=== PATIENT | male | born 1955 | race Caucasian/White ===

== ENCOUNTER → 2017-04-24 | Outpatient (CLI) | payer OTHER ==
[2017-04-24 15:28] LABS: ALT/SGPT 31 U/L (12-78); AST/SGOT 18 U/L (15-37); BLOOD UREA NITROGEN 22 mg/dl (7-18); CALCIUM 8.8 mg/dl (8.5-10.1); CARBON DIOXIDE 31 mmol/L (21-32); CHLORIDE 100 mmol/L (98-107); CREATININE 0.75 mg/dl (0.60-1.40); GLUCOSE 105 mg/dl (70-99); POTASSIUM 4.3 mmol/L (3.5-5.1); SODIUM 138 mmol/L (136-145); TRIGLYCERIDES 183 mg/dl (0-150); VERY LOW DENSITY LIPOPROT CALC 37 mg/dl
[2017-04-24 15:44] LABS: ALB/GLOB RATIO 0.9 (0.9-2); ALKALINE PHOSPHATASE 85 U/L (45-117); CHOLESTEROL 148 mg/dl (0-200); CHOLESTEROL/HDL RATIO 3.4; HDL CHOLESTEROL 44 mg/dl; LDL CHOLESTEROL CALCULATED 67 mg/dl
[2017-04-24 15:51] LABS: ESTIMATED AVERAGE GLUCOSE 154 mg/dl; HA1C FLAG Normal (Normal)
[2017-04-24 16:59] LABS: RATIO 28.5 mcg/mg (0-30.0)
== END | disposition home or self-care (01) ==
LOC: C.LAB1850 14:15
PROVIDERS: ATTEND Physician Assistant
DX: E11.9 Type 2 diabetes mellitus without complications (principal)

== ENCOUNTER → 2017-05-19 | Outpatient (CLI) | payer OTHER | END | disposition home or self-care (01) | LOC: C.LAB1850 16:15 | PROVIDERS: ATTEND Nurse Practitioner Adult Health | DX: Z12.5 Encounter for screening for malignant neoplasm of prostate (principal) ==

== ENCOUNTER → 2018-01-04 | Outpatient (CLI) | payer OTHER ==
[2018-01-04 16:39] LABS: BLOOD UREA NITROGEN 16 mg/dl (7-18); CALCIUM 9.1 mg/dl (8.5-10.1); CARBON DIOXIDE 30 mmol/L (21-32); CREATININE 0.78 mg/dl (0.60-1.40); GLUCOSE 128 mg/dl (70-99); POTASSIUM 4.2 mmol/L (3.5-5.1); SODIUM 139 mmol/L (136-145)
== END | disposition home or self-care (01) ==
LOC: C.LAB1850 14:33
PROVIDERS: ATTEND Nurse Practitioner Adult Health
DX: I10 Essential (primary) hypertension (principal); E66.01 Morbid (severe) obesity due to excess calories

== ENCOUNTER 2020-01-01 22:47 | Inpatient (IN) ==
[2020-01-01] MEDS ORDERED: ACETAMINOPHEN 1,000 MG/100 ML VIAL IV STA (23:23)
--- NOTE | 2020-01-01 23:36 | Emergency Department Note ---
History of Present Illness General Chief complaint: Penile Discharge Stated complaint: BIOPSY TODAY AND IS NOW BLEEDING FROM PENIS Time Seen by Provider: 01/01/20 23:04 Source: patient Mode of arrival: ambulatory Limitations: no limitations History of Present Illness Provider complaint: Blood in urine, fever Onset (ago): hour(s) Location: genitals Radiation: non-radiation Maximum Pain Intensity: 5 Current Pain Intensity: 5 Quality: + constant Relieved By: + none Exacerbated By: + other (urination) Associated symptoms: + fever/chills Treatments prior to arrival: none This is a 64 yo male who present to the ER complaining of blood with urination that began this evening following a prostate biopsy earlier today. Patient had a prostate biopsy performed earlier today by Dr. Huber. Patient states he had started taking Bactrim yesterday in preparation for the procedure as instructed. Patient is due for another dose at 1 AM. He had had a total of 3 doses prior to the procedure. Patient states he was told to expect some blood with urination following the procedure. Patient did have some initially after he voided in the office after the procedure. Patient states after going home he continued to have more and more blood in his urine, and passed a clot the size of a quarter. Patient has had moderate pain at the rectum since the procedure. Patient has not taken any additional pain medications. Patient denies any bleeding from the rectum. Patient is a diabetic. He has had this procedure done previously, and states he has never seen this much blood. Patient does not take any blood thinners per his report. Patient denies any Co. abdominal pain, chest pain, dizziness or headache. Patient denies shortness of breath, however his states that he appeared short of breath to her when they were at home. She states after noticing all the bleeding which had soaked through his pants she was helping to get him cleaned up and realized he felt warm. Patient did have a fever on arrival here. No other treatment prior to arrival. No known coronavirus exposure. Pt seen during a time of high acuity and national emergency pandemic while wearing PPE. Home Medications Home Medications Medication Instructions Recorded Confirmed Type finasteride 5 mg tablet 5 mg PO DAILY #90 tab 05/29/19 01/02/20 Rx insulin human U-100 NPH-regulr 40 units SQ BID #8 vial 05/29/19 01/02/20 Rx 70-30 mix 100 unit/mL subcutaneous susp simvastatin 20 mg tablet 20 mg PO DAILY #90 tab 05/29/19 01/02/20 Rx lancets 33 gauge #200 ea 09/05/19 01/01/20 Rx blood sugar diagnostic #200 ea 10/14/19 01/01/20 Rx pen needle, diabetic 32 gauge x #200 ea 10/14/19 01/01/20 Rx 5/32" insulin syringe-needle U-100 0.3 #100 ea 10/25/19 01/01/20 Rx mL 31 gauge x 5/16" losartan 25 mg tablet 25 mg PO DAILY #90 tab 11/12/19 01/02/20 Rx sulfamethoxazole 800 1 tab PO Q12H #6 tab 12/11/19 01/02/20 Rx mg-trimethoprim 160 mg tablet metformin 500 mg tablet 1,000 mg PO BID #360 tab 12/23/19 01/02/20 Rx Allergies Allergy/AdvReac Type Severity Reaction Status Date / Time Penicillins Allergy Unknown unknown Verified 01/02/20 00:30 allergy as a child Past Med/Surg History Medical History Diabetes mellitus type 2 in obese (Chronic) Dyslipidemia (Chronic) Hypertension (Chronic) Loss of sensation (Inactive) Morbid obesity (Chronic) Toenail fungus (Inactive) Surgical History H/O knee surgery H/O toe surgery Hx of tonsillectomy Family History Mother Cancer passed from myeloma and breast cancer at 88 yrs. 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 and A total of 10 systems reviewed and were otherwise negative Physical Exam Vital Signs Vital Signs - 24 hr 01/02/20 00:40 01/02/20 01:32 01/02/20 02:10 Temperature 37.7 C H 37.1 C Temperature Source Oral Oral Pulse Rate [Right Finger] 79 75 Pulse Rhythm [Right Finger] Regular Regular Pulse Strength [Right Finger] Normal Respiratory Rate 18 18 Respiratory Effort / Characteristics Non-Labored Non-Labored Spontaneous Respiratory Depth Normal Normal Respiratory Pattern Regular Regular Blood Pressure [Right Arm] 154/68 H 154/68 H Blood Pressure Mean [Right Arm] 96 96 Blood Pressure Position [Right Arm] Lying Pulse Oximetry 94 93 Oxygen Delivery Method Room Air Room Air 01/02/20 03:41 01/02/20 04:00 01/02/20 06:10 Temperature 37 C Temperature Source Oral Pulse Rate [Right Finger] 72 92 H Pulse Rhythm [Right Finger] Pulse Strength [Right Finger] Respiratory Rate 18 18 Respiratory Effort / Characteristics Non-Labored Respiratory Depth Normal Respiratory Pattern Blood Pressure [Right Arm] 179/70 H 162/78 H Blood Pressure Mean [Right Arm] 106 106 Blood Pressure Position [Right Arm] Pulse Oximetry 95 97 Oxygen Delivery Method Room Air 01/02/20 06:22 Temperature 38 C H Temperature Source Oral Pulse Rate [Right Finger] Pulse Rhythm [Right Finger] Pulse Strength [Right Finger] Respiratory Rate Respiratory Effort / Characteristics Respiratory Depth Respiratory Pattern Blood Pressure [Right Arm] Blood Pressure Mean [Right Arm] Blood Pressure Position [Right Arm] Pulse Oximetry Oxygen Delivery Method GENERAL: alert, well appearing, well nourished, no distress, non-toxic, obese EYE EXAM: normal conjunctiva, PERRL and EOM's grossly intact OROPHARYNX: no exudate, no erythema, lips, buccal mucosa, and tongue normal and mucous membranes are moist NECK: supple, no nuchal rigidity, no adenopathy, non-tender LUNGS: Clear to auscultation. Normal chest wall mechanics, no w/r/r HEART: no murmurs, S1 normal and S2 normal ABDOMEN: abdomen soft, non-tender, normo-active bowel sounds, no masses, no rebound or guarding. : Bilaterally descended testicles, no scrotal edema, penis retracted into the superior aspect of the scrotum, dried blood noted anteriorly, no significant active bleed BACK: Back is symmetrical on inspection and there is no deformity, no midline tenderness, no CVA tenderness. SKIN: no rashes and no bruising UPPER EXTREMITIES: upper extremities are grossly normal. FROM, nml pulses b/l. LOWER EXTREMITIES: No pitting edema. FROM, nml pulses b/l. Chronic appearing skin changes to bilateral pretibial regions likely due to diabetes. NEURO EXAM: Normal sensorium, cranial nerves II-XII grossly intact, normal speech, no gross weakness of arms, no gross weakness of legs. Gross sensation intact. Course Course 0211: Patient updated on results. Nursing placed Lopez catheter and the patient to be able to irrigate. A clot was initially found. Since then patient's urine has been clear draining into the catheter bag. Patient has no other symptoms at this time. 0330: Patient continues to have clear yellow urine in the Lopez catheter tubing. Patient has no new or evolving symptoms. No abdominal pain or pressure. 0550: Catheter was removed and patient was able to void twice with no sense of incomplete emptying. Patient states with the first urination after the catheter removed there was bright red blood again, however this then began to clear to a pink color. Patient concerned now because he is developing chills. I rechecked the patient's temperature bedside and it was 100.3. 0722: Discussed with Dr. Benjamin. Administered Medications Acetaminophen (Tylenol) 650 mg PO Q4H PRN PRN Reason: Pain or Fever Stop: 02/01/20 08:43 Last Admin: 01/02/20 14:08 Dose: 650 mg Documented by: [id number] Finasteride (Proscar) 5 mg PO DAILY [facility] Stop: 02/01/20 08:59 Last Admin: 01/02/20 09:49 Dose: 5 mg Documented by: [id number] Insulin Aspart (Novolog Flexpen) 0 units SC ACHS [facility] Stop: 02/01/20 11:29 Last Admin: 01/02/20 20:27 Dose: Not Given Documented by: [id number] Admin: 01/02/20 17:33 Dose: 5 units Documented by: [id number] Cosigned by: [id number] Admin: 01/02/20 12:19 Dose: 7 units Documented by: [id number] Cosigned by: [id number] Insulin Human Isoph/Insulin Regular (Humulin 70-30) 40 units SC BIDM [facility] Stop: 02/01/20 08:59 Last Admin: 01/02/20 17:33 Dose: 40 units Documented by: [id number] Cosigned by: [id number] Admin: 01/02/20 12:17 Dose: 40 units Documented by: [id number] Cosigned by: [id number] Ioversol (Optiray 320 125ml) 125 ml IV ONCE PRN PRN Reason: Interaction Checking Stop: 01/06/20 01:03 Last Admin: 01/02/20 01:04 Dose: 117 ml Documented by: [id number] Losartan Potassium (Cozaar) 25 mg PO DAILY [facility] Stop: 02/01/20 08:59 Last Admin: 01/02/20 09:48 Dose: 25 mg Documented by: [id number] Simvastatin (Zocor) 20 mg PO DAILY [facility] Stop: 02/01/20 08:59 Last Admin: 01/02/20 09:49 Dose: 20 mg Documented by: [id number] Discontinued Medications Sodium Chloride (Nss 1000ml) 1,000 mls @ 125 mls/hr IV .Q8H [facility] Stop: 01/31/20 23:29 Last Admin: 01/02/20 09:57 Dose: Not Given Documented by: [id number] Infusion: 01/02/20 09:57 Dose: 0 mls/hr Documented by: [id number] Admin: 01/02/20 00:30 Dose: 125 mls/hr Documented by: [id number] Acetaminophen (Ofirmev) 1,000 mg in 100 mls @ 400 mls/hr IV NOW STA Stop: 01/01/20 23:37 Last Infusion: 01/02/20 00:00 Dose: 0 mls/hr Documented by: [id number] Admin: 01/01/20 23:41 Dose: 400 mls/hr Documented by: [id number] Ceftriaxone Sodium (Rocephin) 2,000 mg in 70 mls @ 140 mls/hr IV NOW STA Stop: 01/02/20 00:45 Last Infusion: 01/02/20 02:37 Dose: 0 mls/hr Documented by: [id number] Admin: 01/02/20 02:07 Dose: 140 mls/hr Documented by: [id number] Magnesium Sulfate/Dextrose (Magnesium Sulfate / D5w) 1 gm in 100 mls @ 100 mls/hr IV NOW STA Stop: 01/02/20 01:31 Last Infusion: 01/02/20 03:40 Dose: 0 mls/hr Documented by: [id number] Admin: 01/02/20 02:07 Dose: 100 mls/hr Documented by: [id number] Acetaminophen (Ofirmev) 1,000 mg in 100 mls @ 400 mls/hr IV NOW STA Stop: 01/02/20 06:36 Last Infusion: 01/02/20 06:51 Dose: 0 mls/hr Documented by: [id number] Admin: 01/02/20 06:35 Dose: 400 mls/hr Documented by: [id number] Sodium Chloride (Nss 1000ml) 1,000 mls @ 100 mls/hr IV .Q10H [facility] Stop: 01/02/20 18:43 Last Infusion: 01/02/20 19:50 Dose: 0 mls/hr Documented by: [id number] Admin: 01/02/20 09:50 Dose: 100 mls/hr Documented by: [id number] Trimethoprim/Sulfamethoxazole (Septra Ds 800/160mg Tab) 1 tab PO NOW ONE Stop: 01/02/20 02:44 Last Admin: 01/02/20 03:58 Dose: 1 tab Documented by: [id number] Medical Decision Making Differential Diagnosis Viral syndrome, otitis, pharyngitis, pneumonia, influenza, meningitis, urinary tract infection, sepsis, bacteremia, postop complication, abscess, prostatitis, as well as other pathologies. Medical Records Attestation: I reviewed the patient's medical records. Home Medications Current Medication List: was personally reviewed by me Laboratory Data Attestation: I reviewed the patient's lab results. Result diagrams: 01/01/20 23:42 01/01/20 23:42 Lab Results 01/01/20 01/01/20 01/01/20 Range/Units 23:42 23:42 23:42 WBC 8.16 (4.8-10.8) K/uL RBC 4.86 (4.7-6.1) M/uL Hgb 14.0 (14.0-18.0) g/dL Hct 41.9 L (42-52) % MCV 86.2 (80-100) fL MCH 28.8 (25-34) pg MCHC 33.4 (32-36) g/dL RDW Std Deviation 43.4 (36.4-46.3) fL RDW Coeff of Daniel 13.8 (11.5-14.5) % Plt Count 214 (130-400) K/uL MPV 9.4 (7.4-10.4) fL Immature Gran % (Auto) 0.4 % Neut % (Auto) 82.6 % Lymph % (Auto) 6.4 % [place] % (Auto) 10.4 % Eos % (Auto) 0.0 % Baso % (Auto) 0.2 % Neut # (Auto) 6.74 H (1.4-6.5) K/uL Lymph # (Auto) 0.52 L (1.2-3.4) K/uL [place] # (Auto) 0.85 H (0.11-0.59) K/uL Eos # (Auto) 0.00 (0-0.5) K/uL Baso # (Auto) 0.02 (0-0.2) K/uL Immature Gran # (Auto) 0.03 H (0.00-0.02) K/uL PT 11.4 (9.0-12.0) Seconds INR 1.1 (0.9-1.1) APTT 28.3 (21.0-31.0) Seconds PTT Ratio 1.0 Sodium 136 (136-145) mmol/L Potassium 4.2 (3.5-5.1) mmol/L Chloride 102 (98-107) mmol/L Carbon Dioxide 27 (21-32) mmol/L Anion Gap 7.0 (3-11) BUN 18 (7-18) mg/dl Creatinine 1.05 (0.6-1.4) mg/dl Est Cr Clr Drug Dosing 107.6 ml/min Est GFR ( Amer) 87.1 Est GFR (Non-Af Amer) 75.2 BUN/Creatinine Ratio 17.0 (10-20) Glucose 142 H (70-99) mg/dl Lactate (0.4-2.0) mmol/L Calcium 8.4 L (8.5-10.1) mg/dl Magnesium 1.7 L (1.8-2.4) mg/dl Total Bilirubin 0.5 (0.2-1) mg/dl AST 20 (15-37) U/L ALT 34 (12-78) U/L Alkaline Phosphatase 94 (45-117) U/L Total Protein 7.6 (6.4-8.2) gm/dl Albumin 3.5 (3.4-5.0) gm/dl Globulin 4.1 H (2.5-4.0) gm/dl Albumin/Globulin Ratio 0.9 (0.9-2) Procalcitonin (0-0.5) ng/ml Urine Color Urine Appearance (Clear) Urine pH (4.5-7.5) Ur Specific Melissa (1.000-1.030) Urine Protein (Negative) Urine Glucose (UA) (Negative) Urine Ketones (Negative) Urine Blood (Negative) Urine Nitrite (Negative) Urine Bilirubin (Negative) Urine Urobilinogen (Negative) Ur Leukocyte Esterase (Negative) Urine RBC (0-4) /hpf Urine WBC (0-5) /hpf Ur Epithelial Cells (0-5) /lpf Urine Bacteria (Negative) 01/01/20 01/01/20 01/02/20 Range/Units 23:42 23:42 02:00 WBC (4.8-10.8) K/uL RBC (4.7-6.1) M/uL Hgb (14.0-18.0) g/dL Hct (42-52) % MCV (80-100) fL MCH (25-34) pg MCHC (32-36) g/dL RDW Std Deviation (36.4-46.3) fL RDW Coeff of Daniel (11.5-14.5) % Plt Count (130-400) K/uL MPV (7.4-10.4) fL Immature Gran % (Auto) % Neut % (Auto) % Lymph % (Auto) % [place] % (Auto) % Eos % (Auto) % Baso % (Auto) % Neut # (Auto) (1.4-6.5) K/uL Lymph # (Auto) (1.2-3.4) K/uL [place] # (Auto) (0.11-0.59) K/uL Eos # (Auto) (0-0.5) K/uL Baso # (Auto) (0-0.2) K/uL Immature Gran # (Auto) (0.00-0.02) K/uL PT (9.0-12.0) Seconds INR (0.9-1.1) APTT (21.0-31.0) Seconds PTT Ratio Sodium (136-145) mmol/L Potassium (3.5-5.1) mmol/L Chloride (98-107) mmol/L Carbon Dioxide (21-32) mmol/L Anion Gap (3-11) BUN (7-18) mg/dl Creatinine (0.6-1.4) mg/dl Est Cr Clr Drug Dosing ml/min Est GFR ( Amer) Est GFR (Non-Af Amer) BUN/Creatinine Ratio (10-20) Glucose (70-99) mg/dl Lactate 1.1 (0.4-2.0) mmol/L Calcium (8.5-10.1) mg/dl Magnesium (1.8-2.4) mg/dl Total Bilirubin (0.2-1) mg/dl AST (15-37) U/L ALT (12-78) U/L Alkaline Phosphatase (45-117) U/L Total Protein (6.4-8.2) gm/dl Albumin (3.4-5.0) gm/dl Globulin (2.5-4.0) gm/dl Albumin/Globulin Ratio (0.9-2) Procalcitonin < 0.05 (0-0.5) ng/ml Urine Color Red Urine Appearance Cloudy A (Clear) Urine pH 7.5 (4.5-7.5) Ur Specific Melissa 1.010 (1.000-1.030) Urine Protein 1+ H (Negative) Urine Glucose (UA) Negative (Negative) Urine Ketones Negative (Negative) Urine Blood 3+ H (Negative) Urine Nitrite Negative (Negative) Urine Bilirubin Negative (Negative) Urine Urobilinogen Negative (Negative) Ur Leukocyte Esterase Trace H (Negative) Urine RBC >30 H (0-4) /hpf Urine WBC 10-30 H (0-5) /hpf Ur Epithelial Cells 20-30 H (0-5) /lpf Urine Bacteria Negative (Negative) Imaging Data My Impression: X-ray: I interpreted the following studies. Chest: A single view study of the chest was reviewed and was negative for cardiomegaly, focal infiltrate, effusion, pulmonary edema, or wide mediastinum. Radiologist's Impression: CT abdomen and pelvis with contrast: Debris, hemorrhage or lesion at the bladder base, measuring approximately 2 x 1 cm. Mild fatty liver. No radiodense gallstones or pancreatitis. Right adrenal myelo lipoma. Right nephrolithiasis. Renal cysts and other low-attenuation foci. No evidence of colitis. Unremarkable appendix. Nonobstructive bowel gas pattern. Mild haziness and small nodes in the mesentery, could be from mesenteric panniculitis. There is a broader differential. Radiologist: Jose Zeng MD Blood Pressure Blood Pressure Findings: Elevated blood pressure Blood Pressure Disposition: further management by hospitalist MDM Narrative This is a 64-year-old male who presents the emergency department with concern for fevers and hematuria. Patient had a prostate biopsy earlier today. Patient states he has had these previously, and the blood he noted along with clots tonight is much more than he is ever had before. Patient felt well prior to the procedure. Labs drawn and sent here given concern for elevated temperature and these were reassuring. Blood culture sent as a precaution. Patient began to feel a sense of urgency, and bladder scan did show some amount of urine in the bladder, so a catheter was placed to help with irrigation given the CT suggested likely blood clot. A blood clot was flushed out, catheter left and to monitor draining. The urine following the initial blood continued to clear. Patient had no recurrent abdominal or pelvic pain. No GI bleeding. Patient was well- appearing here throughout was given an extra dose of IV antibiotics in addition to his usual Bactrim. Catheter was then removed and patient was able to void on his own, although he did still have some hematuria. Patient then developed Reiger's and again spiked a fever here. Case discussed with hospitalist for additional monitoring. While I suspect likely transient bacteremia given his procedure, patient at high risk due to age and comorbidities. No other evidence of acute urologic complication on CT imaging. An order was placed for continuous cardiac monitoring. The monitor shows a rate of 80 with normal sinus rhythm. Impression & Plan Fever, Hematuria, History of prostate biopsy Discharge Plan Visit Data *Final* Discharge Date/Time: 01/02/20 08:20 Chief Complaint: Penile Discharge Stated Complaint: BIOPSY TODAY AND IS NOW BLEEDING FROM [facility] ED Provider: Tere Grajeda Discharge Problem: Fever, Hematuria, History of prostate biopsy Patient Disposition: Admitted As Inpatient Discharge Instructions Interventions: ED Discharge Assessment Last Done: 01/02/20 08:20 Discharge Problem: Fever Qualifiers: Fever type: unspecified Qualified Code(s): R50.9 - Fever, unspecified Hematuria Qualifiers: Hematuria type: gross Qualified Code(s): R31.0 - Gross hematuria
[2020-01-01 23:55] LABS: Basophils # (auto) 0.02 K/uL (0-0.2); Basophils % (auto) 0.2 %; Hematocrit (blood only) 41.9 % (42-52); Immature Granulocytes # (auto) 0.03 K/uL (0.00-0.02); Immature Granulocytes % (auto) 0.4 %; Lymphocytes # (auto) 0.52 K/uL (1.2-3.4); Lymphocytes % (auto) 6.4 %; Mean Corpuscular Hemoglobin 28.8 pg (25-34); Mean Corpuscular Hgb Conc 33.4 g/dL (32-36); Mean Corpuscular Volume 86.2 fL (80-100); Mean Platelet Volume 9.4 fL (7.4-10.4); Monocytes # (auto) 0.85 K/uL (0.11-0.59); Monocytes % (auto) 10.4 %; Neutrophils # (auto) 6.74 K/uL (1.4-6.5); Neutrophils % (auto) 82.6 %; Platelet Count 214 K/uL (130-400); RDW Coefficient of Variation 13.8 % (11.5-14.5); RDW Standard Deviation 43.4 fL (36.4-46.3); Red Blood Count 4.86 M/uL (4.7-6.1); White Blood Count 8.16 K/uL (4.8-10.8)
[2020-01-02 00:06] LABS: INR 1.1 (0.9-1.1); Partial Thromboplastin Time 28.3 Seconds (21.0-31.0); Prothrombin Time 11.4 Seconds (9.0-12.0)
[2020-01-02 00:14] LABS: Albumin Level 3.5 gm/dl (3.4-5.0); Calcium 8.4 mg/dl (8.5-10.1); Creatinine Clr Calc Pharmacy 107.6 ml/min; Est GFR (African American) 87.1; Est GFR (Non-African American) 75.2; Magnesium 1.7 mg/dl (1.8-2.4); Potassium 4.2 mmol/L (3.5-5.1)
[2020-01-02 00:16] LABS: Albumin Globulin Ratio 0.9 (0.9-2); Bilirubin,Total 0.5 mg/dl (0.2-1); Globulin 4.1 gm/dl (2.5-4.0); Total Protein 7.6 gm/dl (6.4-8.2)
[2020-01-02] MEDS ORDERED: cefTRIAXone SODIUM 2,000 MG/70 ML BAG IV STA (00:16)
[2020-01-02] MEDS: SODIUM CHLORIDE 0.9% 1000ML 1,000 ML IV SCH ×2 (00:30→09:57)
[2020-01-02] MEDS ORDERED: MAGNESIUM SULFATE / D5W 1 GM/100 ML BAG IV STA (00:32)
[2020-01-02] MEDS ORDERED: OPTIRAY 320 125ml IV PRN (01:04)
[2020-01-02 02:32] LABS: Appearance Urine Cloudy (Clear); Bilirubin Urine Negative (Negative); Blood Urine 3+ (Negative); Color Urine Red; Glucose Urine UA Negative (Negative); Ketones Urine Negative (Negative); Leukocyte Esterase Urine Trace (Negative); Nitrite Urine Negative (Negative); Urobilinogen Urine Negative (Negative); pH Urine 7.5 (4.5-7.5)
[2020-01-02 02:35] LABS: Protein Urine 1+ (Negative)
[2020-01-02 02:36] LABS: Sulfosalicylic Acid Urine Positive (Negative)
[2020-01-02 02:39] LABS: Bacteria Urine Negative (Negative); RBC Urine >30 /hpf (0-4)
[2020-01-02 02:41] LABS: Epithelial Cell Urine 20-30 /lpf (0-5)
[2020-01-02] MEDS ORDERED: SULFAMETHOXAZOLE/TRIMETHOPRIM DS 800/160MG TAB PO ONE (02:43)
[2020-01-02] MEDS ORDERED: ACETAMINOPHEN 1,000 MG/100 ML VIAL IV STA (06:22)
--- NOTE | 2020-01-02 07:39 | History & Physical Report ---
Date of Service January 02, 2020 Assessment & Plan (1) Fever: most likely etiology is from prostate biopsy, possible bacterial translocation, bacteremia? will cover with Rocephin 2gm IV daily follow up urine and blood culture results WBC normal 8k repeat labs in the AM taper antibiotics once culture is back (2) Hematuria: expected after biopsy consult urology for recommendations hold on chemical DVT prophylaxis (3) History of prostate biopsy: occurred on 12/31 will follow up with Dr. Reyes for results (4) Hypertension: BP is stable continue home regimen (5) Diabetes mellitus type 2 in obese: continue 70/30 BID Novolog SS added monitor for hypoglycemia diabetic diet (6) Dyslipidemia: (7) BPH (benign prostatic hyperplasia): (8) Diabetic peripheral neuropathy: History of Present Illness Chief Complaint: I was urinating blood Primary Care Provider: ARLINE Mays 64 yo male with DM type II, insulin dependent, obesity who presented early this morning to the ED after having gross hematuria. He had a prostate biopsy with Dr. Reyes yesterday, 11 biopsies taken. He was on prophylactic antibiotics. He noted some hematuria last night which he was told could happen. But then he had gross hematuria and clots and difficulty urinating so he came to the ED. After he was in the ED he developed fever with severe rigors and chills. He did not have any chest pain or shortness of breath. No abdominal pain or nausea. He had a chu placed that initially helped clear up his urine but then he passed clots after it was removed. CT abdomen/pelvis showed large 2.3cm blood clot in the bladder. Also showed stranding in the prostate consistent with recent biopsy. WBC normal at 8k and Cr and electrolytes stable. He was given IV fluid bolus and a dose of Rocephin. It was recommended that he be admitted for fever, rigors after the prostate biopsy, possible bacteremia after biopsy. Allergies Allergy/AdvReac Type Severity Reaction Status Date / Time Penicillins Allergy Unknown unknown Verified 01/02/20 00:30 allergy as a child Home Medications Home Medications Medication Instructions Recorded Confirmed Type finasteride 5 mg tablet 5 mg PO DAILY #90 tab 05/29/19 01/02/20 Rx insulin human U-100 NPH-regulr 40 units SQ BID #8 vial 05/29/19 01/02/20 Rx 70-30 mix 100 unit/mL subcutaneous susp simvastatin 20 mg tablet 20 mg PO DAILY #90 tab 05/29/19 01/02/20 Rx lancets 33 gauge #200 ea 09/05/19 01/01/20 Rx blood sugar diagnostic #200 ea 10/14/19 01/01/20 Rx pen needle, diabetic 32 gauge x #200 ea 10/14/19 01/01/20 Rx 5/32" insulin syringe-needle U-100 0.3 #100 ea 10/25/19 01/01/20 Rx mL 31 gauge x 5/16" losartan 25 mg tablet 25 mg PO DAILY #90 tab 11/12/19 01/02/20 Rx sulfamethoxazole 800 1 tab PO Q12H #6 tab 12/11/19 01/02/20 Rx mg-trimethoprim 160 mg tablet metformin 500 mg tablet 1,000 mg PO BID #360 tab 12/23/19 01/02/20 Rx Past Med/Surg History Medical History Diabetes mellitus type 2 in obese (Chronic) Dyslipidemia (Chronic) Hypertension (Chronic) Loss of sensation (Inactive) Morbid obesity (Chronic) Toenail fungus (Inactive) Surgical History H/O knee surgery H/O toe surgery Hx of tonsillectomy Family History Mother Cancer passed from myeloma and breast cancer at 88 yrs. 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: No Beliefs That Will Affect Care: None marital status: Current Living Situation: Spouse Other Information That Helps Us Care for You: No Feels Safe at Home: Yes Safety Concerns: Feels Safe At This Time Dental Care, Regularly: Yes Physical Activity Frequency: Does not Exercise Seatbelt Use: always Review of Systems Review of Systems: All systems reviewed & are unremarkable except as noted in HPI & below Physical Exam Constitutional: WD/WN, vitals as above + obese; no acute distress Eyes: PERRL, conjunctivae normal, anicteric sclerae ENMT: external ear and nose normal, oropharynx normal Neck: trachea midline, no thyromegaly Respiratory: normal respiratory effort, lungs clear to auscultation Cardiovascular: RRR, no murmur, no edema Gastrointestinal (Abdomen): normal bowel sounds, soft, nontender, no hepatosplenomegaly Musculoskeletal: no cyanosis or clubbing, extremities motor strength 5/5 Skin: no rashes, warm and dry Neurologic: patellar DTR's 2+ bilat, sensation intact and PERRL, EOMI, accommodation nl, no face palsy, no dysarthria Psychiatric: A+Ox3, euthymic affect Lymphatic: no cervical or axillary lymphadenopathy Results & Data Results & Data ([facility]) Vital Signs (Past 12 Hours) Vital Signs Temp Pulse Pulse Resp BP BP Pulse Ox 01/02/20 06:22 38 C H 01/02/20 06:10 92 H 18 162/78 H 97 01/02/20 04:00 37 C 01/02/20 03:41 72 18 179/70 H 95 01/02/20 02:10 37.1 C 75 18 154/68 H 93 01/02/20 01:32 79 18 154/68 H 94 01/02/20 00:40 37.7 C H 01/01/20 23:49 99 01/01/20 23:17 39.2 C H 01/01/20 23:00 16 01/01/20 22:51 38.1 C H 97 H 20 158/70 H 93 Laboratory Results Laboratory Results - last 24 hr 01/01/20 01/01/20 01/01/20 23:42 23:42 23:42 WBC 8.16 RBC 4.86 Hgb 14.0 Hct 41.9 L MCV 86.2 MCH 28.8 MCHC 33.4 RDW Std Deviation 43.4 RDW Coeff of Daniel 13.8 Plt Count 214 MPV 9.4 Immature Gran % (Auto) 0.4 Neut % (Auto) 82.6 Lymph % (Auto) 6.4 [place] % (Auto) 10.4 Eos % (Auto) 0.0 Baso % (Auto) 0.2 Neut # (Auto) 6.74 H Lymph # (Auto) 0.52 L [place] # (Auto) 0.85 H Eos # (Auto) 0.00 Baso # (Auto) 0.02 Immature Gran # (Auto) 0.03 H PT 11.4 INR 1.1 APTT 28.3 PTT Ratio 1.0 Sodium 136 Potassium 4.2 Chloride 102 Carbon Dioxide 27 Anion Gap 7.0 BUN 18 Creatinine 1.05 Est Cr Clr Drug Dosing 107.6 Est GFR ( Amer) 87.1 Est GFR (Non-Af Amer) 75.2 BUN/Creatinine Ratio 17.0 Glucose 142 H Lactate Calcium 8.4 L Magnesium 1.7 L Total Bilirubin 0.5 AST 20 ALT 34 Alkaline Phosphatase 94 Total Protein 7.6 Albumin 3.5 Globulin 4.1 H Albumin/Globulin Ratio 0.9 Procalcitonin Urine Color Urine Appearance Urine pH Ur Specific [place] Urine Protein Urine Glucose (UA) Urine Ketones Urine Blood Urine Nitrite Urine Bilirubin Urine Urobilinogen Ur Leukocyte Esterase Urine RBC Urine WBC Ur Epithelial Cells Urine Bacteria 01/01/20 01/01/20 01/02/20 23:42 23:42 02:00 WBC RBC Hgb Hct MCV MCH MCHC RDW Std Deviation RDW Coeff of Daniel Plt Count MPV Immature Gran % (Auto) Neut % (Auto) Lymph % (Auto) [place] % (Auto) Eos % (Auto) Baso % (Auto) Neut # (Auto) Lymph # (Auto) [place] # (Auto) Eos # (Auto) Baso # (Auto) Immature Gran # (Auto) PT INR APTT PTT Ratio Sodium Potassium Chloride Carbon Dioxide Anion Gap BUN Creatinine Est Cr Clr Drug Dosing Est GFR ( Amer) Est GFR (Non-Af Amer) BUN/Creatinine Ratio Glucose Lactate 1.1 Calcium Magnesium Total Bilirubin AST ALT Alkaline Phosphatase Total Protein Albumin Globulin Albumin/Globulin Ratio Procalcitonin < 0.05 Urine Color Red Urine Appearance Cloudy A Urine pH 7.5 Ur Specific [place] 1.010 Urine Protein 1+ H Urine Glucose (UA) Negative Urine Ketones Negative Urine Blood 3+ H Urine Nitrite Negative Urine Bilirubin Negative Urine Urobilinogen Negative Ur Leukocyte Esterase Trace H Urine RBC >30 H Urine WBC 10-30 H Ur Epithelial Cells 20-30 H Urine Bacteria Negative Diagnostic Findings CT abdomen/pelvis IMPRESSION: 1. The prostate gland is heterogeneous and there is faint periprostatic stranding. This is likely related to recent biopsy. Correlate clinically and with urinalysis for evidence of a mild prostatitis. 2. There is a 2.3 cm round hyperdense structure seen along the posterior wall of the bladder. This is new from the 12/06/2019 MRI and likely represents blood clots. Ultrasound of the bladder in several weeks' time is recommended to document resolution. 3. Right-sided nephrolithiasis. 4. Additional findings as above. PG Care Time/CCT Total # of Minutes Spent Total Time Spent with Patient: Total time spent is greater than 50% in coordination of care (as documented) at patient's floor/unit and/or counseling patient: Coding Level of Care Code 59049 Initial Inpt Care Lvl 3 Diagnoses Fever R50.9 Fever type: unspecified Hematuria R31.0 Hematuria type: gross History of prostate biopsy Z98.890 Hypertension I10 Diabetes mellitus type 2 in obese E11.69; E66.9 Dyslipidemia E78.5 BPH (benign prostatic hyperplasia) N40.0 Diabetic peripheral neuropathy E11.42 (1) Fever Fever type: unspecified Qualified Code(s): R50.9 - Fever, unspecified (2) Hematuria Hematuria type: gross Qualified Code(s): R31.0 - Gross hematuria
--- NOTE | 2020-01-02 08:10 | XRay Report ---
XR chest 1V portable CLINICAL HISTORY: Sepsis. COMPARISON STUDY: No previous studies for comparison. FINDINGS: Lung volumes are normal. Lungs are clear. There is no pneumothorax or pleural effusion. Mil d enlargement of the cardiac silhouette is noted. Mediastinal contours are normal. There is no eviden ce for pulmonary edema. IMPRESSION: No acute cardiopulmonary findings. ACT 112: Negative or not required by law. Electronically signed by: Mitch Betancourt M.D. 01/02/2020 8:09 AM
[2020-01-02] MEDS ORDERED: ONDANSETRON INJ 2 MG/ML 2 ML VIAL IV PRN (08:44)
[2020-01-02] MEDS ORDERED: SODIUM CHLORIDE 0.9% 1000ML 1,000 ML IV SCH (08:44)
--- NOTE | 2020-01-02 08:59 | CT Scan Report ---
CT SCAN OF THE ABDOMEN AND PELVIS WITH IV CONTRAST CLINICAL HISTORY: Fever and hematuria status post prostate biopsy. COMPARISON STUDY: Prostate MRI dated 12/06/2019. TECHNIQUE: Following the IV administration of 117 cc of Optiray 320, CT scan of the abdomen and pelv is is performed from the lung bases to the proximal femora. Images are reviewed in the axial, sagitta l, and coronal planes. IV contrast was administered without complication. A dose lowering technique w as utilized adhering to the principles of ALARA. CT DOSE: 3011.55 mGy.cm FINDINGS: Lung bases: The heart is normal in size and without pericardial effusion. There are scattered coronar y artery calcifications. The lung bases are clear noting bibasilar scarring/atelectasis. Liver: The contrast-enhanced liver is normal in size, contour, and attenuation. There is no intrahepa tic biliary ductal dilatation. The hepatic veins and portal veins are patent. Gallbladder: Unremarkable. Spleen: Normal in size and attenuation. Pancreas: Unremarkable. Adrenal glands: There is a 2.1 cm myelolipoma of the right adrenal gland. The left adrenal gland is n ormal in appearance. Kidneys: The contrast enhanced kidneys are normal in size and without hydronephrosis. The kidneys enh ance symmetrically. There is a 7 mm nonobstructing calculus in the lower pole the right kidney. No le ft renal calculi are clearly identified on this contrast-enhanced examination. Bilateral renal cysts measure up to 2.5 cm. Additional subcentimeter cortical hypodensities also likely represent cysts but are too small for definitive characterization. Abdominal vasculature: The abdominal aorta is normal in course and caliber noting mild atheroscleroti c calcification. Bowel: There is no bowel obstruction. Mild/moderate fecal retention is noted in the colon. The append ix is well-visualized and normal. Peritoneum: There is no intraperitoneal free air or abdominal ascites. Lymphadenopathy: There are subcentimeter retroperitoneal and iliac chain lymph nodes. These are not p athologically enlarged by size criteria. Pelvic viscera: The bladder is distended. A 2.3 cm rounded hyperdense lesion is seen along the bundle clerk ior wall of the bladder image #431. This is new from the 12/06/2019 MRI and likely resent blood clots. The prostate gland is heterogeneous. Question faint periprostatic stranding. Skeletal structures: There is moderate lumbosacral spondylosis. Degenerative change is also seen in t he sacroiliac joints. No lytic or blastic lesions are seen. IMPRESSION: 1. The prostate gland is heterogeneous and there is faint periprostatic stranding. This is likely rel ated to recent biopsy. Correlate clinically and with urinalysis for evidence of a mild prostatitis. 2. There is a 2.3 cm round hyperdense structure seen along the posterior wall of the bladder. This is new from the 12/06/2019 MRI and likely represents blood clots. Ultrasound of the bladder in several w eeks' time is recommended to document resolution. 3. Right-sided nephrolithiasis. 4. Additional findings as above. ACT 112: Negative or not required by law. Electronically signed by: Evan Garcia M.D. 01/02/2020 8:58 AM
[2020-01-02] MEDS ORDERED: GLUCAGON FOR INJ 1 MG VIAL IM PRN (09:00)
[2020-01-02] MEDS ORDERED: DEXTROSE 50% 50 ML SYRINGE IV PRN (09:00)
[2020-01-02] MEDS ORDERED: GLUCOSE 40% GEL 15 GM TUBE PO PRN (09:00)
[2020-01-02] MEDS ORDERED: CARBOHYDRATES FOR HYPOGLYCEMIA PO PRN (09:00)
[2020-01-02] MEDS ORDERED: GLUCOSE 10 TABS/TUBE PO PRN (09:00)
[2020-01-02] MEDS: LOSARTAN POTASSIUM 25 MG TAB PO SCH (09:48)
[2020-01-02] MEDS: SIMVASTATIN 20 MG TAB PO SCH (09:49)
[2020-01-02] MEDS: FINASTERIDE 5 MG TAB PO SCH (09:49)
--- NOTE | 2020-01-02 10:09 | Urology Consultation ---
Date of Consultation January 02, 2020 Assessment & Plan (1) Hematuria: Assessment Hematuria post prostate biopsy with fever Currently patient is afebrile Reviewed his CT scan he has right renal calculi some renal cysts and some perinephric stranding around the prostate probably secondary to the biopsy he may have had a small clot in the bladder as well I discussed with patient that bleeding in the urine or stool was common after prostate biopsy and can last several months I would continue him on antibiotics and extend the treatment for couple weeks Follow-up phone visit is scheduled for next week History of Present Illness Attending Physician: Rosales Benjamin, History of Present Illness 64-year-old white male who was admitted to the hospital with bleeding from the penis after a prostate biopsy done yesterday. He tells me that after the biopsy he developed some blood from the penis and blood when he urinated. He tells me later that evening he developed a fever but no chills He came to the emergency room it appears he had a Lopez placed the urine itself was clear after irrigating out small clot. But because of the fever he was admitted for possible prostatitis Allergies Allergy/AdvReac Type Severity Reaction Status Date / Time Penicillins Allergy Unknown unknown Verified 01/02/20 00:30 allergy as a child Home Medications Home Medications Medication Instructions Recorded Confirmed Type finasteride 5 mg tablet 5 mg PO DAILY #90 tab 05/29/19 01/02/20 Rx insulin human U-100 NPH-regulr 40 units SQ BID #8 vial 05/29/19 01/02/20 Rx 70-30 mix 100 unit/mL subcutaneous susp simvastatin 20 mg tablet 20 mg PO DAILY #90 tab 05/29/19 01/02/20 Rx lancets 33 gauge #200 ea 09/05/19 01/01/20 Rx blood sugar diagnostic #200 ea 10/14/19 01/01/20 Rx pen needle, diabetic 32 gauge x #200 ea 10/14/19 01/01/20 Rx 5/32" insulin syringe-needle U-100 0.3 #100 ea 10/25/19 01/01/20 Rx mL 31 gauge x 5/16" losartan 25 mg tablet 25 mg PO DAILY #90 tab 11/12/19 01/02/20 Rx sulfamethoxazole 800 1 tab PO Q12H #6 tab 12/11/19 01/02/20 Rx mg-trimethoprim 160 mg tablet metformin 500 mg tablet 1,000 mg PO BID #360 tab 12/23/19 01/02/20 Rx Patient History Medical History Diabetes mellitus type 2 in obese (Chronic) Dyslipidemia (Chronic) Hypertension (Chronic) Loss of sensation (Inactive) Morbid obesity (Chronic) Toenail fungus (Inactive) Surgical History H/O knee surgery H/O toe surgery Hx of tonsillectomy Family History Mother Cancer passed from myeloma and breast cancer at 88 yrs. Breast cancer Father Myocardial infarction at 72 years Other Diabetes Social History Smoking Status: Never smoker Hx Alcohol Use: No Hx Substance Use: No Preferred Language: Occitan Communication Ability: Effective marital status: Feels Safe at Home: Yes Dental Care, Regularly: Yes Physical Activity Frequency: Does not Exercise Seatbelt Use: always Physical Exam Physical Exam: Constitutional Well-developed well-nourished In no acute distress, Healthy appearing Neuro/psych Alert and oriented x3 Normal mood Normal affect Normal coordination Skin Normal color Normal turgor Coloration lower extremities Warm and Dry Neck Normal visual inspection Pulmonary Normal rhythm and effort No respiratory distress No audible wheezes Able to speak in complete sentences Cardiac Lower extremity peripheral edema Results & Data Vital Signs (Past 12 Hours) Vital Signs Temp Pulse Pulse Resp BP BP Pulse Ox 01/02/20 08:44 36.8 C 85 18 148/78 H 94 01/02/20 08:00 37.6 C H 84 20 144/59 H 94 01/02/20 06:22 38 C H 01/02/20 06:10 92 H 18 162/78 H 97 01/02/20 04:00 37 C 01/02/20 03:41 72 18 179/70 H 95 01/02/20 02:10 37.1 C 75 18 154/68 H 93 01/02/20 01:32 79 18 154/68 H 94 01/02/20 00:40 37.7 C H 01/01/20 23:49 99 01/01/20 23:17 39.2 C H 01/01/20 23:00 16 01/01/20 22:51 38.1 C H 97 H 20 158/70 H 93 Laboratory Results Laboratory Results - last 24 hr 01/01/20 01/01/20 01/01/20 23:42 23:42 23:42 WBC 8.16 RBC 4.86 Hgb 14.0 Hct 41.9 L MCV 86.2 MCH 28.8 MCHC 33.4 RDW Std Deviation 43.4 RDW Coeff of Daniel 13.8 Plt Count 214 MPV 9.4 Immature Gran % (Auto) 0.4 Neut % (Auto) 82.6 Lymph % (Auto) 6.4 [place] % (Auto) 10.4 Eos % (Auto) 0.0 Baso % (Auto) 0.2 Neut # (Auto) 6.74 H Lymph # (Auto) 0.52 L [place] # (Auto) 0.85 H Eos # (Auto) 0.00 Baso # (Auto) 0.02 Immature Gran # (Auto) 0.03 H PT 11.4 INR 1.1 APTT 28.3 PTT Ratio 1.0 Sodium 136 Potassium 4.2 Chloride 102 Carbon Dioxide 27 Anion Gap 7.0 BUN 18 Creatinine 1.05 Est Cr Clr Drug Dosing 107.6 Est GFR ( Amer) 87.1 Est GFR (Non-Af Amer) 75.2 BUN/Creatinine Ratio 17.0 Glucose 142 H Lactate Calcium 8.4 L Magnesium 1.7 L Total Bilirubin 0.5 AST 20 ALT 34 Alkaline Phosphatase 94 Total Protein 7.6 Albumin 3.5 Globulin 4.1 H Albumin/Globulin Ratio 0.9 Procalcitonin Urine Color Urine Appearance Urine pH Ur Specific [place] Urine Protein Urine Glucose (UA) Urine Ketones Urine Blood Urine Nitrite Urine Bilirubin Urine Urobilinogen Ur Leukocyte Esterase Urine RBC Urine WBC Ur Epithelial Cells Urine Bacteria 01/01/20 01/01/20 01/02/20 23:42 23:42 02:00 WBC RBC Hgb Hct MCV MCH MCHC RDW Std Deviation RDW Coeff of Daniel Plt Count MPV Immature Gran % (Auto) Neut % (Auto) Lymph % (Auto) [place] % (Auto) Eos % (Auto) Baso % (Auto) Neut # (Auto) Lymph # (Auto) [place] # (Auto) Eos # (Auto) Baso # (Auto) Immature Gran # (Auto) PT INR APTT PTT Ratio Sodium Potassium Chloride Carbon Dioxide Anion Gap BUN Creatinine Est Cr Clr Drug Dosing Est GFR ( Amer) Est GFR (Non-Af Amer) BUN/Creatinine Ratio Glucose Lactate 1.1 Calcium Magnesium Total Bilirubin AST ALT Alkaline Phosphatase Total Protein Albumin Globulin Albumin/Globulin Ratio Procalcitonin < 0.05 Urine Color Red Urine Appearance Cloudy A Urine pH 7.5 Ur Specific [place] 1.010 Urine Protein 1+ H Urine Glucose (UA) Negative Urine Ketones Negative Urine Blood 3+ H Urine Nitrite Negative Urine Bilirubin Negative Urine Urobilinogen Negative Ur Leukocyte Esterase Trace H Urine RBC >30 H Urine WBC 10-30 H Ur Epithelial Cells 20-30 H Urine Bacteria Negative PG Care Time/CCT Total # of Minutes Spent Total Time Spent with Patient: Total time spent is greater than 50% in coordination of care (as documented) at patient's floor/unit and/or counseling patient: Coding Level of Care Code 94013 Inpt Consult Level 3 Diagnoses Hematuria R31.0 Hematuria type: gross (1) Hematuria Hematuria type: gross Qualified Code(s): R31.0 - Gross hematuria
[2020-01-02] MEDS: INS HUMAN ISOPH SC SCH ×2 (12:17→17:33)
[2020-01-02] MEDS: INS REG SC SCH ×2 (12:17→17:33)
[2020-01-02] MEDS: INSULIN ASPART 100 UNITS/ML 3 ML PEN SC SCH ×3 (12:19→20:27)
[2020-01-02] MEDS: ACETAMINOPHEN 325 MG TAB PO PRN (14:08)
--- NOTE | 2020-01-02 22:37 | Electrocardiogram Report ---
Test Reason : Blood Pressure : / mmHG Vent. Rate : 090 BPM Atrial Rate : 090 BPM P-R Int : 246 ms QRS Dur : 114 ms QT Int : 346 ms P-R-T Axes : -07 -60 059 degrees QTc Int : 423 ms Sinus rhythm with 1st degree A-V block Left anterior fascicular block Cannot rule out Anterior infarct , age undetermined Abnormal ECG No previous ECGs available Confirmed by Serafin Byrd ([id number]) on 01/02/2020 10:37:32 PM Referred By: REFERRED SELF Confirmed By:Serafin Byrd
[2020-01-03] MEDS: ACETAMINOPHEN 325 MG TAB PO PRN (00:42)
[2020-01-03] MEDS ORDERED: cefTRIAXone SODIUM 2,000 MG in DEXTROSE 5% 50 ML IV SCH (02:00)
[2020-01-03] MEDS: FINASTERIDE 5 MG TAB PO SCH (08:11)
[2020-01-03] MEDS: LOSARTAN POTASSIUM 25 MG TAB PO SCH (08:11)
[2020-01-03] MEDS: SIMVASTATIN 20 MG TAB PO SCH (08:11)
[2020-01-03] MEDS: INS REG SC SCH (08:14)
[2020-01-03] MEDS: INS HUMAN ISOPH SC SCH (08:14)
[2020-01-03] MEDS: INSULIN ASPART 100 UNITS/ML 3 ML PEN SC SCH ×2 (08:15→12:41)
[2020-01-03 08:55] LABS: Basophils # (auto) 0.01 K/uL (0-0.2); Basophils % (auto) 0.2 %; Eosinophils # (auto) 0.04 K/uL (0-0.5); Eosinophils % (auto) 0.6 %; Hemoglobin 14.9 g/dL (14.0-18.0); Immature Granulocytes # (auto) 0.02 K/uL (0.00-0.02); Immature Granulocytes % (auto) 0.3 %; Lymphocytes # (auto) 0.71 K/uL (1.2-3.4); Lymphocytes % (auto) 10.9 %; Mean Corpuscular Hemoglobin 28.7 pg (25-34); Mean Corpuscular Hgb Conc 33.1 g/dL (32-36); Mean Corpuscular Volume 86.7 fL (80-100); Mean Platelet Volume 9.6 fL (7.4-10.4); Monocytes # (auto) 0.66 K/uL (0.11-0.59); Monocytes % (auto) 10.1 %; Neutrophils # (auto) 5.09 K/uL (1.4-6.5); Neutrophils % (auto) 77.9 %; Platelet Count 196 K/uL (130-400); RDW Coefficient of Variation 14.1 % (11.5-14.5); RDW Standard Deviation 44.3 fL (36.4-46.3); Red Blood Count 5.19 M/uL (4.7-6.1); White Blood Count 6.53 K/uL (4.8-10.8)
[2020-01-03 09:30] LABS: Calcium 8.8 mg/dl (8.5-10.1); Creatinine Clr Calc Pharmacy 113.1 ml/min; Est GFR (African American) 85.2; Est GFR (Non-African American) 73.5
--- NOTE | 2020-01-03 13:57 | Discharge Summary ---
Date of Service January 03, 2020 Admission HPI Per Admitting Provider 64 yo male with DM type II, insulin dependent, obesity who presented early this morning to the ED after having gross hematuria. He had a prostate biopsy with Dr. Reyes yesterday, 11 biopsies taken. He was on prophylactic antibiotics. He noted some hematuria last night which he was told could happen. But then he had gross hematuria and clots and difficulty urinating so he came to the ED. After he was in the ED he developed fever with severe rigors and chills. He did not have any chest pain or shortness of breath. No abdominal pain or nausea. He had a chu placed that initially helped clear up his urine but then he passed clots after it was removed. CT abdomen/pelvis showed large 2.3cm blood clot in the bladder. Also showed stranding in the prostate consistent with recent biopsy. WBC normal at 8k and Cr and electrolytes stable. He was given IV fluid bolus and a dose of Rocephin. It was recommended that he be admitted for fever, rigors after the prostate biopsy, possible bacteremia after biopsy. Principal Diagnosis Fever after prostate biopsy Discharge Exam Constitutional WD/WN, vitals as above + obese; no acute distress Eyes PERRL, conjunctivae normal, anicteric sclerae ENMT external ear and nose normal, oropharynx normal Neck trachea midline, no thyromegaly Respiratory normal respiratory effort, lungs clear to auscultation Cardiovascular RRR, no murmur, no edema Gastrointestinal (Abdomen) normal bowel sounds, soft, nontender, no hepatosplenomegaly Musculoskeletal no cyanosis or clubbing, extremities motor strength 5/5 Skin no rashes, warm and dry Neurologic patellar DTR's 2+ bilat, sensation intact and PERRL, EOMI, accommodation nl, no face palsy, no dysarthria Psychiatric A+Ox3, euthymic affect Lymphatic no cervical or axillary lymphadenopathy Discharge Data Allergies Allergy/AdvReac Type Severity Reaction Status Date / Time Penicillins Allergy Unknown unknown Verified 01/02/20 00:30 allergy as a child Consultations 01/02/20 07:42 ED Decision to Admit Stat 01/02/20 08:44 Consult Urology Routine Ordered Studies 01/01/20 23:38 CT abd pelvis IV con only Urgent Hospital Course (1) Fever: most likely etiology is from prostate biopsy, possible bacterial translocation, bacteremia? prostatitis? will cover with Rocephin 2gm IV daily still with fever last night but not as high as when in the ED follow up urine and blood culture results - no growth at this time WBC normal two days in a row appreciate consult from Dr. Reyes, he recommends prolonged course of a ntibiotics will follow up with patient next week on phone call follow up other than the fever, patient feeling well he admits to an intermittent dry cough, lungs clear and CXR normal on admission will discharge home on Ciprofloxacin 500mg BID for 2 weeks spoke with patient's , she questioned COVID since he has the fevers and now a cough, no dyspnea at all ordered nasal swab for COVID prior to discharge instructed patient to remain isolated at home until he gets the results (2) Hematuria: expected after biopsy urine is clear today per urology, could see some hematuria for several weeks (3) History of prostate biopsy: occurred on 12/31 will follow up with Dr. Reyes for results, phone call follow up next week (4) Hypertension: BP is stable continue home regimen (5) Diabetes mellitus type 2 in obese: continue 70/30 BID Novolog SS added monitor for hypoglycemia, no episodes diabetic diet (6) Dyslipidemia: (7) BPH (benign prostatic hyperplasia): (8) Diabetic peripheral neuropathy: Total Time Total Time Spent Total Time Spent (In Minutes): 35 minutes Total Time Includes: Examination of the Patient, Discharge Planning, Medication Reconciliation and Communication With Other Providers (Dr. Reyes) Discharge Plan Discharge Items Patient Disposition: Home - Self-Care Reason For Visit: FEVER,STATUS POST PROSTATE BIOPSY Discharge Diagnosis: Fever after prostate biopsy Condition on Discharge: Good Goals: complete a course of Ciprofloxacin Activity: Resume your previous activity Non-emergency contact: Primary Care Provider and Urologist Call non-emergency contact if: you have any medication questions and you have a fever Follow-up/Referrals: Chasity Antunez CRNP [Primary Care Provider] - 01/09/20 11:30 am (If you need to change this appointment, please call [phone].) Diet: Carb Consistent or DM2 and Heart Healthy Addtl Attending Provider Instructions: Medications: - CIPROFLOXACIN: 500mg twice a day for two weeks to cover prostatitis, possible blood translocation from biopsy Fever after prostate biopsy no growth on blood cultures, no growth on urine culture WBC normal two days in a row, normal chest x-ray urology recommends staying on antibiotics for a few weeks, you have a phone call follow up next week Hematuria: improving per Dr. Reyes, this can be normal for a few weeks, could see intermittent hematuria, clots Fever and cough chest x-ray is normal, no hypoxia, no known contacts for COVID 19 will check a nasal swab prior to discharge please stay isolated at home, do not leave your home until you get results should take 48-72 hours, may take a little longer with the weekend Pending Studies at Discharge: Yes Studies:: blood cultures COVID test Stand-Alone Forms: My [facility] valuklik, Smoking Cessation Medications and DC Order Prescriptions: New ciprofloxacin HCl 500 mg tablet 500 mg PO BID Qty: 28 RF: 0 Continued (DME) lancets [OneTouch Delica Lancets] 33 gauge misc See Dose Instructions .ROUTE .MEDSUPPLY Qty: 200 RF: 3 (DME) pen needle, diabetic [BD Ultra-Fine Soledad Pen Needle] 32 gauge x 5/32" n eedle See Dose Instructions .ROUTE .MEDSUPPLY Qty: 200 RF: 3 (DME) OneTouch Verio test strips Strip See Dose Instructions .ROUTE .MEDSUPPLY Qty: 200 RF: 3 (DME) insulin syringe-needle U-100 [BD Insulin Syringe Ultra-Fine] 0.3 mL 31 gauge x 5/16" syringe See Dose Instructions .ROUTE .MEDSUPPLY Qty: 100 RF: 5 metformin 500 mg tablet 1,000 mg PO BID Qty: 360 RF: 3 Humulin 70/30 U-100 Insulin 100 unit/mL (70-30) suspension 40 units SQ BID Qty: 8 RF: 3 finasteride 5 mg tablet 5 mg PO DAILY Qty: 90 RF: 3 simvastatin 20 mg tablet 20 mg PO DAILY Qty: 90 RF: 3 losartan 25 mg tablet 25 mg PO DAILY Qty: 90 RF: 3 Discontinued sulfamethoxazole-trimethoprim [Bactrim DS] 800-160 mg tablet 1 tab PO Q12H Qty: 6 RF: 0 Discharge Orders: Discharge Order (Routine); Ordered 01/03/20 Ordered By: Rosales Benjamin Admission Data Admit Date/Time: 01/02/20 07:44 Attending Provider: Rosales Benjamin Admit Provider: Rosales Benjamin Primary Care Provider: Chasity Antunez Other Providers: Rosales Benjamin ; Ottoniel Reyes Other Interventions: Discharge Summary Assessment (RN) Last Done: 01/03/20 13:53 DC Date/Time DO NOT enter until pt leaves facility: 01/03/20 17:00 Coding Level of Care Code D/C Day Management >30 mins Diagnoses Fever R50.9 Fever type: unspecified Hematuria R31.0 Hematuria type: gross History of prostate biopsy Z98.890 Hypertension I10 Diabetes mellitus type 2 in obese E11.69; E66.9 Dyslipidemia E78.5 BPH (benign prostatic hyperplasia) N40.0 Diabetic peripheral neuropathy E11.42
[2020-01-04] MEDS ORDERED: SIMVASTATIN 40 MG TAB PO SCH (09:00)
== END 2020-01-03 17:00 | disposition home or self-care (01) | DRG 864 ==
LOC: ED 22:47 → 2W 01-02 07:44

== ENCOUNTER 2021-06-04 19:03 | Inpatient (IN) ==
[2021-06-04 20:21] LABS: Basophils # (auto) 0.01 K/uL (0-0.2); Basophils % (auto) 0.1 %; Eosinophils # (auto) 0.13 K/uL (0-0.5); Eosinophils % (auto) 1.4 %; Hematocrit (blood only) 42.8 % (42-52); Hemoglobin 13.7 g/dL (14.0-18.0); Immature Granulocytes # (auto) 0.02 K/uL (0.00-0.02); Immature Granulocytes % (auto) 0.2 %; Lymphocytes # (auto) 2.16 K/uL (1.2-3.4); Lymphocytes % (auto) 23.5 %; Mean Corpuscular Hemoglobin 29.1 pg (25-34); Mean Corpuscular Volume 90.9 fL (80-100); Mean Platelet Volume 9.3 fL (7.4-10.4); Monocytes # (auto) 0.86 K/uL (0.11-0.59); Monocytes % (auto) 9.3 %; Neutrophils # (auto) 6.02 K/uL (1.4-6.5); Neutrophils % (auto) 65.5 %; Platelet Count 308 K/uL (130-400); RDW Standard Deviation 46.4 fL (36.4-46.3); Red Blood Count 4.71 M/uL (4.7-6.1)
[2021-06-04 20:44] LABS: Albumin Globulin Ratio 0.8 (0.9-2); Albumin Level 3.3 gm/dl (3.4-5.0); BUN Creatinine Ratio 26.1 (10-20); Bilirubin,Total 0.3 mg/dl (0.2-1); C Reactive Protein 0.72 mg/dl (0-0.29); Calcium 8.8 mg/dl (8.5-10.1); Creatinine Clr Calc Pharmacy 132.4 ml/min; Est GFR (Non-African American) 90.6 ml/min; Globulin 4.2 gm/dl (2.5-4.0); Potassium 4.3 mmol/L (3.5-5.1); Total Protein 7.5 gm/dl (6.4-8.2)
--- NOTE | 2021-06-04 20:52 | XRay Report ---
XR tibia fibula RT 2V CLINICAL HISTORY: Leg wound. Evaluate for cellulitis versus osteomyelitis. COMPARISON STUDY: No previous studies for comparison. TECHNIQUE: AP and lateral right lower leg views FINDINGS: Bones: There is evidence for old posttraumatic change involving the proximal third of the tibial shaf t. Old, healed fractures also seen involving the proximal third of the fibular shaft. There is no karel dence for an acute fracture or dislocation. There is no evidence for cortical destruction or osteomye litis. There is no lytic or blastic lesion. Joints: There is moderate to marked narrowing of the medial and lateral joint compartments at the kne e. The ankle joint is maintained. The bones are in anatomic alignment. Soft tissues: There is evidence for a leg wound involving the proximal calf, posteromedially. Soft ti ssue swelling and evidence for cellulitis is also seen. There is no radiopaque foreign body. IMPRESSION: No acute osseous pathology. Old, healed fractures of the proximal tibia and fibula. Leg w ound and evidence for cellulitis. ACT 112: Negative or not required by law. Electronically signed by: Chi Quintero M.D. 06/04/2021 8:50 PM
[2021-06-04] MEDS ORDERED: PIPERACILL/TAZOBAC CONSULT ACTIVE PRN (21:05)
[2021-06-04] MEDS ORDERED: PIPERACILLIN/TAZOBACTAM 4.5 GM/120 ML BAG IV ONE (21:05)
[2021-06-04] MEDS ORDERED: CEFEPIME 2,000 MG/20 ML VIAL IV STA (21:32)
--- NOTE | 2021-06-04 21:32 | Ultrasound Report ---
US venous doppler LE RT CLINICAL HISTORY: Right calf pain and swelling COMPARISON: None available at the time of this dictation. TECHNIQUE: Right lower extremity real-time compression venous ultrasound with Color Doppler imaging. Utilizing real-time ultrasonic imaging multiple real time high-resolution ultrasonic images with comp ression and noncompression maneuvers of the deep venous system in addition to color doppler imaging w ere performed from the common femoral vein through the proximal calf veins. FINDINGS: Currently there is normal compressibility of the deep venous system from the common femoral vein thro ugh the proximal calf veins. No current evidence of acute thrombosis is identified. However, there is evidence for a popliteal cyst posterior to the knee measuring 6.6 x 3.7 x 5.3 cm. Impression: No evidence of deep venous thrombus. Popliteal cyst ACT 112: Negative or not required by law. Electronically signed by: Chi Quintero M.D. 06/04/2021 9:31 PM
--- NOTE | 2021-06-04 22:24 | History & Physical Report ---
Date of Service June 04, 2021 Assessment & Plan (1) Cellulitis of leg, right: Plan: Patient is a 66 year old male with PMHx DM2, Hypercholesterolemia, HTN, NEVAEH on CPAP therapy, who presents with 3-4 day history of worsening RLE ulceration and redness. RLE Cellulitis with Ulceration in a diabetic patient -Started on Cefepime in the ED for pseudomonal coverage, will continue Cefepime x10-14 days pending improvement -Blood and wound cultures pending -Venous doppler negative for clot -Tibia/Fibula XR without signs of osteomyelitis by XR standards, notable for cellulitis. Also noting previous old healed fracture of the proximal tibia and fibula. -CRP 0.72 and ESR 27, repeat in AM -Wound care consulted -If no improvement, can consider arterial doppler to determine flow. Difficult to assess a dorsalis pedis or tibialis anterior secondary to body habitus and swelling. DM2 -Hold home meds -Basal bolus and SSI ordered -HgbA1c in AM, last in 7.8 on 05/05/21 HTN -Continue home Losartan NEVAEH -cpap qhs BPH -Continue home finasteride HLD -continue home Crestor and ASA Dispo: Med/Surg FEN: DM2 diet DVT: Lovenox BID sq Code: Full (2) Diabetes mellitus type 2 in obese: (3) Hypertension: (4) Dyslipidemia: History of Present Illness Chief Complaint: RLE Cellulitis Primary Care Provider: ARLINE Mays Patient is a 66 year old male with PMHx DM2, Hypercholesterolemia, HTN, NEVAEH on CPAP therapy, who presents with 3-4 day history of worsening RLE ulceration and redness. Patient notes that roughly 3-4 days ago he noticed that his R lower leg was becoming more red and hot to the touch. He then noticed that it started to have an ulceration on the medial aspect of the ankle and has had some clear drainage. He has tried putting on OTC topical antibiotic 2 days ago in addition to New skin liquid bandage, however, has had worsening in the ulceration and the redness. He notes tenderness primarily around the the ulceration on the medial aspect of his R ankle. He denies any fever, chills, SOB, chest pain, abdominal pain, dysuria, hematuria, NVD, headache. He has been able to ambulate on the leg without much difficulty. Med HX: Dm2, Hypercholesterolemia, HTN, NEVAEH on cpap Surg Hx:Tonsillectomy Soc Hx: Denies tobacco, alcohol, illicit drug use Allergies Allergy/AdvReac Type Severity Reaction Status Date / Time Penicillins Allergy Unknown unknown Verified 06/04/21 21:55 allergy as a child Home Medications Medication Instructions Recorded Confirmed Type aspirin 81 mg tablet,delayed 81 mg PO DAILY #30 tab 01/18/20 06/04/21 Rx release CPAP Machine #1 ea 04/28/20 04/15/21 Rx insulin human U-100 NPH-regulr 40 unit SQ BID #8 vial 06/09/20 06/04/21 Rx 70-30 mix 100 unit/mL subcutaneous susp (Humulin 70/30 U-100 Insulin) insulin syringe-needle U-100 0.5 #100 ea 09/09/20 04/15/21 Rx mL 31 gauge x 5/16" (BD Insulin Syringe Ultra-Fine) blood sugar diagnostic (OneTouch #200 ea 11/02/20 04/15/21 Rx Verio test strips) lancets 30 gauge (OneTouch Delica #200 ea 11/30/20 04/15/21 Rx Plus Lancet) metformin 500 mg tablet 1,000 mg PO BID #360 tab 01/08/21 06/04/21 Rx rosuvastatin 5 mg tablet (Crestor) 5 mg PO DAILY #30 tab 03/24/21 06/04/21 Rx empagliflozin 10 mg tablet 10 mg PO DAILY #30 tab 04/26/21 06/04/21 Rx (Jardiance) finasteride 5 mg tablet 5 mg PO DAILY #90 tab 04/29/21 06/04/21 Rx losartan 50 mg tablet 50 mg PO HS 06/04/21 06/04/21 History Past Med/Surg History Medical History (Updated 06/05/21 @ 00:13 by Marisela Negrete PA-C) Diabetes mellitus type 2 in obese Dyslipidemia Hypertension Loss of sensation Morbid obesity Toenail fungus Surgical History H/O knee surgery H/O toe surgery Hx of tonsillectomy Family History Mother Cancer passed from myeloma and breast cancer at 88 yrs. Breast cancer Father Myocardial infarction at 72 years Other Diabetes Social History Smoking Status: Never smoker Hx Alcohol Use: No Hx Substance Use: No Preferred Language: Arabic Communication Ability: Effective Wreath Machine Tender Required: No Beliefs That Will Affect Care: None marital status: Current Living Situation: Spouse Other Information That Helps Us Care for You: No Feels Safe at Home: Yes Safety Concerns: Feels Safe At This Time Dental Care, Regularly: Yes Physical Activity Frequency: Does not Exercise Seatbelt Use: always Assistive Devices: CPAP and Glasses Assistive Devices Comment: glasses with patient Review of Systems Review of Systems: All systems reviewed & are unremarkable except as noted in Subjective Physical Exam Constitutional: well developed, well nourished and + morbidly obese; no acute distress Eyes: PERRL, conjunctivae normal, anicteric sclerae ENMT: Ears: no hearing impairment Nose: no external nose abnormality Neck: trachea midline, no thyromegaly Respiratory: normal respiratory effort, lungs clear to auscultation Cardiovascular: Rate/Rhythm: regular rate and regular rhythm Heart Sounds: no murmur Extremities: + edema (trace b/l ) Unable to palpate dorsalis pedis or tibialis anterior on the RLE Gastrointestinal (Abdomen): normal bowel sounds, soft, nontender, no hepatosplenomegaly Musculoskeletal: Head/Neck/Chest: normocephalic and head atraumatic Redness and erythema extending roughly 6cm below the R knee to the distal ankle. Roughly 3cm diameter ulceration on the medial R ankle without purulent discharge. L foot with 1cm laceration on the dorsal aspect of the foot at the MTP, no erythema, drainage Skin: + ulcer (medial R ankle ) and + erythema (RLE below the knee to the ankle ) Neurologic: PERRL, EOMI, accommodation nl, no face palsy, no dysarthria Psychiatric: A+Ox3, euthymic affect Results & Data Results & Data ([facility]) Vital Signs (Past 12 Hours) Vital Signs Temp Pulse Resp BP Pulse Ox 06/04/21 19:05 36.0 C L 80 22 190/76 H 95 Code Status & VTE Plan VTE Prophylaxis Plan VTE Prophylaxis will be ordered: Yes Supervising Physician Co-Signing Physician Notes Attending addendum: I have physically seen this patient, have supervised the medical residents activities, and agree with the H&P unless as otherwise noted. Assessment and Plan: Right lower extremity cellulitis- Allergic to penicillins Cefepime IV Follow blood and wound cultures Lower extremity venous Doppler negative for DVT Tib-fib x-ray with no signs of osteomyelitis Consult wound care Can order tibial Dopplers in a.m. Remaining orders and notations as noted Resident Activity Tracking Resident Involvement: Resident Care Provided Care Provided: Adult [facility]
--- NOTE | 2021-06-05 00:03 | Emergency Department Note ---
Impression & Plan Cellulitis of right lower extremity, Leg wound, right, History of diabetes mellitus, type II ED Provider Note CHIEF COMPLAINT: Right leg wound HISTORY OF PRESENT ILLNESS: Arnoldo Woodson is a 66 year old male with history of DM2, HTN, DLD, radiculopathy among others listed below who presents to the Emergency Department for evaluation of a wound to his right medial calf with increased surrounding erythema and edema which has become worse over the past few days. Currently, he rates his discomfort as a 5/10 which was not improved after using triple antibiotic ointment or New Skin on the wound. Per , she seemed to notice the redness and swelling to the patient's calf before the deve lopment of the wound, which appears like an ulcer with white/yellow discharge. She was also concerned that he may have a blood clot as she noticed a firm spot in his calf. The patient has decreased sensation in his lower extremities secondary to radiculopathy and is unsure if he may have sustained an injury prior to the onset of symptoms, but none that he can recall. He otherwise denies recent fevers/chills, chest pain, palpitations, shortness of breath, abdominal pain, nausea, vomiting, diarrhea or urinary symptoms. No other acute complaints. REVIEW OF SYSTEMS: 10 systems were reviewed and were negative unless otherwise stated in HPI as above PHYSICAL EXAM: VITALS: Vitals are noted on the nurse's note and reviewed by myself. Hypertensive, otherwise stable. General: Resting in bed, no acute distress HEENT: Normocephalic, PERRL, EOMI, mucous membranes moist, oropharynx clear Neck: No cervical lymphadenopathy, non-tender Resp: Good inspiratory effort on room air, lung sounds clear bilaterally CV: Regular rate and rhythm, peripheral pulses palpated Abd: Obese, soft, no-tender MSK/Integumentary: Chronic venous stasis changes to the BLE with skin sloughing. Right calf/contreras are edematous, erythematous and warm to the touch with ~5 x 4 cm wound with white/purulent discharge. There is a small area of induration to palpation of the proximal medial calf. There are deep cracks in the skin of the left great toe without surrounding erythema or edema. No other appreciable wounds. Moving extremities without significant pain or difficulty Neuro: Awake, alert and oriented x 3, interacting and answering questions appropriately Differential diagnosis includes infected wound, cellulitis, DVT, sepsis, among others were considered EMERGENCY DEPARTMENT COURSE: Physical exam and history were performed. Nursing triage notes, EMR, and medication list were personally reviewed. Patient appears to have a wound to his right medial calf with increased surrounding erythema and edema which has become worse over the past few days as described above. He remained afebrile and denied additional symptoms as above. On exam, he did have chronic venous stasis changes to the BLE with skin sloughing. Right calf/contreras were edematous, erythematous and warm to the touch with ~5 x 4 cm wound with white/purulent discharge. There was also a small area of induration to palpation of the proximal medial calf. Additional exam as above. IV access was established. Labs were obtained and reviewed by myself as below. Of note, he did not have a significant leukocytosis with WBC of 9.2. No co ncerns for anemia with hemoglobin 13.7. Electrolytes WNL. Renal indices stable. LFTs nondiagnostic. Lactate not elevated at 1.4. CRP was elevated at 0.72 and ESR elevated at 27 consistent with inflammatory process. X-ray of the tip/fib was obtained and reviewed by radiologist and myself as be low. This was negative for acute osseous pathology. There was a leg wound and evidence for cellulitis. Venous Doppler study of the right lower extremity was obtained and reviewed by radiologist and myself as below. This was negative for DVT but did show a popliteal cyst. Upon reevaluation, the patient was doing well. I discussed the results of the above findings with him and his at bedside. I feel that the patient would benefit from continued management with IV antibiotics. He did have an allergy listed to penicillins. He was unsure of the exact reaction but was told as a child that he should not take these medications. Per chart review, he has received Rocephin in the past. Cefepime 2 g was ordered. I did contact Dr. You of the [facility] hospitalist group and he agreed to evaluate the patient for further management. The patient and his verbalized understanding and agreement with the treatment plan as above. The chart was completed utilizing [employer] Voice Recognition Software. Grammatical errors, random word insertions, pronoun errors, and incomplete sentences are an occasional consequence of this system due to software limitations, ambient noise, and hardware issues. Any formal questions or concerns about the content, text, or information contained within the body of this dictation should be directly addressed to the provider for clarification. Past Med/Surg History Medical History (Updated 06/05/21 @ 00:13 by Marisela Negrete PA-C) Diabetes mellitus type 2 in obese Dyslipidemia Hypertension Loss of sensation Morbid obesity Toenail fungus Surgical History H/O knee surgery H/O toe surgery Hx of tonsillectomy Family History Mother Cancer passed from myeloma and breast cancer at 88 yrs. 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 Beliefs That Will Affect Care: None marital status: Current Living Situation: Spouse Other Information That Helps Us Care for You: No Feels Safe at Home: Yes Safety Concerns: Feels Safe At This Time Dental Care, Regularly: Yes Physical Activity Frequency: Does not Exercise Seatbelt Use: always Assistive Devices: CPAP and Glasses Assistive Devices Comment: glasses with patient Allergies Allergies Allergy/AdvReac Type Severity Reaction Status Date / Time Penicillins Allergy Unknown unknown Verified 06/04/21 21:55 allergy as a child Home Meds Home Medications Medication Instructions Recorded Confirmed losartan 50 mg tablet 50 mg PO HS 06/04/21 06/04/21 Previous Rx's Medication Instructions Recorded aspirin 81 mg tablet,delayed 81 mg PO DAILY #30 tab 01/18/20 release CPAP Machine #1 ea 04/28/20 insulin human U-100 NPH-regulr 40 unit SQ BID #8 vial 06/09/20 70-30 mix 100 unit/mL subcutaneous susp (Humulin 70/30 U-100 Insulin) insulin syringe-needle U-100 0.5 #100 ea 09/09/20 mL 31 gauge x 5/16" (BD Insulin Syringe Ultra-Fine) blood sugar diagnostic (KivraTouch #200 ea 11/02/20 Verio test strips) lancets 30 gauge (OneTouch Delica #200 ea 11/30/20 Plus Lancet) metformin 500 mg tablet 1,000 mg PO BID #360 tab 01/08/21 rosuvastatin 5 mg tablet (Crestor) 5 mg PO DAILY #30 tab 03/24/21 empagliflozin 10 mg tablet 10 mg PO DAILY #30 tab 04/26/21 (Jardiance) finasteride 5 mg tablet 5 mg PO DAILY #90 tab 04/29/21 Results & Data (ED) Vital Signs Vital Signs - 24 hr 06/04/21 19:05 06/04/21 23:20 Temperature 36.0 C L Temperature Source Temporal Artery Scan Pulse Rate 80 Pulse Rate [Finger] 72 Respiratory Rate 22 16 Respiratory Effort / Characteristics Non-Labored Spontaneous Respiratory Depth Normal Blood Pressure 190/76 H Blood Pressure [Right Arm] 172/74 H Blood Pressure Mean 114 Blood Pressure Mean [Right Arm] 106 Pulse Oximetry 95 96 Oxygen Delivery Method Room Air Room Air Sepsis Recent Fever Within 48 Hours No Sepsis New/Unexplained Change in Mental Status N/A Sepsis Action Taken by Nursing No Action Required Laboratory Data Result diagrams: 06/06/21 06:27 06/06/21 06:27 Lab Results 06/04/21 06/04/21 06/04/21 Range/Units 19:56 19:56 19:56 WBC 9.20 (4.8-10.8) K/uL RBC 4.71 (4.7-6.1) M/uL Hgb 13.7 L (14.0-18.0) g/dL Hct 42.8 (42-52) % MCV 90.9 (80-100) fL MCH 29.1 (25-34) pg MCHC 32.0 (32-36) g/dL RDW Std Deviation 46.4 H (36.4-46.3) fL RDW Coeff of Daniel 14.0 (11.5-14.5) % Plt Count 308 (130-400) K/uL MPV 9.3 (7.4-10.4) fL Immature Gran % (Auto) 0.2 % Neut % (Auto) 65.5 % Lymph % (Auto) 23.5 % [place] % (Auto) 9.3 % Eos % (Auto) 1.4 % Baso % (Auto) 0.1 % Neut # (Auto) 6.02 (1.4-6.5) K/uL Lymph # (Auto) 2.16 (1.2-3.4) K/uL [place] # (Auto) 0.86 H (0.11-0.59) K/uL Eos # (Auto) 0.13 (0-0.5) K/uL Baso # (Auto) 0.01 (0-0.2) K/uL Immature Gran # (Auto) 0.02 (0.00-0.02) K/uL ESR 27 H (0-20) mm/hr Sodium (136-145) mmol/L Potassium (3.5-5.1) mmol/L Chloride (98-107) mmol/L Carbon Dioxide (21-32) mmol/L Anion Gap (3-11) BUN (7-18) mg/dl Creatinine (0.6-1.4) mg/dl Est Cr Clr Drug Dosing ml/min Est GFR ( Amer) ml/min Est GFR (Non-Af Amer) ml/min BUN/Creatinine Ratio (10-20) Glucose (70-99) mg/dl Lactate 1.4 (0.4-2.0) mmol/L Calcium (8.5-10.1) mg/dl Total Bilirubin (0.2-1) mg/dl AST (15-37) U/L ALT (12-78) Alkaline Phosphatase (45-117) U/L C-Reactive Protein (0-0.29) mg/dl Total Protein (6.4-8.2) gm/dl Albumin (3.4-5.0) gm/dl Globulin (2.5-4.0) gm/dl Albumin/Globulin Ratio (0.9-2) SARS-CoV-2, RNA, NAAT (NEGATIVE) 06/04/21 06/04/21 Range/Units 20:05 21:40 WBC (4.8-10.8) K/uL RBC (4.7-6.1) M/uL Hgb (14.0-18.0) g/dL Hct (42-52) % MCV (80-100) fL MCH (25-34) pg MCHC (32-36) g/dL RDW Std Deviation (36.4-46.3) fL RDW Coeff of Daniel (11.5-14.5) % Plt Count (130-400) K/uL MPV (7.4-10.4) fL Immature Gran % (Auto) % Neut % (Auto) % Lymph % (Auto) % [place] % (Auto) % Eos % (Auto) % Baso % (Auto) % Neut # (Auto) (1.4-6.5) K/uL Lymph # (Auto) (1.2-3.4) K/uL [place] # (Auto) (0.11-0.59) K/uL Eos # (Auto) (0-0.5) K/uL Baso # (Auto) (0-0.2) K/uL Immature Gran # (Auto) (0.00-0.02) K/uL ESR (0-20) mm/hr Sodium 138 (136-145) mmol/L Potassium 4.3 (3.5-5.1) mmol/L Chloride 105 (98-107) mmol/L Carbon Dioxide 32 (21-32) mmol/L Anion Gap 1.0 L (3-11) BUN 23 H (7-18) mg/dl Creatinine 0.87 (0.6-1.4) mg/dl Est Cr Clr Drug Dosing 132.4 ml/min Est GFR ( Amer) 105.0 ml/min Est GFR (Non-Af Amer) 90.6 ml/min BUN/Creatinine Ratio 26.1 H (10-20) Glucose 174 H (70-99) mg/dl Lactate (0.4-2.0) mmol/L Calcium 8.8 (8.5-10.1) mg/dl Total Bilirubin 0.3 (0.2-1) mg/dl AST 15 (15-37) U/L ALT 33 (12-78) Alkaline Phosphatase 78 (45-117) U/L C-Reactive Protein 0.72 H (0-0.29) mg/dl Total Protein 7.5 (6.4-8.2) gm/dl Albumin 3.3 L (3.4-5.0) gm/dl Globulin 4.2 H (2.5-4.0) gm/dl Albumin/Globulin Ratio 0.8 L (0.9-2) SARS-CoV-2, RNA, NAAT NEGATIVE (NEGATIVE) Administered Medications Aspirin (Aspirin 81 Mg Ectab) 81 mg PO DAILY [facility]BY Stop: 07/05/21 08:59 Last Admin: 06/06/21 08:45 Dose: 81 mg Documented by: [id number] Admin: 06/05/21 08:54 Dose: 81 mg Documented by: [id number] Enoxaparin Sodium (Enoxaparin Inj 40 Mg/0.4 Ml Syr) 40 mg SQ Q12H LIBBY Stop: 07/05/21 08:59 Last Admin: 06/06/21 08:46 Dose: 40 mg Documented by: [id number] Admin: 06/05/21 21:06 Dose: 40 mg Documented by: [id number] Admin: 06/05/21 08:54 Dose: 40 mg Documented by: [id number] Finasteride (Finasteride 5 Mg Tab) 5 mg PO DAILY [facility] Stop: 07/05/21 08:59 Last Admin: 06/06/21 08:45 Dose: 5 mg Documented by: [id number] Admin: 06/05/21 08:53 Dose: 5 mg Documented by: [id number] Cefepime HCl 2,000 mg/ Syringe 20 mls @ 5 mls/min IV Q12H [facility]; Protocol Stop: 06/15/21 09:59 Last Admin: 06/06/21 10:15 Dose: 5 mls/min Documented by: [id number] Admin: 06/05/21 21:06 Dose: 5 mls/min Documented by: [id number] Admin: 06/05/21 10:34 Dose: 5 mls/min Documented by: [id number] Insulin Aspart (Insulin Aspart Per Unit) 0 units SC ACHS LIBBY Stop: 07/05/21 07:29 Last Admin: 06/06/21 08:52 Dose: 14 units Documented by: [id number] Cosigned by: [id number] Admin: 06/05/21 21:06 Dose: Not Given Documented by: [id number] Cosigned by: [id number] Admin: 06/05/21 17:58 Dose: 6 units Documented by: [id number] Cosigned by: [id number] Admin: 06/05/21 13:35 Dose: 13 units Documented by: [id number] Cosigned by: [id number] Admin: 06/05/21 08:55 Dose: 6 units Documented by: [id number] Cosigned by: [id number] Insulin Glargine (Insulin Glargine Solostar 100 Units/Ml 3 Ml Pen) 26 units SC BID [facility] Stop: 07/05/21 00:26 Last Admin: 06/06/21 08:54 Dose: 26 units Documented by: [id number] Cosigned by: [id number] Admin: 06/05/21 21:07 Dose: 26 units Documented by: [id number] Cosigned by: [id number] Admin: 06/05/21 08:55 Dose: 26 units Documented by: [id number] Cosigned by: [id number] Admin: 06/05/21 02:16 Dose: 26 units Documented by: [id number] Cosigned by: [id number] Losartan Potassium (Losartan Potassium 50 Mg Tab) 50 mg PO HS LIBBY Stop: 07/05/21 00:26 Last Admin: 06/05/21 21:07 Dose: 50 mg Documented by: [id number] Admin: 06/05/21 02:16 Dose: 50 mg Documented by: [id number] Rosuvastatin Calcium (Rosuvastatin Calcium 5 Mg Tab) 5 mg PO DAILY [facility]BY Stop: 07/05/21 08:59 Last Admin: 06/06/21 08:45 Dose: 5 mg Documented by: [id number] Admin: 06/05/21 08:54 Dose: 5 mg Documented by: [id number] Discontinued Medications Piperacillin Sod/Tazobactam Sod (Zosyn) 4.5 gm in 120 mls @ 240 mls/hr IV NOW ONE Stop: 06/04/21 21:34 Last Admin: 06/04/21 21:32 Dose: Not Given Documented by: [id number] Cefepime HCl (Maxipime) 2,000 mg in 20 mls @ 5 mls/min IV NOW STA; Protocol Stop: 06/04/21 21:35 Last Admin: 06/04/21 21:41 Dose: 5 mls/min Documented by: [id number] Imaging Data Radiologist's Impression: Tibia/Fibula X-Ray 06/04/21 19:52 XR tibia fibula RT 2V CLINICAL HISTORY: Leg wound. Evaluate for cellulitis versus osteomyelitis. COMPARISON STUDY: No previous studies for comparison. TECHNIQUE: AP and lateral right lower leg views FINDINGS: Bones: There is evidence for old posttraumatic change involving the proximal third of the tibial shaft. Old, healed fractures also seen involving the proximal third of the fibular shaft. There is no evidence for an acute fracture or dislocation. There is no evidence for cortical destruction or osteomyelitis. There is no lytic or blastic lesion. Joints: There is moderate to marked narrowing of the medial and lateral joint compartments at the knee. The ankle joint is maintained. The bones are in anatomic alignment. Soft tissues: There is evidence for a leg wound involving the proximal calf, posteromedially. Soft tissue swelling and evidence for cellulitis is also seen. There is no radiopaque foreign body. IMPRESSION: No acute osseous pathology. Old, healed fractures of the proximal tibia and fibula. Leg wound and evidence for cellulitis. ACT 112: Negative or not required by law. Electronically signed by: Chi Quintero M.D. 06/04/2021 8:50 PM Venous Doppler Study 06/04/21 19:52 US venous doppler LE RT CLINICAL HISTORY: Right calf pain and swelling COMPARISON: None available at the time of this dictation. TECHNIQUE: Right lower extremity real-time compression venous ultrasound with Color Doppler imaging. Utilizing real-time ultrasonic imaging multiple real time high-resolution ultrasonic images with compression and noncompression maneuvers of the deep venous system in addition to color doppler imaging were performed from the common femoral vein through the proximal calf veins. FINDINGS: Currently there is normal compressibility of the deep venous system from the common femoral vein through the proximal calf veins. No current evidence of acute thrombosis is identified. However, there is evidence for a popliteal cyst posterior to the knee measuring 6.6 x 3.7 x 5.3 cm. Impression: No evidence of deep venous thrombus. Popliteal cyst ACT 112: Negative or not required by law. Electronically signed by: Chi Quintero M.D. 06/04/2021 9:31 PM Discharge Plan Visit Data Chief Complaint: Leg Injury/Pain Stated Complaint: right leg wound ED Provider: Umair Bird ED Midlevel Provider: Marisela Negrete Discharge Problem: Cellulitis of right lower extremity, Leg wound, right, History of diabetes mellitus, type II Patient Disposition: Admitted As Inpatient Discharge Instructions Interventions: ED Discharge Assessment Last Done: 06/04/21 23:48
[2021-06-05] MEDS ORDERED: CARBOHYDRATES FOR HYPOGLYCEMIA PO PRN (00:27)
[2021-06-05] MEDS ORDERED: ACETAMINOPHEN 325 MG TAB PO PRN (00:27)
[2021-06-05] MEDS ORDERED: DEXTROSE 50% 50 ML SYRINGE IV PRN (00:27)
[2021-06-05] MEDS ORDERED: GLUCOSE 10 TABS/TUBE PO PRN (00:27)
[2021-06-05] MEDS ORDERED: GLUCOSE 40% GEL 15 GM TUBE PO PRN (00:27)
[2021-06-05] MEDS ORDERED: GLUCAGON FOR INJ 1 MG VIAL SQ PRN (00:27)
[2021-06-05] MEDS ORDERED: ONDANSETRON INJ 2 MG/ML 2 ML VIAL IV PRN (00:27)
[2021-06-05] MEDS: LOSARTAN POTASSIUM 50 MG TAB PO SCH ×2 (02:16→21:07)
[2021-06-05] MEDS: INSULIN GLARGINE SOLOSTAR 100 UNITS/ML 3 ML PEN SC SCH ×3 (02:16→21:07)
--- NOTE | 2021-06-05 07:22 | Hospitalist Progress Note ---
Date of Service June 05, 2021 Assessment & Plan (1) Cellulitis of leg, right: Plan: Patient is a 66 year old male with PMHx DM2, Hypercholesterolemia, HTN, NEVAEH on CPAP therapy, who presents with 3-4 day history of worsening RLE ulceration and redness. RLE Cellulitis with Ulceration in a diabetic patient -Started on Cefepime in the ED for pseudomonal coverage, will continue Cefepime x10-14 days pending improvement -Blood and wound cultures pending -Venous doppler negative for clot -Tibia/Fibula XR without signs of osteomyelitis by XR standards, notable for cellulitis. Also noting previous old healed fracture of the proximal tibia and fibula. -CRP 0.72 and ESR 27, downtrending -Wound care consulted -If no improvement, can consider arterial doppler to determine flow. pedal pulse found on RLE, pedal and posterior tibial pulse found on LLE, hold arterial doppler for now -erythema receding per patient, marked current borders with marker -trend cbc, bmp DM2 -Hold home meds -Basal bolus and SSI ordered -HgbA1c in AM, last in 7.8 on 05/05/21, latest 7.5 HTN -Continue home Losartan NEVAEH -cpap qhs BPH -Continue home finasteride HLD -continue home Crestor and ASA Dispo: Med/Surg FEN: DM2 diet DVT: Lovenox BID sq Code: Full (2) Diabetes mellitus type 2 in obese: (3) Hypertension: (4) Dyslipidemia: Admission and Anticipated Discharge Date Admission Date: June 04, 2021 Supervising Physician Co-Signing Physician Notes Attending addendum: I have physically seen this patient, have supervised the medical residents activities, and agree with the prgress note above by Dr. Paez. Assessment and Plan: Right lower extremity cellulitis- Allergic to penicillins Continue Cefepime IV, area of cellulitis was delineated today. Patient appears to be improving quickl as skin does not appear to be erythematous. May consider titrating his antibiotics in 24-48 hours depending on cultures. Follow blood and wound cultures Lower extremity venous Doppler negative for DVT Tib-fib x-ray with no signs of osteomyelitis Consult wound care Remaining orders and notations as noted Subjective 66yo Male seen at bedside, calm comfortable cooperative. States he had leg swelling pain in right leg ongoing 3-4 days with ulcer, no pain/swelling in left foot though he does note large cracked skin on left toe, follows with podiatry regularly. He states he uses creams and ointments for his skin occasionally, understands importance of keeping his skin intact and healthy. Patient states he manages his own medications, takes them regularly. He states since he recieved abx this morning, area of redness on his right leg has receded some. Denies pain on palpation of lower extremities. Review of Systems Review of Systems: Negative fever chills Negative headache dizziness Negative chest pain palpitations SOB Negative nausea vomitting diarrhea constipation Physical Exam Constitutional: well developed, well nourished and + morbidly obese; no acute distress Eyes: PERRL, conjunctivae normal, anicteric sclerae ENMT: Ears: no hearing impairment Nose: no external nose abnormality Neck: trachea midline, no thyromegaly Respiratory: normal respiratory effort, lungs clear to auscultation Cardiovascular: Rate/Rhythm: regular rate and regular rhythm Heart Sounds: no murmur Extremities: + edema (b/l +1 pitting edema on LE up to knee, venous stasis noted on b/l LE) Gastrointestinal (Abdomen): normal bowel sounds, soft, nontender, no hepatosplenomegaly Musculoskeletal: Head/Neck/Chest: normocephalic and head atraumatic erythema extended 3-4cm beyond venous stasis of RLE, bandage on ulcer. Bandage noted on left 1st toe Skin: + ulcer (medial R ankle ) and + erythema (RLE below the knee surrounding his venous stasis, venous stasis on b/l LE) Neurologic: PERRL, EOMI, accommodation nl, no face palsy, no dysarthria Psychiatric: A+Ox3, euthymic affect Results & Data Results & Data ([facility]) Vital Signs (Past 12 Hours) Vital Signs Temp Pulse Pulse Resp BP BP Pulse Ox 06/05/21 02:26 60 18 94 06/05/21 02:15 98 H 163/75 H 06/05/21 00:38 36.4 C L 64 16 181/82 H 99 06/04/21 23:20 72 16 172/74 H 96 Laboratory Results 06/05/21 06/05/21 06/05/21 Range/Units 16:52 12:15 08:01 WBC (4.8-10.8) K/uL RBC (4.7-6.1) M/uL Hgb (14.0-18.0) g/dL Hct (42-52) % MCV (80-100) fL MCH (25-34) pg MCHC (32-36) g/dL RDW Std Deviation (36.4-46.3) fL RDW Coeff of Daniel (11.5-14.5) % Plt Count (130-400) K/uL MPV (7.4-10.4) fL Immature Gran % (Auto) % Neut % (Auto) % Lymph % (Auto) % Charlton % (Auto) % Eos % (Auto) % Baso % (Auto) % Neut # (Auto) (1.4-6.5) K/uL Lymph # (Auto) (1.2-3.4) K/uL Charlton # (Auto) (0.11-0.59) K/uL Eos # (Auto) (0-0.5) K/uL Baso # (Auto) (0-0.2) K/uL Immature Gran # (Auto) (0.00-0.02) K/uL ESR (0-20) mm/hr Sodium (136-145) mmol/L Potassium (3.5-5.1) mmol/L Chloride (98-107) mmol/L Carbon Dioxide (21-32) mmol/L Anion Gap (3-11) BUN (7-18) mg/dl Creatinine (0.6-1.4) mg/dl Est Cr Clr Drug Dosing ml/min Est GFR ( Amer) ml/min Est GFR (Non-Af Amer) ml/min BUN/Creatinine Ratio (10-20) Glucose (70-99) mg/dl POC Glucose 124 H 110 H 91 (70-99) mg/dl Estimat Average Glucose mg/dl Hemoglobin A1c (4.5-5.6) % Lactate (0.4-2.0) mmol/L Calcium (8.5-10.1) mg/dl Total Bilirubin (0.2-1) mg/dl AST (15-37) U/L ALT (12-78) Alkaline Phosphatase (45-117) U/L C-Reactive Protein (0-0.29) mg/dl Total Protein (6.4-8.2) gm/dl Albumin (3.4-5.0) gm/dl Globulin (2.5-4.0) gm/dl Albumin/Globulin Ratio (0.9-2) SARS-CoV-2, RNA, NAAT (NEGATIVE) 06/05/21 06/05/21 06/05/21 Range/Units 07:17 07:17 07:17 WBC 9.58 (4.8-10.8) K/uL RBC 4.60 L (4.7-6.1) M/uL Hgb 13.1 L (14.0-18.0) g/dL Hct 41.2 L (42-52) % MCV 89.6 (80-100) fL MCH 28.5 (25-34) pg MCHC 31.8 L (32-36) g/dL RDW Std Deviation 46.1 (36.4-46.3) fL RDW Coeff of Daniel 14.2 (11.5-14.5) % Plt Count 269 (130-400) K/uL MPV 9.1 (7.4-10.4) fL Immature Gran % (Auto) 0.2 % Neut % (Auto) 60.2 % Lymph % (Auto) 29.5 % Charlton % (Auto) 8.0 % Eos % (Auto) 2.0 % Baso % (Auto) 0.1 % Neut # (Auto) 5.76 (1.4-6.5) K/uL Lymph # (Auto) 2.83 (1.2-3.4) K/uL Charlton # (Auto) 0.77 H (0.11-0.59) K/uL Eos # (Auto) 0.19 (0-0.5) K/uL Baso # (Auto) 0.01 (0-0.2) K/uL Immature Gran # (Auto) 0.02 (0.00-0.02) K/uL ESR (0-20) mm/hr Sodium 138 (136-145) mmol/L Potassium 3.8 (3.5-5.1) mmol/L Chloride 106 (98-107) mmol/L Carbon Dioxide 28 (21-32) mmol/L Anion Gap 4.0 (3-11) BUN 19 H (7-18) mg/dl Creatinine 0.55 L D (0.6-1.4) mg/dl Est Cr Clr Drug Dosing 214.3 ml/min Est GFR ( Amer) 126.7 ml/min Est GFR (Non-Af Amer) 109.4 ml/min BUN/Creatinine Ratio 33.9 H (10-20) Glucose 96 (70-99) mg/dl POC Glucose (70-99) mg/dl Estimat Average Glucose 169 mg/dl Hemoglobin A1c 7.5 H (4.5-5.6) % Lactate (0.4-2.0) mmol/L Calcium 8.2 L (8.5-10.1) mg/dl Total Bilirubin (0.2-1) mg/dl AST (15-37) U/L ALT (12-78) Alkaline Phosphatase (45-117) U/L C-Reactive Protein 0.57 H (0-0.29) mg/dl Total Protein (6.4-8.2) gm/dl Albumin (3.4-5.0) gm/dl Globulin (2.5-4.0) gm/dl Albumin/Globulin Ratio (0.9-2) SARS-CoV-2, RNA, NAAT (NEGATIVE) 06/05/21 06/05/21 06/04/21 Range/Units 07:17 00:08 21:40 WBC (4.8-10.8) K/uL RBC (4.7-6.1) M/uL Hgb (14.0-18.0) g/dL Hct (42-52) % MCV (80-100) fL MCH (25-34) pg MCHC (32-36) g/dL RDW Std Deviation (36.4-46.3) fL RDW Coeff of Daniel (11.5-14.5) % Plt Count (130-400) K/uL MPV (7.4-10.4) fL Immature Gran % (Auto) % Neut % (Auto) % Lymph % (Auto) % Charlton % (Auto) % Eos % (Auto) % Baso % (Auto) % Neut # (Auto) (1.4-6.5) K/uL Lymph # (Auto) (1.2-3.4) K/uL Charlton # (Auto) (0.11-0.59) K/uL Eos # (Auto) (0-0.5) K/uL Baso # (Auto) (0-0.2) K/uL Immature Gran # (Auto) (0.00-0.02) K/uL ESR 20 (0-20) mm/hr Sodium (136-145) mmol/L Potassium (3.5-5.1) mmol/L Chloride (98-107) mmol/L Carbon Dioxide (21-32) mmol/L Anion Gap (3-11) BUN (7-18) mg/dl Creatinine (0.6-1.4) mg/dl Est Cr Clr Drug Dosing ml/min Est GFR ( Amer) ml/min Est GFR (Non-Af Amer) ml/min BUN/Creatinine Ratio (10-20) Glucose (70-99) mg/dl POC Glucose 107 H (70-99) mg/dl Estimat Average Glucose mg/dl Hemoglobin A1c (4.5-5.6) % Lactate (0.4-2.0) mmol/L Calcium (8.5-10.1) mg/dl Total Bilirubin (0.2-1) mg/dl AST (15-37) U/L ALT (12-78) Alkaline Phosphatase (45-117) U/L C-Reactive Protein (0-0.29) mg/dl Total Protein (6.4-8.2) gm/dl Albumin (3.4-5.0) gm/dl Globulin (2.5-4.0) gm/dl Albumin/Globulin Ratio (0.9-2) SARS-CoV-2, RNA, NAAT NEGATIVE (NEGATIVE) 06/04/21 06/04/21 06/04/21 Range/Units 20:05 19:56 19:56 WBC (4.8-10.8) K/uL RBC (4.7-6.1) M/uL Hgb (14.0-18.0) g/dL Hct (42-52) % MCV (80-100) fL MCH (25-34) pg MCHC (32-36) g/dL RDW Std Deviation (36.4-46.3) fL RDW Coeff of Daniel (11.5-14.5) % Plt Count (130-400) K/uL MPV (7.4-10.4) fL Immature Gran % (Auto) % Neut % (Auto) % Lymph % (Auto) % Charlton % (Auto) % Eos % (Auto) % Baso % (Auto) % Neut # (Auto) (1.4-6.5) K/uL Lymph # (Auto) (1.2-3.4) K/uL Charlton # (Auto) (0.11-0.59) K/uL Eos # (Auto) (0-0.5) K/uL Baso # (Auto) (0-0.2) K/uL Immature Gran # (Auto) (0.00-0.02) K/uL ESR 27 H (0-20) mm/hr Sodium 138 (136-145) mmol/L Potassium 4.3 (3.5-5.1) mmol/L Chloride 105 (98-107) mmol/L Carbon Dioxide 32 (21-32) mmol/L Anion Gap 1.0 L (3-11) BUN 23 H (7-18) mg/dl Creatinine 0.87 (0.6-1.4) mg/dl Est Cr Clr Drug Dosing 132.4 ml/min Est GFR ( Amer) 105.0 ml/min Est GFR (Non-Af Amer) 90.6 ml/min BUN/Creatinine Ratio 26.1 H (10-20) Glucose 174 H (70-99) mg/dl POC Glucose (70-99) mg/dl Estimat Average Glucose mg/dl Hemoglobin A1c (4.5-5.6) % Lactate 1.4 (0.4-2.0) mmol/L Calcium 8.8 (8.5-10.1) mg/dl Total Bilirubin 0.3 (0.2-1) mg/dl AST 15 (15-37) U/L ALT 33 (12-78) Alkaline Phosphatase 78 (45-117) U/L C-Reactive Protein 0.72 H (0-0.29) mg/dl Total Protein 7.5 (6.4-8.2) gm/dl Albumin 3.3 L (3.4-5.0) gm/dl Globulin 4.2 H (2.5-4.0) gm/dl Albumin/Globulin Ratio 0.8 L (0.9-2) SARS-CoV-2, RNA, NAAT (NEGATIVE) 06/04/21 Range/Units 19:56 WBC 9.20 (4.8-10.8) K/uL RBC 4.71 (4.7-6.1) M/uL Hgb 13.7 L (14.0-18.0) g/dL Hct 42.8 (42-52) % MCV 90.9 (80-100) fL MCH 29.1 (25-34) pg MCHC 32.0 (32-36) g/dL RDW Std Deviation 46.4 H (36.4-46.3) fL RDW Coeff of Daniel 14.0 (11.5-14.5) % Plt Count 308 (130-400) K/uL MPV 9.3 (7.4-10.4) fL Immature Gran % (Auto) 0.2 % Neut % (Auto) 65.5 % Lymph % (Auto) 23.5 % Charlton % (Auto) 9.3 % Eos % (Auto) 1.4 % Baso % (Auto) 0.1 % Neut # (Auto) 6.02 (1.4-6.5) K/uL Lymph # (Auto) 2.16 (1.2-3.4) K/uL Charlton # (Auto) 0.86 H (0.11-0.59) K/uL Eos # (Auto) 0.13 (0-0.5) K/uL Baso # (Auto) 0.01 (0-0.2) K/uL Immature Gran # (Auto) 0.02 (0.00-0.02) K/uL ESR (0-20) mm/hr Sodium (136-145) mmol/L Potassium (3.5-5.1) mmol/L Chloride (98-107) mmol/L Carbon Dioxide (21-32) mmol/L Anion Gap (3-11) BUN (7-18) mg/dl Creatinine (0.6-1.4) mg/dl Est Cr Clr Drug Dosing ml/min Est GFR ( Amer) ml/min Est GFR (Non-Af Amer) ml/min BUN/Creatinine Ratio (10-20) Glucose (70-99) mg/dl POC Glucose (70-99) mg/dl Estimat Average Glucose mg/dl Hemoglobin A1c (4.5-5.6) % Lactate (0.4-2.0) mmol/L Calcium (8.5-10.1) mg/dl Total Bilirubin (0.2-1) mg/dl AST (15-37) U/L ALT (12-78) Alkaline Phosphatase (45-117) U/L C-Reactive Protein (0-0.29) mg/dl Total Protein (6.4-8.2) gm/dl Albumin (3.4-5.0) gm/dl Globulin (2.5-4.0) gm/dl Albumin/Globulin Ratio (0.9-2) SARS-CoV-2, RNA, NAAT (NEGATIVE) Diagnostic Findings Tibia/Fibula X-Ray 06/04/21 19:52 XR tibia fibula RT 2V CLINICAL HISTORY: Leg wound. Evaluate for cellulitis versus osteomyelitis. COMPARISON STUDY: No previous studies for comparison. TECHNIQUE: AP and lateral right lower leg views FINDINGS: Bones: There is evidence for old posttraumatic change involving the proximal third of the tibial shaft. Old, healed fractures also seen involving the proximal third of the fibular shaft. There is no evidence for an acute fracture or dislocation. There is no evidence for cortical destruction or osteomyelitis. There is no lytic or blastic lesion. Joints: There is moderate to marked narrowing of the medial and lateral joint compartments at the knee. The ankle joint is maintained. The bones are in anatomic alignment. Soft tissues: There is evidence for a leg wound involving the proximal calf, posteromedially. Soft tissue swelling and evidence for cellulitis is also seen. There is no radiopaque foreign body. IMPRESSION: No acute osseous pathology. Old, healed fractures of the proximal tibia and fibula. Leg wound and evidence for cellulitis. ACT 112: Negative or not required by law. Electronically signed by: Chi Quintero M.D. 06/04/2021 8:50 PM Venous Doppler Study 06/04/21 19:52 US venous doppler LE RT CLINICAL HISTORY: Right calf pain and swelling COMPARISON: None available at the time of this dictation. TECHNIQUE: Right lower extremity real-time compression venous ultrasound with Color Doppler imaging. Utilizing real-time ultrasonic imaging multiple real time high-resolution ultrasonic images with compression and noncompression maneuvers of the deep venous system in addition to color doppler imaging were performed from the common femoral vein through the proximal calf veins. FINDINGS: Currently there is normal compressibility of the deep venous system from the common femoral vein through the proximal calf veins. No current evidence of acute thrombosis is identified. However, there is evidence for a popliteal cyst posterior to the knee measuring 6.6 x 3.7 x 5.3 cm. Impression: No evidence of deep venous thrombus. Popliteal cyst ACT 112: Negative or not required by law. Electronically signed by: Chi Quintero M.D. 06/04/2021 9:31 PM Medications Administered Current Inpatient Medications Acetaminophen (Acetaminophen 325 Mg Tab) 650 mg PO Q4H PRN PRN Reason: pain/fever Stop: 07/05/21 00:26 Aspirin (Aspirin 81 Mg Ectab) 81 mg PO DAILY LIBBY Stop: 07/05/21 08:59 Last Admin: 06/05/21 08:54 Dose: 81 mg Documented by: Dextrose (Dextrose 50% 50 Ml Syringe) 25 - 50 ml IV UD PRN; Protocol PRN Reason: Hypoglycemia Protocol Stop: 07/05/21 00:26 Enoxaparin Sodium (Enoxaparin Inj 40 Mg/0.4 Ml Syr) 40 mg SQ Q12H LIBBY Stop: 07/05/21 08:59 Last Admin: 06/05/21 08:54 Dose: 40 mg Documented by: Finasteride (Finasteride 5 Mg Tab) 5 mg PO DAILY LIBBY Stop: 07/05/21 08:59 Last Admin: 06/05/21 08:53 Dose: 5 mg Documented by: Glucagon (Glucagon For Inj 1 Mg Vial) 1 mg SQ UD PRN; Protocol PRN Reason: Hypoglycemia Protocol Stop: 07/05/21 00:26 Glucose (Glucose 10 Tabs/Tube) 4 - 8 tabs PO UD PRN; Protocol PRN Reason: Hypoglycemia Protocol Stop: 07/05/21 00:26 Glucose (Glucose 40% Gel 15 Gm Tube) 15 - 30 gm PO UD PRN; Protocol PRN Reason: Hypoglycemia Protocol Stop: 07/05/21 00:26 Cefepime HCl 2,000 mg/ Syringe 20 mls @ 5 mls/min IV Q12H LIBBY; Protocol Stop: 06/15/21 09:59 Last Admin: 06/05/21 10:34 Dose: 5 mls/min Documented by: Insulin Aspart (Insulin Aspart Per Unit) 0 units SC ACHS LIBBY Stop: 07/05/21 07:29 Last Admin: 06/05/21 17:58 Dose: 6 units Documented by: Insulin Glargine (Insulin Glargine Solostar 100 Units/Ml 3 Ml Pen) 26 units SC BID LIBBY Stop: 07/05/21 00:26 Last Admin: 06/05/21 08:55 Dose: 26 units Documented by: Losartan Potassium (Losartan Potassium 50 Mg Tab) 50 mg PO HS [facility] Stop: 07/05/21 00:26 Last Admin: 06/05/21 02:16 Dose: 50 mg Documented by: Miscellaneous (Carbohydrates For Hypoglycemia ) 15 - 30 gm PO UD PRN PRN Reason: Hypoglycemia Protocol Stop: 07/05/21 00:26 Ondansetron HCl (Ondansetron Inj 2 Mg/Ml 2 Ml Vial) 4 mg IV Q6H PRN PRN Reason: Nausea Stop: 07/05/21 00:26 Rosuvastatin Calcium (Rosuvastatin Calcium 5 Mg Tab) 5 mg PO DAILY [facility] Stop: 07/05/21 08:59 Last Admin: 06/05/21 08:54 Dose: 5 mg Documented by: Resident Activity Tracking Resident Involvement: Resident Care Provided Care Provided: Adult Hospital Medicine
[2021-06-05 07:44] LABS: Basophils # (auto) 0.01 K/uL (0-0.2); Basophils % (auto) 0.1 %; Eosinophils # (auto) 0.19 K/uL (0-0.5); Hematocrit (blood only) 41.2 % (42-52); Hemoglobin 13.1 g/dL (14.0-18.0); Immature Granulocytes # (auto) 0.02 K/uL (0.00-0.02); Immature Granulocytes % (auto) 0.2 %; Lymphocytes # (auto) 2.83 K/uL (1.2-3.4); Lymphocytes % (auto) 29.5 %; Mean Corpuscular Hemoglobin 28.5 pg (25-34); Mean Corpuscular Hgb Conc 31.8 g/dL (32-36); Mean Corpuscular Volume 89.6 fL (80-100); Mean Platelet Volume 9.1 fL (7.4-10.4); Monocytes # (auto) 0.77 K/uL (0.11-0.59); Neutrophils # (auto) 5.76 K/uL (1.4-6.5); Neutrophils % (auto) 60.2 %; Platelet Count 269 K/uL (130-400); RDW Coefficient of Variation 14.2 % (11.5-14.5); RDW Standard Deviation 46.1 fL (36.4-46.3); White Blood Count 9.58 K/uL (4.8-10.8)
[2021-06-05 07:50] LABS: Estimated Average Glucose 169 mg/dl; Hemoglobin A1C 7.5 % (4.5-5.6)
[2021-06-05 08:05] LABS: BUN Creatinine Ratio 33.9 (10-20); C Reactive Protein 0.57 mg/dl (0-0.29); Calcium 8.2 mg/dl (8.5-10.1); Creatinine Clr Calc Pharmacy 214.3 ml/min; Est GFR (African American) 126.7 ml/min; Est GFR (Non-African American) 109.4 ml/min; Potassium 3.8 mmol/L (3.5-5.1)
[2021-06-05] MEDS: FINASTERIDE 5 MG TAB PO SCH (08:53)
[2021-06-05] MEDS: ENOXAPARIN INJ 40 MG/0.4 ML SYR SQ SCH ×2 (08:54→21:06)
[2021-06-05] MEDS: ROSUVASTATIN CALCIUM 5 MG TAB PO SCH (08:54)
[2021-06-05] MEDS: ASPIRIN 81 MG ECTAB PO SCH (08:54)
[2021-06-05] MEDS: INSULIN ASPART PER UNIT SC SCH ×4 (08:55→21:06)
[2021-06-05] MEDS: CEFEPIME 2,000 MG in SYRINGE 0 ML IV SCH ×2 (10:34→21:06)
--- NOTE | 2021-06-05 19:49 | Billing Data ---
Date of Service June 05, 2021 Coding Level of Care Code 65694 Initial Inpt Care Lvl 3
[2021-06-06 06:49] LABS: Hematocrit (blood only) 44.1 % (42-52); Mean Corpuscular Hemoglobin 28.7 pg (25-34); Mean Corpuscular Hgb Conc 31.7 g/dL (32-36); Mean Corpuscular Volume 90.6 fL (80-100); Platelet Count 304 K/uL (130-400); RDW Coefficient of Variation 14.2 % (11.5-14.5); RDW Standard Deviation 46.7 fL (36.4-46.3); Red Blood Count 4.87 M/uL (4.7-6.1); White Blood Count 8.84 K/uL (4.8-10.8)
[2021-06-06 07:13] LABS: BUN Creatinine Ratio 20.5 (10-20); Calcium 8.8 mg/dl (8.5-10.1); Creatinine Clr Calc Pharmacy 145.5 ml/min; Est GFR (African American) 108.1 ml/min; Est GFR (Non-African American) 93.3 ml/min; Potassium 4.1 mmol/L (3.5-5.1)
--- NOTE | 2021-06-06 07:15 | Hospitalist Progress Note ---
Date of Service June 06, 2021 Assessment & Plan (1) Cellulitis of leg, right: Plan: Patient is a 66 year old male with PMHx DM2, Hypercholesterolemia, HTN, NEVAEH on CPAP therapy, who presents with 3-4 day history of worsening RLE ulceration and redness. RLE Cellulitis with Ulceration in a diabetic patient -Started on Cefepime in the ED for pseudomonal coverage, will continue Cefepime x10-14 days pending improvement -Blood and wound cultures pending -Venous doppler negative for clot -Tibia/Fibula XR without signs of osteomyelitis by XR standards, notable for cellulitis. Also noting previous old healed fracture of the proximal tibia and fibula. -CRP 0.72 and ESR 27, downtrending -Wound care consulted -If no improvement, can consider arterial doppler to determine flow. pedal pulse found on RLE, pedal and posterior tibial pulse found on LLE, hold arterial doppler for now -erythema receding per patient, marked current borders with marker, erythema has not reduced further. Ulcer shallow with irregular boarders max 6cm across -discussed with patient and necessity of following up with wound care, checking feet every night due to his extensive neuropathy, daily ointment for feet -staph noted on wound culture -will consider switching to PO abx when we have sensitivities DM2 -Hold home meds -Basal bolus and SSI ordered -HgbA1c in AM, last in 7.8 on 05/05/21, latest 7.5 HTN -Continue home Losartan NEVAEH -cpap qhs BPH -Continue home finasteride HLD -continue home Crestor and ASA Dispo: Med/Surg FEN: DM2 diet DVT: Lovenox BID sq Code: Full (2) Diabetes mellitus type 2 in obese: (3) Hypertension: (4) Dyslipidemia: Admission and Anticipated Discharge Date Admission Date: June 04, 2021 Supervising Physician Co-Signing Physician Notes Attending addendum: I have physically seen this patient, have supervised the medical residents activities, and agree with the prgress note above by Dr. Paez. Assessment and Plan: Right lower extremity cellulitis- Allergic to penicillins Tolerating cephalosporins. Improved dramatically with cefepime, doubt pseudomonas, will transition to cefazolin area of cellulitis was delineated. Appears majority of erythema from cellulitis is gone, and is now showing venous stasis changes, wound consult will be completed tomorrow, likely discharge on orals tomorrow. Follow blood and wound cultures, though wound was completed while on antibiotics. Lower extremity venous Doppler negative for DVT Tib-fib x-ray with no signs of osteomyelitis Consult wound care Remaining orders and notations as noted Subjective 66yo Male seen at bedside, calm comfortable cooperative. He denies fever pain chills nausea vomitting. Patient's erythema surrounding his venous statis and ulcer has not receded from the marker line. Per patient's his ulcer looks worse than on admit, discussed with that his ulcer was possibly more extensive than was visible, and the bandage abrasion revealed the remaining wound under skin. Discussed his increased urination at home is likely due to his new Jardiance medication. Review of Systems Review of Systems: Negative fever chills Negative headache dizziness Negative chest pain palpitations SOB Negative nausea vomitting diarrhea constipation Physical Exam Constitutional: well developed, well nourished and + morbidly obese; no acute distress Eyes: PERRL, conjunctivae normal, anicteric sclerae ENMT: Ears: no hearing impairment Nose: no external nose abnormality Neck: trachea midline, no thyromegaly Respiratory: normal respiratory effort, lungs clear to auscultation Cardiovascular: Rate/Rhythm: regular rate and regular rhythm Heart Sounds: no murmur Extremities: + edema (b/l +1 pitting edema on LE up to knee, venous stasis noted on b/l LE); no calf tenderness Gastrointestinal (Abdomen): normal bowel sounds, soft, nontender, no hepatosplenomegaly Musculoskeletal: Head/Neck/Chest: normocephalic and head atraumatic Skin: + ulcer (medial R ankle ) and + erythema (RLE below the knee surrounding his venous stasis, venous stasis on b/l LE) ulcer is shallow, leaking fluid, irregular boarders max 6cm across on R ankle. Deep dry non erythematous crack noted on left big toe Neurologic: PERRL, EOMI, accommodation nl, no face palsy, no dysarthria Psychiatric: A+Ox3, euthymic affect Results & Data Results & Data ([facility]) Vital Signs (Past 12 Hours) Vital Signs Temp Pulse Resp BP Pulse Ox 06/05/21 21:45 36.9 C 85 16 139/76 94 Laboratory Results 06/06/21 06/06/21 06/06/21 Range/Units 12:10 07:55 06:27 WBC (4.8-10.8) K/uL RBC (4.7-6.1) M/uL Hgb (14.0-18.0) g/dL Hct (42-52) % MCV (80-100) fL MCH (25-34) pg MCHC (32-36) g/dL RDW Std Deviation (36.4-46.3) fL RDW Coeff of Daniel (11.5-14.5) % Plt Count (130-400) K/uL MPV (7.4-10.4) fL Sodium 137 (136-145) mmol/L Potassium 4.1 (3.5-5.1) mmol/L Chloride 104 (98-107) mmol/L Carbon Dioxide 31 (21-32) mmol/L Anion Gap 2.0 L (3-11) BUN 16 (7-18) mg/dl Creatinine 0.81 (0.6-1.4) mg/dl Est Cr Clr Drug Dosing 145.5 ml/min Est GFR ( Amer) 108.1 ml/min Est GFR (Non-Af Amer) 93.3 ml/min BUN/Creatinine Ratio 20.5 H (10-20) Glucose 116 H (70-99) mg/dl POC Glucose 138 H 109 H (70-99) mg/dl Calcium 8.8 (8.5-10.1) mg/dl 06/06/21 06/05/21 06/05/21 Range/Units 06:27 20:40 16:52 WBC 8.84 (4.8-10.8) K/uL RBC 4.87 (4.7-6.1) M/uL Hgb 14.0 (14.0-18.0) g/dL Hct 44.1 (42-52) % MCV 90.6 (80-100) fL MCH 28.7 (25-34) pg MCHC 31.7 L (32-36) g/dL RDW Std Deviation 46.7 H (36.4-46.3) fL RDW Coeff of Daniel 14.2 (11.5-14.5) % Plt Count 304 (130-400) K/uL MPV 9.0 (7.4-10.4) fL Sodium (136-145) mmol/L Potassium (3.5-5.1) mmol/L Chloride (98-107) mmol/L Carbon Dioxide (21-32) mmol/L Anion Gap (3-11) BUN (7-18) mg/dl Creatinine (0.6-1.4) mg/dl Est Cr Clr Drug Dosing ml/min Est GFR ( Amer) ml/min Est GFR (Non-Af Amer) ml/min BUN/Creatinine Ratio (10-20) Glucose (70-99) mg/dl POC Glucose 125 H 124 H (70-99) mg/dl Calcium (8.5-10.1) mg/dl Medications Administered Current Inpatient Medications Acetaminophen (Acetaminophen 325 Mg Tab) 650 mg PO Q4H PRN PRN Reason: pain/fever Stop: 07/05/21 00:26 Aspirin (Aspirin 81 Mg Ectab) 81 mg PO DAILY LIBBY Stop: 07/05/21 08:59 Last Admin: 06/06/21 08:45 Dose: 81 mg Documented by: Dextrose (Dextrose 50% 50 Ml Syringe) 25 - 50 ml IV UD PRN; Protocol PRN Reason: Hypoglycemia Protocol Stop: 07/05/21 00:26 Enoxaparin Sodium (Enoxaparin Inj 40 Mg/0.4 Ml Syr) 40 mg SQ Q12H LIBBY Stop: 07/05/21 08:59 Last Admin: 06/06/21 08:46 Dose: 40 mg Documented by: Finasteride (Finasteride 5 Mg Tab) 5 mg PO DAILY LIBBY Stop: 07/05/21 08:59 Last Admin: 06/06/21 08:45 Dose: 5 mg Documented by: Glucagon (Glucagon For Inj 1 Mg Vial) 1 mg SQ UD PRN; Protocol PRN Reason: Hypoglycemia Protocol Stop: 07/05/21 00:26 Glucose (Glucose 10 Tabs/Tube) 4 - 8 tabs PO UD PRN; Protocol PRN Reason: Hypoglycemia Protocol Stop: 07/05/21 00:26 Glucose (Glucose 40% Gel 15 Gm Tube) 15 - 30 gm PO UD PRN; Protocol PRN Reason: Hypoglycemia Protocol Stop: 07/05/21 00:26 Cefepime HCl 2,000 mg/ Syringe 20 mls @ 5 mls/min IV Q12H LIBBY; Protocol Stop: 06/15/21 09:59 Last Admin: 06/06/21 10:15 Dose: 5 mls/min Documented by: Insulin Aspart (Insulin Aspart Per Unit) 0 units SC ACHS [facility] Stop: 07/05/21 07:29 Last Admin: 06/06/21 13:06 Dose: 8 units Documented by: Insulin Glargine (Insulin Glargine Solostar 100 Units/Ml 3 Ml Pen) 26 units SC BID [facility]BY Stop: 07/05/21 00:26 Last Admin: 06/06/21 08:54 Dose: 26 units Documented by: Losartan Potassium (Losartan Potassium 50 Mg Tab) 50 mg PO HS [facility] Stop: 07/05/21 00:26 Last Admin: 06/05/21 21:07 Dose: 50 mg Documented by: Miscellaneous (Carbohydrates For Hypoglycemia ) 15 - 30 gm PO UD PRN PRN Reason: Hypoglycemia Protocol Stop: 07/05/21 00:26 Ondansetron HCl (Ondansetron Inj 2 Mg/Ml 2 Ml Vial) 4 mg IV Q6H PRN PRN Reason: Nausea Stop: 07/05/21 00:26 Rosuvastatin Calcium (Rosuvastatin Calcium 5 Mg Tab) 5 mg PO DAILY [facility]BY Stop: 07/05/21 08:59 Last Admin: 06/06/21 08:45 Dose: 5 mg Documented by: Resident Activity Tracking Resident Involvement: Resident Care Provided Care Provided: Adult Hospital Medicine
--- NOTE | 2021-06-06 08:36 | Billing Data ---
Date of Service June 05, 2021 Coding Level of Care Code 81991 Subseq Hosp Care Lvl 2
[2021-06-06] MEDS: ASPIRIN 81 MG ECTAB PO SCH (08:45)
[2021-06-06] MEDS: FINASTERIDE 5 MG TAB PO SCH (08:45)
[2021-06-06] MEDS: ROSUVASTATIN CALCIUM 5 MG TAB PO SCH (08:45)
[2021-06-06] MEDS: ENOXAPARIN INJ 40 MG/0.4 ML SYR SQ SCH ×2 (08:46→20:44)
[2021-06-06] MEDS: INSULIN ASPART PER UNIT SC SCH ×4 (08:52→20:39)
[2021-06-06] MEDS: INSULIN GLARGINE SOLOSTAR 100 UNITS/ML 3 ML PEN SC SCH ×2 (08:54→20:46)
[2021-06-06] MEDS: CEFEPIME 2,000 MG in SYRINGE 0 ML IV SCH ×2 (10:15→20:50)
--- NOTE | 2021-06-06 12:33 | Emergency Department Note ---
ED Visit Note Patient was seen and evaluated at the bedside w/ Sandra Negrete PA-C. Please see their note for history, physical, details, and disposition. Patient was seen due to concern for cellulitis of right lower extremity and has known history of diabetes. Patient was admitted to the hospitalist service. .
[2021-06-06] MEDS: LOSARTAN POTASSIUM 50 MG TAB PO SCH (20:44)
--- NOTE | 2021-06-06 22:36 | Billing Data ---
Date of Service June 06, 2021 Coding Level of Care Code 07275 Subseq Hosp Care Lvl 2
[2021-06-07] MEDS ORDERED: ceFAZolin 2000MG 2,000 MG/15 ML SYR IV SCH (06:00)
[2021-06-07 08:05] LABS: Basophils # (auto) 0.02 K/uL (0-0.2); Basophils % (auto) 0.2 %; Eosinophils # (auto) 0.09 K/uL (0-0.5); Hematocrit (blood only) 44.6 % (42-52); Hemoglobin 14.4 g/dL (14.0-18.0); Immature Granulocytes # (auto) 0.01 K/uL (0.00-0.02); Immature Granulocytes % (auto) 0.1 %; Lymphocytes # (auto) 2.08 K/uL (1.2-3.4); Lymphocytes % (auto) 23.9 %; Mean Corpuscular Hemoglobin 28.9 pg (25-34); Mean Corpuscular Hgb Conc 32.3 g/dL (32-36); Mean Corpuscular Volume 89.6 fL (80-100); Mean Platelet Volume 8.9 fL (7.4-10.4); Monocytes # (auto) 0.98 K/uL (0.11-0.59); Monocytes % (auto) 11.3 %; Neutrophils # (auto) 5.53 K/uL (1.4-6.5); Neutrophils % (auto) 63.5 %; Platelet Count 287 K/uL (130-400); RDW Coefficient of Variation 14.2 % (11.5-14.5); Red Blood Count 4.98 M/uL (4.7-6.1); White Blood Count 8.71 K/uL (4.8-10.8)
[2021-06-07] MEDS: ROSUVASTATIN CALCIUM 5 MG TAB PO SCH (08:11)
[2021-06-07] MEDS: ENOXAPARIN INJ 40 MG/0.4 ML SYR SQ SCH ×2 (08:11→21:42)
[2021-06-07] MEDS: FINASTERIDE 5 MG TAB PO SCH (08:11)
[2021-06-07] MEDS: INSULIN GLARGINE SOLOSTAR 100 UNITS/ML 3 ML PEN SC SCH ×2 (08:11→21:36)
[2021-06-07] MEDS: ASPIRIN 81 MG ECTAB PO SCH (08:11)
[2021-06-07 08:39] LABS: BUN Creatinine Ratio 23.7 (10-20); Calcium 8.6 mg/dl (8.5-10.1); Creatinine Clr Calc Pharmacy 161.5 ml/min; Est GFR (African American) 112.8 ml/min; Est GFR (Non-African American) 97.3 ml/min
[2021-06-07] MEDS: INSULIN ASPART PER UNIT SC SCH ×4 (09:12→21:36)
--- NOTE | 2021-06-07 15:38 | Hospitalist Progress Note ---
Date of Service June 07, 2021 Assessment & Plan (1) Cellulitis of leg, right: Plan: Patient is a 66 year old male with PMHx DM2, Hypercholesterolemia, HTN, NEVAEH on CPAP therapy, who presents with 3-4 day history of worsening RLE ulceration and redness. RLE Cellulitis with Ulceration in a diabetic patient -Started on Cefepime in the ED for pseudomonal coverage, will continue Cefepime x10-14 days pending improvement -Blood and wound cultures pending -Venous doppler negative for clot -Tibia/Fibula XR without signs of osteomyelitis by XR standards, notable for cellulitis. Also noting previous old healed fracture of the proximal tibia and fibula. -CRP 0.72 and ESR 27, downtrending -Wound care consulted, following, recommend outpatient f/u 06/23/21 -If no improvement, can consider arterial doppler to determine flow. pedal pulse found on RLE, pedal and posterior tibial pulse found on LLE, hold arterial doppler for now -erythema receding per patient, marked current borders with marker, erythema has not reduced further. Ulcer shallow with irregular boarders max 6cm across -discussed with patient and necessity of following up with wound care, checking feet every night due to his extensive neuropathy, daily ointment for feet -staph aureus not MRSA noted on wound culture - transitioned to PO doxycycline 100mg BID 12 day course remaining, will see how he tolerates overnight, if well may dc conner DM2 -Hold home meds -Basal bolus and SSI ordered -HgbA1c in AM, last in 7.8 on 05/05/21, latest 7.5 HTN -Continue home Losartan NEVAEH -cpap qhs BPH -Continue home finasteride HLD -continue home Crestor and ASA Dispo: Med/Surg FEN: DM2 diet DVT: Lovenox BID sq Code: Full (2) Diabetes mellitus type 2 in obese: (3) Hypertension: (4) Dyslipidemia: Admission and Anticipated Discharge Date Admission Date: June 04, 2021 Supervising Physician Co-Signing Physician Notes I also saw the patient confirmed triplett portions of the history and the physical examination. Agree with the impression and plan as noted in the resident documentation. Overall, he is feeling better. Remains afebrile. Upon exam, lower extremities look much less erythematous. Looks more of chronic changes rather than acute infection. DATA WBC 8.71, hemoglobin 14.4 A/P Right lower extremity cellulitis Transition to doxycycline her milligrams p.o. twice daily If no issues with tolerability, consider discharge in a.m. Wound care consult appreciated Else per resident documentation Subjective 66yo Male seen at bedside, calm comfortable cooperative. He denies fever pain chills nausea vomitting. Patient's erythema has receded further from marker line. Patient's ulcer has slightly less drainage, no change in size, patient states painful on direct palpation to ulcer, denies calf tenderness. He states his may not be able to drive over today to pick him up, would prefer dc tomorrow. Discussed with patient transition to po abx, f/u with wound care in outpatient. Review of Systems Review of Systems: Negative fever chills Negative headache dizziness Negative chest pain palpitations SOB Negative nausea vomitting diarrhea constipation Physical Exam Constitutional: well developed, well nourished and + morbidly obese; no acute distress Eyes: PERRL, conjunctivae normal, anicteric sclerae ENMT: Ears: no hearing impairment Nose: no external nose abnormality Neck: trachea midline, no thyromegaly Respiratory: normal respiratory effort, lungs clear to auscultation Cardiovascular: Rate/Rhythm: regular rate and regular rhythm Heart Sounds: no murmur Extremities: + edema (b/l +1 pitting edema on LE up to knee, venous stasis noted on b/l LE); no calf tenderness Gastrointestinal (Abdomen): normal bowel sounds, soft, nontender, no hepatosplenomegaly Musculoskeletal: Head/Neck/Chest: normocephalic and head atraumatic Skin: + ulcer (medial R ankle ) and + erythema (RLE below the knee surrounding his venous stasis, venous stasis on b/l LE) Neurologic: PERRL, EOMI, accommodation nl, no face palsy, no dysarthria Psychiatric: A+Ox3, euthymic affect Results & Data Results & Data ([facility]) Vital Signs (Past 12 Hours) Vital Signs Temp Pulse Resp BP Pulse Ox 06/07/21 15:27 37.1 C 80 20 150/70 H 92 06/07/21 08:33 36.4 C L 53 L 16 137/76 94 Laboratory Results 06/07/21 06/07/21 06/07/21 Range/Units 12:16 08:00 07:50 WBC (4.8-10.8) K/uL RBC (4.7-6.1) M/uL Hgb (14.0-18.0) g/dL Hct (42-52) % MCV (80-100) fL MCH (25-34) pg MCHC (32-36) g/dL RDW Std Deviation (36.4-46.3) fL RDW Coeff of Daniel (11.5-14.5) % Plt Count (130-400) K/uL MPV (7.4-10.4) fL Immature Gran % (Auto) % Neut % (Auto) % Lymph % (Auto) % Cecil % (Auto) % Eos % (Auto) % Baso % (Auto) % Neut # (Auto) (1.4-6.5) K/uL Lymph # (Auto) (1.2-3.4) K/uL Cecil # (Auto) (0.11-0.59) K/uL Eos # (Auto) (0-0.5) K/uL Baso # (Auto) (0-0.2) K/uL Immature Gran # (Auto) (0.00-0.02) K/uL Sodium 139 (136-145) mmol/L Potassium 4.0 (3.5-5.1) mmol/L Chloride 104 (98-107) mmol/L Carbon Dioxide 28 (21-32) mmol/L Anion Gap 7.0 (3-11) BUN 17 (7-18) mg/dl Creatinine 0.73 (0.6-1.4) mg/dl Est Cr Clr Drug Dosing 161.5 ml/min Est GFR ( Amer) 112.8 ml/min Est GFR (Non-Af Amer) 97.3 ml/min BUN/Creatinine Ratio 23.7 H (10-20) Glucose 114 H (70-99) mg/dl POC Glucose 168 H 108 H (70-99) mg/dl Calcium 8.6 (8.5-10.1) mg/dl 06/07/21 06/06/21 06/06/21 Range/Units 07:50 20:34 16:56 WBC 8.71 (4.8-10.8) K/uL RBC 4.98 (4.7-6.1) M/uL Hgb 14.4 (14.0-18.0) g/dL Hct 44.6 (42-52) % MCV 89.6 (80-100) fL MCH 28.9 (25-34) pg MCHC 32.3 (32-36) g/dL RDW Std Deviation 46.0 (36.4-46.3) fL RDW Coeff of Daniel 14.2 (11.5-14.5) % Plt Count 287 (130-400) K/uL MPV 8.9 (7.4-10.4) fL Immature Gran % (Auto) 0.1 % Neut % (Auto) 63.5 % Lymph % (Auto) 23.9 % Cecil % (Auto) 11.3 % Eos % (Auto) 1.0 % Baso % (Auto) 0.2 % Neut # (Auto) 5.53 (1.4-6.5) K/uL Lymph # (Auto) 2.08 (1.2-3.4) K/uL Cecil # (Auto) 0.98 H (0.11-0.59) K/uL Eos # (Auto) 0.09 (0-0.5) K/uL Baso # (Auto) 0.02 (0-0.2) K/uL Immature Gran # (Auto) 0.01 (0.00-0.02) K/uL Sodium (136-145) mmol/L Potassium (3.5-5.1) mmol/L Chloride (98-107) mmol/L Carbon Dioxide (21-32) mmol/L Anion Gap (3-11) BUN (7-18) mg/dl Creatinine (0.6-1.4) mg/dl Est Cr Clr Drug Dosing ml/min Est GFR ( Amer) ml/min Est GFR (Non-Af Amer) ml/min BUN/Creatinine Ratio (10-20) Glucose (70-99) mg/dl POC Glucose 118 H 107 H (70-99) mg/dl Calcium (8.5-10.1) mg/dl Resident Activity Tracking Resident Involvement: Resident Care Provided Care Provided: Adult [facility] Medicine
[2021-06-07] MEDS: LOSARTAN POTASSIUM 50 MG TAB PO SCH (21:42)
[2021-06-07] MEDS: DOXYCYCLINE HYCLATE 100 MG CAP PO SCH (21:43)
[2021-06-08 06:59] LABS: Hematocrit (blood only) 44.2 % (42-52); Hemoglobin 14.4 g/dL (14.0-18.0); Mean Corpuscular Hemoglobin 28.9 pg (25-34); Mean Corpuscular Hgb Conc 32.6 g/dL (32-36); Mean Corpuscular Volume 88.6 fL (80-100); Mean Platelet Volume 9.2 fL (7.4-10.4); Platelet Count 271 K/uL (130-400); RDW Coefficient of Variation 14.1 % (11.5-14.5); RDW Standard Deviation 45.3 fL (36.4-46.3); Red Blood Count 4.99 M/uL (4.7-6.1); White Blood Count 9.11 K/uL (4.8-10.8)
[2021-06-08 07:31] LABS: Creatinine Clr Calc Pharmacy 161.5 ml/min; Est GFR (African American) 112.8 ml/min; Est GFR (Non-African American) 97.3 ml/min
[2021-06-08] MEDS: INSULIN ASPART PER UNIT SC SCH ×2 (08:34→12:59)
[2021-06-08] MEDS: INSULIN GLARGINE SOLOSTAR 100 UNITS/ML 3 ML PEN SC SCH (08:35)
[2021-06-08] MEDS: ROSUVASTATIN CALCIUM 5 MG TAB PO SCH (08:39)
[2021-06-08] MEDS: ASPIRIN 81 MG ECTAB PO SCH (08:39)
[2021-06-08] MEDS: DOXYCYCLINE HYCLATE 100 MG CAP PO SCH (08:39)
[2021-06-08] MEDS: FINASTERIDE 5 MG TAB PO SCH (08:39)
[2021-06-08] MEDS: ENOXAPARIN INJ 40 MG/0.4 ML SYR SQ SCH (08:40)
--- NOTE | 2021-06-08 13:35 | Discharge Summary ---
Date of Service June 08, 2021 Admission HPI Per Admitting Provider Patient is a 66 year old male with PMHx DM2, Hypercholesterolemia, HTN, NEVAEH on CPAP therapy, who presents with 3-4 day history of worsening RLE ulceration and redness. Patient notes that roughly 3-4 days ago he noticed that his R lower leg was becoming more red and hot to the touch. He then noticed that it started to have an ulceration on the medial aspect of the ankle and has had some clear drainage. He has tried putting on OTC topical antibiotic 2 days ago in addition to New skin liquid bandage, however, has had worsening in the ulceration and the redness. He notes tenderness primarily around the the ulceration on the medial aspect of his R ankle. He denies any fever, chills, SOB, chest pain, abdominal pain, dysuria, hematuria, NVD, headache. He has been able to ambulate on the leg without much difficulty. Med HX: Dm2, Hypercholesterolemia, HTN, NEVAEH on cpap Surg Hx:Tonsillectomy Soc Hx: Denies tobacco, alcohol, illicit drug use Admission Exam Per Admitting Provider Constitutional: well developed, well nourished and + morbidly obese; no acute distress Eyes:L PERRL, conjunctivae normal, anicteric sclerae ENMT: Ears: no hearing impairment Nose: no external nose abnormality Neck: trachea midline, no thyromegaly Respiratory: normal respiratory effort, lungs clear to auscultation Cardiovascular: Rate/Rhythm: regular rate and regular rhythm Heart Sounds: no murmur Extremities: + edema (trace b/l ) Unable to palpate dorsalis pedis or tibialis anterior on the RLE Gastrointestinal (Abdomen): normal bowel sounds, soft, nontender, no hepatosplenomegaly Musculoskeletal: Head/Neck/Chest: normocephalic and head atraumatic Redness and erythema extending roughly 6cm below the R knee to the distal ankle. Roughly 3cm diameter ulceration on the medial R ankle without purulent discharge. L foot with 1cm laceration on the dorsal aspect of the foot at the MTP, no er ythema, drainage Skin: + ulcer (medial R ankle ) and + erythema (RLE below the knee to the ankle ) Neurologic: PERRL, EOMI, accommodation nl, no face palsy, no dysarthria Psychiatric: A+Ox3, euthymic affect Principal Diagnosis Right Leg Cellulitis Discharge Exam Constitutional well developed, well nourished and + morbidly obese; no acute distress Eyes PERRL, conjunctivae normal, anicteric sclerae ENMT Ears: no hearing impairment Nose: no external nose abnormality Neck trachea midline, no thyromegaly Respiratory normal respiratory effort, lungs clear to auscultation Cardiovascular Rate/Rhythm: regular rate and regular rhythm Heart Sounds: no murmur Extremities: no calf tenderness Gastrointestinal (Abdomen) normal bowel sounds, soft, nontender, no hepatosplenomegaly Musculoskeletal Head/Neck/Chest: normocephalic and head atraumatic Skin + ulcer (medial R ankle ) and + erythema (venous stasis on b/l LE) Neurologic PERRL, EOMI, accommodation nl, no face palsy, no dysarthria Psychiatric A+Ox3, euthymic affect Discharge Data Allergies Allergy/AdvReac Type Severity Reaction Status Date / Time Penicillins Allergy Unknown unknown Verified 06/04/21 21:55 allergy as a child Consultations 06/04/21 21:05 ED Decision to Admit Stat Ordered Studies 06/04/21 19:52 US venous doppler LE RT Stat Hospital Course (1) Cellulitis of leg, right: Patient is a 66 year old male with PMHx DM2, Hypercholesterolemia, HTN, NEVAEH on CPAP therapy, who presents with 3-4 day history of worsening RLE ulceration and redness. RLE Cellulitis with Ulceration in a diabetic patient Started on Cefepime in the ED for pseudomonal coverage, will continue Cefepime x10-14 days pending improvement. Staph aureus not MRSA noted on wound culture. Venous doppler negative for clot. Tibia/Fibula XR without signs of osteomyelitis by XR standards, notable for cellulitis. Also noting previous old healed fr acture of the proximal tibia and fibula. CRP 0.72 and ESR 27, downtrending. Wound care consulted, following, recommend outpatient f/u 06/23/21. Discussed with patient and necessity of following up with wound care, checking feet every night due to his extensive neuropathy, daily ointment for feet. Transitioned to PO doxycycline 100mg BID 12 day course remaining starting on 06/07, patient tolerating well. DM2 Hold home meds in hospital, HgbA1c in AM, last in 7.8 on 05/05/21, latest 7.5. Upon discharge please resume home medication HTN Continue home Losartan NEVAEH Continue CPAP BPH Continue home finasteride HLD Continue home Crestor and ASA (2) Diabetes mellitus type 2 in obese: (3) Hypertension: (4) Dyslipidemia: Total Time Total Time Spent Total Time Spent (In Minutes): 20 minutes Discharge Plan Discharge Items Patient Disposition: Home - Home Health Services Reason For Visit: RLE CELLULITIS Discharge Diagnosis: RLE Cellulitis Activity: Resume your previous activity Non-emergency contact: Primary Care Provider Call non-emergency contact if: you have any medication questions, your symptoms worsen and you have a fever Follow-up/Referrals: Chasity Antunez CRNP [Primary Care Provider] - 06/17/21 2:00 pm Diet: Carb Consistent or DM2 Addtl Attending Provider Instructions: You were admitted to the hospital for Right Leg Cellulitis and ulceration. You were treated with antibiotics and wound care. Please continue taking Doxycycline twice a day for 11 days, and follow up with wound care for your right leg and left foot wound. A discharge summary will be sent to your primary care physician to ensure continuity of care. Please bring this discharge summary with you to your next office appointment so that your provider can review it at that time. Follow-up appointments: We have requested a follow-up appointment with your primary care physician within one week of discharge. Please call their office if you do not hear from them. You have an appointment with Wound Care Nursing on 06/23/21 Keep all your follow-up appointments as already scheduled. If you cannot make an appointment, notify your provider. Medications: Your medication list has been reviewed and reconciled upon discharge to ensure accuracy and continuity of care. An updated list of all your medications is included with your hospital discharge paperwork. Please review this list closely, and make note of any changes. * We sent a new medication called Doxycycline to your pharmacy. Take Doxycyclin e 100mg one tablet twice a day for 11 days. Take your medications as instructed; do not skip a dose of your medicines. Make sure all of your doctors know every medicine you are taking (including over -the-counter medicines, vitamins, and supplements). Call your primary care provider before taking any new medicines (including ljyn-kgb-orsndac medicines, vitamins, and supplements), because some of these may interact with your current medications, or may make your symptoms worse. Tell your primary care provider if you cannot afford your medications. CONTACT YOUR PRIMARY CARE PROVIDER if you experience any of the following: fever, swelling in legs, increased leg pain shortness of breath Difficulty following your treatment plan, or difficulty taking medications CALL 911 OR GO TO THE EMERGENCY DEPARTMENT if you experience any of the following: Sudden, severe abdominal pain or nausea/vomiting Severe chest pain, or chest pain that radiates (moves) to your jaw or arm Sudden, severe shortness of breath or difficulty breathing Thank you for allowing us to participate in your care. Pending Studies at Discharge: No Stand-Alone Forms: [facility], Smoking Cessation Medications and DC Order Prescriptions: New doxycycline hyclate 100 mg capsule 100 mg PO BID 11 Days Qty: 21 RF: 0 Continued (DME) CPAP Machine Misc See Rx Instructions .MEDSUPPLY Qty: 1 RF: 0 Humulin 70/30 U-100 Insulin 100 unit/mL (70-30) suspension 40 unit SQ BID Qty: 8 RF: 3 (DME) insulin syringe-needle U-100 [BD Insulin Syringe Ultra-Fine] 0.5 mL 31 gauge x 5/16" syringe See Rx Instructions .ROUTE .MEDSUPPLY Qty: 100 RF: 5 (DME) OneTouch Verio test strips Strip See Dose Instructions .ROUTE .MEDSUPPLY Qty: 200 RF: 3 (DME) lancets [OneTouch Delica Plus Lancet] 30 gauge misc See Rx Instructions .ROUTE .MEDSUPPLY Qty: 200 RF: 5 metformin 500 mg tablet 1,000 mg PO BID Qty: 360 RF: 3 Jardiance 10 mg tablet 10 mg PO DAILY Qty: 30 RF: 1 finasteride 5 mg tablet 5 mg PO DAILY Qty: 90 RF: 3 aspirin 81 mg tablet,delayed release (DR/EC) 81 mg PO DAILY Qty: 30 RF: 0 rosuvastatin [Crestor] 5 mg tablet 5 mg PO DAILY Qty: 30 RF: 5 losartan 50 mg tablet 50 mg PO HS RF: 0 Discharge Orders: Discharge Order (Routine); Ordered 06/08/21 Ordered By: Francesca Abernathy/Other Patient Handouts: Managing Type 2 Diabetes, Special Foot Care for Diabetes Admission Data Admit Date/Time: 06/04/21 22:11 Attending Provider: Mamadou Maria Admit Provider: Sourav Healy Primary Care Provider: Chasity Antunez Other Providers: Esteban You ; [facility] Other Interventions: Discharge Summary Assessment (RN) Last Done: 06/08/21 11:27 Supervising Physician Co-Signing Physician Notes I also saw the patient confirmed triplett portions of the history and the physical ex amination. Agree with the impression and plan as noted in the resident documentation. Overall, he is feeling better, even better compared to yesterday Remains afebrile. Upon exam, lower extremities look more of chronic changes rather than acute infection. DATA WBC 8.71, hemoglobin 14.4 A/P Right lower extremity cellulitis Doxycycline her milligrams p.o. twice daily Follow-up with PCP in about 1 week Follow-up with wound care center Else per resident documentation Resident Activity Tracking Resident Involvement: Resident Care Provided Care Provided: Adult Hospital Medicine
== END 2021-06-08 14:26 | disposition home health service (06) | DRG 603 ==
LOC: ED 19:03 → SUATTDRO 22:11 → 3N 22:11

== ENCOUNTER 2023-07-11 05:57 | Observation (INO) ==
--- NOTE | 2023-07-04 11:44 | Anesthesiology Consultation ---
Date of Service July 04, 2023 Assessment & Plan (1) Encounter for pre-operative examination: Chart Review Chart Review: Acceptable Risk for Surgery and Patient NOT seen in Pre Admission Testing - Check BSG AM DOS - Mounjaro instructions: Patient informed by PAT nursing to stop 7 days prior to surgery. Patient advised by PAT nursing to check with prescriber to see if alternative diabetic management changes recommended while holding Mounjaro - if so, patient to call back to PAT to update chart and discuss if any further preop medication instructions needed. Patient's last dose of Mounjaro was 06/20/23- will be off Mounjaro x 21 days by DOS. -Infectious Disease screening: Per PAT nursing assessment on 07/04/23. No known infectious disease contacts in past 10 days or current infectious disease symp toms. No recent travel outside the country. Last seen by PCP 05/26/23= Patient seen for 3-month follow-up. Prostate adenocarcinomafollowing with urology. History of COVID-19with symptoms 3doing well at this point. Type 2 diabetescontinue current medications. Shortness of breath on exertionprior EKG in office reading A-fib however he does have P waves noted in aVL and aVR leads. Lab workup was negative (normal electrolytes, magnesium, thyroid). CXR negative. Lexiscan 04/27/2023 was negative for ischemia. Holter monitor for 14 days showed negative for atrial fibrillation. Hypertensioncontinue meds. Hyperlipidemiaon statin. BPH with elevated PSAfollowing with urology. Follow-up in 3 months History Surgery Operation Date: 07/11/23 08:30 Proposed Procedures p Robotic Assisted Laparoscopic Radical Retropubic Prostatectomy, Possible Open, Possible Pelvic Lymph Node Dissection - Vasquez Tamayo MD Height/Weight Height: 6 ft 2 in Weight: 154.221 kg Allergies Allergy/AdvReac Type Severity Reaction Status Date / Time Penicillins Allergy Unknown unknown Verified 07/04/23 11:19 allergy as a child sulfamethoxazole AdvReac Intermediate Fever Verified 07/04/23 11:19 [From Bactrim] trimethoprim [From Bactrim] AdvReac Intermediate Fever Verified 07/04/23 11:19 Medications Home Medications Medication Instructions Recorded Confirmed Last Taken CPAP Machine #1 ea 04/28/20 05/26/23 02/07/23 blood-glucose meter (True Metrix #1 ea 07/08/21 05/26/23 02/07/23 Glucose Meter) blood glucose control, low (True #1 ea 05/20/22 05/26/23 02/07/23 Metrix Level 1 solution) aspirin 81 mg tablet,delayed 81 mg PO HS 12/19/22 07/04/23 02/07/23 release blood sugar diagnostic (True #200 ea 03/10/23 05/26/23 Unknown Metrix Glucose Test Strip) finasteride 5 mg tablet 5 mg PO QAM #90 tabs 03/10/23 07/04/23 Unknown hydrochlorothiazide 25 mg tablet 25 mg PO QAM #90 tabs 03/10/23 07/04/23 Unknown insulin syr/ndl U100 half rolly 0.5 #200 ea 03/10/23 05/26/23 Unknown mL 30 gauge x 5/16" lancets 33 gauge (Ultra Thin #200 ea 03/10/23 05/26/23 Unknown Lancets) metformin 500 mg tablet 1,000 mg (2 x 500 mg) PO BID #360 03/10/23 07/04/23 Unknown tabs olmesartan 20 mg tablet 20 mg PO HS #90 tabs 03/10/23 07/04/23 Unknown insulin human U-100 NPH-regulr 20 unit (0.2 mL) subcut BID 90 03/21/23 07/04/23 Unknown 70-30 mix 100 unit/mL subcutaneous days #36 mL susp (Novolin 70/30 U-100 Insulin) rosuvastatin 20 mg tablet 20 mg PO DAILY #90 tabs 04/07/23 07/04/23 Unknown tirzepatide 10 mg/0.5 mL 10 mg (0.5 mL) subcut Q7D 4 weeks 06/19/23 07/04/23 Unknown subcutaneous pen injector #2 mL (Travis) Past Medical History Medical History BPH (benign prostatic hyperplasia) Chronic venous insufficiency Dyslipidemia History of COVID-19 "early May" 05/2023. + home covid test. fever, cough, congestion. resolved. Hypertension Kidney stone HX Peripheral neuropathy Prostate cancer Severe obesity (BMI >= 40) Sleep apnea CPAP Type 2 diabetes mellitus with microalbuminuria, with long-term current use of insulin Past Family History Family History Mother Cancer passed from myeloma and breast cancer at 88 yrs. Breast cancer Father Myocardial infarction at 72 years Other Diabetes Past Surgical History Surgical History H/O knee surgery x2 LEFT H/O toe surgery History of prostate biopsy Hx of cataract extraction Hx of lithotripsy 11/2021 AT [facility] Hx of tonsillectomy S/P colonoscopy Social History Smoking Status: Never smoker Do You Dip or Chew Tobacco: No Hx Alcohol Use: No alcohol intake frequency: other Hx Substance Use: No substance use type: does not use Lab Results Anesthesia Preop Results Results Anesthesia Widget: WBC 9.38 K/ul (4.8-10.8) 06/29/23 Hgb 13.0 g/dl (14.0-18.0) L 06/29/23 Hct 39.1 % (42.0-52.0) L 06/29/23 Plt 278 K/uL (130-400) 06/29/23 Na 135 mmol/L (136-145) L 06/29/23 K 4.1 mmol/L (3.5-5.1) 06/29/23 Cl 97 mmol/L (98-107) L 06/29/23 CO2 33 mmol/L (21-32) H 06/29/23 BUN 18 mg/dl (6-23) 06/29/23 Creat 0.71 mg/dl (0.6-1.4) 06/29/23 Glucose Level 257 mg/dl (70-99(Fasting)) H 06/29/23 Testing Laboratory Results 06/29/23= URINE CULTURE: No growth- less than 1000 colonies/ml Electrocardiogram Date: 04/07/23 Atrial fibrillation at 71 bpm Pattern consistent with pulmonary disease Left anterior fascicular block Inferior myocardial infarction (EKG done in PCP office- per PCP note 04/07/23= "-EKG in office reading afib, however, he does have P waves noted in aVL and aVR leads. Also notable for LAFB which has been present on prior EKGs. No acute ST elevations") (Patient had subsequent 14 day monitor without a fib and negative stress test- discussed with Dr. Rincon who also reviewed EKG- patient can proceed as scheduled) Chest X-Ray Date: 04/07/23 Findings: + NAD Echocardiogram Date: 06/18/19 EF: 55-60% LV Function: normal RWMA: + none Other Findings: + LVH (moderate/concentric) and + diastolic dysfunction (Grade I ) Valvular Disease: + no significant valvular disease (however valves not well seen ) Stress Test Date: 04/27/23 Type: nuclear SUMMARY: 1. Lexiscan myocardial perfusion study negative for infarct or ischemia. 2. Normal left ventricular size and systolic function. Calculated ejection fraction 60%. No wall motion abnormalities. 3. No Lexiscan induced ECG changes. 4. No anginal symptoms. Other Testing Holter monitor 05/10/2023 = patient monitored for 14 days. Rhythm during monitoring period was sinus . Average HR 77 bpm with minimum HR 47 bpm and maximum HR 133 bpm. Occasional atrial ectopy with very brief episodes of atrial tachycardia lasting a few beats. Frequent ventricular ectopy totaling 4% of all beats. Periods of ventricular bigeminy. 1 episode of ventricular tachycardia. No other sustained ventricular arrhythmias. No significant pauses, heart block or bradycardia. No atrial fibrillation. Impression: Frequent ventricular ectopy without symptoms.
[2023-07-11] MEDS ORDERED: fentaNYL citrate PF 100 MCG/2 ML VIAL ONE ×2 (06:47→09:41)
[2023-07-11] MEDS ORDERED: MIDAZOLAM HCL 1 MG/ML 2ML VIAL ONE (06:47)
[2023-07-11] MEDS: LR 15ML/HR IV SCH (06:48)
[2023-07-11] MEDS: HEPARIN SOD 5,000 UNIT/0.5 ML VIAL SQ SCH ×2 (06:48→20:14)
[2023-07-11] MEDS ORDERED: PROPOFOL IV EMULSION 10 MG/ML 20 ML VIAL IV ONE (06:51)
[2023-07-11] MEDS ORDERED: ROCURONIUM BROMIDE 10 MG/ML 5 ML VIAL IV ONE ×2 (06:51→08:11)
[2023-07-11] MEDS ORDERED: LIDOCAINE 2% 2 ML VIAL/AMP(20MG/ML) INFIL ONE (06:51)
[2023-07-11] MEDS ORDERED: SUCCINYLCHOLINE CHLORIDE 20 MG/ML 10 ML VIAL IV ONE (06:51)
[2023-07-11] MEDS ORDERED: ATROPINE SULFATE 0.1 MG/ML 10ML SYR IV PRN (07:13)
[2023-07-11] MEDS ORDERED: ePHEDrine sulfate 50 MG/ML AMP IV PRN (07:13)
[2023-07-11] MEDS ORDERED: fentaNYL citrate PF 100 MCG/2 ML VIAL IV PRN (07:13)
[2023-07-11] MEDS ORDERED: ONDANSETRON INJ 2 MG/ML 2 ML VIAL IV PRN ×2 (07:13→12:40)
--- NOTE | 2023-07-11 07:27 | History & Physical Report ---
Date of Service July 11, 2023 Assessment & Plan (1) Prostate cancer: Plan: Prostate cancer presenting today for robotic prostatectomy. risks,benefits, expectations reviewed History of Present Illness Primary Care Provider: Sourav Healy DO prostate cancer, presenting for definitive treatment Allergies Allergy/AdvReac Type Severity Reaction Status Date / Time Penicillins Allergy Unknown unknown Verified 07/11/23 06:25 allergy as a child sulfamethoxazole AdvReac Intermediate Fever Verified 07/11/23 06:25 [From Bactrim] trimethoprim [From Bactrim] AdvReac Intermediate Fever Verified 07/11/23 06:25 Home Medications Medication Instructions Recorded Confirmed Type CPAP Machine #1 ea 04/28/20 07/04/23 Rx blood-glucose meter (True Metrix #1 ea 07/08/21 07/04/23 Rx Glucose Meter) blood glucose control, low (True #1 ea 05/20/22 07/04/23 Rx Metrix Level 1 solution) aspirin 81 mg tablet,delayed 81 mg PO HS 12/19/22 07/11/23 History release blood sugar diagnostic (True #200 ea 03/10/23 07/04/23 Rx Metrix Glucose Test Strip) finasteride 5 mg tablet 5 mg PO QAM #90 tabs 03/10/23 07/11/23 Rx hydrochlorothiazide 25 mg tablet 25 mg PO QAM #90 tabs 03/10/23 07/11/23 Rx insulin syr/ndl U100 half rolly 0.5 #200 ea 03/10/23 07/04/23 Rx mL 30 gauge x 5/16" lancets 33 gauge (Ultra Thin #200 ea 03/10/23 07/04/23 Rx Lancets) metformin 500 mg tablet 1,000 mg (2 x 500 mg) PO BID #360 03/10/23 07/11/23 Rx tabs olmesartan 20 mg tablet 20 mg PO HS #90 tabs 03/10/23 07/11/23 Rx insulin human U-100 NPH-regulr 20 unit (0.2 mL) subcut BID 90 03/21/23 07/11/23 Rx 70-30 mix 100 unit/mL subcutaneous days #36 mL susp (Novolin 70/30 U-100 Insulin) rosuvastatin 20 mg tablet 20 mg PO DAILY #90 tabs 10/27/23 01/30/24 Rx tirzepatide 10 mg/0.5 mL 10 mg (0.5 mL) subcut Q7D 4 weeks 06/19/23 07/11/23 Rx subcutaneous pen injector #2 mL (Travis) mupirocin 2 % topical ointment 1 applic topical BID #22 grams 07/04/23 07/11/23 Rx Past Med/Surg History Medical History BPH (benign prostatic hyperplasia) Chronic venous insufficiency Dyslipidemia History of COVID-19 "early May" 05/2023. + home covid test. fever, cough, congestion. resolved. Hypertension Kidney stone HX Peripheral neuropathy Prostate cancer Severe obesity (BMI >= 40) Sleep apnea CPAP Type 2 diabetes mellitus with microalbuminuria, with long-term current use of insulin Surgical History H/O knee surgery x2 LEFT H/O toe surgery History of prostate biopsy Hx of cataract extraction Hx of lithotripsy 11/2021 AT [facility] Hx of tonsillectomy S/P colonoscopy Family History Mother Cancer passed from myeloma and breast cancer at 88 yrs. Breast cancer Father Myocardial infarction at 72 years Other Diabetes Social History Smoking Status: Never smoker Second Hand Exposure: No; Do You Dip or Chew Tobacco: No; Hx Alcohol Use: No Hx Substance Use: No Preferred Language: Surinamese Communication Ability: Effective Visual Impairment: Limited Rib Sawyer Required: No Beliefs That Will Affect Care: None marital status: Current Living Situation: Spouse Feels Safe at Home: Yes Safety Concerns: Feels Safe At This Time Dental Care, Regularly: Yes Physical Activity Frequency: Does not Exercise Seatbelt Use: always Assistive Devices: CPAP and Glasses Physical Exam Constitutional: well developed and well nourished Neck: neck nontender Respiratory: normal respiratory effort; no respiratory distress and does not use accessory muscles Cardiovascular: Rate/Rhythm: regular rate Vessels: radial pulses present Extremities: no edema Gastrointestinal (Abdomen): Inspection/Auscultation: abdomen normal to inspection Percussion/Palpation: abdomen soft; abdomen nontender and no guarding Musculoskeletal: Head/Neck/Chest: normocephalic and head atraumatic Extremities: extremities normal to inspection Skin: no rashes and no lesions Trauma: no evidence of skin trauma Neurologic: awake; not obtunded Speech / Cognition: normal speech Motor/Sensory: no tremor Psychiatric: Orientation: alert and oriented x 3 Genitourinary: no CVA tenderness Lymphatic: no lymphadenopathy Results & Data Vital Signs (Past 12 Hours) Vital Signs Temp Pulse Resp BP Pulse Ox O2 Del Method 07/11/23 06:32 37 C 76 20 170/66 H 94 Room Air
[2023-07-11] MEDS ORDERED: PHENYLEPHRINE 100MCG/ML 10ML SYR IV ONE (08:58)
[2023-07-11] MEDS ORDERED: SUGAMMADEX SODIUM 200 MG/2 ML VIAL IV ONE (11:09)
[2023-07-11] MEDS: BUPIVACAINE 0.5 % 5 MG/1 ML MPF 30ML VIAL ONE (11:09)
[2023-07-11] MEDS: FLOSEAL HEMOSTATIC MATRIX 10ML TOP ONE (11:10)
--- NOTE | 2023-07-11 11:31 | Operative Report ---
PG Post Operative Report Pre & Post Diagnosis Operation Date: 07/11/23 07:30 Pre-Op Diagnosis: Prostate Cancer Post-Op Diagnosis: Prostate Cancer I identified the patient and participated in the time-out.: Yes Procedure Operation Date: 07/11/23 07:30 Actual Procedures p Robotic Assisted Laparoscopic Radical Retropubic Prostatectomy, Pelvic Lymph Node Dissection(Not Applicable) - Vasquez Tamayo MD Surgeon Vasquez Tamayo MD Housekeeper Shaylee Calloway Estimated Blood Loss 100 Findings Consistent with Post-Op Diagnosis Specimens 1. Periprostatic fat 2. Left pelvic lymph nodes 3. Right pelvic lymph nodes 4. Prostate seminal vesicles 5. Posterior margin Description of Procedure The patient was identified in the preoperative holding area, appropriate informed consents were reviewed and completed, and he was transported to the operating suite. Subcutaneous heparin was administered in the pre-operative ho lding area. Upon arrival in the operating suite, he received appropriate antibiotics and general anesthesia. He was positioned in dorsal lithotomy, a B&O suppository was inserted after digital rectal exam, and he was prepped and draped in standard fashion. A Lopez catheter was inserted in the sterile field. A Veress needle was passed per umbilicus with uniform insufflation of the abdomen to 15mmHg. He was placed in steep Trendelenburg position. A periumbilical incision was then made to accommodate a 12mm Visiport with 10mm 0degree laparoscope. Inspection of the abdomen was carried out, and there was no evidence of traumatic entry or injury secondary to the Veress needle. After confirming a clear anterior abdominal wall, ports were subsequently placed in standard robotic prostatectomy fashion without incident. To begin the robotic portion of the case, the left lateral aspect of the sigmoid was mobilized off of the left pelvic side wall to allow the pouch of Tr to be appropriately visualized. Of note, he had significant adhesions in this area and required a bit more dissection the normal to expose the pouch of Tr and deep pelvis. I then made an incision in the pouch of Tr, overlying the seminal vesicles. Both SVs as well as the ampullae of the vasa were entirely dissected, with the vasa transected 3cm from the prostate. He had a significant amount of pelvic fat which made this portion of the dissection considerably more difficult than normal. The medial umbilical ligaments were then controlled with bipolar electrocautery just inferior to the umbilicus. Following cauterization, they were divided utilizing monopolar cautery. A peritoneal incision was carried from this location to the medial aspect of the internal inguinal rings bilaterally with care to avoid opening through the ring. This incision was concluded when the vas deferens was reached. Dissection of the bladder and prostate off of the posterior aspect of the pubic arch was completed allowing full visualization of the prostate. The fat overlying the prostate was removed en bloc and passed off the table as a specimen labeled "periprostatic fat". The endopelvic fascia was cleared during this portion of the procedure, and subsequently opened - first on the right and then the left. The incision through the endopelvic fascia began near the prostate-bladder junction and was carried to the apex with extreme care to preserve all lateral levator musculature as well as the periurethral musculature and sphincter complex. I additionally preserved the puboprostatic ligaments. I then controlled the DVC with a 2-0 V-lock suture in overlapping/figure of 8 fashion. The lymph node dissection was then conducted. External iliac vessels were identified on the pelvic side wall. The packet of fat and lymphatic tissue that resides just under the iliac vein was elevated and off of the vein with a split and roll technique. The packet was dissected laterally to the cir cumflex vein and distally to the obturator nerve which was preserved. The right greater than left pelvic lymph node packet was quite prominent consistent with preoperative imaging. The proximal aspect of the packet was carried towards the bifurcation of the iliac vessels. A combination of monopolar and bipolar cautery were used to assist with control. After completing the dissection on both s ides, the packets were collected and passed off of the table as specimens labeled "pelvic lymph nodes". My attention then returned to the prostate, with identification of the bladder neck aided by gentle traction on the Lopez catheter and lateral to medial pressure at the presumed level of the bladder neck with the robotic instruments. An anterior cystotomy was made, the Lopez balloon deflated and the catheter guided through the incision to allow anterior retraction. I feel we were able to identify the bladder neck quite easily with assistance from lateral pressure, however his pelvic fat certainly makes this challenging. I attempted to preserve maximal bladder neck musculature as I circumferentially dissected around the bladder neck. After incision through the posterior aspect of the mucosa, the dissection was carried through detrusor muscle until the bilateral ampullae of the vasa were identified. The previously dissected vasa and SVs were brought through the incision and used to elevated the prostate anteriorly. A posterior plane behind the prostate was then developed - splitting Denonvilliers's fascia. This dissection was carried as far as possible towards the apex as well as far as possible laterally. An incision in the lateral prostatic fascia was then made bilaterally to facilitate control of the vascular pedicles and preservation of the nerve bundles. Vasculature running along the posterior/lateral aspect of the prostate was preserved as well as the tissue containing the nerves. The pedicles were then controlled with a series of Weck clips. The apical attachments of the prostate were remaining at that stage. The DVC was divided after control with bipolar cautery over the prostate. Continuous inspection from anterior and lateral views allowed me to closely follow the apical contour of the prostate and maximally preserve urethral length and tissue. Of note, his apical dissection was impeded by a very prominent pubic symphysis, however we were able to navigate her way around this and carefully dissect around the apex of the prostate. The prostate was entirely freed at that point, and collected in an EndoCatch bag before being moved out of the field of vision. Posteriorly there was a small nodule of tissue which I feared may have been a small amount of prostate tissue left behind and I excised this and labeled as posterior margin. All visible abnormality had been removed at the end of the portion of the case hemostasis was confirmed and anastomosis of the bladder and urethra was completed utilizing a double armed V-Lock stitch. A new Lopez catheter was inserted and the anastomosis tested with irrigation. Initially there was a moderate leak and I was able to tighten this with additional stitches. Unfortunately visualization around the anastomosis was extremely challenging at this point because of the depth of his pelvis. After an additional stitch there was a relatively mild leak and we elected to conclude that portion of the case. A JACQUELINE drain was placed before closure. I still placed Floseal around the anastomosis. A noe style stitch was placed bilaterally to functionally marsupialize the area of the lymph node dissection. The robot was undocked, the specimen extracted through expansion of the jayjay- umbilical camera port. The fascia was closed with a series of 0-PDS figure of 8 stitches. The right assistant media planner port was closed in two layers - with a figure of 8 0-Vicryl to reapproximate the fascia followed by 4-0 Monocryl to close the skin. Monocryl was used to close all other skin incisions. All wounds were dressed with Dermabond. The case was concluded and the patient taken to the PACU in stable condition. Shaylee Calloway assisted from incision to closure I attest to the content of the Intraoperative Record and any orders documented therein. Any exceptions are noted below.
[2023-07-11 12:00] LABS: Basophils # (auto) 0.02 K/uL (0.00-0.20); Basophils % (auto) 0.2 %; Eosinophils # (auto) 0.03 K/uL (0.00-0.50); Eosinophils % (auto) 0.3 %; Hematocrit (blood only) 35.7 % (42.0-52.0); Hemoglobin 11.6 g/dl (14.0-18.0); Immature Granulocytes # (auto) 0.05 K/uL (0.01-0.20); Immature Granulocytes % (auto) 0.4 %; Lymphocytes # (auto) 1.12 K/uL (1.20-3.40); Lymphocytes % (auto) 10.1 %; Mean Corpuscular Hemoglobin 28.6 pg (25.0-34.0); Mean Corpuscular Hgb Conc 32.5 g/dL (32.0-36.0); Mean Corpuscular Volume 87.9 fL (80.0-100.0); Mean Platelet Volume 9.3 fL (9.4-12.4); Monocytes # (auto) 0.83 K/uL (0.11-0.59); Monocytes % (auto) 7.5 %; Neutrophils # (auto) 9.07 K/uL (1.40-6.50); Neutrophils % (auto) 81.5 %; Platelet Count 253 K/uL (130-400); RDW Coefficient of Variation 13.7 % (11.5-14.5); RDW Standard Deviation 44.3 fL (36.4-46.3); Red Blood Count 4.06 M/uL (4.70-6.10); White Blood Count 11.12 K/ul (4.8-10.8)
[2023-07-11 12:16] LABS: BUN Creatinine Ratio 20.9 (10-20); Calcium 8.5 mg/dl (8.6-10.3); Creatinine Clr Calc Pharmacy 131.1 ml/min; Est GFR (Non-African American) 89.7 ml/min; Potassium 4.3 mmol/L (3.5-5.1)
[2023-07-11] MEDS ORDERED: oxyCODONE HCL IR 5 MG TAB (IMMEDIATE RELEASE) PO PRN (12:40)
[2023-07-11] MEDS ORDERED: PHARMACY GLYCEMIC MGMT CONSULT PRN (12:40)
[2023-07-11] MEDS: MoRPHine SULFATE 4 MG/ML 1 ML CARP\\VIAL IV PRN (13:03)
[2023-07-11] MEDS ORDERED: DEXTROSE 50% 50 ML SYRINGE IV PRN (13:15)
[2023-07-11] MEDS ORDERED: CARBOHYDRATES FOR HYPOGLYCEMIA PO PRN (13:15)
[2023-07-11] MEDS ORDERED: LANTUS PER UNIT CHARGE SC ONE (13:15)
[2023-07-11] MEDS ORDERED: GLUCOSE 10 TAB/TUBE PO PRN (13:15)
[2023-07-11] MEDS ORDERED: GLUCOSE 40% GEL 15 GM TUBE PO PRN (13:15)
[2023-07-11] MEDS ORDERED: GLUCAGON FOR INJ 1 MG VIAL IM PRN (13:15)
--- NOTE | 2023-07-11 13:26 | Anesthesiology Progress Note ---
Date of Service July 11, 2023 Anesthesia Post Procedure Vital Signs Vital Signs: Temp Pulse Pulse Resp BP Pulse Ox O2 Del Method 07/11/23 12:10 97.7 F 71 18 138/65 93 Nasal Cannula 07/11/23 12:00 71 19 142/65 H 99 Nasal Cannula 07/11/23 11:50 71 19 145/63 H 99 Nasal Cannula 07/11/23 11:40 72 18 125/68 99 Nasal Cannula 07/11/23 11:32 96.8 F L 73 20 133/56 L 96 Oxymask 07/11/23 06:32 98.6 F 76 20 170/66 H 94 Room Air O2 Flow Rate 07/11/23 12:10 3 07/11/23 12:00 3 07/11/23 11:50 3 07/11/23 11:40 4 07/11/23 11:32 11 07/11/23 06:32 Pain Intensity Left Shoulder: Pain Intensity: 4 Transfer of Care Handoff Completed per policy Notes Mental Status: alert / awake / arousable and participated in evaluation Patient Amnestic to Procedure: Yes Nausea / Vomiting: adequately controlled Pain: adequately controlled Airway Patency, RR, SpO2: stable & adequate BP & HR: stable & adequate Hydration State: stable & adequate Anesthetic Complications: no major complications apparent and Pt Satisfied with anesthetic care
[2023-07-11] MEDS: ACETAMINOPHEN 325 MG TAB PO SCH (13:29)
[2023-07-11] MEDS: SODIUM CHLORIDE 0.9% 1,000 ML IV SCH (13:31)
[2023-07-11] MEDS: LANTUS PER UNIT CHARGE SC ONE (13:32)
[2023-07-11] MEDS: INSULIN ASPART PER UNIT CHARGE SC SCH (13:35)
--- NOTE | 2023-07-11 13:46 | Pharmacy Report ---
Pharmacy Glycemic Short Note 2 - Date of Service July 11, 2023 - Glycemic Short BSG Results (Last 24 hours): 07/11/23 07/11/23 07/11/23 06:29 11:33 11:41 Glucose 236 H POC Glucose 167 H 246 H OUTPATIENT ANTIDIABETIC REGIMEN: * Novolin 70/30 insulin - 20 units bid, metformin 1 gm bid, trizepatide SQ weekly ASSESSMENT: * 68 year old male, POD 0 s/p prostectomy. Pharmacy consulted for glycemic manag ement. Patient is type 2 diabetic on Novolin 70/30 at home. BSGs in the 200s postop. No steroids pulled. * Plan to start basal/bolus insulin. Last Novolin dose documented as given last evening. Will give Lantus 25 units x 1 now. Will add scale on for HS in case BSGs trend upward. Will start weight based stress of 3 for novolog dosing PLAN FOR INPATIENT GLYCEMIC CONTROL: * Hold outpatient oral diabetes medications * Basal insulin * Lantus 25 units x 1 * Lantus 0-10 units HS * Bolus insulin * NovoLog per scale ACHS or Q6hrs while NPO * Goal Range: Low 110 mg/dL - High 140 mg/dL * Correction Factor: 15 mg/dL/unit * Nutritional / Prandial insulin per carb ratio of 1 unit per 5 grams CHO consumed
[2023-07-11] MEDS: ceFAZolin 2000MG 2,000 MG/15 ML SYR IV SCH (14:19)
[2023-07-11] MEDS: LACTATED RINGER'S 1,000 ML IV SCH (19:39)
[2023-07-11] MEDS: MoRPHine SULFATE 2 MG/ML CARP IV PRN (20:11)
[2023-07-11] MEDS: ASPIRIN 81 MG ECTAB PO SCH (20:14)
[2023-07-11] MEDS: DOCUSATE SODIUM 100 MG CAP PO SCH (20:14)
[2023-07-11] MEDS: MUPIROCIN 2% OINT 22 GM TUBE TOP SCH (20:17)
[2023-07-11] MEDS: NYSTATIN/TRIAMCIN OINT 15 GM TUBE EXT SCH (20:18)
[2023-07-11] MEDS: LANTUS PER UNIT CHARGE SC SCH (21:34)
[2023-07-11] MEDS: LOSARTAN POTASSIUM 50 MG TAB PO SCH (21:34)
[2023-07-11] MEDS: OLMESARTAN MEDOXOMIL 20 MG TAB PO SCH (21:42)
[2023-07-12 06:19] LABS: Basophils # (auto) 0.02 K/uL (0.00-0.20); Basophils % (auto) 0.2 %; Eosinophils # (auto) 0.14 K/uL (0.00-0.50); Eosinophils % (auto) 1.3 %; Hematocrit (blood only) 34.6 % (42.0-52.0); Hemoglobin 10.8 g/dl (14.0-18.0); Immature Granulocytes # (auto) 0.04 K/uL (0.01-0.20); Immature Granulocytes % (auto) 0.4 %; Lymphocytes # (auto) 1.52 K/uL (1.20-3.40); Lymphocytes % (auto) 13.8 %; Mean Corpuscular Hemoglobin 28.3 pg (25.0-34.0); Mean Corpuscular Hgb Conc 31.2 g/dL (32.0-36.0); Mean Corpuscular Volume 90.8 fL (80.0-100.0); Mean Platelet Volume 9.2 fL (9.4-12.4); Monocytes # (auto) 1.33 K/uL (0.11-0.59); Monocytes % (auto) 12.1 %; Neutrophils # (auto) 7.96 K/uL (1.40-6.50); Neutrophils % (auto) 72.2 %; Platelet Count 242 K/uL (130-400); RDW Coefficient of Variation 13.8 % (11.5-14.5); RDW Standard Deviation 45.7 fL (36.4-46.3); Red Blood Count 3.81 M/uL (4.70-6.10); White Blood Count 11.01 K/ul (4.8-10.8)
[2023-07-12 06:21] LABS: BUN Creatinine Ratio 21.1 (10-20); Calcium 8.3 mg/dl (8.6-10.3); Creatinine Clr Calc Pharmacy 158.8 ml/min; Est GFR (African American) 112.5 ml/min; Est GFR (Non-African American) 97.1 ml/min; Potassium 3.8 mmol/L (3.5-5.1)
--- NOTE | 2023-07-12 08:14 | Urology Progress Note ---
Date of Service July 12, 2023 Assessment & Plan (1) Prostate cancer: Plan: Postop day #1 status post prostatectomy Recovering appropriately We will watch drain output today Decide on drain removal today versus overnight stay and removal tomorrow before he goes home versus home with the drain Admission and Anticipated Discharge Date Admission Date: July 11, 2023 Subjective 68-year-old doing well today Controlled pain Has been out of bed but has not really ambulated in the halls Urine clearing appropriately Labs are all stablehemoglobin unchanged, creatinine 0.7 Low drain output Physical Exam Physical Exam: Incisions appropriate Abdomen soft Drain clear/serous Urine clearing Results & Data Vital Signs (Past 12 Hours) Vital Signs Temp Pulse Pulse Resp BP Pulse Ox O2 Del Method 07/12/23 07:44 36.5 C 76 16 131/79 97 Room Air 07/12/23 04:00 36.6 C 61 18 147/78 H 100 Room Air 07/12/23 02:37 61 13 99 07/11/23 23:46 36.6 C 60 18 137/77 95 Room Air 07/11/23 23:44 80 23 94 07/11/23 20:11 Room Air, Nasal Cannula, CPAP O2 Flow Rate 07/12/23 07:44 07/12/23 04:00 07/12/23 02:37 2 07/11/23 23:46 07/11/23 23:44 2 07/11/23 20:11 2 PG Care Time/CCT Total # of Minutes Spent Total Time Spent with Patient: Total time spent is greater than 50% in coordination of care (as documented) at patient's floor/unit and/or counseling patient: Coding Level of Care Code None Diagnoses Prostate cancer C61
[2023-07-12] MEDS: ROSUVASTATIN CALCIUM 20 MG TAB PO SCH (09:05)
[2023-07-12] MEDS: hydroCHLOROthiazide 25 MG TAB PO SCH (09:05)
[2023-07-12] MEDS: LANTUS PER UNIT CHARGE SC SCH (09:15)
[2023-07-12] MEDS: oxyCODONE HCL IR 5 MG TAB (IMMEDIATE RELEASE) PO PRN (09:36)
--- NOTE | 2023-07-12 11:34 | Pharmacy Report ---
Pharmacy Glycemic Short Note 2 - Date of Service July 12, 2023 - Glycemic Short BSG Results (Last 24 hours): 07/11/23 07/11/23 07/11/23 11:33 11:41 17:42 Glucose 236 H POC Glucose 246 H 278 H 07/11/23 07/12/23 07/12/23 20:48 05:45 07:21 Glucose 123 H POC Glucose 288 H 138 H OUTPATIENT ANTIDIABETIC REGIMEN: * Novolin 70/30 insulin - 20 units bid, metformin 1 gm bid, trizepatide SQ weekly ASSESSMENT: 07/12 * POD1 * Patient received 64 units of insulin yesterday, 25 units basal, all blood sugars above goal yesterday. * Fasting blood sugar at goal, increase basal slightly at this time, continue CF/CR, titrate to goal. 07/11 * 68 year old male, POD 0 s/p prostectomy. Pharmacy consulted for glycemic management. Patient is type 2 diabetic on Novolin 70/30 at home. BSGs in the 200s postop. No steroids pulled. * Plan to start basal/bolus insulin. Last Novolin dose documented as given last evening. Will give Lantus 25 units x 1 now. Will add scale on for HS in case BSGs trend upward. Will start weight based stress of 3 for novolog dosing PLAN FOR INPATIENT GLYCEMIC CONTROL: * Hold outpatient diabetes medications * Basal insulin * Lantus 30 units SQ Daily * Bolus insulin * NovoLog per scale ACHS or Q6hrs while NPO * Goal Range: Low 110 mg/dL - High 140 mg/dL * Correction Factor: 15 mg/dL/unit * Nutritional / Prandial insulin per carb ratio of 1 unit per 5 grams CHO consumed
--- NOTE | 2023-07-12 17:50 | Ultrasound Report ---
LEFT LOWER EXTREMITY VENOUS DOPPLER HISTORY: left leg pain, post op COMPARISON STUDY: None. FINDINGS: There is normal compressibility, flow, and augmentation within the left lower extremity kyler p venous system. A 44 x 35 x 24 mm popliteal cyst. IMPRESSION: No DVT within the left lower extremity. ACT 112: Negative or not required by law. Electronically signed by: Ayan Kaur M.D. 07/12/2023 5:49 PM
[2023-07-13 06:44] LABS: Basophils # (auto) 0.02 K/uL (0.00-0.20); Basophils % (auto) 0.2 %; Eosinophils # (auto) 0.11 K/uL (0.00-0.50); Hematocrit (blood only) 32.8 % (42.0-52.0); Hemoglobin 10.6 g/dl (14.0-18.0); Immature Granulocytes # (auto) 0.05 K/uL (0.01-0.20); Immature Granulocytes % (auto) 0.4 %; Lymphocytes # (auto) 1.46 K/uL (1.20-3.40); Mean Corpuscular Hemoglobin 28.3 pg (25.0-34.0); Mean Corpuscular Hgb Conc 32.3 g/dL (32.0-36.0); Mean Corpuscular Volume 87.7 fL (80.0-100.0); Mean Platelet Volume 9.2 fL (9.4-12.4); Monocytes # (auto) 1.41 K/uL (0.11-0.59); Monocytes % (auto) 12.5 %; Neutrophils # (auto) 8.21 K/uL (1.40-6.50); Neutrophils % (auto) 72.9 %; Platelet Count 244 K/uL (130-400); RDW Coefficient of Variation 13.7 % (11.5-14.5); RDW Standard Deviation 43.8 fL (36.4-46.3); Red Blood Count 3.74 M/uL (4.70-6.10); White Blood Count 11.26 K/ul (4.8-10.8)
[2023-07-13 07:09] LABS: BUN Creatinine Ratio 18.3 (10-20); Calcium 8.4 mg/dl (8.6-10.3); Creatinine Clr Calc Pharmacy 187.9 ml/min; Est GFR (African American) 120.6 ml/min; Potassium 3.8 mmol/L (3.5-5.1)
[2023-07-13] MEDS: KETOROLAC TROMETHAMINE 15 MG/ML VIAL IV ONE (08:19)
--- NOTE | 2023-07-13 11:02 | Urology Progress Note ---
Date of Service July 13, 2023 Assessment & Plan (1) Prostate cancer: Plan: Postop day #2 status post prostatectomy Recovery appropriate thus far from a prostatectomy standpoint, unfortunately he has had some significant left knee pain, I think this is probably an acute exacerbation of a chronic issue We will try Toradol now to see if we can improve his mobility and discomfort If not successful we might have to engage with some physical therapy I did discuss this casually with an orthopedic surgeon who helped with forming a plan He will require outpatient follow-up if his inflammation persists after discharge Admission and Anticipated Discharge Date Admission Date: July 11, 2023 Subjective Doing okay Minimal abdominal discomfort Urine has cleared appropriately Low JACQUELINE output Unfortunately, he continues to have left knee pain An ultrasound yesterday which showed that there was no DVT but he does have a popliteal cyst which is palpable and tender to palpation This is limiting his ambulation and certainly limiting his ability to be discharged home Physical Exam 2 Physical Exam: Abdomen appropriate, incisions all healing nicely Abdomen soft Urine clear JACQUELINE serous Results & Data Vital Signs (Past 12 Hours) Vital Signs Temp Pulse Pulse Resp BP Pulse Ox O2 Del Method 07/13/23 07:53 36.8 C 74 16 126/74 93 Room Air 07/13/23 03:53 70 20 93 O2 Flow Rate 07/13/23 07:53 07/13/23 03:53 3 PG Care Time/CCT Total # of Minutes Spent Total Time Spent with Patient: Total time spent is greater than 50% in coordination of care (as documented) at patient's floor/unit and/or counseling patient: Coding Level of Care Code None Diagnoses Prostate cancer C61
[2023-07-14 06:29] LABS: Basophils # (auto) 0.03 K/uL (0.00-0.20); Basophils % (auto) 0.3 %; Eosinophils # (auto) 0.15 K/uL (0.00-0.50); Eosinophils % (auto) 1.7 %; Hematocrit (blood only) 35.1 % (42.0-52.0); Hemoglobin 11.3 g/dl (14.0-18.0); Immature Granulocytes # (auto) 0.05 K/uL (0.01-0.20); Immature Granulocytes % (auto) 0.6 %; Lymphocytes # (auto) 1.08 K/uL (1.20-3.40); Mean Corpuscular Hemoglobin 28.3 pg (25.0-34.0); Mean Corpuscular Hgb Conc 32.2 g/dL (32.0-36.0); Mean Platelet Volume 9.1 fL (9.4-12.4); Monocytes # (auto) 0.98 K/uL (0.11-0.59); Monocytes % (auto) 10.9 %; Neutrophils # (auto) 6.73 K/uL (1.40-6.50); Neutrophils % (auto) 74.5 %; Platelet Count 245 K/uL (130-400); RDW Coefficient of Variation 13.5 % (11.5-14.5); RDW Standard Deviation 43.5 fL (36.4-46.3); Red Blood Count 3.99 M/uL (4.70-6.10); White Blood Count 9.02 K/ul (4.8-10.8)
[2023-07-14 06:50] LABS: BUN Creatinine Ratio 19.7 (10-20); Calcium 8.7 mg/dl (8.6-10.3); Creatinine Clr Calc Pharmacy 148.3 ml/min; Est GFR (African American) 109.4 ml/min; Est GFR (Non-African American) 94.4 ml/min; Potassium 4.1 mmol/L (3.5-5.1)
--- NOTE | 2023-07-14 08:52 | Pharmacy Report ---
Pharmacy Glycemic Short Note 2 - Date of Service July 14, 2023 - Glycemic Short BSG Results (Last 24 hours): 07/13/23 07/13/23 07/13/23 11:47 16:38 20:18 Glucose POC Glucose 159 H 226 H 194 H 07/14/23 07/14/23 05:57 07:31 Glucose 164 H POC Glucose 192 H OUTPATIENT ANTIDIABETIC REGIMEN: * Novolin 70/30 insulin - 20 units bid, metformin 1 gm bid, trizepatide SQ weekly HbA1c: 9.5% (02/06/23) ASSESSMENT: 07/14/23: * BSGs labile yesterday, ranging 113-226 mg/dL * Received 64 units of insulin (~50/50 basal/bolus) * Will maintain current regimen w/ possible carb ratio tightening today as well as addition of basal scale this evening * If patient remains inpatient and BSGs remain uncontrolled, consider switching to NPH BID in AM 07/12 * POD1 * Patient received 64 units of insulin yesterday, 25 units basal, all blood sugars above goal yesterday. * Fasting blood sugar at goal, increase basal slightly at this time, continue CF/CR, titrate to goal. 07/11 * 68 year old male, POD 0 s/p prostectomy. Pharmacy consulted for glycemic management. Patient is type 2 diabetic on Novolin 70/30 at home. BSGs in the 200s postop. No steroids pulled. * Plan to start basal/bolus insulin. Last Novolin dose documented as given last evening. Will give Lantus 25 units x 1 now. Will add scale on for HS in case BSGs trend upward. Will start weight based stress of 3 for novolog dosing PLAN FOR INPATIENT GLYCEMIC CONTROL: * Hold outpatient diabetes medications * Basal insulin * Lantus 30 units SQ daily * Lantus 0-10 units SC HS * Consider change to NPH BIDM starting tomorrow? * Bolus insulin * NovoLog per scale ACHS or Q6hrs while NPO * Goal Range: Low 110 mg/dL - High 140 mg/dL * Correction Factor: 20 mg/dL/unit * Nutritional / Prandial insulin per carb ratio of 1 unit per 5 grams CHO consumed
--- NOTE | 2023-07-14 09:14 | Urology Progress Note ---
Date of Service July 14, 2023 Assessment & Plan (1) Prostate cancer: Plan: Postop day #3 status post prostatectomy Afebrile, hemodynamically stable Labs-creatinine 0.76, WBC 9.02, hemoglobin 11.3 Recovery appropriate thus far from a prostatectomy standpoint Lopez draining clear urine JACQUELINE output low--will plan to remove prior to discharge Incisions appropriate Tolerating PO diet Left knee pain seems to be improving after dose of Ketorolac yesterday Continues to work on mobility--he was able to ambulate in the hallway with walker PT consult placed yesterday--still pending evaluation Anticipate home later today or tomorrow with Lopez catheter pending progress with mobility/PT evaluation Discussed outpatient follow-up with ortho after discharge if he continues to have inflammation Outpatient urology follow-ups are in place Admission and Anticipated Discharge Date Admission Date: July 11, 2023 Subjective Patient seen and examined this morning No acute issues overnight Lopez patent and draining clear yellow urine Tolerating diet, +flatus Denies abdominal discomfort JACQUELINE output low Left knee pain improving He has been ambulating with walker Pending PT eval today Review of Systems Constitutional: as per Subjective / HPI Gastrointestinal: as per Subjective / HPI Genitourinary: + as per Subjective / HPI Physical Exam Physical Exam: General: Obese, well-appearing, no acute distress HEENT: Normocephalic Pulmonary: Nonlabored respirations Abdomen: Nondistended, soft, incisions healing appropriately, JACQUELINE serosang Extremities: Moves all 4 spontaneously Neuro: No gross deficits Psych: alert and oriented, normal mood Skin: Warm, dry, no rashes noted : Lopez patent and urine clear Results & Data Vital Signs (Past 12 Hours) Vital Signs Temp Pulse Pulse Resp BP Pulse Ox O2 Del Method 07/14/23 07:08 36.9 C 76 17 148/68 H 92 Room Air 07/14/23 03:21 73 16 97 07/13/23 23:20 68 21 98 O2 Flow Rate 07/14/23 07:08 07/14/23 03:21 2 07/13/23 23:20 2 PG Care Time/CCT Total # of Minutes Spent Total Time Spent with Patient: Total time spent is greater than 50% in coordination of care (as documented) at patient's floor/unit and/or counseling patient: Coding Level of Care Code None Diagnoses Prostate cancer C61
[2023-07-14] MEDS: KETOROLAC 30 MG/ML VIAL IV ONE (11:26)
--- NOTE | 2023-07-14 13:16 | Discharge Summary ---
Date of Service July 14, 2023 Admission HPI Per Admitting Provider prostate cancer, presenting for definitive treatment Admission Exam Per Admitting Provider Constitutional well developed and well nourished Neck neck nontender Respiratory normal respiratory effort; no respiratory distress and does not use accessory muscles Cardiovascular Rate/Rhythm: regular rate Vessels: radial pulses present Extremities: no edema Gastrointestinal (Abdomen) Inspection/Auscultation: abdomen normal to inspection Percussion/Palpation: abdomen soft; abdomen nontender and no guarding Musculoskeletal Head/Neck/Chest: normocephalic and head atraumatic Extremities: extremities normal to inspection Skin no rashes and no lesions Trauma: no evidence of skin trauma Neurologic awake; not obtunded Speech / Cognition: normal speech Motor/Sensory: no tremor Psychiatric Orientation: alert and oriented x 3 Genitourinary no CVA tenderness Lymphatic no lymphadenopathy Principal Diagnosis Prostate cancer Discharge Exam General: Obese, well-appearing, no acute distress HEENT: Normocephalic Pulmonary: Nonlabored respirations Abdomen: Nondistended, soft, incisions healing appropriately, JACQUELINE serosang Extremities: Moves all 4 spontaneously Neuro: No gross deficits Psych: alert and oriented, normal mood Skin: Warm, dry, no rashes noted : Lopez patent and urine clear Discharge Data Allergies Allergy/AdvReac Type Severity Reaction Status Date / Time Penicillins Allergy Unknown unknown Verified 07/11/23 06:25 allergy as a child sulfamethoxazole AdvReac Intermediate Fever Verified 07/11/23 06:25 [From Bactrim] trimethoprim [From Bactrim] AdvReac Intermediate Fever Verified 07/11/23 06:25 Procedures Performed Operation Date: 07/11/23 07:30 Actual Procedures p Robotic Assisted Laparoscopic Radical Retropubic Prostatectomy, Pelvic Lymph Node Dissection(Not Applicable) - Vasquez Tamayo MD Ordered Studies 07/12/23 12:33 US venous doppler LE LT Urgent Hospital Course (1) Prostate cancer: Postop day #3 status post prostatectomy Afebrile, hemodynamically stable Labs-creatinine 0.76, WBC 9.02, hemoglobin 11.3 Recovery appropriate thus far from a prostatectomy standpoint Lopez draining clear urine Incisions appropriate Tolerating PO diet Left knee pain seems to be improving after dose of Ketorolac yesterday Continues to work on mobility--he was able to ambulate in the hallway with walker PT consult placed yesterday--still pending evaluation Anticipate home later today or tomorrow with Lopez catheter and JACQUELINE drain pending progress with mobility/PT evaluation Discussed outpatient follow-up with ortho after discharge if he continues to have inflammation Outpatient urology follow-ups are in place Total Time Total Time Spent Total Time Spent (In Minutes): 29 Discharge Plan Discharge Items Patient Disposition: Home - Self-Care Reason For Visit: Prostate Cancer Discharge Diagnosis: Prostate Cancer Activity: Per Instructions section Lifting: No more than 25 pounds Bathing Comment: Okay to shower after discharge, no tub bath or soaking Sexual Activity: Wait until after follow-up appointment Exercise/Sports: Wait until after follow-up appointment Driving/Machine Use: No driving while taking prescription pain medication Non-emergency contact: Surgeon and Urologist Call non-emergency contact if: your pain is not controlled, you have a fever, your temperature is above 101, your wound has increased redness, your wound has increased drainage and your wound pain has increased Follow-up/Referrals: Vasquez Tamayo MD [Physician] - 07/26/23 11:15 am Sourav Healy DO [Primary Care Provider] - [facility],Nurse [FAKE FOR SCHEDULES] - 07/19/23 1:40 pm Diet: Carb Consistent or DM2 Addtl Attending Provider Instructions: Please take all medications as prescribed and keep all follow-ups as scheduled. Please call our office at [phone] with any questions, concerns or need to reschedule appointments for any reason. We are happy to assist you. You are scheduled for a cystogram on 07/19/2023. Please follow instructions about arrival. You have a nurse visit on 07/19/2023 at 1:40 p.m. for possible catheter removal pending cystogram results. We have sent an antibiotic to your pharmacy of choice. Please begin antibiotic as prescribed the day BEFORE your scheduled voiding trial at [facility]. Please continue antibiotic every 12 hours through the day AFTER your voiding trial. Activity: We recommend having someone with you for the first few days after surgery to help care for you. For the first 2 weeks after surgery, we would like you to get up and walk around your house. However, we recommend limit physical activity that would increase your heart rate. This will allow your body to rest and heal. Take naps if you feel tired. Don't lift anything heavier than 10 pounds, mow the law or ride a bicycle until your follow-up appointment. Please avoid long car rides. Home Care: Unless directed otherwise, drink 6 to 8 glasses of water a day (enough to keep your urine light colored). This will also help keep a healthy flow of urine. We recommend using a stool softener for the first two weeks to avoid constipation. Lopez Catheter or Suprapubic Catheter care: Keep the catheter well secured with either a leg back or leg strap with large bag. Empty your bag when it's about half full. You may notice some blood in the bag. This is normal after surgery and while the catheter is in place. Use mild soap (such as Dove or Dial) and water to wash the catheter and the head of your penis daily, or more frequently if needed. Return to your normal diet, we encourage good protein intake to promote healing. You may shower as normal. Please avoid tub baths or soaking until catheter removed and incisions well healed. Wearing sweat pants while you have the catheter is recommended, they will be more comfortable. Follow-up Your follow up appointments for having your catheter removed, and follow up with your physician should already be scheduled. If you have any questions regarding this, please contact our office. Your final pathology report will be discussed at your physician follow-up appointment. Call [facility] at [phone] right away if you have any of the following: Chest pain or trouble breathing (call 911 or go to the hospital) Fever of 101F or higher, uncontrolled vomiting Heavy bleeding, clots, or bright red blood from the catheter Catheter that falls out or stops draining Foul-smelling discharge from your catheter Redness, swelling, warmth, or increased pain at your incision site Drainage, pus, or bleeding from your incision Pending Studies at Discharge: Yes Studies:: pathology Stand-Alone Forms: My [facility] Syntricity, Smoking Cessation Medications and DC Order Prescriptions: New ciprofloxacin HCl 500 mg tablet 500 mg PO BID Qty: 6 0RF Rx Instructions: Start 1 day prior to catheter removal oxycodone-acetaminophen [Percocet] 5-325 mg tablet 1 tab PO TID PRN (Reason: pain) Qty: 14 0RF Rx Instructions: post op pain docusate sodium [Colace] 100 mg capsule 100 mg PO BID Qty: 60 0RF Rx Instructions: Take twice daily for 2 weeks, then as needed for constipation. Continued (DME) CPAP Machine Misc See Rx Instructions .MEDSUPPLY Qty: 1 0RF Rx Instructions: AUTO CPAP 6-16 with tubing & supplies - CONTROL SUPERVISOR (DME) blood-glucose meter [True Metrix Glucose Meter] Misc See Rx Instructions .Route Qty: 1 0RF Rx Instructions: As directed (DME) True Metrix Level 1 Solution See Rx Instructions .Route Qty: 1 3RF Rx Instructions: As directed (DME) True Metrix Glucose Test Strip Strip See Rx Instructions .Route Qty: 200 3RF Rx Instructions: Test twice daily hydrochlorothiazide 25 mg tablet 25 mg PO QAM Qty: 90 2RF (DME) insulin syr/ndl U100 half rolly 0.5 mL 30 gauge x 5/16" syringe See Rx Instructions .Route Qty: 200 3RF Rx Instructions: Use to give self insulin BID (DME) lancets [Ultra Thin Lancets] 33 gauge misc See Rx Instructions .Route Qty: 200 3RF Rx Instructions: Test blood sugars twice daily metformin 500 mg tablet 1,000 mg PO BID Qty: 360 2RF olmesartan 20 mg tablet 20 mg PO HS Qty: 90 2RF Novolin 70/30 U-100 Insulin 100 unit/mL (70-30) suspension 20 unit subcut BID 90 Days Qty: 36 3RF Mounjaro 10 mg/0.5 mL pen injector 10 mg subcut Q7D 28 Days Qty: 2 6RF Patient Comments: last dose 06/20 rosuvastatin 20 mg tablet 20 mg PO DAILY Qty: 90 3RF mupirocin 2 % ointment 1 applic topical BID Qty: 22 0RF Rx Instructions: Apply to toe 1-2 times daily and keep toe bandaged until heeled aspirin 81 mg tablet,delayed release (DR/EC) 81 mg PO HS Discontinued finasteride 5 mg tablet 5 mg PO QAM Qty: 90 2RF Discharge Orders: Discharge Order (Routine); Ordered 07/14/23 Ordered By: Shaylee Calloway Admission Data Admit Date/Time: 07/11/23 11:31 Attending Provider: Vasquez Tamayo Admit Provider: Vasquez Tamayo Primary Care Provider: Sourav Healy Other Interventions: Discharge Summary Assessment (RN) Last Done: 07/14/23 13:22 Coding Level of Care Code 71299 IN/OBS DISCH 30 MIN/LESS Diagnoses Prostate cancer C61
[2023-07-14] MEDS ORDERED: LANTUS PER UNIT CHARGE SC SCH (21:00)
--- NOTE | 2023-07-24 09:25 | Coding Query ---
A supporting diagnosis is required for the test/procedure performed on this patient in order for us to be reimbursed by the patient's insurance. Please provide a supporting diagnosis for the following test/procedure listed below next to the test name along with your signature. *If there is no additional diagnosis for this patient that would support the following test/procedure please document that below next to the test/procedure. Test(s)/Procedure(s) that require a supporting diagnosis: * 28556 VENOUS DOPPLER DIAGNOSIS: unilateral leg swelling (the US determined the diagnosis of popliteal cyst) DATE OF SERVICE: 07/12/23 Provider Signature: Date: Thank you Davon Le [facility] Information Management Once completed, please kindly fax back to [phone] For questions please call [phone] SAMUEL
== END 2023-07-14 16:23 | disposition home or self-care (01) ==
LOC: ASU 05:57 → INTOOBSV 11:31 → 3E 11:31

== ENCOUNTER 2023-12-15 16:39 | Inpatient (IN) ==
[2023-12-15 18:23] LABS: Basophils # (auto) 0.03 K/uL (0.00-0.20); Basophils % (auto) 0.3 %; Eosinophils # (auto) 0.12 K/uL (0.00-0.50); Hematocrit (blood only) 41.1 % (42.0-52.0); Hemoglobin 13.4 g/dl (14.0-18.0); Immature Granulocytes # (auto) 0.07 K/uL (0.01-0.20); Immature Granulocytes % (auto) 0.6 %; Lymphocytes % (auto) 5.9 %; Mean Corpuscular Hemoglobin 27.4 pg (25.0-34.0); Mean Corpuscular Hgb Conc 32.6 g/dL (32.0-36.0); Mean Platelet Volume 9.9 fL (9.4-12.4); Monocytes # (auto) 1.18 K/uL (0.11-0.59); Monocytes % (auto) 9.9 %; Neutrophils # (auto) 9.76 K/uL (1.40-6.50); Neutrophils % (auto) 82.3 %; Platelet Count 285 K/uL (130-400); RDW Coefficient of Variation 14.6 % (11.5-14.5); RDW Standard Deviation 44.3 fL (36.4-46.3); Red Blood Count 4.89 M/uL (4.70-6.10); White Blood Count 11.86 K/ul (4.8-10.8)
--- NOTE | 2023-12-15 18:29 | XRay Report ---
XR toe(s) LT min 2V CLINICAL HISTORY: diabetic great toe wound COMPARISON STUDY: Left foot MRI 09/14/2023. FINDINGS: 3 views of the left first toe were submitted for review. Soft tissue swelling within the le ft first toe. There is a 7 mm skin ulceration at the plantar surface of the left first toe. No underl nicole bony destruction to suggest an osteomyelitis. Ctke-og-vwqwgeyy osteoarthritis within the left fi rst toe. No radiopaque foreign bodies. No acute fracture or dislocation. IMPRESSION: 1. A 7 mm skin ulceration at the plantar surface of the left first toe. 2. No underlying bony destruction to suggest an osteomyelitis. ACT 112: Negative or not required by law. Electronically signed by: Ayan Kaur M.D. 12/15/2023 6:27 PM
[2023-12-15] MEDS: CEFEPIME 2,000 MG/20 ML VIAL IV STA (18:44)
[2023-12-15] MEDS: SODIUM CHLORIDE 0.9% 1,000 ML IV SCH (18:44)
[2023-12-15 18:47] LABS: Albumin Globulin Ratio 1.1 (0.9-2); BUN Creatinine Ratio 25.6 (10-20); Bilirubin,Total 0.6 mg/dl (0.2-1.0); C Reactive Protein 8.65 mg/dl (0-0.5); Creatinine Clr Calc Pharmacy 122.6 ml/min; Est GFR (Non-African American) 89.7 ml/min; Globulin 3.7 gm/dl (2.5-4.0); Total Protein 7.7 gm/dl (6.0-8.3)
--- NOTE | 2023-12-15 19:49 | History & Physical Report ---
Date of Service December 15, 2023 Assessment & Plan (1) Diabetic ulcer of left foot: Plan: - chronic left diabetic ulcer of great toe; concern for infection given increased erythema - XR L foot without osteomyelitis; MRI pending - follows with wound clinic- consult wound care nurse - prior wound culture from 11/07/23 staph - wound/blood cultures pending - plan to continue on cefepime (2) Type 2 diabetes mellitus with microalbuminuria, with long-term current use of insulin: Plan: - last hemoglobin a1c= 8.7 09/01/23 - home regimen- monjaura, metformin, 25 units Novolin BID- hold while IP - SSI with Lantus 9 units BID (3) Hypertension: Plan: - continue HCTZ, olmesartan (4) Dyslipidemia: Plan: - continue statin (5) Obstructive sleep apnea: Plan: - CPAP qHS Plan Diet: DM2 Code: Full VTE prophylaxis: Lovenox History of Present Illness Primary Care Provider: Sourav Healy DO 68 year old male with a past medical history of DM2, HLD, HTN, peripheral neuropathy, prostatic adenocarcinoma presenting with concern for cellulitis. Chronic left great toe diabetic ulcer, follows with wound clinic. Yesterday noticed increased redness tracking up his foot. Denies fever/chills. No increased pain, but has neuropathy some limited feeling in foot. Was last on antibiotics 3 weeks ago, completed a 14 day course of doxycycline. Was last seen at wound clinic on 12/11. ED Course: WBC= 11.86, ESR= 62, CRP= 8.65. XR left foot without signs of osteomyelitis. S/p 2g cefepime. Allergies Allergy/AdvReac Type Severity Reaction Status Date / Time Penicillins Allergy Unknown unknown Verified 12/15/23 19:26 allergy as a child sulfamethoxazole AdvReac Intermediate Fever Verified 12/15/23 19:26 [From Bactrim] trimethoprim [From Bactrim] AdvReac Intermediate Fever Verified 12/15/23 19:26 Home Medications Medication Instructions Recorded Confirmed Type CPAP Machine #1 ea 04/28/20 12/12/23 Rx blood-glucose meter (True Metrix #1 ea 07/08/21 12/12/23 Rx Glucose Meter) blood glucose control, low (True #1 ea 05/20/22 12/12/23 Rx Metrix Level 1 solution) aspirin 81 mg tablet,delayed 81 mg PO HS 12/19/22 12/15/23 History release blood sugar diagnostic (True #200 ea 03/10/23 12/12/23 Rx Metrix Glucose Test Strip) lancets 33 gauge (Ultra Thin #200 ea 03/10/23 12/12/23 Rx Lancets) tirzepatide 10 mg/0.5 mL 10 mg (0.5 mL) subcut Q7D 4 weeks 06/19/23 12/15/23 Rx subcutaneous pen injector #2 mL (Travis) insulin syr/ndl U100 half rolly 0.5 #200 ea 10/23/23 12/12/23 Rx mL 30 gauge x 5/16" hydrochlorothiazide 25 mg tablet 25 mg PO QAM #90 tabs 11/28/23 12/15/23 Rx rosuvastatin 20 mg tablet 20 mg PO DAILY #90 tabs 11/28/23 12/15/23 Rx insulin human U-100 NPH-regulr 25 unit subcut BID 12/15/23 12/15/23 History 70-30 mix 100 unit/mL subcutaneous susp (Novolin 70/30 U-100 Insulin) metformin 500 mg tablet 1,000 mg PO BID 12/15/23 12/15/23 History olmesartan 20 mg tablet 20 mg PO HS 12/15/23 12/15/23 History Past Med/Surg History Problem List (Updated 10/31/23 @ 13:53 by ARLINE Mir) Diabetic ulcer of left foot (Acute) Diarrhea Prostate cancer SOB (shortness of breath) Adenopathy History of colon polyps Encounter for pre-operative examination Hematuria Bilateral leg edema Proteinuria Hematuria High prostate specific antigen (PSA) (Chronic) Obstructive sleep apnea (Chronic) Sebaceous cyst Multiple atypical skin moles Renal cysts, acquired, bilateral (Chronic) Right nephrolithiasis (Chronic) Diabetic peripheral neuropathy (Chronic) Hypertension (Chronic) BPH (benign prostatic hyperplasia) (Chronic) Dyslipidemia (Chronic) Chronic venous insufficiency Severe obesity (BMI >= 40) Type 2 diabetes mellitus with microalbuminuria, with long-term current use of insulin Medical History History of COVID-19 "early May" 05/2023. + home covid test. fever, cough, congestion. resolved. Prostate cancer Sleep apnea CPAP Kidney stone HX Peripheral neuropathy Surgical History Hx of cataract extraction Hx of lithotripsy 11/2021 AT [facility] S/P colonoscopy History of prostate biopsy H/O toe surgery Hx of tonsillectomy H/O knee surgery x2 LEFT Family History Mother Cancer passed from myeloma and breast cancer at 88 yrs. Breast cancer Father Myocardial infarction at 72 years Other Diabetes Social History Smoking Status: Never smoker Second Hand Exposure: No; Do You Dip or Chew Tobacco: No; Hx Alcohol Use: No Hx Substance Use: No Preferred Language: Sami Communication Ability: Effective Visual Impairment: Limited Hearing Ability: Normal Route Clerk Required: No Beliefs That Will Affect Care: None marital status: Current Living Situation: Spouse Feels Safe at Home: Yes Safety Concerns: Feels Safe At This Time Diet: regular caffeine: Yes during the past year weight has: decreased > 10 lbs Dental Care, Regularly: Yes Physical Activity Frequency: Does not Exercise Seatbelt Use: always Assistive Devices: Glasses Review of Systems Review of Systems: As per above Physical Exam Physical Exam: Constitutional: well-appearing, no acute distress HEENT: NCAT, no conjunctival injection CV: regular rhythm, no murmur appreciated, extremities well-perfused, no LE edema, +2 dorsalis pedis pulses B/L, no calf tenderness Resp: CTABL, no wheezes/rales/rhonchi appreciated, no increased work of breathing GI: soft, nondistended, nontender MSK: no gross deformities appreciated Skin: warm, dry, diabetic ulcer plantar surface of left great toe, erythema to mid contreras Neuro: alert, oriented, no focal neurologic deficit appreciated Results & Data Results & Data Vital Signs (Past 12 Hours) Vital Signs Temp Pulse Resp BP Pulse Ox 12/15/23 18:03 131/68 12/15/23 18:03 67 18 12/15/23 17:30 67 12 12/15/23 17:10 82 12/15/23 17:06 77 22 12/15/23 17:05 140/76 12/15/23 17:05 140/76 12/15/23 16:39 36.6 C 94 H 18 162/78 H 94 Supervising Physician Co-Signing Physician Notes Attending addendum: I have physically seen this patient, have supervised the medical residents activities, and agree with the H&P unless as otherwise noted. Assessment and Plan: Left diabetic foot ulcer/ascending lymphangitis medially to the level of the knee- Follows with wound care outpatient X-ray left foot without suggestion of osteomyelitis Order MRI for further assessment Follow wound cultures and blood cultures with sensitivities Cefepime 2 g IV every 12 hours History of MSSA Diabetes mellitus with long-term use of insulin- Glargine with SSI as noted Hypertension- Continue HCTZ and telmisartan NEVAEH- CPAP at bedtime Right biceps injury- Avoid blood pressure cuff on right side Remaining orders and notations as noted Resident Activity Tracking Resident Involvement: Resident Care Provided Care Provided: Adult Hospital Medicine (1) Diabetic ulcer of left foot Diabetes mellitus type: type 2 Diabetic foot ulcer location: toe Non- pressure ulcer stage: with fat layer exposed Qualified Code(s): E11.621 - Type 2 diabetes mellitus with foot ulcer; L97.522 - Non-pressure chronic ulcer of other part of left foot with fat layer exposed
[2023-12-15] MEDS: GADOBUTROL 65ML VIAL IV ONE (22:06)
[2023-12-15] MEDS ORDERED: GLUCOSE 40% GEL 15 GM TUBE PO PRN (22:47)
[2023-12-15] MEDS ORDERED: GLUCAGON FOR INJ 1 MG VIAL SQ PRN (22:47)
[2023-12-15] MEDS ORDERED: GLUCOSE 10 TAB/TUBE PO PRN (22:47)
[2023-12-15] MEDS ORDERED: DEXTROSE 50% 50 ML SYRINGE IV PRN (22:47)
[2023-12-15] MEDS ORDERED: CARBOHYDRATES FOR HYPOGLYCEMIA PO PRN (22:47)
[2023-12-15] MEDS: LOSARTAN POTASSIUM 50 MG TAB PO SCH (23:41)
--- NOTE | 2023-12-16 01:47 | Magnetic Resonance Report ---
Exam(s): MRI LEFT FOOT W/WO Contrast IV Amt: 13.6CC GADAVIST EXAM: MR Left Lower Extremity Without and With Intravenous Contrast, Foot CLINICAL HISTORY: Concern for osteomyelitis. TECHNIQUE: Multiplanar magnetic resonance images of the left foot without and with intravenous contrast. CONTRAST: Patient received 13.6CC GADAVIST of IV contrast COMPARISON: MRI left foot 09/14/2023 FINDINGS: Bones/joints: There is mild edema of the distal first phalanx concerning for early osteomyelitis. No acute fracture. Soft tissues: Diffuse nonspecific subcutaneous edema without abscess. Ulceration of the great toe is noted. IMPRESSION: 1. There is mild edema of the distal first phalanx concerning for early osteomyelitis. 2. Diffuse nonspecific subcutaneous edema without abscess. Ulceration of the great toe is noted. Electronically signed by: Romana North MD 12/16/23 01:46 AM
[2023-12-16] MEDS: CEFEPIME 2,000 MG in SYRINGE 0 ML IV SCH (03:37)
--- NOTE | 2023-12-16 05:07 | Billing Data ---
Date of Service December 16, 2023 Coding Level of Care Code 93581 INT INP/OBS CARE
[2023-12-16 07:15] LABS: Hematocrit (blood only) 36.7 % (42.0-52.0); Hemoglobin 11.8 g/dl (14.0-18.0); Mean Corpuscular Hemoglobin 27.3 pg (25.0-34.0); Mean Corpuscular Hgb Conc 32.2 g/dL (32.0-36.0); Mean Corpuscular Volume 84.8 fL (80.0-100.0); Mean Platelet Volume 9.5 fL (9.4-12.4); Platelet Count 241 K/uL (130-400); RDW Coefficient of Variation 14.4 % (11.5-14.5); RDW Standard Deviation 44.5 fL (36.4-46.3); Red Blood Count 4.33 M/uL (4.70-6.10); White Blood Count 7.59 K/ul (4.8-10.8)
[2023-12-16 07:35] LABS: BUN Creatinine Ratio 23.4 (10-20); Calcium 8.2 mg/dl (8.6-10.3); Creatinine Clr Calc Pharmacy 142.7 ml/min; Est GFR (African American) 108.8 ml/min; Est GFR (Non-African American) 93.9 ml/min; Potassium 4.4 mmol/L (3.5-5.1)
[2023-12-16] MEDS: ROSUVASTATIN CALCIUM 20 MG TAB PO SCH (08:29)
[2023-12-16] MEDS: hydroCHLOROthiazide 25 MG TAB PO SCH (08:29)
[2023-12-16] MEDS: LANTUS PER UNIT CHARGE SQ SCH (08:33)
[2023-12-16] MEDS: INSULIN ASPART PER UNIT CHARGE SC SCH (08:34)
[2023-12-16] MEDS ORDERED: DAPTOmycin 450 MG in SYRINGE 0 ML IV SCH (11:00)
[2023-12-16] MEDS: DAPTOmycin 650 MG in SYRINGE 0 ML IV SCH (12:03)
--- NOTE | 2023-12-16 13:24 | Ultrasound Report ---
US arterial duplex LE LT CLINICAL HISTORY: non-healing L 1st toe ulcer TECHNIQUE: Real-time grayscale and color and spectral Doppler ultrasound imaging of the left lower ex tremity arteries was performed. Measurements calculated based on NASCET criteria. COMPARISON: None available at the time of this dictation. FINDINGS: LEFT: Triphasic waveforms are seen throughout with exception of biphasic waveforms in the deep femoral roman ry. Minimal plaque is seen in the left lower extremity. Elevated velocities are seen as follows: Mid posterior tibial artery: 247 cm/s Distal anterior tibial artery: 205 cm/s Dorsalis pedis artery: 217 cm/s IMPRESSION: Minimal plaque is seen with minimal elevated velocities most prominently in the mid posterior tibial artery compatible with peripheral vascular disease. ACT 112: Negative or not required by law. Electronically signed by: Rosales Young M.D. 12/16/2023 1:22 PM
[2023-12-16] MEDS: ENOXAPARIN INJ 40 MG/0.4 ML SYR SQ SCH (15:07)
--- NOTE | 2023-12-16 20:54 | Emergency Department Note ---
Impression & Plan Cellulitis of left lower leg, Diabetic peripheral neuropathy, Diabetic foot ulcer ED Provider Note CHIEF COMPLAINT: LLE Redness and swelling HISTORY OF PRESENT ILLNESS: This 68-year-old male patient With past medical history of prostate cancer, type two diabetes, obesity, Garwood insufficiency, diabetic peripheral neuropathy, nephrolithiasis, obstructive sleep apnea, Diabetic ulceration of the left great toe presents to the emergency department With his who states he has had redness tracking up his foot and now up his contreras for the last 24 to 48 hours. She has not noticed any fever, but has been sleepy. He has been treated by the wound care clinic for the last eight months for this ulceration. He was on doxycycline at one point, but has not been taking any antibiotics for the last two weeks. REVIEW OF SYSTEMS: A review of systems was performed with positives and pertinent negatives listed in the history of present illness. 10 systems were reviewed and are otherwise negative. ALLERGIES: see below MEDICATIONS: see below PMH: see below SOCIAL HISTORY: see below DDx: Diabetic ulcer, sophia insufficiency, cellulitis, DVT, sepsis, abscess among others. PHYSICAL EXAM: Vital signs reviewed. General: Well-appearing 68-year-old male, in no significant distress. HEENT: No scleral icterus, PERRLA, neck supple.Moist mucous membranes Cardiovascular: Regular rate and rhythm, no extra sounds. Pulmonary: Clear to auscultation bilaterally, normal work of breathing. Abdomen: Soft, obese, nontender, nondistended, positive bowel sounds. Musculoskeletal: Atraumatic, swelling noted to the bilateral lower extremities with sophia stasis changes. Pencil racer size ulceration noted to the pad of the left great toe. Erythema and warmth appreciated tracking up the foot to the proximal contreras distal to the knee. Neurologic: Patient awake alert and oriented x 3, speech is clear Skin: Warm, dry, as above. EMERGENCY DEPARTMENT COURSE/MDM: This patient was evaluated and appeared to be in no significant distress. IV access was obtained in laboratory work withdrawn. He was hydrated with normal saline solution. The patient was placed in the potline monitor noted to be in a NSR. Patient's physical exam is consistent with progressive left lower extremity cellulitis, likely secondary to the diabetic to ulceration. Patient was medicated with IV cefepime. Work is concerning for a mild elevation of the WBC, sedimentation rate and CRP. X-ray does not reveal any evidence of osteomyelitis. Patient case discussed with hospitalist service for admission and further management. MONITORING: An order for cardiac monitoring was placed and the patient is noted to be in a NSR at 68 beats per minute. RADIOLOGY: X-ray of the left great toe to my interpretation reveals no evidence of bone destruction, No evidence of osteomyelitis. Otherwise defer to radiology over read. DISPOSITION: admission Past Med/Surg History Problem List (Updated 12/16/23 @ 20:54 by Caren Gamez MD) Diabetic foot ulcer (Acute) Cellulitis of left lower leg (Acute) Diabetic ulcer of left foot (Acute) Diarrhea Prostate cancer SOB (shortness of breath) Adenopathy History of colon polyps Encounter for pre-operative examination Hematuria Bilateral leg edema Proteinuria Hematuria High prostate specific antigen (PSA) (Chronic) Obstructive sleep apnea (Chronic) Sebaceous cyst Multiple atypical skin moles Renal cysts, acquired, bilateral (Chronic) Right nephrolithiasis (Chronic) Diabetic peripheral neuropathy (Chronic) Hypertension (Chronic) BPH (benign prostatic hyperplasia) (Chronic) Dyslipidemia (Chronic) Chronic venous insufficiency Severe obesity (BMI >= 40) Type 2 diabetes mellitus with microalbuminuria, with long-term current use of insulin Medical History History of COVID-19 "early May" 05/2023. + home covid test. fever, cough, congestion. resolved. Prostate cancer Sleep apnea CPAP Kidney stone HX Peripheral neuropathy Surgical History Hx of cataract extraction Hx of lithotripsy 11/2021 AT [facility] S/P colonoscopy History of prostate biopsy H/O toe surgery Hx of tonsillectomy H/O knee surgery x2 LEFT Family History Mother Cancer passed from myeloma and breast cancer at 88 yrs. Breast cancer Father Myocardial infarction at 72 years Other Diabetes Social History Smoking Status: Never smoker Second Hand Exposure: No; Do You Dip or Chew Tobacco: No; Hx Alcohol Use: No Hx Substance Use: No Preferred Language: Amharic Communication Ability: Effective Visual Impairment: Limited Hearing Ability: Normal Infection Preventionist Required: No Beliefs That Will Affect Care: None marital status: Current Living Situation: Spouse Feels Safe at Home: Yes Safety Concerns: Feels Safe At This Time Diet: regular caffeine: Yes during the past year weight has: decreased > 10 lbs Dental Care, Regularly: Yes Physical Activity Frequency: Does not Exercise Seatbelt Use: always Assistive Devices: Glasses Allergies Allergies Allergy/AdvReac Type Severity Reaction Status Date / Time Penicillins Allergy Unknown unknown Verified 12/15/23 19:26 allergy as a child sulfamethoxazole AdvReac Intermediate Fever Verified 12/15/23 19:26 [From Bactrim] trimethoprim [From Bactrim] AdvReac Intermediate Fever Verified 12/15/23 19:26 Home Meds Home Medications Medication Instructions Recorded Confirmed aspirin 81 mg tablet,delayed 81 mg PO HS 12/19/22 12/15/23 release insulin human U-100 NPH-regulr 25 unit subcut BID 12/15/23 12/15/23 70-30 mix 100 unit/mL subcutaneous susp (Novolin 70/30 U-100 Insulin) metformin 500 mg tablet 1,000 mg PO BID 12/15/23 12/15/23 olmesartan 20 mg tablet 20 mg PO HS 12/15/23 12/15/23 Previous Rx's Medication Instructions Recorded CPAP Machine #1 ea 04/28/20 blood-glucose meter (True Metrix #1 ea 07/08/21 Glucose Meter) blood glucose control, low (True #1 ea 05/20/22 Metrix Level 1 solution) blood sugar diagnostic (True #200 ea 03/10/23 Metrix Glucose Test Strip) lancets 33 gauge (Ultra Thin #200 ea 03/10/23 Lancets) tirzepatide 10 mg/0.5 mL 10 mg (0.5 mL) subcut Q7D 4 weeks 06/19/23 subcutaneous pen injector #2 mL (Travis) insulin syr/ndl U100 half rolly 0.5 #200 ea 10/23/23 mL 30 gauge x 5/16" hydrochlorothiazide 25 mg tablet 25 mg PO QAM #90 tabs 11/28/23 rosuvastatin 20 mg tablet 20 mg PO DAILY #90 tabs 11/28/23 Results & Data (ED) Home Medications Current Medication List: was personally reviewed by me Laboratory Data Attestation: I reviewed the patient's lab results. 12/16/23 06:56 12/16/23 06:56 Lab Results 12/15/23 12/15/23 Range/Units 17:00 18:41 WBC 11.86 H (4.8-10.8) K/ul RBC 4.89 (4.70-6.10) M/uL Hgb 13.4 L (14.0-18.0) g/dl Hct 41.1 L (42.0-52.0) % MCV 84.0 (80.0-100.0) fL MCH 27.4 (25.0-34.0) pg MCHC 32.6 (32.0-36.0) g/dL RDW Std Deviation 44.3 (36.4-46.3) fL RDW Coeff of Daniel 14.6 H (11.5-14.5) % Plt Count 285 (130-400) K/uL MPV 9.9 (9.4-12.4) fL Immature Gran % (Auto) 0.6 % Neut % (Auto) 82.3 % Lymph % (Auto) 5.9 % [place] % (Auto) 9.9 % Eos % (Auto) 1.0 % Baso % (Auto) 0.3 % Neut # (Auto) 9.76 H (1.40-6.50) K/uL Lymph # (Auto) 0.70 L (1.20-3.40) K/uL [place] # (Auto) 1.18 H (0.11-0.59) K/uL Eos # (Auto) 0.12 (0.00-0.50) K/uL Baso # (Auto) 0.03 (0.00-0.20) K/uL Immature Gran # (Auto) 0.07 (0.01-0.20) K/uL ESR 62 H (0-20) mm/hr Sodium 135 L (136-145) mmol/L Potassium 4.0 (3.5-5.1) mmol/L Chloride 99 (98-107) mmol/L Carbon Dioxide 28 (21-32) mmol/L Anion Gap 8 (3-11) BUN 22 (6-23) mg/dl Creatinine 0.86 (0.6-1.4) mg/dl Est Cr Clr Drug Dosing 122.6 ml/min Est GFR ( Amer) 104.0 ml/min Est GFR (Non-Af Amer) 89.7 ml/min BUN/Creatinine Ratio 25.6 H (10-20) Glucose 202 H (70-99(Fasting)) mg/dl Lactate 1.2 (0.4-2.0) mmol/L Calcium 9.0 (8.6-10.3) mg/dl Total Bilirubin 0.6 (0.2-1.0) mg/dl AST 14 (13-39) U/L ALT 14 (7-52) U/L Alkaline Phosphatase 82 (34-104) U/L C-Reactive Protein 8.65 H (0-0.5) mg/dl Total Protein 7.7 (6.0-8.3) gm/dl Albumin 4.0 (3.4-5.0) gm/dl Globulin 3.7 (2.5-4.0) gm/dl Albumin/Globulin Ratio 1.1 (0.9-2) Procalcitonin < 0.02 (0-0.5) ng/ml Administered Medications Enoxaparin Sodium (Enoxaparin Inj 40 Mg/0.4 Ml Syr) 40 mg SQ Q24H LIBBY Stop: 01/15/24 14:59 Last Admin: 12/16/23 15:07 Dose: 40 mg Documented By: CLAUDIA Hydrochlorothiazide (Hydrochlorothiazide 25 Mg Tab) 25 mg PO QAM LIBBY Stop: 01/15/24 08:59 Last Admin: 12/16/23 08:29 Dose: 25 mg Documented By: CLAUDIA Cefepime HCl 2,000 mg/ Syringe 20 mls @ 5 mls/min IV Q8H LIBBY; Protocol Stop: 12/23/23 02:59 Last Admin: 12/16/23 18:23 Dose: 5 mls/min Documented By: Admin: 12/16/23 10:58 Dose: 5 mls/min Documented By: Admin: 12/16/23 03:37 Dose: 5 mls/min Documented By: SRUTHI Daptomycin 650 mg/ Syringe 13 mls @ 6.5 mls/min IV DAILY LIBBY; Protocol Stop: 12/23/23 10:59 Last Admin: 12/16/23 12:03 Dose: 6.5 mls/min Documented By: CLAUDIA Insulin Aspart (Insulin Aspart Per Unit Charge) 0 units SC ACHS LIBBY Stop: 01/15/24 07:29 Last Admin: 12/16/23 16:57 Dose: 5 units Documented By: CLAUDIA Co-signed By: AMY Admin: 12/16/23 12:17 Dose: 6 units Documented By: CLAUDIA Co-signed By: AL Admin: 12/16/23 08:34 Dose: 5 units Documented By: CLAUDIA Co-signed By: TRANG Insulin Glargine (Lantus Per Unit Charge) 9 units SQ BID LIBBY Stop: 01/15/24 08:59 Last Admin: 12/16/23 08:33 Dose: 9 units Documented By: CLAUDIA Co-signed By: TRANG Losartan Potassium (Losartan Potassium 50 Mg Tab) 50 mg PO HS LIBBY Stop: 01/14/24 22:46 Last Admin: 12/15/23 23:41 Dose: 50 mg Documented By: SRUTHI Rosuvastatin Calcium (Rosuvastatin Calcium 20 Mg Tab) 20 mg PO DAILY LIBBY Stop: 01/15/24 08:59 Last Admin: 12/16/23 08:29 Dose: 20 mg Documented By: CLAUDIA Discontinued Medications Gadobutrol (Gadobutrol 65ml Vial) 13.6 ml IV ONCE ONE Stop: 12/15/23 22:07 Last Admin: 12/15/23 22:06 Dose: 13.6 ml Documented By: MARY JO Sodium Chloride (Nss) 1,000 mls @ 125 mls/hr IV .Q8H LIBBY Stop: 12/16/23 01:59 Last Infusion: 12/16/23 03:17 Dose: Infused Documented By: Infusion: 12/15/23 23:42 Dose: 125 mls/hr Documented By: Admin: 12/15/23 18:44 Dose: 125 mls/hr Documented By: UMER Cefepime HCl (Maxipime) 2,000 mg in 20 mls @ 5 mls/min IV NOW STA; Protocol Stop: 12/15/23 18:02 Last Admin: 12/15/23 18:44 Dose: 5 mls/min Documented By: UMER Discharge Plan Visit Data Chief Complaint: Swelling/Edema to Extremity Stated Complaint: FOOT SWELLING (L), REDNESS ED Provider: Franco,Caren B Discharge Problem: Cellulitis of left lower leg, Diabetic peripheral neuropathy, Diabetic foot ulcer Patient Disposition: Admitted As Inpatient Discharge Instructions Interventions: ED Discharge Assessment Last Done: 12/15/23 21:57 Discharge Problem: Diabetic foot ulcer Qualifiers: Diabetic foot ulcer location: toe Diabetes mellitus type: type 2 Laterality: l eft Non-pressure ulcer stage: with fat layer exposed Qualified Code(s): E11.621 - Type 2 diabetes mellitus with foot ulcer; L97.522 - Non-pressure chronic ulcer of other part of left foot with fat layer exposed
--- NOTE | 2023-12-17 01:33 | Hospitalist Progress Note ---
Date of Service December 16, 2023 Assessment & Plan (1) Diabetic ulcer of left foot: Plan: chronic L great toe ulcer follows with the wound care center for such recent dressing - aquacel ag with optifoam now with superimposed cellulitis of left foot/left contreras as well as MRI evidence of great toe osteomyelitis add daptomycin to the cefepime to cover MRSA/enterococcus/coag neg staph follow cultures arterial duplex of LLE with intact blood flow (2) Osteomyelitis of great toe of left foot: Plan: MRI suspicious for such CRP/sed rate noted will involve podiatry or orthopedics would suspect that a trial of conservative Rx with prolonged course of IV abx rather than amputation would be preferred as the ulcer is small, arterial blood flow is intact, and he has decent chance of clearing this with those IV antibiotics will also involve ID this coming week (3) Cellulitis of left lower leg: Plan: cont cefepime add daptomycin see above (4) Type 2 diabetes mellitus with microalbuminuria, with long-term current use of insulin: Plan: last hemoglobin a1c= 8.7% in 09/01/23 check a new a1c while here home regimen- monjaura, metformin, 25 units Novolin BID- hold this regimen while hospitalized use novolog ac/hs + lantus BID BSGs still high - adjust insulins as needed (5) Hypertension: Plan: continue HCTZ, olmesartan (6) Dyslipidemia: Plan: continue statin (7) Obstructive sleep apnea: Plan: CPAP qHS (8) Morbid obesity with BMI of 40.0-44.9, adult: Plan: BMI 41 Plan VTE prophylaxis: Lovenox Admission and Anticipated Discharge Date Admission Date: December 15, 2023 Subjective patient reports the erythema of L foot and ankle/distal leg are improved today he denies significant pain no significant drainage he has a surgical walking shoe for the left foot was using aquacel aq at home for the L great toe ulcer Review of Systems Review of Systems: gen - no fevers GI - no diarrhea cv - no chest pain pulm - no dyspnea Physical Exam Physical Exam: gen - obese, NAD mouth - MMM neck - no JVD heart - RRR, s1 s2, no murmur lungs - CTA b/l abd - soft NT ND BS+ ext - no edema, pulses b/l feet 2+ including post tib and DPs skin - left great toe - 2-3mm ulceration plantar aspect, about 2mm deep, no bone visible; no drainage; mild erythema on distal L contreras and on dorsum of L foot musculo - left great toe has generalized swelling Results & Data Results & Data Vital Signs (Past 12 Hours) Vital Signs Temp Pulse Resp BP Pulse Ox O2 Del Method 12/16/23 21:39 37.0 C 90 18 159/80 H 93 Room Air 12/16/23 14:38 36.5 C 66 15 125/69 93 Room Air Laboratory Results Laboratory Results - last 24 hr 12/16/23 12/16/23 12/16/23 06:56 07:41 12:07 WBC 7.59 RBC 4.33 L Hgb 11.8 L Hct 36.7 L MCV 84.8 MCH 27.3 MCHC 32.2 RDW Std Deviation 44.5 RDW Coeff of Daniel 14.4 Plt Count 241 MPV 9.5 Sodium 136 Potassium 4.4 Chloride 100 Carbon Dioxide 33 H Anion Gap 3 BUN 18 Creatinine 0.77 Est Cr Clr Drug Dosing 142.7 Est GFR ( Amer) 108.8 Est GFR (Non-Af Amer) 93.9 BUN/Creatinine Ratio 23.4 H Glucose 219 H POC Glucose 217 H 215 H Calcium 8.2 L Diagnostic Findings Foot MRI 12/15/23 19:45 Exam(s): MRI LEFT FOOT W/WO Contrast IV Amt: 13.6CC GADAVIST EXAM: MR Left Lower Extremity Without and With Intravenous Contrast, Foot CLINICAL HISTORY: Concern for osteomyelitis. TECHNIQUE: Multiplanar magnetic resonance images of the left foot without and with intravenous contrast. CONTRAST: Patient received 13.6CC GADAVIST of IV contrast COMPARISON: MRI left foot 09/14/2023 FINDINGS: Bones/joints: There is mild edema of the distal first phalanx concerning for early osteomyelitis. No acute fracture. Soft tissues: Diffuse nonspecific subcutaneous edema without abscess. Ulceration of the great toe is noted. IMPRESSION: 1. There is mild edema of the distal first phalanx concerning for early osteomyelitis. 2. Diffuse nonspecific subcutaneous edema without abscess. Ulceration of the great toe is noted. Electronically signed by: Romana North MD 12/16/23 01:46 AM Duplex Scan Lower Extremity Artery 12/16/23 10:23 US arterial duplex LE LT CLINICAL HISTORY: non-healing L 1st toe ulcer TECHNIQUE: Real-time grayscale and color and spectral Doppler ultrasound imaging of the left lower extremity arteries was performed. Measurements calculated based on NASCET criteria. COMPARISON: None available at the time of this dictation. FINDINGS: LEFT: Triphasic waveforms are seen throughout with exception of biphasic waveforms in the deep femoral artery. Minimal plaque is seen in the left lower extremity. Elevated velocities are seen as follows: Mid posterior tibial artery: 247 cm/s Distal anterior tibial artery: 205 cm/s Dorsalis pedis artery: 217 cm/s IMPRESSION: Minimal plaque is seen with minimal elevated velocities most prominently in the mid posterior tibial artery compatible with peripheral vascular disease. ACT 112: Negative or not required by law. Electronically signed by: Rosales Young M.D. 12/16/2023 1:22 PM PG Care Time/CCT Total # of Minutes Spent Total Time Spent with Patient: Total time spent is greater than 50% in coordination of care (as documented) at patient's floor/unit and/or counseling patient: Coding Level of Care Code 04373 SUB INP/OBS CARE 2/35MIN Diagnoses Diabetic ulcer of toe of left foot associated with type 2 diabetes mellitus, with fat layer exposed E11.621; L97.522 Diabetic foot ulcer location: toe Diabetes mellitus type: type 2 Non-pressure ulcer stage: with fat layer exposed Osteomyelitis of great toe of left foot M86.9 Cellulitis of left lower leg L03.116 Type 2 diabetes mellitus with microalbuminuria, with long-term current use of insulin E11.29; R80.9; Z79.4 Hypertension I10 Dyslipidemia E78.5 Obstructive sleep apnea G47.33 Morbid obesity with BMI of 40.0-44.9, adult E66.01; Z68.41 (1) Diabetic ulcer of left foot Diabetic foot ulcer location: toe Diabetes mellitus type: type 2 Non- pressure ulcer stage: with fat layer exposed Qualified Code(s): E11.621 - Type 2 diabetes mellitus with foot ulcer; L97.522 - Non-pressure chronic ulcer of other part of left foot with fat layer exposed
[2023-12-17 07:19] LABS: BUN Creatinine Ratio 20.8 (10-20); Calcium 8.9 mg/dl (8.6-10.3); Creatinine Clr Calc Pharmacy 142.7 ml/min; Est GFR (African American) 108.8 ml/min; Est GFR (Non-African American) 93.9 ml/min; Potassium 4.2 mmol/L (3.5-5.1)
[2023-12-17 07:58] LABS: Estimated Average Glucose 186 mg/dl; Hemoglobin A1C 8.1 % (4.5-5.6)
[2023-12-17] MEDS: LANTUS PER UNIT CHARGE SQ SCH (08:53)
--- NOTE | 2023-12-17 16:55 | Orthopedic Consultation ---
Date of Service December 17, 2023 Assessment & Plan (1) Diabetic foot ulcer: 68-year-old male with underlying diabetes without 4-month history of a left great toe fairly small diabetic foot ulcer. He came in with cellulitis with some underlying venous stasis changes. The cellulitis really looks to be pretty well resolved on exam today by report. Looks pretty benign. There is no pus. Questionable osteomyelitis. The bone marrow signal in the great Toe could be related to just degenerative change versus osteomyelitis. Certainly does not look obvious or severe in any manner. Plan: At this point I would recommend medical management. If he truly does develop osteomyelitis in his great toe the only treatments, to definitively treat this is likely amputation. I am not convinced he is got bone infection and this could be just related to arthritis. Toes pretty benign. Cellulitis looks to be resolved. At this point I would recommend converting him to p.o. antibiotics and follow-up in the wound clinic. He will continue to need wound care of this great toe likely total contact casting to resolve the ulcer. If the osteomyelitis does show up to he will likely need amputation. Certainly do not need to go that route now. He can follow-up with the wound clinic. Any orthopedic questions can be directed at [phone] (2) Cellulitis of left lower leg: (3) Diabetic ulcer of left foot: (4) Morbid obesity with BMI of 40.0-44.9, adult: History of Present Illness Reason for Consultation: . Persistent left diabetic foot ulcer at the great toe with possible osteomyelitis Requesting Physician: . Attending Physician: Chris Cloud MD .Patient is a 68-year-old male with chronic underlying diabetes whose had a left great toe ulcer about 4 to 5 months duration. 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 D he was then referred to the wound clinic where he is undergoing treatment. He was on a course of doxycycline recently. He had developed increasing redness in the left leg and foot and was admitted to the hospital 2 days ago. He has been on IV antibiotics. No other real complaints. Once again has had this ulcer about 4 months. He does have some underlying neuropathy Allergies Allergy/AdvReac Type Severity Reaction Status Date / Time Penicillins Allergy Unknown unknown Verified 12/15/23 19:26 allergy as a child sulfamethoxazole AdvReac Intermediate Fever Verified 12/15/23 19:26 [From Bactrim] trimethoprim [From Bactrim] AdvReac Intermediate Fever Verified 12/15/23 19:26 Home Medications Medication Instructions Recorded Confirmed Type CPAP Machine #1 ea 04/28/20 12/12/23 Rx blood-glucose meter (True Metrix #1 ea 07/08/21 12/12/23 Rx Glucose Meter) blood glucose control, low (True #1 ea 05/20/22 12/12/23 Rx Metrix Level 1 solution) aspirin 81 mg tablet,delayed 81 mg PO HS 12/19/22 12/15/23 History release blood sugar diagnostic (True #200 ea 03/10/23 12/12/23 Rx Metrix Glucose Test Strip) lancets 33 gauge (Ultra Thin #200 ea 03/10/23 12/12/23 Rx Lancets) tirzepatide 10 mg/0.5 mL 10 mg (0.5 mL) subcut Q7D 4 weeks 06/19/23 12/15/23 Rx subcutaneous pen injector #2 mL (Travis) insulin syr/ndl U100 half rolly 0.5 #200 ea 10/23/23 12/12/23 Rx mL 30 gauge x 5/16" hydrochlorothiazide 25 mg tablet 25 mg PO QAM #90 tabs 11/28/23 12/15/23 Rx rosuvastatin 20 mg tablet 20 mg PO DAILY #90 tabs 11/28/23 12/15/23 Rx insulin human U-100 NPH-regulr 25 unit subcut BID 12/15/23 12/15/23 History 70-30 mix 100 unit/mL subcutaneous susp (Novolin 70/30 U-100 Insulin) metformin 500 mg tablet 1,000 mg PO BID 12/15/23 12/15/23 History olmesartan 20 mg tablet 20 mg PO HS 12/15/23 12/15/23 History Past Med/Surg History Problem List Morbid obesity with BMI of 40.0-44.9, adult Osteomyelitis of great toe of left foot Diabetic foot ulcer (Acute) Cellulitis of left lower leg (Acute) Diabetic ulcer of left foot (Acute) Diarrhea Prostate cancer SOB (shortness of breath) Adenopathy History of colon polyps Encounter for pre-operative examination Hematuria Bilateral leg edema Proteinuria Hematuria High prostate specific antigen (PSA) (Chronic) Obstructive sleep apnea (Chronic) Sebaceous cyst Multiple atypical skin moles Renal cysts, acquired, bilateral (Chronic) Right nephrolithiasis (Chronic) Diabetic peripheral neuropathy (Chronic) Hypertension (Chronic) BPH (benign prostatic hyperplasia) (Chronic) Dyslipidemia (Chronic) Chronic venous insufficiency Severe obesity (BMI >= 40) Type 2 diabetes mellitus with microalbuminuria, with long-term current use of insulin Medical History History of COVID-19 "early May" 05/2023. + home covid test. fever, cough, congestion. resolved. Prostate cancer Sleep apnea CPAP Kidney stone HX Peripheral neuropathy Surgical History Hx of cataract extraction Hx of lithotripsy 11/2021 AT [facility] S/P colonoscopy History of prostate biopsy H/O toe surgery Hx of tonsillectomy H/O knee surgery x2 LEFT Family History Mother Cancer passed from myeloma and breast cancer at 88 yrs. 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 Physical Exam Physical examination reveals a pleasant middle-age male. He is lying in bed looks comfortable. Examination left foot reveals some chronic venous stasis changes distally. He does have a small ulcer on the plantar aspect of his great toe measuring about 3 mm. Really not much redness or swelling. He can flex extend his toes appropriately. He is neurologically grossly intact but decreased subjective sensation.. Results & Data Results & Data Laboratory Results . White cell count is normal at 7.59 this morning. Hemoglobin A1c 8.1. Sed rate 62. CRP 8.65. Cultures of the great toe revealed methicillin sensitive staph. Diagnostic Findings . X-rays of the left foot and great toe reveal some degenerative changes in the MP T as well as the IP joint of the toe. A little bit of fragmentation which looks to be chronic and could be related to his underlying arthritis. MRI of the foot and toe reveals some edema suggestive of cellulitis. There may be a little bit of edema in the great toe as well. There is clearly a little bit of increased marrow signal could be related to arthritis versus osteomyelitis. PG Care Time/CCT Total # of Minutes Spent Total Time Spent with Patient: Total time spent is greater than 50% in coordination of care (as documented) at patient's floor/unit and/or counseling patient: Coding Level of Care Code 64059 IN/OBS CONSULT LVL 3,45M Diagnoses Diabetic foot ulcer E11.621; L97.522 Diabetes mellitus type: type 2 Diabetic foot ulcer location: toe Laterality: left Non-pressure ulcer stage: with fat layer exposed Cellulitis of left lower leg L03.116 Diabetic ulcer of toe of left foot associated with type 2 diabetes mellitus, with fat layer exposed E11.621; L97.522 Diabetic foot ulcer location: toe Diabetes mellitus type: type 2 Non-pressure ulcer stage: with fat layer exposed Morbid obesity with BMI of 40.0-44.9, adult E66.01; Z68.41 (1) Diabetic foot ulcer Diabetes mellitus type: type 2 Diabetic foot ulcer location: toe Laterality: left Non-pressure ulcer stage: with fat layer exposed Qualified Code(s): E11.621 - Type 2 diabetes mellitus with foot ulcer; L97.522 - Non-pressure chronic ulcer of other part of left foot with fat layer exposed (3) Diabetic ulcer of left foot Diabetic foot ulcer location: toe Diabetes mellitus type: type 2 Non-pres sure ulcer stage: with fat layer exposed Qualified Code(s): E11.621 - Type 2 diabetes mellitus with foot ulcer; L97.522 - Non-pressure chronic ulcer of other part of left foot with fat layer exposed
--- NOTE | 2023-12-17 20:35 | Hospitalist Progress Note ---
Date of Service December 17, 2023 Assessment & Plan (1) Diabetic ulcer of left foot: Plan: chronic L great toe ulcer follows with the wound care center for such cont aquacel ag with optifoam now with superimposed cellulitis of left foot/left contreras as well as MRI evidence of great toe osteomyelitis cont daptomycin for now but if no coag neg staph, etc grows from culture it can likely be stopped cont cefepime to cover the MSSA but can likely narrow to ancef tomorrow if stable and if no other pathogen grows arterial duplex of LLE with intact blood flow appreciate ortho consult - Dr Antunez consulted will get ID involved on Monday for their opinion (2) Osteomyelitis of great toe of left foot: Plan: MRI suspicious for such CRP/sed rate noted orthopedics consult placed to Dr Antunez would suspect that a trial of conservative Rx with prolonged course of IV abx rather than amputation would be preferred as the ulcer is small, arterial blood flow is intact, and he has decent chance of clearing this with those IV antibiotics will also involve ID this coming week (3) Cellulitis of left lower leg: Plan: see above improving (4) Type 2 diabetes mellitus with microalbuminuria, with long-term current use of insulin: Plan: last hemoglobin a1c= 8.7% in 09/01/23 a1c today 8.1% home regimen- monjaura, metformin, 25 units Novolin BID- hold this regimen while hospitalized use novolog ac/hs + lantus BID BSGs still high - adjust both insulins today (5) Hypertension: Plan: continue HCTZ, olmesartan (6) Dyslipidemia: Plan: continue statin (7) Obstructive sleep apnea: Plan: CPAP qHS (8) Morbid obesity with BMI of 40.0-44.9, adult: Plan: BMI 41 Plan VTE prophylaxis: Lovenox was on the phone and she listed to the conversation during yesterday's and today's visits Admission and Anticipated Discharge Date Admission Date: December 15, 2023 Subjective no new issues overnight feels well denies pain in his L foot, ankle or leg eating well no diarrhea not using his surgical shoe consistently Review of Systems Review of Systems: gen - no fevers or chills cv - no chest pain pulm - no dyspnea Physical Exam Physical Exam: gen - obese, NAD mouth - MMM neck - no JVD heart - RRR, s1 s2, no murmur lungs - CTA b/l abd - soft NT ND BS+ ext - no edema, pulses b/l feet 2+ skin - left great toe - 2-3mm ulceration plantar aspect; I removed the dressings; small amount of mainly clear with slight yellow discharge removed; wound bed is clean o/w; swelling of great toe is better today; mild erythema on a background of venous stasis changes left contreras -- erythema improving Results & Data Results & Data Vital Signs (Past 12 Hours) Vital Signs Temp Pulse Resp BP Pulse Ox O2 Del Method 12/17/23 20:32 36.3 C L 79 20 143/69 H 93 Room Air 12/17/23 15:27 36.9 C 68 18 136/71 92 Room Air Laboratory Results Laboratory Results - last 24 hr 12/16/23 12/17/23 12/17/23 20:34 06:10 07:34 Sodium 136 Potassium 4.2 Chloride 99 Carbon Dioxide 31 Anion Gap 6 BUN 16 Creatinine 0.77 Est Cr Clr Drug Dosing 142.7 Est GFR ( Amer) 108.8 Est GFR (Non-Af Amer) 93.9 BUN/Creatinine Ratio 20.8 H Glucose 190 H POC Glucose 208 H 216 H Estimat Average Glucose 186 Hemoglobin A1c 8.1 H Calcium 8.9 12/17/23 12/17/23 11:49 16:31 Sodium Potassium Chloride Carbon Dioxide Anion Gap BUN Creatinine Est Cr Clr Drug Dosing Est GFR ( Amer) Est GFR (Non-Af Amer) BUN/Creatinine Ratio Glucose POC Glucose 215 H 195 H Estimat Average Glucose Hemoglobin A1c Calcium Diagnostic Findings Microbiology 12/15/23 18:25 Blood Aerobic Blood Culture - Preliminary No growth in Aerobic bottle after 48 hours. 12/15/23 18:25 Blood Anaerobic Blood Culture - Preliminary No growth in Anaerobic bottle after 48 hours. 12/15/23 18:31 Blood Aerobic Blood Culture - Preliminary No growth in Aerobic bottle after 48 hours. 12/15/23 18:31 Blood Anaerobic Blood Culture - Preliminary No growth in Anaerobic bottle after 48 hours. 12/15/23 18:45 Toe Gram Stain - Final 12/15/23 18:45 Toe Aerobic and Anaerobic Culture - Preliminary Staphylococcus aureus PG Care Time/CCT Total # of Minutes Spent Total Time Spent with Patient: Total time spent is greater than 50% in coordination of care (as documented) at patient's floor/unit and/or counseling patient: Coding Level of Care Code 29922 SUB INP/OBS CARE MIN Diagnoses Diabetic ulcer of toe of left foot associated with type 2 diabetes mellitus, wit h fat layer exposed E11.621; L97.522 Diabetes mellitus type: type 2 Diabetic foot ulcer location: toe Non-pressure ulcer stage: with fat layer exposed Osteomyelitis of great toe of left foot M86.9 Cellulitis of left lower leg L03.116 Type 2 diabetes mellitus with microalbuminuria, with long-term current use of insulin E11.29; R80.9; Z79.4 Hypertension I10 Dyslipidemia E78.5 Obstructive sleep apnea G47.33 Morbid obesity with BMI of 40.0-44.9, adult E66.01; Z68.41 (1) Diabetic ulcer of left foot Diabetes mellitus type: type 2 Diabetic foot ulcer location: toe Non- pressure ulcer stage: with fat layer exposed Qualified Code(s): E11.621 - Type 2 diabetes mellitus with foot ulcer; L97.522 - Non-pressure chronic ulcer of other part of left foot with fat layer exposed
--- NOTE | 2023-12-18 14:49 | Infectious Disease Consult ---
Date of Consultation December 18, 2023 Assessment & Plan (1) Morbid obesity with BMI of 40.0-44.9, adult: (2) Diabetic foot ulcer: (3) Cellulitis of left lower leg: Plan 68 year old male with a PMH of DM2 ( Hgaic 8.1), neuropathy, prostatic adenocarcinoma, chronic left great toe ulcer ( ~4 mos) follows at wound care, MSSA wound infections presents with increased redness tracking up his foot. He completed a 14 day course of doxycycline and was last evaluated at wound clinic on 12/11. In the ED he is afebrile and HDS. Labs with a WBC 11.86, BUN 22, cr 0.86, ESR 62, crp 8.65. L foot xray shows a 7 m skin ulcer on plantar surface of 1st toe. An MRI shows mild edema of the distal 1st phalanx c/f early osteomyelitis and ulcer of the great toe. No abscess. LE duplex scan of arteries shows findings in the mid posterior tibial artery compatible with peripheral vascular disease. A bedside wound culture was obtained and is growing MSSA so far. He was evaluated by orthopedics who do not feel he has osteomyelitis and recommend medical management without surgical intervention at this time. Id consulted for possible L great toe osteomyelitis. Micro: Wound cx 12/14 MSSA ( prelim) Wound cx 12/17 pending Abx Cefepime 12/14-ongoing Daptomycin 12/15-12/17 # Diabetic foot ulcer/cellulitis of Left foot with ? early osteomyelitis per imaging ( MRI) # chronic Left great toe ulcer #PVD #Poorly controlled DM2 ( Hgaic >8) # PCN allergy : unknown reaction # Recurrent MSSA wound infection He has what looks like early osteomyelitis on MRI imaging, but osteomyelitis has not been confirmed. Gold standard to diagnosis osteomyelitis is bone culture. Per chart review, he has a chronic ulcer with acute cellulitis on exam and no probe to bone. I do not know if he truly has osteomyelitis based on imaging results. Ortho deferred any surgical intervention at this time Medical management for SSTI without osteomyelitis includes a 2 week course of pathogen targeted oral abx. If he truly has osteomyelitis , debridement of necrotic non viable bone as well as a long course of IV antibiotics ( 6 wks) if residual infection remains would be warranted. Recommendations Continue Cefepime for now. If only MSSA grows from wound, then deescalate to cefazolin 2 g IV q8 hrs Consider bone biopsy/deep culture to rule in /out osteomyelitis. 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 Case d/w team Thank you for this consult. ID will continue to follow. Cecelia Gold MD, MPH Infectious Disease [facility], [facility] Call [phone] with questions. . Consultation Information This patient recommendation is based on a telemedicine consult request which was completed asynchronously through chart review and information provided by the primary physician. The patient was not seen or examined today. The evaluation is consultative in nature and all patient care and treatment decisions can either be accepted or rejected by the patient's primary hospital-based treating physician using their own independent medical judgment for their patient. 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 (Phone Number For Physician Use Only) Time Spent Reviewing Chart: 31+ minutes History of Present Illness Reason for Consultation: possible L great toe osteomyelitis. Requesting Physician: Chris Cloud MD Attending Physician: Chris Cloud MD History of Present Illness 68 year old male with a PMH of DM2 ( Hgaic 8.1), neuropathy, prostatic adenocarcinoma, chronic left great toe ulcer ( ~4 mos) follows at wound care, MSSA wound infections presents with increased redness tracking up his foot. He completed a 14 day course of doxycycline and was last evaluated at wound clinic on 12/11. In the ED he is afebrile and HDS. Labs with a WBC 11.86, BUN 22, cr 0.86, ESR 62, crp 8.65. L foot xray shows a 7 m skin ulcer on plantar surface of 1st toe. An MRI shows mild edema of the distal 1st phalanx c/f early osteomyelitis and ulcer of the great toe. No abscess. LE duplex scan of arteries shows findings in the mid posterior tibial artery compatible with peripheral vascular disease. A bedside wound culture was obtained and is growing MSSA so far. He was evaluated by orthopedics who do not feel he has osteomyelitis and recommend medical management without surgical intervention at this time. Id consulted for possible L great toe osteomyelitis. Allergies Allergy/AdvReac Type Severity Reaction Status Date / Time Penicillins Allergy Unknown unknown Verified 12/15/23 19:26 allergy as a child sulfamethoxazole AdvReac Intermediate Fever Verified 12/15/23 19:26 [From Bactrim] trimethoprim [From Bactrim] AdvReac Intermediate Fever Verified 12/15/23 19:26 Home Medications Medication Instructions Recorded Confirmed Type CPAP Machine #1 ea 04/28/20 12/12/23 Rx blood-glucose meter (True Metrix #1 ea 07/08/21 12/12/23 Rx Glucose Meter) blood glucose control, low (True #1 ea 05/20/22 12/12/23 Rx Metrix Level 1 solution) aspirin 81 mg tablet,delayed 81 mg PO HS 12/19/22 12/15/23 History release blood sugar diagnostic (True #200 ea 03/10/23 12/12/23 Rx Metrix Glucose Test Strip) lancets 33 gauge (Ultra Thin #200 ea 03/10/23 12/12/23 Rx Lancets) tirzepatide 10 mg/0.5 mL 10 mg (0.5 mL) subcut Q7D 4 weeks 06/19/23 12/15/23 Rx subcutaneous pen injector #2 mL (Travis) insulin syr/ndl U100 half rolly 0.5 #200 ea 10/23/23 12/12/23 Rx mL 30 gauge x /16" hydrochlorothiazide 25 mg tablet 25 mg PO QAM #90 tabs 11/28/23 12/15/23 Rx rosuvastatin 20 mg tablet 20 mg PO DAILY #90 tabs 11/28/23 12/15/23 Rx insulin human U-100 NPH-regulr 25 unit subcut BID 12/15/23 12/15/23 History 70-30 mix 100 unit/mL subcutaneous susp (Novolin 70/30 U-100 Insulin) metformin 500 mg tablet 1,000 mg PO BID 12/15/23 12/15/23 History olmesartan 20 mg tablet 20 mg PO HS 12/15/23 12/15/23 History Patient History Medical History History of COVID-19 "early May" 05/2023. + home covid test. fever, cough, congestion. resolved. Prostate cancer Sleep apnea CPAP Kidney stone HX Peripheral neuropathy Surgical History Hx of cataract extraction Hx of lithotripsy 11/2021 AT [facility] S/P colonoscopy History of prostate biopsy H/O toe surgery Hx of tonsillectomy H/O knee surgery x2 LEFT Family History Mother Cancer passed from myeloma and breast cancer at 88 yrs. Breast cancer Father Myocardial infarction at 72 years Other Diabetes Social History Smoking Status: Never smoker Second Hand Exposure: No; Do You Dip or Chew Tobacco: No; Hx Alcohol Use: No Hx Substance Use: No Preferred Language: Citizen Of [place] Communication Ability: Effective Visual Impairment: Limited Hearing Ability: Normal Anodic Treater Required: No Beliefs That Will Affect Care: None marital status: Current Living Situation: Spouse Feels Safe at Home: Yes Safety Concerns: Feels Safe At This Time Diet: regular caffeine: Yes during the past year weight has: decreased > 10 lbs Dental Care, Regularly: Yes Physical Activity Frequency: Does not Exercise Seatbelt Use: always Assistive Devices: Cane and Walker Results & Data Vital Signs (Past 12 Hours) Vital Signs Temp Pulse Resp BP Pulse Ox O2 Del Method 12/18/23 07:58 Room Air 12/18/23 07:28 36.4 C L 66 20 144/70 H 98 Room Air Laboratory Results 12/15/23 18:45 Gram Stain - Final Toe Aerobic and Anaerobic Culture - Preliminary Staphylococcus aureus 12/15/23 18:25 Aerobic Blood Culture - Preliminary Blood No growth in Aerobic bottle after 48 hours. Anaerobic Blood Culture - Preliminary No growth in Anaerobic bottle after 48 hours. 12/15/23 18:31 Aerobic Blood Culture - Preliminary Blood No growth in Aerobic bottle after 48 hours. Anaerobic Blood Culture - Preliminary No growth in Anaerobic bottle after 48 hours. 12/18/23 12/18/23 12/18/23 11:39 07:44 07:39 POC Glucose 256 H 235 H C-Reactive Protein 3.36 H 12/17/23 12/17/23 20:34 16:31 POC Glucose 237 H 195 H C-Reactive Protein Laboratory Results - last 48 hr 12/16/23 12/16/23 12/17/23 16:23 20:34 06:10 Sodium 136 Potassium 4.2 Chloride 99 Carbon Dioxide 31 Anion Gap 6 BUN 16 Creatinine 0.77 Est Cr Clr Drug Dosing 142.7 Est GFR ( Amer) 108.8 Est GFR (Non-Af Amer) 93.9 BUN/Creatinine Ratio 20.8 H Glucose 190 H POC Glucose 213 H 208 H Estimat Average Glucose 186 Hemoglobin A1c 8.1 H Calcium 8.9 C-Reactive Protein 12/17/23 12/17/23 12/17/23 07:34 11:49 16:31 Sodium Potassium Chloride Carbon Dioxide Anion Gap BUN Creatinine Est Cr Clr Drug Dosing Est GFR ( Amer) Est GFR (Non-Af Amer) BUN/Creatinine Ratio Glucose POC Glucose 216 H 215 H 195 H Estimat Average Glucose Hemoglobin A1c Calcium C-Reactive Protein 12/17/23 12/18/23 12/18/23 20:34 07:39 07:44 Sodium Potassium Chloride Carbon Dioxide Anion Gap BUN Creatinine Est Cr Clr Drug Dosing Est GFR ( Amer) Est GFR (Non-Af Amer) BUN/Creatinine Ratio Glucose POC Glucose 237 H 235 H Estimat Average Glucose Hemoglobin A1c Calcium C-Reactive Protein 3.36 H 12/18/23 11:39 Sodium Potassium Chloride Carbon Dioxide Anion Gap BUN Creatinine Est Cr Clr Drug Dosing Est GFR ( Amer) Est GFR (Non-Af Amer) BUN/Creatinine Ratio Glucose POC Glucose 256 H Estimat Average Glucose Hemoglobin A1c Calcium C-Reactive Protein Diagnostic Findings Toe X-Ray 12/15/23 18:04 XR toe(s) LT min 2V CLINICAL HISTORY: diabetic great toe wound COMPARISON STUDY: Left foot MRI 09/14/2023. FINDINGS: 3 views of the left first toe were submitted for review. Soft tissue swelling within the left first toe. There is a 7 mm skin ulceration at the plantar surface of the left first toe. No underlying bony destruction to suggest an osteomyelitis. [id number] osteoarthritis within the left first toe. No radiopaque foreign bodies. No acute fracture or dislocation. IMPRESSION: 1. A 7 mm skin ulceration at the plantar surface of the left first toe. 2. No underlying bony destruction to suggest an osteomyelitis. ACT 112: Negative or not required by law. Electronically signed by: Ayan Kaur M.D. 12/15/2023 6:27 PM Foot MRI 12/15/23 19:45 Exam(s): MRI LEFT FOOT W/WO Contrast IV Amt: 13.6CC GADAVIST EXAM: MR Left Lower Extremity Without and With Intravenous Contrast, Foot CLINICAL HISTORY: Concern for osteomyelitis. TECHNIQUE: Multiplanar magnetic resonance images of the left foot without and with intravenous contrast. CONTRAST: Patient received 13.6CC GADAVIST of IV contrast COMPARISON: MRI left foot 09/14/2023 FINDINGS: Bones/joints: There is mild edema of the distal first phalanx concerning for early osteomyelitis. No acute fracture. Soft tissues: Diffuse nonspecific subcutaneous edema without abscess. Ulceration of the great toe is noted. IMPRESSION: 1. There is mild edema of the distal first phalanx concerning for early osteomyelitis. 2. Diffuse nonspecific subcutaneous edema without abscess. Ulceration of the great toe is noted. Electronically signed by: Romana North MD 12/16/23 01:46 AM Duplex Scan Lower Extremity Artery 12/16/23 10:23 US arterial duplex LE LT CLINICAL HISTORY: non-healing L 1st toe ulcer TECHNIQUE: Real-time grayscale and color and spectral Doppler ultrasound imaging of the left lower extremity arteries was performed. Measurements calculated based on NASCET criteria. COMPARISON: None available at the time of this dictation. FINDINGS: LEFT: Triphasic waveforms are seen throughout with exception of biphasic waveforms in the deep femoral artery. Minimal plaque is seen in the left lower extremity. Elevated velocities are seen as follows: Mid posterior tibial artery: 247 cm/s Distal anterior tibial artery: 205 cm/s Dorsalis pedis artery: 217 cm/s IMPRESSION: Minimal plaque is seen with minimal elevated velocities most prominently in the mid posterior tibial artery compatible with peripheral vascular disease. ACT 112: Negative or not required by law. Electronically signed by: Rosales Young M.D. 12/16/2023 1:22 PM Medications Administered Home Medications Medication Instructions Recorded Confirmed Last Taken CPAP Machine #1 ea 04/28/20 12/12/23 02/07/23 blood-glucose meter (True Metrix #1 ea 07/08/21 12/12/23 02/07/23 Glucose Meter) blood glucose control, low (True #1 ea 05/20/22 12/12/23 02/07/23 Metrix Level 1 solution) aspirin 81 mg tablet,delayed 81 mg PO HS 12/19/22 12/15/23 06/19/23 release blood sugar diagnostic (True #200 ea 03/10/23 12/12/23 Unknown Metrix Glucose Test Strip) lancets 33 gauge (Ultra Thin #200 ea 03/10/23 12/12/23 Unknown Lancets) tirzepatide 10 mg/0.5 mL 10 mg (0.5 mL) subcut Q7D 4 weeks 06/19/23 12/15/23 06/22/23 subcutaneous pen injector #2 mL (Travis) insulin syr/ndl U100 half rolly 0.5 #200 ea 10/23/23 12/12/23 Unknown mL 30 gauge x 10/25" hydrochlorothiazide 25 mg tablet 25 mg PO QAM #90 tabs 11/28/23 12/15/23 Unknown rosuvastatin 20 mg tablet 20 mg PO DAILY #90 tabs 11/28/23 12/15/23 Unknown insulin human U-100 NPH-regulr 25 unit subcut BID 12/15/23 12/15/23 12/15/23 11:00 70-30 mix 100 unit/mL subcutaneous susp (Novolin 70/30 U-100 Insulin) metformin 500 mg tablet 1,000 mg PO BID 12/15/23 12/15/23 Unknown olmesartan 20 mg tablet 20 mg PO HS 12/15/23 12/15/23 Unknown Active Medications Generic Name Dose Route Start Last Admin Trade Name Freq PRN Reason Stop Dose Admin Enoxaparin Sodium 40 mg 12/16/23 15:00 12/17/23 15:07 Enoxaparin Inj 40 Mg/0.4 Ml Syr SQ 01/15/24 14:59 40 mg Q24H LIBBY Administration Hydrochlorothiazide 25 mg 12/16/23 09:00 12/18/23 08:47 Hydrochlorothiazide 25 Mg Tab PO 01/15/24 08:59 25 mg QAM LIBBY Administration Cefepime HCl 2,000 mg/ Syringe 20 mls @ 5 mls/min 12/16/23 03:00 12/18/23 11:07 IV 12/23/23 02:59 5 mls/min Q8H LIBBY Administration Protocol Daptomycin 650 mg/ Syringe 13 mls @ 6.5 mls/min 12/16/23 11:00 12/18/23 09:26 IV 12/23/23 10:59 6.5 mls/min DAILY LIBBY Administration Protocol Insulin Aspart 0 units 12/16/23 07:30 12/18/23 12:14 Insulin Aspart Per Unit Charge SC 01/15/24 07:29 7 units ACHS LIBBY Administration Insulin Glargine 15 units 12/17/23 09:00 12/18/23 08:43 Lantus Per Unit Charge SQ 01/16/24 08:59 15 units BID LIBBY Administration Losartan Potassium 50 mg 12/15/23 22:47 12/17/23 20:35 Losartan Potassium 50 Mg Tab PO 01/14/24 22:46 50 mg HS LIBBY Administration Rosuvastatin Calcium 20 mg 12/16/23 09:00 12/16/23 08:29 Rosuvastatin Calcium 20 Mg Tab PO 01/15/24 08:59 20 mg DAILY LIBBY Administration (2) Diabetic foot ulcer Diabetes mellitus type: type 2 Diabetic foot ulcer location: toe Laterality: left Non-pressure ulcer stage: with fat layer exposed Qualified Code(s): E11.621 - Type 2 diabetes mellitus with foot ulcer; L97.522 - Non-pressure chronic ulcer of other part of left foot with fat layer exposed
--- NOTE | 2023-12-19 10:25 | Hospitalist Progress Note ---
Date of Service December 18, 2023 Assessment & Plan (1) Diabetic ulcer of left foot: Plan: chronic L great toe ulcer follows with the wound care center for such since October 2023 previously saw [facility] as well cont aquacel ag with optifoam dressing changes daily now with superimposed cellulitis of left foot/left contreras as well as MRI suggestive of great toe osteomyelitis stop daptomycin; MRSA, coag neg staph, enterococcus, etc NOT found cont cefepime to cover the MSSA but can likely narrow to ancef soon if stable and if no other pathogen grows arterial duplex of LLE with intact blood flow appreciate ortho consult by Dr Antunez appreciate ID consult & recs will plan to get PICC line tomorrow and ?bone bx (2) Osteomyelitis of great toe of left foot: Plan: MRI suspicious for such CRP/sed rate noted CRP has improved with IV abx orthopedics consult by Dr Antunez appreciated would suspect that a trial of conservative Rx with prolonged course of IV abx rather than amputation would be preferred as the ulcer is small, arterial blood flow is intact, and he has decent chance of clearing this with IV antibiotics ID consult appreciated (3) Cellulitis of left lower leg: Plan: see above improving / resolving (4) Type 2 diabetes mellitus with microalbuminuria, with long-term current use of insulin: Plan: last hemoglobin a1c= 8.7% in 09/01/23 a1c today 8.1% home regimen- monjaura, metformin, 25 units Novolin BID- hold this regimen while hospitalized use novolog ac/hs + lantus BID BSGs still high - adjust novolog today can likely resume metformin at this time; creatinine remains stable (5) Hypertension: Plan: continue HCTZ, olmesartan (6) Dyslipidemia: Plan: continue statin (7) Obstructive sleep apnea: Plan: CPAP qHS (8) Morbid obesity with BMI of 40.0-44.9, adult: Plan: BMI 41 Plan VTE prophylaxis: Lovenox has been updated at least 2x's this week pt encouraged to use his surgical shoe for the left foot without consistent use the ulcer will not heal Admission and Anticipated Discharge Date Admission Date: December 15, 2023 Subjective no acute events overnight denies any pain in his left great toe, foot, or ankle no pain in left contreras eating well no diarrhea no pain in any other location Review of Systems Review of Systems: gen - no fevers or chills cv - no chest pain pulm - no dyspnea GI - no abd pain Physical Exam Physical Exam: gen - obese, NAD, lying comfortably in bed mouth - MMM neck - no JVD heart - RRR, s1 s2, no murmur lungs - CTA b/l; decreased BS bases b/l abd - soft NT ND BS+ ext - no edema, pulses b/l feet 2+ skin - left great toe - 2-3mm ulceration plantar aspect; again I removed the dressings; small amount of mainly with slight yellow discharge removed; wound bed with mild serous fluid still present; swelling of great toe again improved; mild erythema on a background of venous stasis changes left contreras -- erythema continues to improve Results & Data Results & Data Vital Signs (Past 12 Hours) Vital Signs Temp Pulse Resp BP Pulse Ox O2 Del Method 12/18/23 20:48 36.8 C 71 18 118/64 94 Room Air 12/18/23 15:17 36.9 C 78 18 149/74 H 94 Room Air Laboratory Results Laboratory Results 12/17/23 12/17/23 12/17/23 11:49 16:31 20:34 POC Glucose 215 H 195 H 237 H C-Reactive Protein 12/18/23 12/18/23 12/18/23 07:39 07:44 11:39 POC Glucose 235 H 256 H C-Reactive Protein 3.36 H 12/18/23 16:51 POC Glucose 209 H C-Reactive Protein Diagnostic Findings Microbiology 12/15/23 18:45 Toe Gram Stain - Final 12/15/23 18:45 Toe Aerobic and Anaerobic Culture - Preliminary Staphylococcus aureus 12/15/23 18:25 Blood Aerobic Blood Culture - Preliminary No growth in Aerobic bottle after 48 hours. 12/15/23 18:25 Blood Anaerobic Blood Culture - Preliminary No growth in Anaerobic bottle after 48 hours. 12/15/23 18:31 Blood Aerobic Blood Culture - Preliminary No growth in Aerobic bottle after 48 hours. 12/15/23 18:31 Blood Anaerobic Blood Culture - Preliminary No growth in Anaerobic bottle after 48 hours. PG Care Time/CCT Total # of Minutes Spent Total Time Spent with Patient: Total time spent is greater than 50% in coordination of care (as documented) at patient's floor/unit and/or counseling patient: Coding Level of Care Code 45589 SUB INP/OBS CARE 2/35MIN Diagnoses Diabetic ulcer of toe of left foot associated with type 2 diabetes mellitus, with fat layer exposed E11.621; L97.522 Diabetic foot ulcer location: toe Diabetes mellitus type: type 2 Non-pressure ulcer stage: with fat layer exposed Osteomyelitis of great toe of left foot M86.9 Cellulitis of left lower leg L03.116 Type 2 diabetes mellitus with microalbuminuria, with long-term current use of insulin E11.29; R80.9; Z79.4 Hypertension I10 Dyslipidemia E78.5 Obstructive sleep apnea G47.33 Morbid obesity with BMI of 40.0-44.9, adult E66.01; Z68.41 (1) Diabetic ulcer of left foot Diabetic foot ulcer location: toe Diabetes mellitus type: type 2 Non- pressure ulcer stage: with fat layer exposed Qualified Code(s): E11.621 - Type 2 diabetes mellitus with foot ulcer; L97.522 - Non-pressure chronic ulcer of other part of left foot with fat layer exposed
[2023-12-19] MEDS: metFORMIN HCL 500 MG TAB PO SCH (11:02)
--- NOTE | 2023-12-19 12:19 | Infectious Disease Progress Nt ---
Date of Service December 19, 2023 Assessment & Plan (1) Morbid obesity with BMI of 40.0-44.9, adult: (2) Diabetic foot ulcer: (3) Cellulitis of left lower leg: Plan 68 year old male with a PMH of DM2 ( Hgaic 8.1), neuropathy, prostatic adenocarcinoma, chronic left great toe ulcer ( ~4 mos) follows at wound care, MSSA wound infections presents with increased redness tracking up his foot. He completed a 14 day course of doxycycline and was last evaluated at wound clinic on 12/11. In the ED he is afebrile and HDS. Labs with a WBC 11.86, BUN 22, cr 0.86, ESR 62, crp 8.65. L foot xray shows a 7 m skin ulcer on plantar surface of 1st toe. An MRI shows mild edema of the distal 1st phalanx c/f early osteomyelitis and ulcer of the great toe. No abscess. LE duplex scan of arteries shows findings in the mid posterior tibial artery compatible with peripheral vascular disease. A bedside wound culture was obtained and is growing MSSA so far. He was evaluated by orthopedics who do not feel he has osteomyelitis and recommend medical management without surgical intervention at this time. Id consulted for possible L great toe osteomyelitis. Micro: Wound cx 12/14 MSSA ( prelim) Wound cx 12/17 pending Abx Cefepime 12/14-ongoing Daptomycin 12/15-12/17 # Diabetic foot ulcer/cellulitis of Left foot with ? early osteomyelitis per imaging ( MRI) # chronic Left great toe ulcer #PVD #Poorly controlled DM2 ( Hgaic >8) # PCN allergy : unknown reaction # Recurrent MSSA wound infection He has what looks like early osteomyelitis on MRI imaging, but osteomyelitis has not been confirmed. Gold standard to diagnosis osteomyelitis is bone culture. Per chart review, he has a chronic ulcer with acute cellulitis on exam and no probe to bone. I do not know if he truly has osteomyelitis based on imaging results. Ortho deferred any surgical intervention at this time Medical management for SSTI without osteomyelitis includes a 2 week course of pathogen targeted oral abx. If he truly has osteomyelitis , debridement of necrotic non viable bone as well as a long course of IV antibiotics ( 6 wks) if residual infection remains would be warranted. Recommendations Continue Cefepime for now. If only MSSA grows from wound, then deescalate to cefazolin 2 g IV q8 hrs Consider bone biopsy/deep culture to rule in /out osteomyelitis. long-term antibiotics is not without side effects. SE effects d/w pt and he would is willing to complete 6 wks of abx if osteo D/w team , and plan for podiatry eval. ID will continue to follow. Cecelia Gold MD, MPH Infectious Disease [facility], [facility] Call [phone] with questions. . Admission and Anticipated Discharge Date Admission Date: December 15, 2023 Subjective Subsequent visit was provided via telemedicine using two-way real-time interactive telecommunication between the patient and the telemedicine provider. For the duration of the visit, the provider was performing the assessment from a different facility than the patient. This includesuse of bluetooth stethoscope forauscultationperformed by the telepresenter that the telemedicine provider can hear if described in the physical exam. Strike Plate Attacher contact information: Please call [facility] Center . (Phone Number For Physician Use Only) After establishing a telemedicine visit, patient was: Patient was verified with two unique identifiers Time Spent with Patient: Subsequent => 35 min He denies foot pain, fever, chills, sweats, nausea, or votmiting. Physical Exam Physical Exam: Gen- NAD, obese , laying in bed Neck- supple Abd- obese, soft Ext- BL chronic stasis changes , No significant erythema on LLE ( marked improvement per pt L great toe `3mm ulcer on planta aspects, not tender neuro- AAO*3 Psych- normal mood Results & Data Vital Signs (Past 12 Hours) Vital Signs Temp Pulse Resp BP Pulse Ox O2 Del Method 12/19/23 07:39 36.7 C 69 16 127/72 93 Room Air Laboratory Results Microbiology Laboratory Results - last 48 hr 12/17/23 12/17/23 12/18/23 16:31 20:34 07:39 POC Glucose 195 H 237 H 235 H C-Reactive Protein 12/18/23 12/18/23 12/18/23 07:44 11:39 16:51 POC Glucose 256 H 209 H C-Reactive Protein 3.36 H 12/18/23 12/19/23 12/19/23 20:45 07:29 11:33 POC Glucose 277 H 200 H 247 H C-Reactive Protein 12/18/23 19:27 Toe Gram Stain - Final 12/15/23 18:45 Toe Gram Stain - Final 12/15/23 18:45 Toe Aerobic and Anaerobic Culture - Preliminary Staphylococcus aureus 12/15/23 18:25 Blood Aerobic Blood Culture - Preliminary No growth in Aerobic bottle after 48 hours. 12/15/23 18:25 Blood Anaerobic Blood Culture - Preliminary No growth in Anaerobic bottle after 48 hours. 12/15/23 18:31 Blood Aerobic Blood Culture - Preliminary No growth in Aerobic bottle after 48 hours. 12/15/23 18:31 Blood Anaerobic Blood Culture - Preliminary No growth in Anaerobic bottle after 48 hours. Diagnostic Findings Duplex Scan Lower Extremity Artery 12/16/23 10:23 US arterial duplex LE LT CLINICAL HISTORY: non-healing L 1st toe ulcer TECHNIQUE: Real-time grayscale and color and spectral Doppler ultrasound imaging of the left lower extremity arteries was performed. Measurements calculated based on NASCET criteria. COMPARISON: None available at the time of this dictation. FINDINGS: LEFT: Triphasic waveforms are seen throughout with exception of biphasic waveforms in the deep femoral artery. Minimal plaque is seen in the left lower extremity. Velvet vated velocities are seen as follows: Mid posterior tibial artery: 247 cm/s Distal anterior tibial artery: 205 cm/s Dorsalis pedis artery: 217 cm/s IMPRESSION: Minimal plaque is seen with minimal elevated velocities most prominently in the mid posterior tibial artery compatible with peripheral vascular disease. ACT 112: Negative or not required by law. Electronically signed by: Rosales Young M.D. 12/16/2023 1:22 PM Medications Administered Home Medications Medication Instructions Recorded Confirmed Last Taken CPAP Machine #1 ea 04/28/20 12/12/23 02/07/23 blood-glucose meter (True Metrix #1 ea 07/08/21 12/12/23 02/07/23 Glucose Meter) blood glucose control, low (True #1 ea 05/20/22 12/12/23 02/07/23 Metrix Level 1 solution) aspirin 81 mg tablet,delayed 81 mg PO HS 12/19/22 12/15/23 06/19/23 release blood sugar diagnostic (True #200 ea 03/10/23 12/12/23 Unknown Metrix Glucose Test Strip) lancets 33 gauge (Ultra Thin #200 ea 03/10/23 12/12/23 Unknown Lancets) tirzepatide 10 mg/0.5 mL 10 mg (0.5 mL) subcut Q7D 4 weeks 06/19/23 12/15/23 06/22/23 subcutaneous pen injector #2 mL (Travis) insulin syr/ndl U100 half rolly 0.5 #200 ea 10/23/23 12/12/23 Unknown mL 30 gauge x 5/16" hydrochlorothiazide 25 mg tablet 25 mg PO QAM #90 tabs 11/28/23 12/15/23 Unknown rosuvastatin 20 mg tablet 20 mg PO DAILY #90 tabs 11/28/23 12/15/23 Unknown insulin human U-100 NPH-regulr 25 unit subcut BID 12/15/23 12/15/23 12/15/23 11:00 70-30 mix 100 unit/mL subcutaneous susp (Novolin 70/30 U-100 Insulin) metformin 500 mg tablet 1,000 mg PO BID 12/15/23 12/15/23 Unknown olmesartan 20 mg tablet 20 mg PO HS 12/15/23 12/15/23 Unknown Active Medications Generic Name Dose Route Start Last Admin Trade Name Freq PRN Reason Stop Dose Admin Enoxaparin Sodium 40 mg 12/16/23 15:00 12/18/23 15:25 Enoxaparin Inj 40 Mg/0.4 Ml Syr SQ 01/15/24 14:59 40 mg Q24H LIBBY Administration Hydrochlorothiazide 25 mg 12/16/23 09:00 12/19/23 08:26 Hydrochlorothiazide 25 Mg Tab PO 01/15/24 08:59 25 mg QAM LIBBY Administration Cefepime HCl 2,000 mg/ Syringe 20 mls @ 5 mls/min 12/16/23 03:00 12/19/23 11:03 IV 12/23/23 02:59 5 mls/min Q8H LIBBY Administration Protocol Insulin Aspart 0 units 12/16/23 07:30 12/19/23 12:13 Insulin Aspart Per Unit Charge SC 01/15/24 07:29 9 units ACHS LIBBY Administration Losartan Potassium 50 mg 12/15/23 22:47 12/18/23 20:56 Losartan Potassium 50 Mg Tab PO 01/14/24 22:46 50 mg HS LIBBY Administration Metformin HCl 1,000 mg 12/19/23 10:45 12/19/23 11:02 Metformin Hcl 500 Mg Tab PO 01/18/24 10:44 1,000 mg DAILY LIBBY Administration Rosuvastatin Calcium 20 mg 12/16/23 09:00 12/16/23 08:29 Rosuvastatin Calcium 20 Mg Tab PO 01/15/24 08:59 20 mg DAILY LIBBY Administration (2) Diabetic foot ulcer Diabetes mellitus type: type 2 Diabetic foot ulcer location: toe Laterality: left Non-pressure ulcer stage: with fat layer exposed Qualified Code(s): E11.621 - Type 2 diabetes mellitus with foot ulcer; L97.522 - Non-pressure chronic ulcer of other part of left foot with fat layer exposed
--- NOTE | 2023-12-19 20:30 | Hospitalist Progress Note ---
Date of Service December 19, 2023 Assessment & Plan (1) Diabetic ulcer of left foot: Plan: chronic L great toe ulcer follows with the [facility] care center - since October 2023 previously saw [facility] as well cont aquacel ag with optifoam dressing changes daily cont surgical shoe - patient counseled on the importance of this now with superimposed cellulitis of left foot/left contreras as well as MRI suggestive of great toe osteomyelitis stopped daptomycin; MRSA, coag neg staph, enterococcus, etc NOT found cont cefepime to cover the MSSA but can likely narrow to Ancef soon if stable and if no other pathogen grows from the wound culture arterial duplex of LLE with intact blood flow appreciate ortho consult by Dr Antunez appreciate ID consult & recs I involved Dr Dwayne Amaya in Mr Woodson' care today Appreciate his consultation Dr Amaya can perform bone bx of L great toe this for definitive dx the bone bx will help guide antibiotics, length of course, etc. Dr Amaya performed some minor debridement today of the ulcer (2) Osteomyelitis of great toe of left foot: Plan: MRI suspicious for such CRP/sed rate noted CRP has improved with IV abx orthopedics consult by Dr Antunez appreciated podiatry consult by Dr Amaya appreciated ID consult appreciated wound care consult appreciated would suspect that a trial of conservative Rx with prolonged course of IV abx rather than amputation would be preferred as the ulcer is small, arterial blood flow is intact, and he has decent chance of clearing this with IV antibiotics see #1 above (3) Cellulitis of left lower leg: Plan: see above just about fully resolved contreras is nearly back to normal (4) Type 2 diabetes mellitus with microalbuminuria, with long-term current use of insulin: Plan: last hemoglobin a1c= 8.7% in 09/01/23 a1c today 8.1% home regimen- monjaura, metformin, 25 units Novolin BID- hold this regimen while hospitalized use novolog ac/hs + lantus BID BSGs still high - adjust insulins again add back metformin 1gm daily with ultimate goal of titrating back to 1gm BID per home dosing resume baby aspirin after bone bx is complete (5) Hypertension: Plan: continue HCTZ continue losartan since BPs are still high add AM dose of losartan 25mg qam (6) Dyslipidemia: Plan: resume statin since daptomycin has been stopped (7) Obstructive sleep apnea: Plan: CPAP qHS (8) Morbid obesity with BMI of 40.0-44.9, adult: Plan: BMI 41 Plan VTE prophylaxis: Lovenox updated by phone this afternoon pt encouraged to use his surgical shoe for the left foot without consistent use the ulcer will not heal Admission and Anticipated Discharge Date Admission Date: December 15, 2023 Subjective feels well denies any pain in LLE or Left foot/great toe eating well no diarrhea we discussed plan of care including bone bx on - he is agreeable Review of Systems Review of Systems: gen - no fevers or chills cv - no orthopnea pulm - no dyspnea GI - no abd pain or N/V Physical Exam Physical Exam: gen - obese, NAD, lying comfortably in bed (flat) mouth - MMM neck - no JVD heart - RRR, s1 s2, no murmur lungs - CTA b/l; decreased BS bases b/l abd - soft NT ND BS+ ext - no edema, pulses b/l feet 2+; normal perfusion skin - left great toe - 2mm ulceration plantar aspect - s/p debridement today by Dr Amaya; no discharge or drainage today; swelling of great toe again improved; mild erythema on a background of venous stasis changes left contreras -- erythema just about resolved Results & Data Results & Data Vital Signs (Past 12 Hours) Vital Signs Temp Pulse Resp BP BP Pulse Ox O2 Del Method 12/19/23 14:46 135/72 12/19/23 14:14 36.6 C 70 16 174/68 H 94 Room Air Laboratory Results Laboratory Results - last 24 hr 12/18/23 12/19/23 12/19/23 20:45 07:29 11:33 POC Glucose 277 H 200 H 247 H 12/19/23 16:40 POC Glucose 175 H Diagnostic Findings Microbiology 12/18/23 19:27 Toe Gram Stain - Final 12/18/23 19:27 Toe Aerobic and Anaerobic Culture - Preliminary Pin-point growth present, reincubating. 12/15/23 18:45 Toe Gram Stain - Final 12/15/23 18:45 Toe Aerobic and Anaerobic Culture - Preliminary Staphylococcus aureus 12/15/23 18:25 Blood Aerobic Blood Culture - Preliminary No growth in Aerobic bottle after 48 hours. 12/15/23 18:25 Blood Anaerobic Blood Culture - Preliminary No growth in Anaerobic bottle after 48 hours. 12/15/23 18:31 Blood Aerobic Blood Culture - Preliminary No growth in Aerobic bottle after 48 hours. 12/15/23 18:31 Blood Anaerobic Blood Culture - Preliminary No growth in Anaerobic bottle after 48 hours. PG Care Time/CCT Total # of Minutes Spent Total Time Spent with Patient: Total time spent is greater than 50% in coordination of care (as documented) at patient's floor/unit and/or counseling patient: Coding Level of Care Code 80172 SUB INP/OBS CARE 2/35MIN Diagnoses Diabetic ulcer of toe of left foot associated with type 2 diabetes mellitus, with fat layer exposed E11.621; L97.522 Diabetes mellitus type: type 2 Diabetic foot ulcer location: toe Non-pressure ulcer stage: with fat layer exposed Osteomyelitis of great toe of left foot M86.9 Cellulitis of left lower leg L03.116 Type 2 diabetes mellitus with microalbuminuria, with long-term current use of insulin E11.29; R80.9; Z79.4 Hypertension I10 Dyslipidemia E78.5 Obstructive sleep apnea G47.33 Morbid obesity with BMI of 40.0-44.9, adult E66.01; Z68.41 (1) Diabetic ulcer of left foot Diabetes mellitus type: type 2 Diabetic foot ulcer location: toe Non- pressure ulcer stage: with fat layer exposed Qualified Code(s): E11.621 - Type 2 diabetes mellitus with foot ulcer; L97.522 - Non-pressure chronic ulcer of other part of left foot with fat layer exposed
[2023-12-19] MEDS: LANTUS PER UNIT CHARGE SQ SCH (21:20)
--- NOTE | 2023-12-19 22:26 | Podiatry Consultation ---
Date of Consultation December 19, 2023 Assessment & Plan (1) Diabetic foot ulcer: Diabetes mellitus type: type 2 Diabetic foot ulcer location: toe Laterality: left Non-pressure ulcer stage: with fat layer exposed Qualified Code(s): E11.621 - Type 2 diabetes mellitus with foot ulcer; L97.522 - Non- pressure chronic ulcer of other part of left foot with fat layer exposed (2) Cellulitis of left lower leg: (3) Diabetic ulcer of left foot: Diabetic foot ulcer location: toe Diabetes mellitus type: type 2 Non-pressure ulcer stage: with fat layer exposed Qualified Code(s): E11.621 - Type 2 diabetes mellitus with foot ulcer; L97.522 - Non-pressure chronic ulcer of other part of left foot with fat layer exposed Plan patient was examined and evaluated. Radiographs and MRI imaging was reviewed extensively. We discussed at length the etiology and treatment of his left hallux ulceration. This ulcer does appear consistent with neuropathic ischemic ulcer, though overall is healing well. There is no evidence of direct extension osteomyelitis in the wound itself is currently superficial. It is possible that it is only superficial at this point because it has healed well and is harboring underlying osteomyelitis. Because of this, he can benefit from a bone biopsy. I tend to think he could benefit from continued wound healing and debridement of the ulcer otherwise and may be able to avoid a bone biopsy altogether given his clinical symptoms. Still, bone biopsy and culture will be helpful for further treatment plans long-term and can be obtained. The other benefit of a bone biopsy is attempted primary closure with sutures and excision of the ulcer overall. This will be put on the schedule for at some point. He can likely be discharged home shortly after, especially if there is minimal clinical evidence of bone infection still. Patient is amenable to this treatment plan which we will work on scheduling with the tank house operator helper. History of Present Illness Reason for Consultation: nonhealing left hallux ulcer Attending Physician: Chris Cloud MD History of Present Illness patient presented to the hospital for yes developed an ulceration over the last several months to the great toe. He has seen another local podiatry group for treatment of this and has also been seeing the [facility] wound care center. Over that time, it has improved but has remained open as well. With the worsening local signs of infection, he was sent to the emergency department for further workup and antibiotics. He denies any systemic signs of infection but does admit to pain, redness, and swelling of the left lower extremity emanating from this great toe. He admits to a normal appetite for now and is interested in getting this wound healed as quickly as possible. He does deny any recent trauma or injury but does left hallux was broken traumatically. This was many years ago though he remembers the surgical correction being adequate at the time. He states that he had a pin placed in the toe which was removed prematurely as it was moving on its own. Otherwise, he denies any concomitant problems. Allergies Allergy/AdvReac Type Severity Reaction Status Date / Time Penicillins Allergy Unknown unknown Verified 12/15/23 19:26 allergy as a child sulfamethoxazole AdvReac Intermediate Fever Verified 12/15/23 19:26 [From Bactrim] trimethoprim [From Bactrim] AdvReac Intermediate Fever Verified 12/15/23 19:26 Home Medications Medication Instructions Recorded Confirmed Type CPAP Machine #1 ea 04/28/20 12/12/23 Rx blood-glucose meter (True Metrix #1 ea 07/08/21 12/12/23 Rx Glucose Meter) blood glucose control, low (True #1 ea 05/20/22 12/12/23 Rx Metrix Level 1 solution) aspirin 81 mg tablet,delayed 81 mg PO HS 12/19/22 12/15/23 History release blood sugar diagnostic (True #200 ea 03/10/23 12/12/23 Rx Metrix Glucose Test Strip) lancets 33 gauge (Ultra Thin #200 ea 03/10/23 12/12/23 Rx Lancets) tirzepatide 10 mg/0.5 mL 10 mg (0.5 mL) subcut Q7D 4 weeks 06/19/23 12/15/23 Rx subcutaneous pen injector #2 mL (Travis) insulin syr/ndl U100 half rolly 0.5 #200 ea 10/23/23 12/12/23 Rx mL 30 gauge x 5/16" hydrochlorothiazide 25 mg tablet 25 mg PO QAM #90 tabs 11/28/23 12/15/23 Rx rosuvastatin 20 mg tablet 20 mg PO DAILY #90 tabs 11/28/23 12/15/23 Rx insulin human U-100 NPH-regulr 25 unit subcut BID 12/15/23 12/15/23 History 70-30 mix 100 unit/mL subcutaneous susp (Novolin 70/30 U-100 Insulin) metformin 500 mg tablet 1,000 mg PO BID 12/15/23 12/15/23 History olmesartan 20 mg tablet 20 mg PO HS 12/15/23 12/15/23 History Patient History Medical History History of COVID-19 "early May" 05/2023. + home covid test. fever, cough, congestion. resolved. Prostate cancer Sleep apnea CPAP Kidney stone HX Peripheral neuropathy Surgical History Hx of cataract extraction Hx of lithotripsy 11/2021 AT [facility] S/P colonoscopy History of prostate biopsy H/O toe surgery Hx of tonsillectomy H/O knee surgery x2 LEFT Family History Mother Cancer passed from myeloma and breast cancer at 88 yrs. Breast cancer Father Myocardial infarction at 72 years Other Diabetes Social History Smoking Status: Never smoker Second Hand Exposure: No; Do You Dip or Chew Tobacco: No; Hx Alcohol Use: No Hx Substance Use: No Preferred Language: Grenadian Communication Ability: Effective Visual Impairment: Limited Hearing Ability: Normal Community Associate Required: No Beliefs That Will Affect Care: None marital status: Current Living Situation: Spouse Feels Safe at Home: Yes Safety Concerns: Feels Safe At This Time Diet: regular caffeine: Yes during the past year weight has: decreased > 10 lbs Dental Care, Regularly: Yes Physical Activity Frequency: Does not Exercise Seatbelt Use: always Assistive Devices: Cane and Walker Review of Systems Review of Systems: All systems reviewed & are unremarkable except as noted in HPI & below Constitutional: no fever, no chills and no fatigue Eyes: no problem reported Ear, Nose, Mouth, Throat: no problem reported Respiratory: no problem reported Cardiovascular: + edema; no problem reported Gastrointestinal: no nausea, no vomiting and no problem reported Musculoskeletal: no problem reported Integumentary: + skin ulcer, + wounds and + erythema Neurologic: + loss of sensation, + numbness and + pa resthesia; no generalized weakness Psychiatric: no problem reported Physical Exam Physical Exam: lower extremity physical exam: DP/PT pulses diminished bilaterally. Advanced trophic changes are noted throughout the skin with evidence of both peripheral arterial disease and chronic venous insufficiency to the lower extremity. There is advanced skin thinning, distal cooling aside from the cellulitis of the left lower extremity, and absent hair growth along with this nonhealing ulcer to the hallux. The ulcer itself is small, measuring 0.3 cm in diameter and 0.1 cm deep. It does not probe to the bone and does not track proximally. No underlying abscess formation is appreciated. There is more proximal erythema and edema to the lower extremity, though it does not necessarily extend from the ulceration. Plain film imaging of the left hallux does reveal osseous proliferations that could be consistent with osteomyelitis, though are also e ntirely consistent with his prior history of trauma and inadequate fixation. The wound itself is not suggestive of osteomyelitis with its superficial depth and relatively clean wound base and margins. MRI is also inconsistent, with no significant bone marrow edema or signal intensity change to the hallux and no extension of the ulcer to the level of the bone noted. Constitutional: WD/WN, vitals as above + ill appearing and + obese Eyes: PERRL, conjunctivae normal, anicteric sclerae ENMT: external ear and nose normal, oropharynx normal Mouth: + poor dentition Neck: trachea midline, no thyromegaly normal visual inspection Respiratory: normal respiratory effort; no respiratory distress Cardiovascular: Rate/Rhythm: regular rate and regular rhythm Vessels: posterior tibial pulses present and dorsalis pedis pulses present Chest (Breasts): Chest: normal inspection of chest Gastrointestinal (Abdomen): Inspection/Auscultation: abdomen normal to inspection Percussion/Palpation: + abdomen tender and abdomen soft Musculoskeletal: no cyanosis or clubbing, extremities motor strength 5/5 Head/Neck/Chest: normocephalic and head atraumatic Extremities: extremities normal to inspection Neurologic: awake; no focal motor deficits Psychiatric: A+Ox3, euthymic affect Results & Data Vital Signs (Past 12 Hours) Vital Signs Temp Pulse Resp BP BP Pulse Ox O2 Del Method 12/19/23 21:08 37.1 C 79 16 167/73 H 94 Room Air 12/19/23 14:46 135/72 07/09/24 14:14 36.6 C 70 16 174/68 H 94 Room Air
[2023-12-20 08:27] LABS: C Reactive Protein 1.71 mg/dl (0-0.5); Calcium 8.8 mg/dl (8.6-10.3); Creatinine Clr Calc Pharmacy 127.8 ml/min; Est GFR (Non-African American) 89.7 ml/min
[2023-12-20] MEDS: metFORMIN HCL 500 MG TAB PO SCH (08:44)
[2023-12-20 08:45] LABS: Thyroid Stimulating Hormone 3.431 uIu/ml (0.300-4.500)
[2023-12-20] MEDS: LOSARTAN POTASSIUM 25 MG TAB PO SCH (08:47)
[2023-12-20] MEDS: LANTUS PER UNIT CHARGE SQ SCH ×2 (09:10→21:43)
[2023-12-20] MEDS: ceFAZolin 2000MG 2,000 MG/15 ML SYR IV SCH (12:44)
--- NOTE | 2023-12-20 13:30 | XRay Report ---
XR chest 2V PA/lateral HISTORY: 68 years-old Male subacute cough acute cough with congestion COMPARISON: 04/07/2023 TECHNIQUE: PA and lateral views of the chest FINDINGS: Cardiac silhouette is enlarged. Mild right hemidiaphragmatic elevation. Subsegmental bibasilar atelec tasis. No pneumothorax or pleural effusion. Unchanged blunting of the lateral right costophrenic angl e. Bones appear grossly intact. IMPRESSION: No acute process. ACT 112: Negative or not required by law. The above report was generated using voice recognition software. It may contain grammatical, syntax o r spelling errors. Electronically signed by: Pollo Villarreal M.D. 12/20/2023 1:29 PM
--- NOTE | 2023-12-20 15:29 | Hospitalist Progress Note ---
Date of Service December 20, 2023 Assessment & Plan (1) Diabetic ulcer of left foot: Plan: 68-year-old male with diabetes presented with cellulitis of left foot and contreras related to chronic left great toe ulcer, found to have possible underlying osteomyelitis of great toe based on MRI. ESR mildly elevated at 50, CRP elevated at 8 but has improved to 1.7 on antibiotic chronic L great toe ulcer follows with the [facility] - since October 2023 previously saw [facility] as well cont aquacel ag with optifoam dressing changes daily cont surgical shoe - patient counseled on the importance of this presented with superimposed cellulitis of left foot/left contreras as well as MRI suggestive of great toe osteomyelitis - culture growing MSSA, narrow antibiotics to cefazolin arterial duplex of LLE with intact blood flow orthopedics ID and podiatry consulted bone biopsy and excision of the ulcer planned by Dr. Amaya on 12/20 if operative findings not suggestive of osteomyelitis likely can discharge home on oral antibiotics and follow-up results of bone biopsy as outpatient if toe osteomyelitis present, would need either complete surgical resection or 6 weeks IV antibiotics (2) Osteomyelitis of great toe of left foot: Plan: possible osteomyelitis based on MRI see #1 above (3) Cellulitis of left lower leg: Plan: resolved (4) Type 2 diabetes mellitus with microalbuminuria, with long-term current use of insulin: Plan: last hemoglobin a1c= 8.7% in 09/01/23 a1c now 8.1% home regimen- monjauro, metformin, 25 units Novolin BID- hold this regimen while hospitalized use novolog ac/hs + lantus BID - above goal, increased 12/19 continue metformin (5) Hypertension: Plan: continue HCTZ continue losartan since BPs are still high added AM dose of losartan 25mg qam (6) Dyslipidemia: Plan: resumed statin (7) Obstructive sleep apnea: Plan: CPAP qHS (8) Morbid obesity with BMI of 40.0-44.9, adult: Plan: BMI 41 Plan subacute cough - sounds most likely resolving viral URI, reflux is also possible. denies any history of asthma/wheezing or seasonal allergies - pulmonary exam clear, obtained 2 view chest x-ray which is clear without acute findings - encouraged CPAP compliance - trial twice daily Pepcid, also discussed elevating head of bed VTE prophylaxis: Lovenox updated by phone 12/18, 12/19 Admission and Anticipated Discharge Date Admission Date: December 15, 2023 Subjective no left foot or toe pain or redness. wound dressed reports dry cough. ongoing a few weeks. worse in evening/night. sleeps on stomach. she says he has NEVAEH but won't do anything about it no fever/chills. no sputum. had some throat "congestion" a few weeks ago maybe a very mild cold. no symptomatic heartburn and no seasonal allergies, no lung disease or wheezing Physical Exam 2 Physical Exam: PHYSICAL EXAMINATION Last 24h vital signs reviewed, see documentation in flowsheet General: comfortable appearing, no distress HEENT: Normocephalic, atraumatic, pupils round and equal, sclerae anicteric, no conjunctival injection, moist mucus membranes Lungs: Normal respiratory effort. Clear to auscultation bilaterally anteriorly and posteriorly. No RRW Heart: Regular rate and rhythm, no murmurs. No JVD Abdomen: Soft, nontender, nondistended. Bowel sounds present. Extremities: Warm, dry, well-perfused. No extremity edema. L great toe wound dressed, no erythema nontender, onychomycosis present Neuro: Alert and oriented x 4, face symmetric, moves 4 extremities well Psych: Normal affect and behavior Results & Data Results & Data Vital Signs (Past 12 Hours) Vital Signs Temp Pulse Pulse Resp BP Pulse Ox O2 Del Method 12/20/23 14:53 36.7 C 81 18 147/69 H 94 Room Air 12/20/23 11:58 36.3 C L 79 18 134/76 93 Room Air 12/20/23 07:46 36.5 C 72 20 122/70 94 Room Air 12/20/23 07:01 36.4 C L 61 16 109/61 95 Room Air Laboratory Results 12/16/23 06:56 12/20/23 07:25 PG Care Time/CCT Total # of Minutes Spent Total Time Spent with Patient: Total time spent is greater than 50% in coordination of care (as documented) at patient's floor/unit and/or counseling patient: Coding Level of Care Code 90366 SUB INP/OBS CARE 2/35MIN Diagnoses Diabetic ulcer of toe of left foot associated with type 2 diabetes mellitus, with fat layer exposed E11.621; L97.522 Diabetic foot ulcer location: toe Diabetes mellitus type: type 2 Non-pressure ulcer stage: with fat layer exposed Osteomyelitis of great toe of left foot M86.9 Cellulitis of left lower leg L03.116 Type 2 diabetes mellitus with microalbuminuria, with long-term current use of insulin E11.29; R80.9; Z79.4 Hypertension I10 Dyslipidemia E78.5 Obstructive sleep apnea G47.33 Morbid obesity with BMI of 40.0-44.9, adult E66.01; Z68.41 (1) Diabetic ulcer of left foot Diabetic foot ulcer location: toe Diabetes mellitus type: type 2 Non- pressure ulcer stage: with fat layer exposed Qualified Code(s): E11.621 - Type 2 diabetes mellitus with foot ulcer; L97.522 - Non-pressure chronic ulcer of other part of left foot with fat layer exposed
[2023-12-20] MEDS: FAMOTIDINE 20 MG TAB PO SCH (20:09)
--- NOTE | 2023-12-20 23:29 | Podiatry Progress Note ---
Date of Service December 20, 2023 Assessment & Plan (1) Diabetic foot ulcer: (2) Cellulitis of left lower leg: (3) Diabetic ulcer of left foot: Plan patient was examined and evaluated. - Radiographs and MRI imaging was reviewed - Plan for I&D, bone biopsy, and likely primary closure tomorrow at 10:45am - Discussed case at length with patient. Written consent to be obtained preoperatively - NPO after midnight. - Will continue to follow afterwards; likely home within a day or two postop Admission and Anticipated Discharge Date Admission Date: December 15, 2023 Subjective Seen at bedside this afternoon. No new concerns. Interested in surgical intervention if it helps with future planning and helps get him home sooner. States he is feeling better with no new changes to the ulcer. Review of Systems Constitutional: no fever, no chills and no fatigue Eyes: no problem reported Ear, Nose, Mouth, Throat: no problem reported Respiratory: no problem reported Cardiovascular: + edema; no problem reported Gastrointestinal: no nausea, no vomiting and no problem reported Musculoskeletal: no problem reported Integumentary: + skin ulcer, + wounds and + erythema Neurologic: + loss of sensation, + numbness and + pa resthesia; no generalized weakness Psychiatric: no problem reported Physical Exam Physical Exam: lower extremity physical exam: DP/PT pulses diminished bilaterally. Advanced trophic changes are noted throughout the skin with evidence of both peripheral arterial disease and chronic venous insufficiency to the lower extremity. There is advanced skin thinning, distal cooling aside from the cellulitis of the left lower extremity, and absent hair growth along with this nonhealing ulcer to the hallux. The ulcer itself is small, measuring 0.3 cm in diameter and 0.1 cm deep. It does not probe to the bone and does not track proximally. No underlying abscess formation is appreciated. There is more proximal erythema and edema to the lower extremity, though it does not necessarily extend from the ulceration. Plain film imaging of the left hallux does reveal osseous proliferations that could be consistent with osteomyelitis, though are also entirely consistent with his prior history of trauma and inadequate fixation. The wound itself is not suggestive of osteomyelitis with its superficial depth and relatively clean wound base and margins. MRI is also inconsistent, with no significant bone marrow edema or signal intensity change to the hallux and no extension of the ulcer to the level of the bone noted. Constitutional: WD/WN, vitals as above + ill appearing and + obese Eyes: PERRL, conjunctivae normal, anicteric sclerae ENMT: external ear and nose normal, oropharynx normal Mouth: + poor dentition Neck: trachea midline, no thyromegaly normal visual inspection Respiratory: normal respiratory effort; no respiratory distress Cardiovascular: Rate/Rhythm: regular rate and regular rhythm Vessels: posterior tibial pulses present and dorsalis pedis pulses present Chest (Breasts): Chest: normal inspection of chest Gastrointestinal (Abdomen): Inspection/Auscultation: abdomen normal to inspection Percussion/Palpation: + abdomen tender and abdomen soft Musculoskeletal: no cyanosis or clubbing, extremities motor strength 5/5 H ead/Neck/Chest: normocephalic and head atraumatic Extremities: extremities normal to inspection Neurologic: awake; no focal motor deficits Psychiatric: A+Ox3, euthymic affect Results & Data Results & Data Vital Signs (Past 12 Hours) Vital Signs Temp Pulse Pulse Resp BP Pulse Ox O2 Del Method 12/20/23 21:19 36.6 C 91 H 18 119/66 94 Room Air 12/20/23 14:53 36.7 C 81 18 147/69 H 94 Room Air 12/20/23 11:58 36.3 C L 79 18 134/76 93 Room Air (1) Diabetic foot ulcer Diabetes mellitus type: type 2 Diabetic foot ulcer location: toe Laterality: left Non-pressure ulcer stage: with fat layer exposed Qualified Code(s): E11.621 - Type 2 diabetes mellitus with foot ulcer; L97.522 - Non-pressure chronic ulcer of other part of left foot with fat layer exposed (3) Diabetic ulcer of left foot Diabetic foot ulcer location: toe Diabetes mellitus type: type 2 Non- pressure ulcer stage: with fat layer exposed Qualified Code(s): E11.621 - Type 2 diabetes mellitus with foot ulcer; L97.522 - Non-pressure chronic ulcer of other part of left foot with fat layer exposed
[2023-12-21] MEDS: LACTATED RINGER'S 1,000 ML IV SCH (10:07)
--- NOTE | 2023-12-21 10:23 | History & Physical Bridge Note ---
Date of Service December 21, 2023 History & Physical Bridge Note I have examined the patient, reviewed the History & Physical and in the interval since the performance of the History & Physical I have noted the following changes of clinical significance: no changes noted. Plan for left hallux I&D, bone biopsy, possible closure. Consent obtained.
--- NOTE | 2023-12-21 10:43 | Infectious Disease Progress Nt ---
Date of Service December 21, 2023 Assessment & Plan (1) Morbid obesity with BMI of 40.0-44.9, adult: (2) Diabetic foot ulcer: (3) Cellulitis of left lower leg: Plan 68 year old male with a PMH of DM2 ( Hgaic 8.1), neuropathy, prostatic adenocarcinoma, chronic left great toe ulcer ( ~4 mos) follows at wound care, MSSA wound infections presents with increased redness tracking up his foot. He completed a 14 day course of doxycycline and was last evaluated at wound clinic on 12/11. In the ED he is afebrile and HDS. Labs with a WBC 11.86, BUN 22, cr 0.86, ESR 62, crp 8.65. L foot xray shows a 7 m skin ulcer on plantar surface of 1st toe. An MRI shows mild edema of the distal 1st phalanx c/f early osteomyelitis and ulcer of the great toe. No abscess. LE duplex scan of arteries shows findings in the mid posterior tibial artery compatible with peripheral vascular disease. A bedside wound culture was obtained and is growing MSSA so far. He was evaluated by orthopedics who do not feel he has osteomyelitis and recommend medical management without surgical intervention at this time. Id consulted for possible L great toe osteomyelitis. Micro: Wound cx 12/14 MSSA Wound cx 12/17 MSSA ( prelim) OR xc 12/20 pending Abx Cefepime 12/14-12/19 Daptomycin 12/15-12/17 Ancef 12/19- ongoing # Diabetic foot ulcer/cellulitis of Left foot with ? early osteomyelitis per imaging ( MRI) # chronic Left great toe ulcer #PVD #Poorly controlled DM2 ( Hgaic >8) # PCN allergy : unknown reaction # Recurrent MSSA wound infection He has what looks like early osteomyelitis on MRI imaging, but osteomyelitis has not been confirmed. Gold standard to diagnosis osteomyelitis is bone culture. Per chart review, he has a chronic ulcer with acute cellulitis on exam and no probe to bone. I do not know if he truly has osteomyelitis based on imaging results. Ortho deferred any surgical intervention at this time Medical management for SSTI without osteomyelitis includes a 2 week course of pathogen targeted oral abx. If he truly has osteomyelitis , debridement of necrotic non viable bone as well as a long course of IV antibiotics ( 6 wks) if residual infection remains would be warranted. He was evaluated by podiatry on 12/19 and they plan to take him to OR today 12/20 for I&D, bone biopsy, and likely primary closure Recommendations Continue cefazolin 2 g IV q8 hrs Follow up OR report, bone biopsy/deep culture, pathology/ margins ( pending 12/20) IF residual evidence of osteomyelitis and residual infection post OR he will likely need 6 wks of abx. If no osteo and only evidence of SSTI, will complete a short course of oral abx. ID will continue to follow. Cecelia Gold MD, MPH Infectious Disease [facility], ID [facility] Call [phone] with questions. . Admission and Anticipated Discharge Date Admission Date: December 15, 2023 Subjective This patient recommendation is based on a telemedicine consult request which was completed asynchronously through chart review and information provided by the primary physician. The patient was not seen or examined today. The evaluation is consultative in nature and all patient care and treatment decisions can either be accepted or rejected by the patient's primary hospital-based treating physician using their own independent medical judgment for their patient. Time Spent Reviewing Chart: 11 - 20 minutes Attempted to see patient today for live tele visit, but he was in OR. Results & Data Vital Signs (Past 12 Hours) Vital Signs Temp Pulse Resp BP Pulse Ox O2 Del Method 12/21/23 07:54 36.5 C 65 18 104/61 94 Room Air Laboratory Results 12/15/23 18:25 Aerobic Blood Culture - Final Blood No growth in Aerobic bottle after 5 days. Anaerobic Blood Culture - Final No growth in Anaerobic bottle after 5 days. 12/15/23 18:31 Aerobic Blood Culture - Final Blood No growth in Aerobic bottle after 5 days. Anaerobic Blood Culture - Final No growth in Anaerobic bottle after 5 days. 12/15/23 18:45 Gram Stain - Final Toe Aerobic and Anaerobic Culture - Final Staphylococcus aureus 12/18/23 19:27 Gram Stain - Final Toe Aerobic and Anaerobic Culture - Preliminary Staphylococcus aureus 12/21/23 12/21/23 12/20/23 09:54 06:14 20:52 POC Glucose 143 H 147 H 163 H 12/20/23 12/20/23 16:44 11:45 POC Glucose 142 H 196 H Laboratory Results - last 48 hr 12/19/23 12/19/23 12/19/23 11:33 16:40 21:06 Sodium Potassium Chloride Carbon Dioxide Anion Gap BUN Creatinine Est Cr Clr Drug Dosing Est GFR ( Amer) Est GFR (Non-Af Amer) BUN/Creatinine Ratio Glucose POC Glucose 247 H 175 H 205 H Calcium C-Reactive Protein TSH 12/20/23 12/20/23 12/20/23 07:25 07:31 11:45 Sodium 135 L Potassium 4.0 Chloride 100 Carbon Dioxide 29 Anion Gap 6 BUN 31 H Creatinine 0.86 Est Cr Clr Drug Dosing 127.8 Est GFR ( Amer) 104.0 Est GFR (Non-Af Amer) 89.7 BUN/Creatinine Ratio 36.0 H Glucose 182 H POC Glucose 176 H 196 H Calcium 8.8 C-Reactive Protein 1.71 H TSH 3.431 12/20/23 12/20/23 12/21/23 16:44 20:52 06:14 Sodium Potassium Chloride Carbon Dioxide Anion Gap BUN Creatinine Est Cr Clr Drug Dosing Est GFR ( Amer) Est GFR (Non-Af Amer) BUN/Creatinine Ratio Glucose POC Glucose 142 H 163 H 147 H Calcium C-Reactive Protein TSH 12/21/23 09:54 Sodium Potassium Chloride Carbon Dioxide Anion Gap BUN Creatinine Est Cr Clr Drug Dosing Est GFR ( Amer) Est GFR (Non-Af Amer) BUN/Creatinine Ratio Glucose POC Glucose 143 H Calcium C-Reactive Protein TSH Diagnostic Findings Chest X-Ray 12/20/23 11:54 XR chest 2V PA/lateral HISTORY: 68 years-old Male subacute cough acute cough with congestion COMPARISON: 04/07/2023 TECHNIQUE: PA and lateral views of the chest FINDINGS: Cardiac silhouette is enlarged. Mild right hemidiaphragmatic elevation. Subsegmental bibasilar atelectasis. No pneumothorax or pleural effusion. Unchanged blunting of the lateral right costophrenic angle. Bones appear grossly intact. IMPRESSION: No acute process. ACT 112: Negative or not required by law. The above report was generated using voice recognition software. It may contain grammatical, syntax or spelling errors. Electronically signed by: Pollo Villarreal M.D. 12/20/2023 1:29 PM Medications Administered Home Medications Medication Instructions Recorded Confirmed Last Taken CPAP Machine #1 ea 04/28/20 12/12/23 02/07/23 blood-glucose meter (True Metrix #1 ea 07/08/21 12/12/23 02/07/23 Glucose Meter) blood glucose control, low (True #1 ea 05/20/22 12/12/23 02/07/23 Metrix Level 1 solution) aspirin 81 mg tablet,delayed 81 mg PO HS 12/19/22 12/15/23 06/19/23 release blood sugar diagnostic (True #200 ea 03/10/23 12/12/23 Unknown Metrix Glucose Test Strip) lancets 33 gauge (Ultra Thin #200 ea 03/10/23 12/12/23 Unknown Lancets) tirzepatide 10 mg/0.5 mL 10 mg (0.5 mL) subcut Q7D 4 weeks 06/19/23 12/15/23 06/22/23 subcutaneous pen injector #2 mL (Travis) insulin syr/ndl U100 half rolly 0.5 #200 ea 10/23/23 12/12/23 Unknown mL 30 gauge x 5/16" hydrochlorothiazide 25 mg tablet 25 mg PO QAM #90 tabs 11/28/23 12/15/23 Unknown rosuvastatin 20 mg tablet 20 mg PO DAILY #90 tabs 11/28/23 12/15/23 Unknown insulin human U-100 NPH-regulr 25 unit subcut BID 12/15/23 12/15/23 12/15/23 11:00 70-30 mix 100 unit/mL subcutaneous susp (Novolin 70/30 U-100 Insulin) metformin 500 mg tablet 1,000 mg PO BID 12/15/23 12/15/23 Unknown olmesartan 20 mg tablet 20 mg PO HS 12/15/23 12/15/23 Unknown Active Medications Generic Name Dose Route Start Last Admin Trade Name Freq PRN Reason Stop Dose Admin Enoxaparin Sodium 40 mg 12/16/23 15:00 12/20/23 14:06 Enoxaparin Inj 40 Mg/0.4 Ml Syr SQ 01/15/24 14:59 40 mg Q24H LIBBY Administration Famotidine 20 mg 12/20/23 21:00 12/21/23 08:39 Famotidine 20 Mg Tab PO 01/19/24 20:59 20 mg BID LIBBY Administration Hydrochlorothiazide 25 mg 12/16/23 09:00 12/20/23 08:46 Hydrochlorothiazide 25 Mg Tab PO 01/15/24 08:59 25 mg QAM LIBBY Administration Cefazolin Sodium 2,000 mg in 15 mls @ 3.75 mls/min 12/20/23 12:00 12/21/23 04:26 Ancef 2000mg IV 01/31/24 11:59 3.75 mls/min Q8H LIBBY Administration Lactated Ringer's 1,000 mls @ 15 mls/hr 12/21/23 10:00 12/21/23 10:07 Lr IV 01/20/24 09:59 15 mls/hr .Q24H LIBBY Administration KVO Insulin Aspart 0 units 12/16/23 07:30 12/21/23 08:38 Insulin Aspart Per Unit Charge SC 01/15/24 07:29 Not Given ACHS LIBBY Insulin Glargine 27 units 12/20/23 21:00 12/21/23 08:39 Lantus Per Unit Charge SQ 01/19/24 20:59 13 units BID LIBBY Administration Losartan Potassium 50 mg 12/15/23 22:47 12/20/23 20:09 Losartan Potassium 50 Mg Tab PO 01/14/24 22:46 50 mg HS LIBBY Administration Losartan Potassium 25 mg 12/20/23 09:00 12/21/23 08:40 Losartan Potassium 25 Mg Tab PO 01/19/24 08:59 25 mg QAM LIBBY Administration Metformin HCl 1,000 mg 12/20/23 08:00 12/20/23 17:26 Metformin Hcl 500 Mg Tab PO 01/19/24 07:59 1,000 mg BIDM LIBBY Administration Rosuvastatin Calcium 20 mg 12/16/23 09:00 12/21/23 08:40 Rosuvastatin Calcium 20 Mg Tab PO 01/15/24 08:59 20 mg DAILY LIBBY Administration (2) Diabetic foot ulcer Diabetes mellitus type: type 2 Diabetic foot ulcer location: toe Laterality: left Non-pressure ulcer stage: with fat layer exposed Qualified Code(s): E11.621 - Type 2 diabetes mellitus with foot ulcer; L97.522 - Non-pressure chronic ulcer of other part of left foot with fat layer exposed
[2023-12-21] MEDS ORDERED: MIDAZOLAM HCL 1 MG/ML 2ML VIAL ONE (10:48)
[2023-12-21] MEDS ORDERED: PROPOFOL IV EMULSION 10 MG/ML 20 ML VIAL IV ONE (10:49)
[2023-12-21] MEDS ORDERED: fentaNYL citrate PF 100 MCG/2 ML VIAL ONE (10:49)
--- NOTE | 2023-12-21 10:55 | Anesthesiology Consultation ---
Date of Service December 21, 2023 Assessment & Plan Chart Review Chart Review: Acceptable Risk for Surgery Consults Requested none History Surgery Operation Date: 12/21/23 10:45 Proposed Procedures p Left Hallux Incision and Drainage with Bone Biopsy - Dwayne Amaya DPM Height/Weight Height: 6 ft 2 in Weight: 147.7 kg Allergies Allergy/AdvReac Type Severity Reaction Status Date / Time Penicillins Allergy Unknown unknown Verified 12/15/23 19:26 allergy as a child sulfamethoxazole AdvReac Intermediate Fever Verified 12/15/23 19:26 [From Bactrim] trimethoprim [From Bactrim] AdvReac Intermediate Fever Verified 12/15/23 19:26 Medications Home Medications Medication Instructions Recorded Confirmed Last Taken CPAP Machine #1 ea 04/28/20 12/12/23 02/07/23 blood-glucose meter (True Metrix #1 ea 07/08/21 12/12/23 02/07/23 Glucose Meter) blood glucose control, low (True #1 ea 05/20/22 12/12/23 02/07/23 Metrix Level 1 solution) aspirin 81 mg tablet,delayed 81 mg PO HS 12/19/22 12/15/23 06/19/23 release blood sugar diagnostic (True #200 ea 03/10/23 12/12/23 Unknown Metrix Glucose Test Strip) lancets 33 gauge (Ultra Thin #200 ea 03/10/23 12/12/23 Unknown Lancets) tirzepatide 10 mg/0.5 mL 10 mg (0.5 mL) subcut Q7D 4 weeks 06/19/23 12/15/23 06/22/23 subcutaneous pen injector #2 mL (Travis) insulin syr/ndl U100 half rolly 0.5 #200 ea 10/23/23 12/12/23 Unknown mL 30 gauge x 5/16" hydrochlorothiazide 25 mg tablet 25 mg PO QAM #90 tabs 11/28/23 12/15/23 Unknown rosuvastatin 20 mg tablet 20 mg PO DAILY #90 tabs 11/28/23 12/15/23 Unknown insulin human U-100 NPH-regulr 25 unit subcut BID 12/15/23 12/15/23 12/15/23 11:00 70-30 mix 100 unit/mL subcutaneous susp (Novolin 70/30 U-100 Insulin) metformin 500 mg tablet 1,000 mg PO BID 12/15/23 12/15/23 Unknown olmesartan 20 mg tablet 20 mg PO HS 12/15/23 12/15/23 Unknown Active Medications Generic Name Dose Route Start Last Admin Trade Name Zen PRN Reason Stop Dose Admin Enoxaparin Sodium 40 mg 12/16/23 15:00 12/20/23 14:06 Enoxaparin Inj 40 Mg/0.4 Ml Syr SQ 01/15/24 14:59 40 mg Q24H LIBBY Administration Famotidine 20 mg 12/20/23 21:00 12/21/23 08:39 Famotidine 20 Mg Tab PO 01/19/24 20:59 20 mg BID LIBBY Administration Hydrochlorothiazide 25 mg 12/16/23 09:00 12/20/23 08:46 Hydrochlorothiazide 25 Mg Tab PO 01/15/24 08:59 25 mg QAM LIBBY Administration Cefazolin Sodium 2,000 mg in 15 mls @ 3.75 mls/min 12/20/23 12:00 12/21/23 04:26 Ancef 2000mg IV 01/31/24 11:59 3.75 mls/min Q8H LIBBY Administration Lactated Ringer's 1,000 mls @ 15 mls/hr 12/21/23 10:00 12/21/23 10:07 Lr IV 01/20/24 09:59 15 mls/hr .Q24H LIBBY Administration KVO Insulin Aspart 0 units 12/16/23 07:30 12/21/23 08:38 Insulin Aspart Per Unit Charge SC 01/15/24 07:29 Not Given ACHS LIBBY Insulin Glargine 27 units 12/20/23 21:00 12/21/23 08:39 Lantus Per Unit Charge SQ 01/19/24 20:59 13 units BID LIBBY Administration Losartan Potassium 50 mg 12/15/23 22:47 12/20/23 20:09 Losartan Potassium 50 Mg Tab PO 01/14/24 22:46 50 mg HS LIBBY Administration Losartan Potassium 25 mg 12/20/23 09:00 12/21/23 08:40 Losartan Potassium 25 Mg Tab PO 01/19/24 08:59 25 mg QAM LIBBY Administration Metformin HCl 1,000 mg 12/20/23 08:00 12/20/23 17:26 Metformin Hcl 500 Mg Tab PO 01/19/24 07:59 1,000 mg BIDM LIBBY Administration Rosuvastatin Calcium 20 mg 12/16/23 09:00 12/21/23 08:40 Rosuvastatin Calcium 20 Mg Tab PO 01/15/24 08:59 20 mg DAILY LIBBY Administration NPO Date Last Intake of Fluids: 12/21/23 Time Last Intake of Fluids: 08:00 Last Intake of Fluids Comment: sip with meds Date Last Intake of Solids: 12/20/23 Time Last Intake of Solids: 23:30 Past Medical History Medical History History of COVID-19 "early May" 05/2023. + home covid test. fever, cough, congestion. resolved. Prostate cancer Sleep apnea CPAP Kidney stone HX Peripheral neuropathy Past Family History Family History Mother Cancer passed from myeloma and breast cancer at 88 yrs. Breast cancer Father Myocardial infarction at 72 years Other Diabetes Past Surgical History Surgical History Hx of cataract extraction Hx of lithotripsy 11/2021 AT [facility] S/P colonoscopy History of prostate biopsy H/O toe surgery Hx of tonsillectomy H/O knee surgery x2 LEFT Social History Smoking Status: Never smoker Do You Dip or Chew Tobacco: No Hx Alcohol Use: No alcohol intake frequency: other Hx Substance Use: No substance use type: does not use Physical Exam Vital Signs Last Vital Signs Temp 36.5 C 12/21/23 07:54 Pulse 65 12/21/23 07:54 Resp 18 12/21/23 07:54 BP 104/61 12/21/23 07:54 Pulse Ox 94 12/21/23 07:54 O2 Del Method Room Air 12/21/23 07:54 Testing Laboratory Results 12/16/23 06:56 12/20/23 07:25 Hemoglobin A1c 8.1 % (4.5-5.6) H 12/17/23 06:10 12/15/23 18:25 Aerobic Blood Culture - Final Blood No growth in Aerobic bottle after 5 days. Anaerobic Blood Culture - Final No growth in Anaerobic bottle after 5 days. 12/15/23 18:31 Aerobic Blood Culture - Final Blood No growth in Aerobic bottle after 5 days. Anaerobic Blood Culture - Final No growth in Anaerobic bottle after 5 days. 12/15/23 18:45 Gram Stain - Final Toe Aerobic and Anaerobic Culture - Final Staphylococcus aureus 12/18/23 19:27 Gram Stain - Final Toe Aerobic and Anaerobic Culture - Preliminary Staphylococcus aureus 12/21/23 12/21/23 09:54 06:14 POC Glucose 143 H 147 H
[2023-12-21] MEDS ORDERED: LIDOCAINE 2% 2 ML VIAL/AMP(20MG/ML) INFIL ONE (11:11)
[2023-12-21] MEDS: BUPIVACAINE 0.5 % 5 MG/1 ML MPF 30ML VIAL ONE (11:31)
--- NOTE | 2023-12-21 11:34 | Post Operative Brief Note ---
Immediate Post Op Note Date of Surgery December 21, 2023 Pre & Post Diagnosis Operation Date: 12/21/23 10:45 Pre-Op Diagnosis: Cellulitis of Left Lower Leg Post-Op Diagnosis: Cellulitis of Left Lower Leg I identified the patient and participated in the time-out.: Yes Procedure Operation Date: 12/21/23 10:45 Actual Procedures p Left Hallux Incision and Drainage with Bone Biopsy(Left) - Dwayne Amaya DPM Surgeon Dwanye Amaya DPM Auto Parts Handler None Estimated Blood Loss 2 Findings Consistent with Post-Op Diagnosis No evidence of abscess or osteomyelitis Specimens Bone culture Bone biopsy Anesthesia Type MAC Complications none Disposition Accompanied Patient To Recovery: Yes Disposition: Recovery Room
--- NOTE | 2023-12-21 12:55 | Anesthesiology Progress Note ---
Date of Service December 21, 2023 Anesthesia Post Procedure Vital Signs Vital Signs: Temp Pulse Pulse Resp BP BP Pulse Ox 12/21/23 12:40 61 18 121/57 L 96 12/21/23 12:30 60 19 122/58 L 96 12/21/23 12:20 55 L 21 90/37 L 100 12/21/23 12:10 61 13 79/33 L 100 12/21/23 12:00 58 L 17 86/50 L 100 12/21/23 11:50 34 L 16 86/44 L 100 12/21/23 11:42 37.1 C 51 L 14 85/34 L 100 12/21/23 07:54 36.5 C 65 18 104/61 94 12/20/23 21:19 36.6 C 91 H 18 119/66 94 12/20/23 14:53 36.7 C 81 18 147/69 H 94 O2 Del Method O2 Flow Rate 12/21/23 12:40 Room Air 12/21/23 12:30 Room Air 12/21/23 12:20 Oxymask 2 12/21/23 12:10 Oxymask 2 12/21/23 12:00 Oxymask 2 12/21/23 11:50 Oxymask 3 12/21/23 11:42 Oxymask 5 12/21/23 07:54 Room Air 12/20/23 21:19 Room Air 12/20/23 14:53 Room Air Transfer of Care Handoff Completed per policy Notes Mental Status: alert / awake / arousable and participated in evaluation Patient Amnestic to Procedure: Yes Nausea / Vomiting: adequately controlled Pain: adequately controlled Airway Patency, RR, SpO2: stable & adequate BP & HR: stable & adequate Hydration State: stable & adequate Anesthetic Complications: no major complications apparent
[2023-12-21 14:12] VITALS: RESP 18; TEMP 97.5
[2023-12-21 15:46] VITALS: BP 135/69; PULSE 65; O2SAT 96
--- NOTE | 2023-12-21 19:31 | Discharge Summary ---
Discharge Summary Date of Service December 21, 2023 Principal Dx & Hospital Course #1 = Principal Diagnosis (1) Cellulitis of left lower le-year-old male with diabetes presented with cellulitis of left foot and contreras related to chronic left great toe ulcer, found to have possible underlying osteomyelitis of great toe based on MRI. ESR mildly elevated at 50, CRP elevated at 8 but rapidly improved to 1.7 on antibiotic presented with superimposed cellulitis of left foot/left contreras as well as MRI suggestive of great toe osteomyelitis - wound culture grew MSSA arterial duplex of LLE with intact blood flow orthopedics ID and podiatry consulted bone biopsy and excision of the ulcer by Dr. Amaya on 12/20 - I discussed with Dr. Amaya today and based on his surgical findings he felt the risk of osteomyelitis was very low discharge home on oral antibiotics and follow-up results of bone biopsy as outpatient with Dr. Amaya prescribed p.o. cefadroxil for 10 days, covers MSSA, potentially can stop early if cellulitis resolved and wound healing well on follow-up with rig hand if toe osteomyelitis present, would need either complete surgical resection or 6 weeks IV antibiotics (2) Osteomyelitis of great toe of left foot: possible osteomyelitis based on MRI, clinically does not appear consistent with osteomyelitis however, bone biopsy pending see #1 above (3) Diabetic ulcer of left foot: ulcer was excised and closed in OR by Dr. Amaya continue podiatric surgical dressing until follow-up which will be early next week surgical shoe for ambulation (4) Type 2 diabetes mellitus with microalbuminuria, with long-term current use of insulin: last hemoglobin a1c= 8.7% in 09/01/23 a1c now 8.1% home regimen- monjauro, metformin, 25 units Novolin BID (5) Hypertension: continue HCTZ continue olmesartan (6) Dyslipidemia: resumed statin (7) Obstructive sleep apnea: CPAP qHS (8) Morbid obesity with BMI of 40.0-44.9, adult: BMI 41 - expect improvement with Mounjaro Plan subacute cough - sounds most likely resolving viral URI, reflux is also possible. denies any history of asthma/wheezing or seasonal allergies - pulmonary exam clear, obtained 2 view chest x-ray which is clear without acute findings - encouraged CPAP compliance - trial twice daily Pepcid if cough not resolved in about 2 weeks, also discussed elevating head of bed - follow-up with primary care Notes For Next Care Provider bone biopsy pending from 12/20 Medication Changes From Visit cefadroxil 510 more days course Admission HPI Per Admitting Provider 68 year old male with a past medical history of DM2, HLD, HTN, peripheral neuropathy, prostatic adenocarcinoma presenting with concern for cellulitis. Chronic left great toe diabetic ulcer, follows with wound clinic. Yesterday noticed increased redness tracking up his foot. Denies fever/chills. No increased pain, but has neuropathy some limited feeling in foot. Was last on antibiotics 3 weeks ago, completed a 14 day course of doxycycline. Was last seen at wound clinic on 12/11. ED Course: WBC= 11.86, ESR= 62, CRP= 8.65. XR left foot without signs of osteomyelitis. S/p 2g cefepime. Discharge Exam PHYSICAL EXAMINATION Last 24h vital signs reviewed, see documentation in flowsheet General: comfortable appearing, no distress HEENT: Normocephalic, atraumatic, pupils round and equal, sclerae anicteric, no conjunctival injection, moist mucus membranes Lungs: Normal respiratory effort. occasional dry cough Heart: deferred Abdomen: nondistended Extremities: Warm, dry, well-perfused. No extremity edema. L great toe wound dressed in Postop surgical dressing and Genaro wrap, onychomycosis present Neuro: Alert and oriented x 4, face symmetric, moves 4 extremities well Psych: Normal affect and behavior Updated Medication List Medication Instructions Recorded Confirmed Type CPAP Machine #1 ea 04/28/20 12/12/23 Rx blood-glucose meter (True Metrix #1 ea 07/08/21 12/12/23 Rx Glucose Meter) blood glucose control, low (True #1 ea 05/20/22 12/12/23 Rx Metrix Level 1 solution) blood sugar diagnostic (True #200 ea 03/10/23 12/12/23 Rx Metrix Glucose Test Strip) lancets 33 gauge (Ultra Thin #200 ea 03/10/23 12/12/23 Rx Lancets) tirzepatide 10 mg/0.5 mL 10 mg (0.5 mL) subcut Q7D 4 weeks 06/19/23 12/15/23 Rx subcutaneous pen injector #2 mL (Travis) insulin syr/ndl U100 half rolly 0.5 #200 ea 10/23/23 12/12/23 Rx mL 30 gauge x /16" hydrochlorothiazide 25 mg tablet 25 mg PO QAM #90 tabs 11/28/23 12/15/23 Rx rosuvastatin 20 mg tablet 20 mg PO DAILY #90 tabs 11/28/23 12/15/23 Rx insulin human U-100 NPH-regulr 25 unit subcut BID 12/15/23 12/15/23 History 70-30 mix 100 unit/mL subcutaneous susp (Novolin 70/30 U-100 Insulin) metformin 500 mg tablet 1,000 mg PO BID 12/15/23 12/15/23 History olmesartan 20 mg tablet 20 mg PO HS 12/15/23 12/15/23 History cefadroxil 1 gram tablet 1,000 mg PO BID #20 tabs 12/21/23 Rx famotidine 20 mg tablet 20 mg PO BID #0 tabs 12/21/23 Rx Hospital Stay Data Consultations 12/15/23 19:21 ED Decision to Admit Stat 12/17/23 08:25 Consult Orthopedic Surgery Routine 12/18/23 10:58 Consult Infectious Diseases Routine 12/19/23 11:27 Consult Podiatry Routine Procedures Performed Operation Date: 12/21/23 10:45 Actual Procedures p Left Hallux Incision and Drainage with Bone Biopsy(Left) - Dwayne Amaya DPM Diagnostic Imagining Performed 12/15/23 19:45 MRI Foot [MR foot LT wo/w con] Routine 12/16/23 10:23 US arterial duplex LE LT Routine Toe X-Ray 12/15/23 18:04 XR toe(s) LT min 2V CLINICAL HISTORY: diabetic great toe wound COMPARISON STUDY: Left foot MRI 09/14/2023. FINDINGS: 3 views of the left first toe were submitted for review. Soft tissue swelling within the left first toe. There is a 7 mm skin ulceration at the plantar surface of the left first toe. No underlying bony destruction to suggest an osteomyelitis. Nigi-ca-yutghgqy osteoarthritis within the left first toe. No radiopaque foreign bodies. No acute fracture or dislocation. IMPRESSION: 1. A 7 mm skin ulceration at the plantar surface of the left first toe. 2. No underlying bony destruction to suggest an osteomyelitis. ACT 112: Negative or not required by law. Electronically signed by: Ayan Kaur M.D. 12/15/2023 6:27 PM Foot MRI 12/15/23 19:45 Exam(s): MRI LEFT FOOT W/WO Contrast IV Amt: 13.6CC GADAVIST EXAM: MR Left Lower Extremity Without and With Intravenous Contrast, Foot CLINICAL HISTORY: Concern for osteomyelitis. TECHNIQUE: Multiplanar magnetic resonance images of the left foot without and with intravenous contrast. CONTRAST: Patient received 13.6CC GADAVIST of IV contrast COMPARISON: MRI left foot 09/14/2023 FINDINGS: Bones/joints: There is mild edema of the distal first phalanx concerning for early osteomyelitis. No acute fracture. Soft tissues: Diffuse nonspecific subcutaneous edema without abscess. Ulceration of the great toe is noted. IMPRESSION: 1. There is mild edema of the distal first phalanx concerning for early osteomyelitis. 2. Diffuse nonspecific subcutaneous edema without abscess. Ulceration of the great toe is noted. Electronically signed by: Romana North MD 12/16/23 01:46 AM Duplex Scan Lower Extremity Artery 12/16/23 10:23 US arterial duplex LE LT CLINICAL HISTORY: non-healing L 1st toe ulcer TECHNIQUE: Real-time grayscale and color and spectral Doppler ultrasound imaging of the left lower extremity arteries was performed. Measurements calculated based on NASCET criteria. COMPARISON: None available at the time of this dictation. FINDINGS: LEFT: Triphasic waveforms are seen throughout with exception of biphasic waveforms in the deep femoral artery. Minimal plaque is seen in the left lower extremity. Elevated velocities are seen as follows: Mid posterior tibial artery: 247 cm/s Distal anterior tibial artery: 205 cm/s Dorsalis pedis artery: 217 cm/s IMPRESSION: Minimal plaque is seen with minimal elevated velocities most prominently in the mid posterior tibial artery compatible with peripheral vascular disease. ACT 112: Negative or not required by law. Electronically signed by: Rosales Young M.D. 12/16/2023 1:22 PM Chest X-Ray 12/20/23 11:54 XR chest 2V PA/lateral HISTORY: 68 years-old Male subacute cough acute cough with congestion COMPARISON: 04/07/2023 TECHNIQUE: PA and lateral views of the chest FINDINGS: Cardiac silhouette is enlarged. Mild right hemidiaphragmatic elevation. Subsegmental bibasilar atelectasis. No pneumothorax or pleural effusion. Unchanged blunting of the lateral right costophrenic angle. Bones appear grossly intact. IMPRESSION: No acute process. ACT 112: Negative or not required by law. The above report was generated using voice recognition software. It may contain grammatical, syntax or spelling errors. Electronically signed by: Pollo Villarreal M.D. 12/20/2023 1:29 PM 12/16/23 06:56 12/20/23 07:25 Pending Results Patient Have Any Pending Studies at Discharge: Yes Discharge Instructions Given to Patient (Per Discharging Provider) Take oral antibiotics for 10 days Follow up with Dr. Amaya - his office will call to schedule Wear surgical shoe while walking You can take acetaminophen up to 3000 mg per 24h for pain as well as NSAID such as ibuprofen or naproxen - avoid taking too much NSAID Bone biopsy/culture is pending. If this shows osteomyelitis (bone infection) it will require treatment with surgical resection or 6 weeks of IV antibiotics. Wear your CPAP at night! If it is a post-viral cough it should be resolving within 2 weeks or so. If cough persisting try pepcid 20 mg bid for possible reflux-related cough. Follow up in primary care It was a pleasure taking care of you in the hospital Total Time Total Time Spent Total Time Spent (In Minutes): I personally spent: 35 minutes today on clinical care activities including: reviewing chart notes and vital signs discussion with big machine consultant(s) examining and counseling the patient writing orders, discharge instructions, prescriptions documentation Coding Level of Care Code 63438 INP/OBS DISCH >30 MIN Diagnoses Cellulitis of left lower leg L03.116 Osteomyelitis of great toe of left foot M86.9 Diabetic ulcer of toe of left foot associated with type 2 diabetes mellitus, with fat layer exposed E11.621; L97.522 Diabetic foot ulcer location: toe Diabetes mellitus type: type 2 Non-pressure ulcer stage: with fat layer exposed Type 2 diabetes mellitus with microalbuminuria, with long-term current use of insulin E11.29; R80.9; Z79.4 Hypertension I10 Dyslipidemia E78.5 Obstructive sleep apnea G47.33 Morbid obesity with BMI of 40.0-44.9, adult E66.01; Z68.41
--- NOTE | 2024-01-01 15:00 | Operative Report ---
Post Operative Report Pre & Post Diagnosis Operation Date: 12/21/23 10:45 Pre-Op Diagnosis: Cellulitis of Left Lower Leg Post-Op Diagnosis: Cellulitis of Left Lower Leg I identified the patient and participated in the time-out.: Yes Procedure Operation Date: 12/21/23 10:45 Actual Procedures p Left Hallux Incision and Drainage with Bone Biopsy(Left) - Dwayne Amaya DPM Surgeon Dwayne Amaya DPM Real Estate Site Analyst None Estimated Blood Loss 2 Findings Consistent with Post-Op Diagnosis No evidence of bone involvement or deep ulceration is noted. The ulcer was confined to the subcutaneous tissue. Specimens Left hallux bone was able to be obtained throughout the deeper incision. Primary closure was able to be performed after excision of the wound as well. Anesthesia Type MAC Disposition Accompanied Patient To Recovery: Yes Disposition: Recovery Room Indications This patient is a recent Hospital patient of ours who has concern of underlying bone infection to the hallux. To clarify the level of infection of this nonhealing wound, it was discussed he would benefit from a bone biopsy. We also did discuss that while undergoing surgical intervention, the wound may be able to be converted to a wound able to be closed primarily. Patient is amenable to this. Preoperative injections, postoperative instructions, relative risks, and outcomes were all discussed. Consent was obtained for this bone biopsy with potential primary closure. All questions were answered. Description of Procedure Patient was brought to the operating room where surgery was performed on his inpatient bed. The left lower extremity was scrubbed, prepped, and draped in the usual aseptic manner. A well-padded pneumatic ankle touurniquet was applied to the patient's left ankle. The limb was elevated, exsanguinated, and the ankle tourniquet was inflated to 250 mmHg. Attention was directed to the plantar aspect of the left hallux where a well- circumscribed small ulceration was noted. After extensive debridement and curettage, the wound was noted to not extend past the level of the Subcutaneous tissue. There was no proximal extension or deep extension noted. No palpable abscess was able be identified. The ulceration was excised utilizing 2 semielliptical incisions extending proximally and distally from the ulcer. The ulcer was excised full-thickness and community relations representative samples from the bone were able to be obtained Of adjacent bone, After flushing the wound extensively to prevent deep seating of any more superficial bacteria. Samples were obtained and then sectioned off for both culture and pathology testing. The incisions were flushed with copious amounts of sterile saline after the samples were obtained and all nonviable tissue was excised. The wound was reapproximated utilizing Xeroform gauze, 4 x 4 gauze, Kerlix, and an Genaro wrap. The tourniquet was deflated and immediate hyperemia was noted to the digits. The patient was transferred to the recovery room with vital signs stable and vascular status intact. On postoperative monitoring, the patient will be given instructions for discussed with surgery and transferred back to the floor for further monitoring. He will likely be only be discharged the next day or 2. I attest to the content of the Intraoperative Record and any orders documented therein. Any exceptions are noted below.
== END 2023-12-21 16:56 | disposition home or self-care (01) | DRG 623 ==
LOC: ED 16:39 → SUATTDRO 19:50 → 3N 19:50

== ENCOUNTER 2024-10-17 19:07 | Inpatient (IN) ==
[2024-10-17 19:50] LABS: Basophils # (auto) 0.03 K/uL (0.00-0.20); Basophils % (auto) 0.4 %; Eosinophils # (auto) 0.17 K/uL (0.00-0.50); Eosinophils % (auto) 2.5 %; Hematocrit (blood only) 39.2 % (42.0-52.0); Hemoglobin 12.8 g/dl (14.0-18.0); Immature Granulocytes # (auto) 0.02 K/uL (0.01-0.20); Immature Granulocytes % (auto) 0.3 %; Lymphocytes # (auto) 0.45 K/uL (1.20-3.40); Lymphocytes % (auto) 6.7 %; Mean Corpuscular Hemoglobin 27.2 pg (25.0-34.0); Mean Corpuscular Hgb Conc 32.7 g/dL (32.0-36.0); Mean Corpuscular Volume 83.4 fL (80.0-100.0); Mean Platelet Volume 9.4 fL (9.4-12.4); Monocytes # (auto) 0.86 K/uL (0.11-0.59); Monocytes % (auto) 12.8 %; Neutrophils # (auto) 5.17 K/uL (1.40-6.50); Neutrophils % (auto) 77.3 %; Platelet Count 215 K/uL (130-400); RDW Standard Deviation 44.7 fL (36.4-46.3)
[2024-10-17 20:10] LABS: Albumin Globulin Ratio 1.4 (0.9-2); Albumin Level 4.2 gm/dl (3.4-5.0); Bilirubin,Total 0.5 mg/dl (0.2-1.0); Calcium 9.2 mg/dl (8.6-10.3); Creatinine Clr Calc Pharmacy 143.9 ml/min; Globulin 2.9 gm/dl (2.5-4.0); Magnesium 1.7 mg/dl (1.7-2.4); Potassium 4.3 mmol/L (3.5-5.1); Total Protein 7.1 gm/dl (6.0-8.3)
[2024-10-17 20:15] LABS: Troponin I High Sensitivity 24.5 pg/ml (0-20)
[2024-10-17 20:30] LABS: D Dimer 2000 ug/L FEU (0-500)
[2024-10-17] MEDS: OPTIRAY 320 125ml IV ONE (21:03)
--- NOTE | 2024-10-17 21:38 | CT Scan Report ---
Exam(s): CTA CHEST IV Amt: 115 ml optiray 320 EXAM: CT Angiography Chest With Intravenous Contrast CLINICAL HISTORY: Reason for exam: SOB, PE, + dimer. TECHNIQUE: Axial computed tomographic angiography images of the chest with intravenous contrast. CTDI is 28 mGy and DLP is 1000 mGy-cm. Automated exposure control was utilized for the study. A dose lowering technique was utilized adhering to the principles of ALARA. MIP reconstructed images were created and reviewed. COMPARISON: CT chest on 07/01/2021 FINDINGS: Pulmonary arteries: Unremarkable. No pulmonary embolus identified. Aorta: No acute findings. No aortic aneurysm or dissection. Lungs: Mosaic pattern of attenuation may represent atelectasis or air- trapping. Mild pulmonary edema not excluded. Mild groundglass opacity in the left upper lobe could represent atelectasis versus infectious/inflammatory process. Right greater than left bibasilar atelectasis. Pleural space: Trace right pleural effusion. No pneumothorax. Heart: Unremarkable. No cardiomegaly. No significant pericardial effusion. No evidence of RV dysfunction. Bones/joints: Degenerative changes of the spine. No acute fracture. No dislocation. Soft tissues: Unremarkable. Lymph nodes: Unremarkable. No enlarged lymph nodes. Adrenals: Probable small right adrenal myelolipoma, but solid nodular component is nonspecific. Upper abdomen: Elevation of the right hemidiaphragm. Other findings: Small calcified granulomas. IMPRESSION: 1. No pulmonary embolus identified. 2. No aortic aneurysm or dissection. 3. Mosaic pattern of attenuation may represent atelectasis or air- trapping. Mild pulmonary edema not excluded. Mild groundglass opacity in the left upper lobe could represent atelectasis versus infectious/inflammatory process. 4. Trace right pleural effusion. Electronically signed by: Rodolfo Chi M.D. 10/17/24 21:37 PM
--- NOTE | 2024-10-17 22:08 | XRay Report ---
Exam(s): XR CXR 1 VIEW EXAM: XR Chest, 1 View CLINICAL HISTORY: Reason for exam: Dyspnea. TECHNIQUE: Frontal view of the chest. COMPARISON: Chest radiograph On 12/20/2023 FINDINGS: Hardware: None. Lungs/pleura: Elevation of the right hemidiaphragm. Right basilar opacity. No pleural effusion or pneumothorax. Heart/mediastinum: Mild enlargement of the cardiac silhouette. Soft tissues: Unremarkable. Bones: No acute fracture. Upper abdomen: Normal. IMPRESSION: Probable right basilar atelectasis. No other focal consolidation. Electronically signed by: Rodolfo Chi M.D. 10/17/24 22:07 PM
--- NOTE | 2024-10-17 23:04 | History & Physical Report ---
Date of Service October 17, 2024 Assessment & Plan (1) Atrial flutter: (2) Hypertension: (3) Dyslipidemia: (4) Poorly controlled type 2 diabetes mellitus: Plan 69-year-old male with history of diabetes, hypertension, hyperlipidemia and sleep apnea (not on CPAP) presenting with several days of shortness of breath both at rest and with exertion as well as some orthopnea. Patient found to be in new onset atrial flutter 3-4: 1 conduction with episodes of bradycardia with rates in the 30s to 40s. CT of the chest with mosaic pattern of attenuation representing possible mild pulmonary edema as well as trace right pleural effusion. #Atrial flutternew onset, rate presently 63 bpm. Patient did have episodes of rates in the 30s to 40s. Blood pressure has been acceptable. suspect some degree of failure with volume overload in setting of new onset atrial flutter given patient's shortness of breath, pulmonary edema noted on imaging as well as elevated BNP. Unknown symptom duration. reports that she noted some shortness of breath ongoing for at least the last 3 days. Admit to PCU Obtain 2D echo Heparin drip for anticoagulation. [id number] score = 3 (age = 69, history of hypertension, history of diabetes), Patient will likely require ongoing anticoagulation for stroke prevention Cardiology consultation appreciated - question early cardioversion after patient has been properly anticoagulated Magnesium x 2 g ordered #Hypertensionblood pressure 168/78 presently. Continue olmesartan 20 mg p.o. nightly Continue to monitor #diabeteslast hemoglobin A1c = 7.7 on 06/03/2024. Patient is on metformin as well as 70/30 outpatient Hold metformin Lantus 20 units twice daily with insulin sliding scale #Hyperlipidemia Continue Crestor 20 mg p.o. daily History of Present Illness Chief Complaint: shortness of breath Primary Care Provider: DO Arnoldo Barragan Kevin Woodson is a 69-year-old male with history of diabetes, hypertension, hyperlipidemia, sleep apnea presently not on CPAP presenting with 2 to 3 days of shortness of breath. Patient reports that the shortness of breath occurs at rest as well as with exertion. He also has been experiencing some orthopnea. This afternoon he went to a store in [employer] and when he walked back to his car he was unable to catch his breath. He did sustain a ground-level fall today with no injury, no head trauma, no loss of consciousness. This prompted him to contact his PCP who instructed him to come to the ER. Patient's states that patient has had worsening fatigue and increased sleepiness over the last 2 weeks. She also notes poor memory. Patient endorses some mild chest tightness but no overt chest pain, no palpita tions, no dizziness or syncope. No nausea/vomiting/diarrhea. No edema, ascites. Weight has been stable Patient was experiencing shortness of breath in the past. He had a cardiac workup that was unremarkable including a normal dobutamine stress echo on April 11, 2023. In the ER patient found to be in new atrial flutter. He had variable rates dropping into the 30s and 40s Allergies Allergy/AdvReac Type Severity Reaction Status Date / Time Penicillins Allergy Unknown unknown Verified 10/17/24 23:49 allergy as a child sulfamethoxazole AdvReac Intermediate Fever Verified 10/17/24 23:49 [From Bactrim] trimethoprim [From Bactrim] AdvReac Intermediate Fever Verified 10/17/24 23:49 Home Medications Medication Instructions Recorded Confirmed Type CPAP Machine #1 ea 04/28/20 10/07/24 Rx blood-glucose meter (True Metrix #1 ea 07/08/21 10/07/24 Rx Glucose Meter) blood glucose control, low (True #1 ea 05/20/22 10/07/24 Rx Metrix Level 1 solution) insulin syr/ndl U100 half rolly 0.5 #200 ea 10/23/23 10/07/24 Rx mL 30 gauge x 5/16" rosuvastatin 20 mg tablet 20 mg PO DAILY #90 tabs 11/28/23 10/17/24 Rx metformin 500 mg tablet 1,000 mg PO BID 12/15/23 10/17/24 History blood sugar diagnostic (True #200 strips 03/11/24 10/07/24 Rx Metrix Glucose Test Strip) lancets 33 gauge (Ultra Thin #200 ea 04/25/24 10/07/24 Rx Lancets) olmesartan 20 mg tablet 20 mg PO HS #30 tabs 06/03/24 10/17/24 Rx aspirin 81 mg tablet,delayed 81 mg PO DAILY 10/17/24 10/17/24 History release insulin human U-100 NPH-regulr 30 unit subcut BID 10/17/24 10/17/24 History 70-30 mix 100 unit/mL subcutaneous susp (Novolin 70/30 U-100 Insulin) magnesium 250 mg tablet 250 mg PO DAILY 10/17/24 10/17/24 History vit C 250 mg-vit E 90 mg-zinc 40 1 cap PO BID 10/17/24 10/17/24 History mg-copper 1 [id number] capsule (PreserVision AREDS-2) Past Med/Surg History Problem List (Updated 10/18/24 @ 02:01 by Liberty Antunez DO) Atrial flutter Diabetic ulcer of left foot (Acute) Albuminuria Diabetic peripheral neuropathy associated with type 2 diabetes mellitus Diabetic nephropathy associated with type 2 diabetes mellitus Diabetic foot ulcer associated with type 2 diabetes mellitus Poorly controlled type 2 diabetes mellitus Class 3 obesity Prostate cancer History of colon polyps Obstructive sleep apnea (Chronic) Right nephrolithiasis (Chronic) Hypertension (Chronic) Dyslipidemia (Chronic) Medical History Chronic venous insufficiency Bilateral leg edema Sebaceous cyst Multiple atypical skin moles Renal cysts, acquired, bilateral BPH (benign prostatic hyperplasia) Surgical History Hx of cataract extraction Hx of lithotripsy 11/2021 AT [facility] S/P colonoscopy History of prostate biopsy H/O toe surgery Hx of tonsillectomy H/O knee surgery x2 LEFT Family History Mother Cancer passed from myeloma and breast cancer at 88 yrs. 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 Beliefs That Will Affect Care: None marital status: Current Living Situation: Spouse current occupational status: retired Feels Safe at Home: Yes Safety Concerns: Feels Safe At This Time Diet: regular caffeine: Yes during the past year weight has: remained stable Dental Care, Regularly: Yes Physical Activity Frequency: Does not Exercise Seatbelt Use: always Assistive Devices: CPAP and Glasses Review of Systems Review of Systems: All systems reviewed & are unremarkable except as noted in HPI & below Physical Exam Physical Exam: General: patient resting comfortably, NAD, non-toxic in appearance, AA&O x 4 Skin: warm, dry, intact, no rashes or lesions HEENT: NC/AT, PERRL, EOMI, anicteric sclera, conjunctiva without injection, external ear normal to inspection and nontender, nares patent, moist mucus membranes, dentition intact, no oropharyngeal lesions, neck supple, trachea midline, no LAD, no thyromegaly, no JVD Heart: +S1/S2, Irregularly irregular, mild 2 out of 6 systolic ejection murmur at right second intercostal space, no rubs or gallops Lungs: mild crackles present in bilateral bases, no rhonchi or wheezes Abd: +BS, soft, NT/ND, no masses/organomegaly/ascites Ext: warm, 2+ pulses in UE/LE bilaterally, no clubbing/cyanosis or edema Neuro: nonfocal, patient AA&O x 4, speech intact, no facial droop, moving all extremities on command with equal strength 5/5 Results & Data Results & Data Vital Signs (Past 12 Hours) Vital Signs Temp Pulse Resp BP Pulse Ox O2 Del Method 10/17/24 22:30 56 L 20 176/106 H 96 Room Air 10/17/24 22:00 50 L 15 172/7 H 96 Room Air 10/17/24 21:16 143/76 H 10/17/24 21:15 89 L Room Air 10/17/24 20:56 60 18 151/88 H 93 Room Air 10/17/24 20:25 92 Room Air 10/17/24 20:05 77 10/17/24 19:19 36.6 C 79 22 102/68 93 Room Air Laboratory Results Laboratory Results WBC 6.70 K/ul (4.8-10.8) 10/17/24 19:35 RBC 4.70 M/uL (4.70-6.10) 10/17/24 19:35 Hgb 12.8 g/dl (14.0-18.0) L 10/17/24 19:35 Hct 39.2 % (42.0-52.0) L 10/17/24 19:35 MCV 83.4 fL (80.0-100.0) 10/17/24 19:35 MCH 27.2 pg (25.0-34.0) 10/17/24 19:35 MCHC 32.7 g/dL (32.0-36.0) 10/17/24 19:35 RDW Std Deviation 44.7 fL (36.4-46.3) 10/17/24 19:35 RDW Coeff of Daniel 15.0 % (11.5-14.5) H 10/17/24 19:35 Plt Count 215 K/uL (130-400) 10/17/24 19:35 MPV 9.4 fL (9.4-12.4) 10/17/24 19:35 Immature Gran % (Auto) 0.3 % 10/17/24 19:35 Neut % (Auto) 77.3 % 10/17/24 19:35 Lymph % (Auto) 6.7 % 10/17/24 19:35 [place] % (Auto) 12.8 % 10/17/24 19:35 Eos % (Auto) 2.5 % 10/17/24 19:35 Baso % (Auto) 0.4 % 10/17/24 19:35 Neut # (Auto) 5.17 K/uL (1.40-6.50) 10/17/24 19:35 Lymph # (Auto) 0.45 K/uL (1.20-3.40) L 10/17/24 19:35 [place] # (Auto) 0.86 K/uL (0.11-0.59) H 10/17/24 19:35 Eos # (Auto) 0.17 K/uL (0.00-0.50) 10/17/24 19:35 Baso # (Auto) 0.03 K/uL (0.00-0.20) 10/17/24 19:35 Immature Gran # (Auto) 0.02 K/uL (0.01-0.20) 10/17/24 19:35 D-Dimer 2000 ug/L FEU (0-500) H* 10/17/24 19:35 Sodium 139 mmol/L (136-145) 10/17/24 19:35 Potassium 4.3 mmol/L (3.5-5.1) 10/17/24 19:35 Chloride 106 mmol/L (98-107) 10/17/24 19:35 Carbon Dioxide 29 mmol/L (21-32) 10/17/24 19:35 Anion Gap 4 (3-11) 10/17/24 19:35 BUN 20 mg/dl (6-23) 10/17/24 19:35 Creatinine 0.74 mg/dl (0.6-1.4) 10/17/24 19:35 Est Cr Clr Drug Dosing 143.9 ml/min 10/17/24 19:35 eGFR 98.70 10/17/24 19:35 BUN/Creatinine Ratio 27.0 (10-20) H 10/17/24 19:35 Glucose 146 mg/dl (70-99(Fasting)) H 10/17/24 19:35 POC Glucose 130 mg/dl (70-99) H 10/18/24 01:43 Calcium 9.2 mg/dl (8.6-10.3) 10/17/24 19:35 Magnesium 1.7 mg/dl (1.7-2.4) 10/17/24 19:35 Total Bilirubin 0.5 mg/dl (0.2-1.0) 10/17/24 19:35 AST 18 U/L (13-39) 10/17/24 19:35 ALT 19 U/L (7-52) 10/17/24 19:35 Alkaline Phosphatase 78 U/L (34-104) 10/17/24 19:35 Troponin I High Sens 26.0 pg/ml (0-20) H 10/17/24 21:16 B-Natriuretic Peptide 363 pg/ml (0-100) H 10/17/24 19:35 Total Protein 7.1 gm/dl (6.0-8.3) 10/17/24 19:35 Albumin 4.2 gm/dl (3.4-5.0) 10/17/24 19:35 Globulin 2.9 gm/dl (2.5-4.0) 10/17/24 19:35 Albumin/Globulin Ratio 1.4 (0.9-2) 10/17/24 19:35 Impressions Chest X-Ray 10/17/24 19:23 Exam(s): XR CXR 1 VIEW EXAM: XR Chest, 1 View CLINICAL HISTORY: Reason for exam: Dyspnea. TECHNIQUE: Frontal view of the chest. COMPARISON: Chest radiograph On 12/20/2023 FINDINGS: Hardware: None. Lungs/pleura: Elevation of the right hemidiaphragm. Right basilar opacity. No pleural effusion or pneumothorax. Heart/mediastinum: Mild enlargement of the cardiac silhouette. Soft tissues: Unremarkable. Bones: No acute fracture. Upper abdomen: Normal. IMPRESSION: Probable right basilar atelectasis. No other focal consolidation. Electronically signed by: Rodolfo Chi M.D. 10/17/24 22:07 PM Chest CTA 10/17/24 20:36 Exam(s): CTA CHEST IV Amt: 115 ml optiray 320 EXAM: CT Angiography Chest With Intravenous Contrast CLINICAL HISTORY: Reason for exam: SOB, PE, + dimer. TECHNIQUE: Axial computed tomographic angiography images of the chest with intravenous contrast. CTDI is 28 mGy and DLP is 1000 mGy-cm. Automated exposure control was utilized for the study. A dose lowering technique was utilized adhering to the principles of ALARA. MIP reconstructed images were created and reviewed. COMPARISON: CT chest on 07/01/2021 FINDINGS: Pulmonary arteries: Unremarkable. No pulmonary embolus identified. Aorta: No acute findings. No aortic aneurysm or dissection. Lungs: Mosaic pattern of attenuation may represent atelectasis or air- trapping. Mild pulmonary edema not excluded. Mild groundglass opacity in the left upper lobe could represent atelectasis versus infectious/inflammatory process. Right greater than left bibasilar atelectasis. Pleural space: Trace right pleural effusion. No pneumothorax. Heart: Unremarkable. No cardiomegaly. No significant pericardial effusion. No evidence of RV dysfunction. Bones/joints: Degenerative changes of the spine. No acute fracture. No dislocation. Soft tissues: Unremarkable. Lymph nodes: Unremarkable. No enlarged lymph nodes. Adrenals: Probable small right adrenal myelolipoma, but solid nodular component is nonspecific. Upper abdomen: Elevation of the right hemidiaphragm. Other findings: Small calcified granulomas. IMPRESSION: 1. No pulmonary embolus identified. 2. No aortic aneurysm or dissection. 3. Mosaic pattern of attenuation may represent atelectasis or air- trapping. Mild pulmonary edema not excluded. Mild groundglass opacity in the left upper lobe could represent atelectasis versus infectious/inflammatory process. 4. Trace right pleural effusion. Electronically signed by: Rodolfo Chi M.D. 10/17/24 21:37 PM PG Care Time/CCT Total # of Minutes Spent Total Time Spent with Patient: Total time spent is greater than 50% in coordination of care (as documented) at patient's floor/unit and/or counseling patient: Coding Level of Care Code 64569 INT INP/OBS CARE 3/75MIN Diagnoses Atrial flutter I48.92 Hypertension I10 Dyslipidemia E78.5 Poorly controlled type 2 diabetes mellitus E11.65
--- NOTE | 2024-10-18 00:32 | Emergency Department Note ---
Impression & Plan Atrial flutter, Acute dyspnea, CHF exacerbation ED Provider Note NAME: CATERINA MERRILL AGE: 69 SEX: M : 1955 ARRIVES VIA: Walk-In INFORMANT: Patient, ED PROVIDER(S): Jennyfer Freeman MD CHIEF COMPLAINT: Shortness of breath HPI: This is a 69-year-old male presents for shortness of breath. For the past few days patient with increasing shortness of breath. He denies any current chest pain. He notes that he was seen previously by his PCP without abnormal findings. He notes that he has no pleurisy, nausea, vomiting, leg swelling. He notes that today he was at the store when he walked out of the building and towards his car. He was so short of breath he fell to his knees. No previous cardiac history. ROS: See above HPI for pertinent positives & negatives. A total of 10 systems reviewed and were otherwise negative. PAST MEDICAL HISTORY: See Below PAST SURGICAL HISTORY: See Below FAMILY HISTORY: See Below SOCIAL HISTORY: See Below HOME MEDICATIONS: See Below ALLERGIES: See Below VITALS: See Below PHYSICAL EXAMINATION: General: Elevated BMI Head: Normocephalic and atraumatic Eyes: Normal inspection, extraocular muscles intact Ear, nose, throat: Normal external exam Neck: Normal range of motion Respiratory: lungs clear to auscultation bilaterally Cardiovascular: Irregularly irregular rate/rhythm, no murmur GI: soft, nontender, no guarding or rebound Extremities: nontender, moves all extremities Neuro: The patient awake and alert, appropriately conversive, no focal deficits, symmetric faces Skin: Warm, dry, and intact MEDICAL DECISION MAKING: This is a 69-year-old male presenting for shortness of breath. Patient is overall clinically well, not hypotensive. Normal lung sounds. He is somewhat bradycardic in an atrial flutter rhythm. He is also hypoxic requiring oxygen, 2 L here. - ECG independently interpreted by me with atrial flutter with variable AV block, rate of 43, left axis deviation, normal QRS, normal QTc, no ST segment elevations consistent with STEMI criteria - Patient's heart rate does drop between 30 and 40 occasionally in atrial flutter rhythm. This may be explain his current symptoms of exertional dyspnea. - Blood work reviewed with no leukocytosis no significant anemia. Electrolytes within normal limits. Troponin is elevated and slightly rising with an elevated BNP. - D-dimer sent at triage prior to my evaluation. Is elevated. CTA ordered - CT does not reveal PE but does atelectasis/air trapping or pulmonary edema, mild. Left upper lobe opacity concerning for early atelectasis versus infectious/inflammatory process as well. Trace right pleural effusion - Due to patient's bradycardia, atrial flutter, elevated troponin, hypoxia, will admit to the hospitalist service. - Discussed care with Dr. Antunez for admission Differential diagnosis: ACS, PE, dissection, bradycardia, heart block Independent History obtained from: Diagnostics interpreted by me: ECG: See above Cardiac Monitoring: An order was placed for continuous cardiac monitoring. The monitor shows a rate of 54 with atrial flutter rhythm. Past Med/Surg History Problem List (Updated 10/18/24 @ 02:01 by Liberty Antunez DO) Atrial flutter Diabetic ulcer of left foot (Acute) Albuminuria Diabetic peripheral neuropathy associated with type 2 diabetes mellitus Diabetic nephropathy associated with type 2 diabetes mellitus Diabetic foot ulcer associated with type 2 diabetes mellitus Poorly controlled type 2 diabetes mellitus Class 3 obesity Prostate cancer History of colon polyps Obstructive sleep apnea (Chronic) Right nephrolithiasis (Chronic) Hypertension (Chronic) Dyslipidemia (Chronic) Medical History Chronic venous insufficiency Bilateral leg edema Sebaceous cyst Multiple atypical skin moles Renal cysts, acquired, bilateral BPH (benign prostatic hyperplasia) Surgical History Hx of cataract extraction Hx of lithotripsy 11/2021 AT [facility] S/P colonoscopy History of prostate biopsy H/O toe surgery Hx of tonsillectomy H/O knee surgery x2 LEFT Family History Mother Cancer passed from myeloma and breast cancer at 88 yrs. Breast cancer Father Myocardial infarction at 72 years Other Diabetes Social History Smoking Status: Never smoker Second Hand Exposure: No; Do You Dip or Chew Tobacco: No; Hx Alcohol Use: No Hx Substance Use: No Preferred Language: Bulgarian Communication Ability: Effective Visual Impairment: Limited Hearing Ability: Normal Undercover Operator Required: No Beliefs That Will Affect Care: None marital status: Current Living Situation: Spouse current occupational status: retired Feels Safe at Home: Yes Safety Concerns: Feels Safe At This Time Diet: regular caffeine: Yes during the past year weight has: remained stable Dental Care, Regularly: Yes Physical Activity Frequency: Does not Exercise Seatbelt Use: always Assistive Devices: CPAP and Glasses Allergies Allergies Allergy/AdvReac Type Severity Reaction Status Date / Time Penicillins Allergy Unknown unknown Verified 10/17/24 23:49 allergy as a child sulfamethoxazole AdvReac Intermediate Fever Verified 10/17/24 23:49 [From Bactrim] trimethoprim [From Bactrim] AdvReac Intermediate Fever Verified 10/17/24 23:49 Home Meds Home Medications Medication Instructions Recorded Confirmed metformin 500 mg tablet 1,000 mg PO BID 12/15/23 10/17/24 aspirin 81 mg tablet,delayed 81 mg PO DAILY 10/17/24 10/17/24 release insulin human U-100 NPH-regulr 30 unit subcut BID 10/17/24 10/17/24 70-30 mix 100 unit/mL subcutaneous susp (Novolin 70/30 U-100 Insulin) magnesium 250 mg tablet 250 mg PO DAILY 10/17/24 10/17/24 vit C 250 mg-vit E 90 mg-zinc 40 1 cap PO BID 10/17/24 10/17/24 mg-copper 1 [id number] capsule (PreserVision AREDS-2) Previous Rx's Medication Instructions Recorded CPAP Machine #1 ea 04/28/20 blood-glucose meter (True Metrix #1 ea 07/08/21 Glucose Meter) blood glucose control, low (True #1 ea 05/20/22 Metrix Level 1 solution) insulin syr/ndl U100 half rolly 0.5 #200 ea 10/23/23 mL 30 gauge x 5/16" rosuvastatin 20 mg tablet 20 mg PO DAILY #90 tabs 11/28/23 blood sugar diagnostic (True #200 strips 03/11/24 Metrix Glucose Test Strip) lancets 33 gauge (Ultra Thin #200 ea 04/25/24 Lancets) olmesartan 20 mg tablet 20 mg PO HS #30 tabs 06/03/24 Results & Data (ED) Vital Signs Vital Signs - 24 hr 10/17/24 19:19 10/17/24 20:05 10/17/24 20:25 Temperature 36.6 C Temperature Source Temporal Artery Scan Pulse Rate 79 77 Pulse Rate from SpO2 Sensor Respiratory Rate 22 Respiratory Effort / Characteristics Non-Labored Spontaneous Respiratory Depth Normal Blood Pressure 102/68 Blood Pressure Mean 79 Pulse Oximetry 93 92 Oxygen Delivery Method Room Air Room Air Oxygen Flow Rate Sepsis Recent Fever Within 48 Hours No Sepsis New/Unexplained Change in Mental Status No Sepsis Action Taken by Nursing No Action Required Oxygen Flow Rate - Titration Pulse Oximetry Post Tiitration 10/17/24 20:56 10/17/24 21:15 10/17/24 21:16 Temperature Temperature Source Pulse Rate 60 Pulse Rate from SpO2 Sensor Respiratory Rate 18 Respiratory Effort / Characteristics Respiratory Depth Blood Pressure 151/88 H 143/76 H Blood Pressure Mean 115 100 Pulse Oximetry 93 89 L Oxygen Delivery Method Room Air Room Air Oxygen Flow Rate Sepsis Recent Fever Within 48 Hours Sepsis New/Unexplained Change in Mental Status Sepsis Action Taken by Nursing Oxygen Flow Rate - Titration 2 Pulse Oximetry Post Tiitration 92 10/17/24 22:00 10/17/24 22:30 Temperature Temperature Source Pulse Rate 50 L 56 L Pulse Rate from SpO2 Sensor 55 L Respiratory Rate 15 20 Respiratory Effort / Characteristics Respiratory Depth Blood Pressure 172/7 H 176/106 H Blood Pressure Mean 62 130 Pulse Oximetry 96 96 Oxygen Delivery Method Nasal Cannula Nasal Cannula Oxygen Flow Rate 2 2 Sepsis Recent Fever Within 48 Hours Sepsis New/Unexplained Change in Mental Status Sepsis Action Taken by Nursing Oxygen Flow Rate - Titration Pulse Oximetry Post Tiitration Laboratory Data 10/17/24 19:35 10/17/24 19:35 Lab Results 10/17/24 10/17/24 Range/Units 19:35 21:16 WBC 6.70 (4.8-10.8) K/ul RBC 4.70 (4.70-6.10) M/uL Hgb 12.8 L (14.0-18.0) g/dl Hct 39.2 L (42.0-52.0) % MCV 83.4 (80.0-100.0) fL MCH 27.2 (25.0-34.0) pg MCHC 32.7 (32.0-36.0) g/dL RDW Std Deviation 44.7 (36.4-46.3) fL RDW Coeff of Daniel 15.0 H (11.5-14.5) % Plt Count 215 (130-400) K/uL MPV 9.4 (9.4-12.4) fL Immature Gran % (Auto) 0.3 % Neut % (Auto) 77.3 % Lymph % (Auto) 6.7 % [place] % (Auto) 12.8 % Eos % (Auto) 2.5 % Baso % (Auto) 0.4 % Neut # (Auto) 5.17 (1.40-6.50) K/uL Lymph # (Auto) 0.45 L (1.20-3.40) K/uL [place] # (Auto) 0.86 H (0.11-0.59) K/uL Eos # (Auto) 0.17 (0.00-0.50) K/uL Baso # (Auto) 0.03 (0.00-0.20) K/uL Immature Gran # (Auto) 0.02 (0.01-0.20) K/uL D-Dimer 2000 H* (0-500) ug/L FEU Sodium 139 (136-145) mmol/L Potassium 4.3 (3.5-5.1) mmol/L Chloride 106 (98-107) mmol/L Carbon Dioxide 29 (21-32) mmol/L Anion Gap 4 (3-11) BUN 20 (6-23) mg/dl Creatinine 0.74 (0.6-1.4) mg/dl Est Cr Clr Drug Dosing 143.9 ml/min eGFR 98.70 BUN/Creatinine Ratio 27.0 H (10-20) Glucose 146 H (70-99(Fasting)) mg/dl Calcium 9.2 (8.6-10.3) mg/dl Magnesium 1.7 (1.7-2.4) mg/dl Total Bilirubin 0.5 (0.2-1.0) mg/dl AST 18 (13-39) U/L ALT 19 (7-52) U/L Alkaline Phosphatase 78 (34-104) U/L Troponin I High Sens 24.5 H 26.0 H (0-20) pg/ml B-Natriuretic Peptide 363 H (0-100) pg/ml Total Protein 7.1 (6.0-8.3) gm/dl Albumin 4.2 (3.4-5.0) gm/dl Globulin 2.9 (2.5-4.0) gm/dl Albumin/Globulin Ratio 1.4 (0.9-2) Administered Medications Magnesium Sulfate/Dextrose (Magnesium Sulfate / D5w) 1 gm in 100 mls @ 50 mls/hr IV Q2H LIBBY Stop: 10/18/24 04:57 Last Admin: 10/18/24 01:16 Dose: 50 mls/hr Documented By: AFSHAN Discontinued Medications Ioversol (Optiray 320 125ml) 115 ml IV ONCE ONE Stop: 10/17/24 21:04 Last Admin: 10/17/24 21:03 Dose: 115 ml Documented By: ELISEO Imaging Data Radiologist's Impression: Chest X-Ray 10/17/24 19:23 Exam(s): XR CXR 1 VIEW EXAM: XR Chest, 1 View CLINICAL HISTORY: Reason for exam: Dyspnea. TECHNIQUE: Frontal view of the chest. COMPARISON: Chest radiograph On 12/20/2023 FINDINGS: Hardware: None. Lungs/pleura: Elevation of the right hemidiaphragm. Right basilar opacity. No pleural effusion or pneumothorax. Heart/mediastinum: Mild enlargement of the cardiac silhouette. Soft tissues: Unremarkable. Bones: No acute fracture. Upper abdomen: Normal. IMPRESSION: Probable right basilar atelectasis. No other focal consolidation. Electronically signed by: Rodolfo Chi M.D. 10/17/24 22:07 PM Chest CTA 10/17/24 20:36 Exam(s): CTA CHEST IV Amt: 115 ml optiray 320 EXAM: CT Angiography Chest With Intravenous Contrast CLINICAL HISTORY: Reason for exam: SOB, PE, + dimer. TECHNIQUE: Axial computed tomographic angiography images of the chest with intravenous contrast. CTDI is 28 mGy and DLP is 1000 mGy-cm. Automated exposure control was utilized for the study. A dose lowering technique was utilized adhering to the principles of ALARA. MIP reconstructed images were created and reviewed. COMPARISON: CT chest on 07/01/2021 FINDINGS: Pulmonary arteries: Unremarkable. No pulmonary embolus identified. Aorta: No acute findings. No aortic aneurysm or dissection. Lungs: Mosaic pattern of attenuation may represent atelectasis or air- trapping. Mild pulmonary edema not excluded. Mild groundglass opacity in the left upper lobe could represent atelectasis versus infectious/inflammatory process. Right greater than left bibasilar atelectasis. Pleural space: Trace right pleural effusion. No pneumothorax. Heart: Unremarkable. No cardiomegaly. No significant pericardial effusion. No evidence of RV dysfunction. Bones/joints: Degenerative changes of the spine. No acute fracture. No dislocation. Soft tissues: Unremarkable. Lymph nodes: Unremarkable. No enlarged lymph nodes. Adrenals: Probable small right adrenal myelolipoma, but solid nodular component is nonspecific. Upper abdomen: Elevation of the right hemidiaphragm. Other findings: Small calcified granulomas. IMPRESSION: 1. No pulmonary embolus identified. 2. No aortic aneurysm or dissection. 3. Mosaic pattern of attenuation may represent atelectasis or air- trapping. Mild pulmonary edema not excluded. Mild groundglass opacity in the left upper lobe could represent atelectasis versus infectious/inflammatory process. 4. Trace right pleural effusion. Electronically signed by: Rodolfo Chi M.D. 10/17/24 21:37 PM Discharge Plan Visit Data Chief Complaint: Shortness of Breath/Dyspnea Stated Complaint: TROUBLE BREATHING ED Provider: Jennyfer Freeman Discharge Problem: Atrial flutter, Acute dyspnea, CHF exacerbation Patient Disposition: Admitted As Inpatient Condition: Fair Discharge Instructions Interventions: ED Discharge Assessment Last Done: 10/17/24 23:57 Discharge Problem: Atrial flutter Qualifiers: Atrial flutter type: atypical Qualified Code(s): I48.4 - Atypical atrial flutter CHF exacerbation Qualifiers: Heart failure type: unspecified Qualified Code(s): I50.9 - Heart failure, unspecified
[2024-10-18] MEDS ORDERED: ONDANSETRON INJ 2 MG/ML 2 ML VIAL IV PRN (00:58)
[2024-10-18] MEDS ORDERED: ACETAMINOPHEN 325 MG TAB PO PRN (00:58)
[2024-10-18] MEDS ORDERED: CARBOHYDRATES FOR HYPOGLYCEMIA PO PRN (00:58)
[2024-10-18] MEDS ORDERED: GLUCOSE 10 TAB/TUBE PO PRN (00:58)
[2024-10-18] MEDS ORDERED: GLUCAGON FOR INJ 1 MG VIAL SQ PRN (00:58)
[2024-10-18] MEDS ORDERED: GLUCOSE 40% GEL 15 GM TUBE PO PRN (00:58)
[2024-10-18] MEDS ORDERED: DEXTROSE 50% 50 ML SYRINGE IV PRN (00:58)
[2024-10-18] MEDS: MAGNESIUM SULFATE / D5W 1 GM/100 ML BAG IV SCH (01:16)
[2024-10-18 02:09] LABS: Partial Thromboplastin Time 27 Seconds (21-31)
[2024-10-18] MEDS: HEPARIN 25000 UNIT/500 ML D5W 25,000 UNITS/500 ML BAG IV SCH (02:19)
[2024-10-18] MEDS: HEPARIN SOD (PORCINE) 1000 UNIT/ML IV ONE (02:20)
[2024-10-18] MEDS: Heparin IV Adult Wt-Based Standard w/ INITIAL Bolus Protocol IV SCH (07:03)
[2024-10-18] MEDS: LANTUS PER UNIT CHARGE SQ SCH (08:39)
[2024-10-18] MEDS: INSULIN ASPART PER UNIT CHARGE SC SCH (08:39)
[2024-10-18] MEDS: ASPIRIN 81 MG ECTAB PO SCH (08:40)
[2024-10-18] MEDS: ROSUVASTATIN CALCIUM 20 MG TAB PO SCH (08:40)
[2024-10-18 10:13] LABS: Hematocrit (blood only) 37.6 % (42.0-52.0); Hemoglobin 12.3 g/dl (14.0-18.0); Mean Corpuscular Hemoglobin 27.5 pg (25.0-34.0); Mean Corpuscular Hgb Conc 32.7 g/dL (32.0-36.0); Mean Corpuscular Volume 83.9 fL (80.0-100.0); Mean Platelet Volume 9.8 fL (9.4-12.4); Platelet Count 209 K/uL (130-400); RDW Coefficient of Variation 14.9 % (11.5-14.5); RDW Standard Deviation 45.1 fL (36.4-46.3); Red Blood Count 4.48 M/uL (4.70-6.10); White Blood Count 8.46 K/ul (4.8-10.8)
[2024-10-18 10:27] LABS: BUN Creatinine Ratio 23.2 (10-20); Calcium 9.1 mg/dl (8.6-10.3); Creatinine Clr Calc Pharmacy 160.3 ml/min; Potassium 4.1 mmol/L (3.5-5.1)
[2024-10-18 10:34] LABS: ANTI-Xa, UFH(UnfractionatedHep 0.57 IU/ml (0.3-0.7)
[2024-10-18 10:35] LABS: Troponin I High Sensitivity 20.9 pg/ml (0-20)
[2024-10-18 10:42] LABS: Thyroid Stimulating Hormone 3.305 uIu/ml (0.300-4.500)
--- NOTE | 2024-10-18 11:07 | XCELERA ---
[id number]
--- NOTE | 2024-10-18 11:12 | Cardiology Consultation ---
Date of Consultation October 18, 2024 Assessment & Plan (1) Atrial flutter: (2) Dyspnea on exertion: (3) Pulmonary hypertension: (4) Obstructive sleep apnea: (5) Hypertension: Plan ASSESSMENT/PLAN: 1. Atrial flutter: We discussed the diagnosis. Rate has been well-controlled a nd at times even bradycardic earlier this hospital stay. We discussed treatment strategies. Will try to achieve sinus rhythm but onset is not known. Would recommend transesophageal echo prior to any more urgent conversion to sinus rhythm but he was not n.p.o. today. Otherwise, could anticoagulate for 4 weeks and then consider cardioversion or ablation if he is able to tolerate the rhythm with reasonable heart rates. Unclear if this is the cause of his dyspnea on presentation. Recommended that he ambulate in the hallway to evaluate heart rate response and also symptoms. Continue Eliquis for stroke risk reduction. Monitor CBC. 2. Pulmonary hypertension: Etiology possibly due to untreated sleep apnea. There also may be an element of hypervolemia (lower extremity edema, elevated BNP, dyspnea on exertion, atrial flutter). Difficult exam given body habitus. Recommend treatment for sleep apnea. Consider diuresis. CTA reported no pulmonary embolism. 3. Dyspnea on exertion: Could be due to atrial flutter. There may be an element of hypervolemia, however difficult exam. Recommend Lasix 20 mg IV x 1. Strict I's and O's. Daily weights. Low-sodium diet. Ambulate in the hallway to assess symptoms. If remains significantly dyspneic, may need to try to achieve sinus rhythm sooner rather than later for quality of life. 4. Sleep apnea: Does not wear CPAP as he sleeps prone. Recommend treatment if able. 5. Hypertension: Blood pressure elevated. Will give a dose of diuretic as above. Can make further adjustments as per hospitalist service as necessary for blood pressure management. Continue ARB. 6. Disposition: He walked with nursing staff in the hallway. Heart rate increased up to 116 bpm. He was short of breath however I did not feel comfortable going home. Plan as above. I will be away from the hospital for the next week. After 5 PM today, Dr. Wilcox will be available for further questions/concerns. On discharge, would recommend follow up with electrophysiology for consideration of atrial flutter ablation as an option for long-term management. Patient care communicated with primary hospitalist, Dr. Boss. Thank you for allowing me to participate in the care of your patient. Please call for any other questions or concerns. Sincerely, Tony Byrd M.D. History of Present Illness Attending Physician: Dickson Boss MD, PhD History of Present Illness Mr. Woodson is a very pleasant 69-year-old gentleman with a history significant for type 2 diabetes, hypertension, dyslipidemia, and sleep apnea (does not use CPAP). He has had the following studies/procedures: 1. Nuclear stress 04/27/2023 [facility]: Negative for ischemia. EF 60%. 2. Holter 04/18/2023 to 05/02/2023: Sinus with average HR 77 (47-133). Occasional atrial ectopy. Nonsustained atrial tachycardia. Frequent PVCs (4% burden). Nonsustained VT of 4 beats. 3. Echo 10/18/2024: Normal LV size, wall motion, systolic function. EF 55-60%. Moderate LVH. Dilated RV with normal systolic function. Mild biatrial dilation. Mild MR. RVSP 55. He was admitted on 10/17/2024 due to dyspnea on exertion. On the day of presentation, he noted dyspnea on exertion with nonstrenuous exertion. He got out of his car and walked a short distance and had to stop to catch his breath. He denies syncope, near syncope, palpitations, orthopnea, edema, or bleeding such as melena, hematochezia, or hematuria. He feels a little short of breath currently in bed on 1 L of supplemental oxygen. He denies dyspnea on exertion while using the restroom in his hospital room. He denies fevers, chills, strokelike symptoms. Review of systems: As above. Family history: Father had [place] in his 70s. Social history: Denies smoking, alcohol, or drug abuse. He lives at home with his . No children. 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 Originally from [place]. He was unaccompanied. Allergies Allergy/AdvReac Type Severity Reaction Status Date / Time Penicillins Allergy Unknown unknown Verified 10/17/24 23:49 allergy as a child sulfamethoxazole AdvReac Intermediate Fever Verified 10/17/24 23:49 [From Bactrim] trimethoprim [From Bactrim] AdvReac Intermediate Fever Verified 10/17/24 23:49 Home Medications Medication Instructions Recorded Confirmed Type CPAP Machine #1 ea 04/28/20 10/07/24 Rx blood-glucose meter (True Metrix #1 ea 07/08/21 10/07/24 Rx Glucose Meter) blood glucose control, low (True #1 ea 05/20/22 10/07/24 Rx Metrix Level 1 solution) insulin syr/ndl U100 half rolly 0.5 #200 ea 10/23/23 10/07/24 Rx mL 30 gauge x /" rosuvastatin 20 mg tablet 20 mg PO DAILY #90 tabs 11/28/23 10/17/24 Rx metformin 500 mg tablet 1,000 mg PO BID 12/15/23 10/17/24 History blood sugar diagnostic (True #200 strips 03/11/24 10/07/24 Rx Metrix Glucose Test Strip) lancets 33 gauge (Ultra Thin #200 ea 04/25/24 10/07/24 Rx Lancets) olmesartan 20 mg tablet 20 mg PO HS #30 tabs 06/03/24 10/17/24 Rx aspirin 81 mg tablet,delayed 81 mg PO DAILY 10/17/24 10/17/24 History release insulin human U-100 NPH-regulr 30 unit subcut BID 10/17/24 10/17/24 History 70-30 mix 100 unit/mL subcutaneous susp (Novolin 70/30 U-100 Insulin) magnesium 250 mg tablet 250 mg PO DAILY 10/17/24 10/17/24 History vit C 250 mg-vit E 90 mg-zinc 40 1 cap PO BID 10/17/24 10/17/24 History mg-copper 1 [id number] capsule (PreserVision AREDS-2) Problem List (Updated 10/18/24 @ 15:33 by Serafin Byrd MD) Pulmonary hypertension Dyspnea on exertion Atrial flutter Diabetic ulcer of left foot (Acute) Albuminuria Diabetic peripheral neuropathy associated with type 2 diabetes mellitus Diabetic nephropathy associated with type 2 diabetes mellitus Diabetic foot ulcer associated with type 2 diabetes mellitus Poorly controlled type 2 diabetes mellitus Class 3 obesity Prostate cancer History of colon polyps Obstructive sleep apnea (Chronic) Right nephrolithiasis (Chronic) Hypertension (Chronic) Dyslipidemia (Chronic) Patient History Medical History Chronic venous insufficiency Bilateral leg edema Sebaceous cyst Multiple atypical skin moles Renal cysts, acquired, bilateral BPH (benign prostatic hyperplasia) Surgical History Hx of cataract extraction Hx of lithotri[facility] 11[facility] S/P colonoscopy History of prostate biopsy H/O toe surgery Hx of tonsillectomy H/O knee surgery x2 LEFT Family History Mother Cancer passed from myeloma and breast cancer at 88 yrs. Breast cancer Father Myocardial infarction at 72 years Other Diabetes Social History Smoking Status: Never smoker Second Hand Exposure: No; Do You Dip or Chew Tobacco: No; Hx Alcohol Use: No Hx Substance Use: No Preferred Language: Danish Communication Ability: Effective Visual Impairment: Limited Hearing Ability: Normal Angular Js Developer Required: No Beliefs That Will Affect Care: None marital status: Current Living Situation: Spouse current occupational status: retired Feels Safe at Home: Yes Safety Concerns: Feels Safe At This Time Diet: regular caffeine: Yes during the past year weight has: remained stable Dental Care, Regularly: Yes Physical Activity Frequency: Does not Exercise Seatbelt Use: always Assistive Devices: Walker Physical Exam Physical Exam: Gen.: No acute distress. Alert. HEENT: Anicteric sclera. Neck: Thick neck. No appreciable JVD or hepatojugular reflux. No bruits. Normal carotid upstrokes bilaterally. Cardiac: Irregularly irregular. Normal S1-S2. No murmurs, rubs, or gallops. Pulmonary: Clear to auscultation bilaterally without wheezes, rales, or rhonchi. Abdomen: Soft, nontender, nondistended, with normoactive bowel sounds. No bruits noted. Extremities: 2+ radial pulses bilaterally. 2+ posterior tibialis pulses bilaterally. Trace to 1+ bilateral lower extremity edema. No cyanosis. Psychiatric: Affect appears appropriate. Results & Data Vital Signs (Past 12 Hours) Vital Signs Temp Pulse Pulse Resp BP BP Pulse Ox 10/18/24 08:49 158/89 H 10/18/24 07:48 36.8 C 61 22 177/96 H 94 10/18/24 02:38 36.6 C 61 20 133/56 L 96 10/18/24 01:38 56 L 10/18/24 01:38 10/18/24 00:53 36.7 C 63 18 168/78 H 98 10/17/24 23:57 10/17/24 23:51 54 L 18 145/80 H 96 O2 Del Method O2 Flow Rate 10/18/24 08:49 10/18/24 07:48 Room Air 10/18/24 02:38 Nasal Cannula 2.0 10/18/24 01:38 10/18/24 01:38 Room Air 10/18/24 00:53 Nasal Cannula 2 10/17/24 23:57 Nasal Cannula 2 10/17/24 23:51 Nasal Cannula 2 Intake & Output 10/16/24 10/17/24 10/18/24 10/19/24 06:59 06:59 06:59 06:59 Intake Total 350 / 350 835.3 / 835.3 Balance 350 / 350 835.3 / 835.3 Weight 337 lb 15.498 oz Laboratory Results Laboratory Results - last 24 hr 10/17/24 10/17/24 10/18/24 19:35 21:16 01:18 WBC 6.70 RBC 4.70 Hgb 12.8 L Hct 39.2 L MCV 83.4 MCH 27.2 MCHC 32.7 RDW Std Deviation 44.7 RDW Coeff of Daniel 15.0 H Plt Count 215 MPV 9.4 Immature Gran % (Auto) 0.3 Neut % (Auto) 77.3 Lymph % (Auto) 6.7 Lipscomb % (Auto) 12.8 Eos % (Auto) 2.5 Baso % (Auto) 0.4 Neut # (Auto) 5.17 Lymph # (Auto) 0.45 L Lipscomb # (Auto) 0.86 H Eos # (Auto) 0.17 Baso # (Auto) 0.03 Immature Gran # (Auto) 0.02 PT 11.0 INR 1.0 APTT 27 PTT Ratio 1.0 D-Dimer 2000 H* Heparin Anti-Xa, Unfract Sodium 139 Potassium 4.3 Chloride 106 Carbon Dioxide 29 Anion Gap 4 BUN 20 Creatinine 0.74 Est Cr Clr Drug Dosing 143.9 eGFR 98.70 BUN/Creatinine Ratio 27.0 H Glucose 146 H POC Glucose Lactate Calcium 9.2 Magnesium 1.7 Total Bilirubin 0.5 AST 18 ALT 19 Alkaline Phosphatase 78 Troponin I High Sens 24.5 H 26.0 H B-Natriuretic Peptide 363 H Total Protein 7.1 Albumin 4.2 Globulin 2.9 Albumin/Globulin Ratio 1.4 Procalcitonin TSH 10/18/24 10/18/24 10/18/24 01:43 07:15 09:32 WBC 8.46 RBC 4.48 L Hgb 12.3 L Hct 37.6 L MCV 83.9 MCH 27.5 MCHC 32.7 RDW Std Deviation 45.1 RDW Coeff of Daniel 14.9 H Plt Count 209 MPV 9.8 Immature Gran % (Auto) Neut % (Auto) Lymph % (Auto) Lipscomb % (Auto) Eos % (Auto) Baso % (Auto) Neut # (Auto) Lymph # (Auto) Lipscomb # (Auto) Eos # (Auto) Baso # (Auto) Immature Gran # (Auto) PT INR APTT PTT Ratio D-Dimer Heparin Anti-Xa, Unfract 0.57 Sodium 138 Potassium 4.1 Chloride 102 Carbon Dioxide 32 Anion Gap 4 BUN 16 Creatinine 0.69 Est Cr Clr Drug Dosing 160.3 eGFR 100.80 BUN/Creatinine Ratio 23.2 H Glucose 225 H POC Glucose 130 H 200 H Lactate 1.1 Calcium 9.1 Magnesium Total Bilirubin AST ALT Alkaline Phosphatase Troponin I High Sens 20.9 H B-Natriuretic Peptide Total Protein Albumin Globulin Albumin/Globulin Ratio Procalcitonin < 0.02 TSH 3.305 10/18/24 11:04 WBC RBC Hgb Hct MCV MCH MCHC RDW Std Deviation RDW Coeff of Daniel Plt Count MPV Immature Gran % (Auto) Neut % (Auto) Lymph % (Auto) Lipscomb % (Auto) Eos % (Auto) Baso % (Auto) Neut # (Auto) Lymph # (Auto) Lipscomb # (Auto) Eos # (Auto) Baso # (Auto) Immature Gran # (Auto) PT INR APTT PTT Ratio D-Dimer Heparin Anti-Xa, Unfract Sodium Potassium Chloride Carbon Dioxide Anion Gap BUN Creatinine Est Cr Clr Drug Dosing eGFR BUN/Creatinine Ratio Glucose POC Glucose Pending Lactate Calcium Magnesium Total Bilirubin AST ALT Alkaline Phosphatase Troponin I High Sens B-Natriuretic Peptide Total Protein Albumin Globulin Albumin/Globulin Ratio Procalcitonin TSH Diagnostic Findings ECHO 10/18/24: 1. Normal left ventricular size and systolic function. EF 55-60%. No regional wall motion abnormalities. Moderate concentric left ventricular hypertrophy. 2. Right ventricle not well-visualized but appears dilated with normal systolic function. 3. Mild biatrial dilation. 4. Mild mitral regurgitation. 5. Borderline dilated aortic root for age adjusted BSA. 6. Moderate pulmonary hypertension. Estimated RVSP 55 mmHg. 7. Technically difficult study, enhanced with IV Definity. 8. Atrial flutter with heart rates 50s to 60s bpm. 9. Compared to prior study on 04/11/2023 atrial flutter has replaced sinus. RVSP is now able to be estimated and noted to be moderately elevated. Labs reviewed and notable for elevated D-dimer, peak high-sensitivity troponin 26; mildly elevated BNP; normal INR; normal potassium, normal renal function, normal magnesium, normal TSH, normal transaminase levels, mild but stable anemia. History and physical report reviewed. CTA chest 10/17/2024: No PE. No aortic dissection/aneurysm. Mosaic pattern of the lungs. Mild groundglass opacity left upper lobe which may represent atelectasis versus infectious/inflammatory process per radiology. ECGs personally reviewed: ECG 10/17/2024 192: Atrial flutter 67 bpm. Poor R wave progression. Inferior infarct. Medications Administered Current Inpatient Medications Acetaminophen (Acetaminophen 325 Mg Tab) 650 mg PO Q4H PRN PRN Reason: Pain or Fever Stop: 11/17/24 00:57 Aspirin (Aspirin 81 Mg Ectab) 81 mg PO DAILY LIBBY Stop: 11/17/24 08:59 Last Admin: 10/18/24 08:40 Dose: 81 mg Dextrose (Dextrose 50% 50 Ml Syringe) 25 - 50 ml IV UD PRN; Protocol PRN Reason: Hypoglycemia Protocol Stop: 11/17/24 00:57 Glucagon (Glucagon For Inj 1 Mg Vial) 1 mg SQ UD PRN; Protocol PRN Reason: Hypoglycemia Protocol Stop: 11/17/24 00:57 Glucose (Glucose 40% Gel 15 Gm Tube) 15 - 30 gm PO UD PRN; Protocol PRN Reason: Hypoglycemia Protocol Stop: 11/17/24 00:57 Glucose (Glucose 10 Tab/Tube) 4 - 8 tab PO UD PRN; Protocol PRN Reason: Hypoglycemia Protocol Stop: 11/17/24 00:57 Heparin Sodium/Dextrose (Heparin 62968 Unit/500 Ml D5w) 25,000 units in 500 mls @ 38 mls/hr IV .[id number] [facility]; Protocol Stop: 11/17/24 00:57 Last Titration: 10/18/24 10:46 Dose: 1,900 units/hr, 38 mls/hr Insulin Aspart (Insulin Aspart Per Unit Charge) 0 units SC ACHS [facility] Stop: 11/17/24 07:29 Last Admin: 10/18/24 08:39 Dose: 11 units Insulin Glargine (Lantus Per Unit Charge) 20 units SQ BID [facility] Stop: 11/17/24 08:59 Last Admin: 10/18/24 08:39 Dose: 20 units Losartan Potassium (Losartan Potassium 50 Mg Tab) 50 mg PO HS [facility] Stop: 11/17/24 20:59 Miscellaneous (Carbohydrates For Hypoglycemia ) 15 - 30 gm PO UD PRN PRN Reason: Hypoglycemia Protocol Stop: 11/17/24 00:57 Ondansetron HCl (Ondansetron Inj 2 Mg/Ml 2 Ml Vial) 4 mg IV Q6H PRN PRN Reason: Nausea And Vomiting Stop: 11/17/24 00:57 Rosuvastatin Calcium (Rosuvastatin Calcium 20 Mg Tab) 20 mg PO DAILY [facility] Stop: 11/17/24 08:59 Last Admin: 10/18/24 08:40 Dose: 20 mg PG Care Time/CCT Total # of Minutes Spent Total Time Spent with Patient: Total time spent is greater than 50% in coordination of care (as documented) at patient's floor/unit and/or counseling patient: Coding Level of Care Code 27317 INT INP/OBS CARE 3/75MIN Diagnoses Atrial flutter I48.92 Dyspnea on exertion R06.09 Pulmonary hypertension I27.20 Obstructive sleep apnea G47.33 Hypertension I10
--- NOTE | 2024-10-18 11:23 | XRay Report ---
KUB HISTORY: abdominal distention; eval for ascites COMPARISON STUDY: 09/13/2021 FINDINGS: There is moderate retained stool. No bowel obstruction seen. No gross free air. IMPRESSION: No acute findings. ACT 112: Negative or not required by law. The above report was generated using voice recognition software. It may contain grammatical, syntax o r spelling errors. Electronically signed by: Ottoniel Hall M.D. 10/18/2024 11:22 AM
--- NOTE | 2024-10-18 16:18 | Hospitalist Progress Note ---
Date of Service October 18, 2024 Assessment & Plan (1) Atrial flutter: (2) Hypertension: (3) Dyslipidemia: (4) Poorly controlled type 2 diabetes mellitus: Plan 69 years old male with PMH of FULL CODE @ home, morbid obesity with BMI 43.4 (height 188.0 cm; weight 153.3 kg), NEVAEH, non-compliant with nocturnal CPAP as patient reports that "I sleep on my belly, so I cannot wear the CPAP mask on my face when I am lying down on my belly, you know what I mean?", hyperlipidemia on rosuvastatin 20mg PO daily, HTN on olmesartan 20mg PO qhs, and insulin-dependent DM2 with HbA1c 7.7% (06/03/2024, 3:27pm), on metformin 1000mg PO bid and 70/30 insulin 30 units SQ bid with meals, who presented to [facility] ER on 10/17/2024 with several days of shortness of breath, both at rest and with exertion, as well as some orthopnea. Patient found to be in new onset atrial flutter 3-4: 1 conduction with episodes of bradycardia with rates in the 30s to 40s. CTA chest (10/17/2024, 8:36pm) revealed mosaic pattern of attenuation representing possible mild pulmonary edema as well as trace right pleural effusion. Patient was subsequently admitted to the inpatient hospitalist service @ [facility] on 10/17/2024 with the following diagnosis: 1. New onset, atrial flutter with variable AV block (e.g., 3:1, 4:1 AV conduction block) with intermittent bradycardia. The following medical issues are being addressed on 10/18/2024: #Atrial flutternew onset, rate presently 63 bpm. Patient did have episodes of rates in the 30s to 40s. Blood pressure has been acceptable. suspect some degree of failure with volume overload in setting of new onset atrial flutter given patient's shortness of breath, pulmonary edema noted on imaging as well as elevated BNP. Unknown symptom duration. reports that she noted some shortness of breath ongoing for at least the last 3 days. Await TTE (10/18/2024) D/C heparin drip and start eliquis 5mg PO bid (10/18/2024, 9:00pm) with a nticipated cardioversion on Monday (10/21/2024) as per CARDS Service. [id number] score = 3 (age = 69, history of hypertension, history of diabetes), Patient will likely require ongoing anticoagulation for stroke prevention AFTER anticipated cardioversion on Monday (10/21/2024) as per CARDS Service. #HypertensionBP 150/85 (10/18/2024, 3:26pm) Continue home-scheduled olmesartan 20 mg PO qhs Continue telemetry #Insulin-dependent DM2 with HbA1c 7.7% (06/03/2024, 3:27pm), on metformin 1000mg PO bid and 70/30 insulin 30 units SQ bid with meals at home. Hold off home-scheduled metformin 1000mg PO bid. Continue Lantus 20 units twice daily with lispro insulin sliding scale qac + qhs #Hyperlipidemia. Continue home-scheduled rosuvastatin 20mg PO daily Admission and Anticipated Discharge Date Admission Date: October 17, 2024 Subjective "I feel fine. No complaints." Review of Systems Constitutional: Negative for antecedent/coincident fevers, chills, diaphoresis, shortness of breath, cough, wheeze, sore throat, hemoptysis, chest pains, palpitations, pleurisy, nausea, vomiting, diarrhea, abdominal pain, pelvic pain, hematemesis, hematochezia, melena, hematuria, dysuria, frequency, urgency, headaches, dizziness, lightheadedness, visual changes, hearing changes, weakness, falls, syncope, trauma, travel history, sick contacts, or food/drug ingestions novel or new. All other review of systems are reported as negative by the patient on 10/18/2024. Physical Exam Constitutional: General: Comfortable, coherent, cooperative. Wide awake and alert. Not confused, lethargic, or obtunded. Patient speaks in complete, fluent, and articulate sentences without pause, cough, or wheeze, with O2 sat 93% on 2 liters/minute O2 via nasal cannula (10/17/2024, 3:57pm). HEENT: Normocephalic, atraumatic. Extra-ocular muscles intact. Pupils equally round and reactive to light. No nystagmus, gaze paresis, anisocoria, miosis, mydriasis, hyphema, scleral injection, conjunctivitis, or pterygium. No otorrhea or rhinorrhea. No pharyngeal erythema, edema, or discharge. Neck: Supple, no stridor, bruit, goiter, or hepato-jugular reflux. Jugular venous pressure is estimated to be 3 cm above the sternal angle of Fran, which in turn, is 5 cm above the level of the right atrium; with jugular venous pressure estimated to be 8 cm, then, there is no jugular venous distention on 10/17/2024. Lymphatics: No cervical (anterior/posterior), supraclavicular, infraclavicular, axillary, epitrochlear, or inguinal adenopathy. Chest: Symmetric rise and fall with respirations. Non-tender to palpation. Lungs: Clear to auscultation and percussion. Heart: Irregularly irregular rhythm. Normal rate; intermittently less than 60 bpm overnight (e.g., 10/17/2024, 10:00pm to 10/18/2024, 1:38am with HR ranging from 50-56 bpm). S1 and S2 noted. No S3 or S4 summation gallop. No tripartite friction rub. Grade II/ early systolic murmur @ LLSB without radiation to the carotids, axilla, or back, and which remains invariant in regards to the respiratory cycle. Abdomen: Soft, generalized tenderness, non-distended. No rebound, guarding, Huston's sign, or organomegaly. Bowel sounds auscultated in all 4 quadrants. Drain in situ on right. Extremities: No clubbing, cyanosis, or edema. Skin: No decubitus ulcer, exanthem, or enanthem. Genito-urinary: No urethral discharge. No chu catheter. Neurology: Alert and oriented in regards to person, place, time, and situation. DTR+ and symmetric. 5/5 motor strength in all 4 extremities, both proximally and distally. No pronator drift. No facial droop. No dysarthria. Psychiatry: No homicidal ideation. No suicidal ideation. No flat affect; smiles appropriately. Results & Data Results & Data Vital Signs (Past 12 Hours) Vital Signs Temp Pulse Resp BP Pulse Ox O2 Del Method 10/18/24 15:26 36.8 C 63 20 150/85 H 91 Room Air 10/18/24 11:24 36.8 C 64 20 147/88 H 94 Room Air 10/18/24 11:00 Room Air 10/18/24 08:49 158/89 H 10/18/24 07:48 36.8 C 61 22 177/96 H 94 Room Air Laboratory Results Abnormal lab results 10/17/24 10/17/24 10/18/24 Range/Units 19:35 21:16 01:43 RBC (4.70-6.10) M/uL Hgb 12.8 L (14.0-18.0) g/dl Hct 39.2 L (42.0-52.0) % RDW Coeff of Daniel 15.0 H (11.5-14.5) % Lymph # (Auto) 0.45 L (1.20-3.40) K/uL [place] # (Auto) 0.86 H (0.11-0.59) K/uL D-Dimer 2000 H* (0-500) ug/L FEU BUN/Creatinine Ratio 27.0 H (10-20) Glucose 146 H (70-99(Fasting)) mg/dl POC Glucose 130 H (70-99) mg/dl Troponin I High Sens 24.5 H 26.0 H (0-20) pg/ml B-Natriuretic Peptide 363 H (0-100) pg/ml 10/18/24 10/18/24 10/18/24 Range/Units 07:15 09:32 11:04 RBC 4.48 L (4.70-6.10) M/uL Hgb 12.3 L (14.0-18.0) g/dl Hct 37.6 L (42.0-52.0) % RDW Coeff of Daniel 14.9 H (11.5-14.5) % Lymph # (Auto) (1.20-3.40) K/uL [place] # (Auto) (0.11-0.59) K/uL D-Dimer (0-500) ug/L FEU BUN/Creatinine Ratio 23.2 H (10-20) Glucose 225 H (70-99(Fasting)) mg/dl POC Glucose 200 H 197 H (70-99) mg/dl Troponin I High Sens 20.9 H (0-20) pg/ml B-Natriuretic Peptide (0-100) pg/ml Diagnostic Findings Chest X-Ray 10/17/24 19:23 Exam(s): XR CXR 1 VIEW EXAM: XR Chest, 1 View CLINICAL HISTORY: Reason for exam: Dyspnea. TECHNIQUE: Frontal view of the chest. COMPARISON: Chest radiograph On 12/20/2023 FINDINGS: Hardware: None. Lungs/pleura: Elevation of the right hemidiaphragm. Right basilar opacity. No pleural effusion or pneumothorax. Heart/mediastinum: Mild enlargement of the cardiac silhouette. Soft tissues: Unremarkable. Bones: No acute fracture. Upper abdomen: Normal. IMPRESSION: Probable right basilar atelectasis. No other focal consolidation. Electronically signed by: Rodolfo Chi M.D. 10/17/24 22:07 PM Chest CTA 10/17/24 20:36 Exam(s): CTA CHEST IV Amt: 115 ml optiray 320 EXAM: CT Angiography Chest With Intravenous Contrast CLINICAL HISTORY: Reason for exam: SOB, PE, + dimer. TECHNIQUE: Axial computed tomographic angiography images of the chest with intravenous contrast. CTDI is 28 mGy and DLP is 1000 mGy-cm. Automated exposure control was utilized for the study. A dose lowering technique was utilized adhering to the principles of ALARA. MIP reconstructed images were created and reviewed. COMPARISON: CT chest on 07/01/2021 FINDINGS: Pulmonary arteries: Unremarkable. No pulmonary embolus identified. Aorta: No acute findings. No aortic aneurysm or dissection. Lungs: Mosaic pattern of attenuation may represent atelectasis or air- trapping. Mild pulmonary edema not excluded. Mild groundglass opacity in the left upper lobe could represent atelectasis versus infectious/inflammatory process. Right greater than left bibasilar atelectasis. Pleural space: Trace right pleural effusion. No pneumothorax. Heart: Unremarkable. No cardiomegaly. No significant pericardial effusion. No evidence of RV dysfunction. Bones/joints: Degenerative changes of the spine. No acute fracture. No dislocation. Soft tissues: Unremarkable. Lymph nodes: Unremarkable. No enlarged lymph nodes. Adrenals: Probable small right adrenal myelolipoma, but solid nodular component is nonspecific. Upper abdomen: Elevation of the right hemidiaphragm. Other findings: Small calcified granulomas. IMPRESSION: 1. No pulmonary embolus identified. 2. No aortic aneurysm or dissection. 3. Mosaic pattern of attenuation may represent atelectasis or air- trapping. Mild pulmonary edema not excluded. Mild groundglass opacity in the left upper lobe could represent atelectasis versus infectious/inflammatory process. 4. Trace right pleural effusion. Electronically signed by: Rodolfo Chi M.D. 10/17/24 21:37 PM KUB X-Ray 10/18/24 10:39 KUB HISTORY: abdominal distention; eval for ascites COMPARISON STUDY: 09/13/2021 FINDINGS: There is moderate retained stool. No bowel obstruction seen. No gross free air. IMPRESSION: No acute findings. ACT 112: Negative or not required by law. The above report was generated using voice recognition software. It may contain grammatical, syntax or spelling errors. Electronically signed by: Ottoniel Hall M.D. 10/18/2024 11:22 AM PG Care Time/CCT Total # of Minutes Spent Total Time Spent with Patient: Total time spent is greater than 50% in coordination of care (as documented) at patient's floor/unit and/or counseling patient: Coding Level of Care Code 31693 SUB INP/OBS CARE 2/35MIN Diagnoses Atrial flutter I48.92 Hypertension I10 Dyslipidemia E78.5 Poorly controlled type 2 diabetes mellitus E11.65
[2024-10-18] MEDS: FUROSEMIDE INJ 20 MG/2 ML VIAL IV ONE (16:47)
[2024-10-18] MEDS: LOSARTAN POTASSIUM 50 MG TAB PO SCH (20:02)
[2024-10-18] MEDS: APIXABAN 5 MG TABLET PO SCH (20:02)
--- NOTE | 2024-10-18 23:53 | Electrocardiogram Report ---
Test Reason : Blood Pressure : */* mmHG Vent. Rate : 67 BPM Atrial Rate : 241 BPM P-R Int : * ms QRS Dur : 108 ms QT Int : 418 ms P-R-T Axes : 35 -59 63 degrees QTcB Int : 441 ms Atrial flutter with variable A-V block Left axis deviation Inferior infarct , age undetermined Anterior infarct , age undetermined Abnormal ECG When compared with ECG of 01-Jul-2021 00:04, Atrial flutter has replaced Sinus rhythm Incomplete right bundle branch block is no longer Present Inferior infarct is now Present Confirmed by Serafin Byrd ([id number]) on 10/18/2024 11:53:38 PM Referred By: Sourav Healy Confirmed By: Serafin Byrd
--- NOTE | 2024-10-18 23:54 | Electrocardiogram Report ---
Test Reason : Blood Pressure : */* mmHG Vent. Rate : 43 BPM Atrial Rate : 227 BPM P-R Int : * ms QRS Dur : 110 ms QT Int : 452 ms P-R-T Axes : 59 -45 53 degrees QTcB Int : 381 ms Atrial flutter with variable A-V block with premature ventricular or aberrantly conducted complexes Left axis deviation Abnormal ECG When compared with ECG of 17-Oct-2024 19:27, Vent. rate has decreased by 24 bpm Confirmed by Serafin Byrd ([id number]) on 10/18/2024 11:54:01 PM Referred By: Sourav Healy Confirmed By: Serafin Byrd
[2024-10-19 02:21] LABS: Appearance Urine Clear (Clear); Bilirubin Urine Negative (Negative); Blood Urine Negative (Negative); Color Urine Yellow; Glucose Urine UA Negative (Negative); Ketones Urine Negative (Negative); Leukocyte Esterase Urine Negative (Negative); Nitrite Urine Negative (Negative); Protein Urine Negative (Negative); Specific Gravity Urine 1.013 (1.000-1.030); Urobilinogen Urine Negative (Negative)
--- NOTE | 2024-10-19 08:51 | Cardiology Progress Note ---
Date of Service October 19, 2024 Assessment & Plan (1) Atrial flutter: (2) Dyspnea on exertion: (3) Pulmonary hypertension: (4) Obstructive sleep apnea: (5) Hypertension: Plan ASSESSMENT/PLAN: 1. Atrial flutter: Few symptoms associated with the arrhythmia. Overall rate control appears to be adequate without rate controlling medications. Some concern for occult conduction disease, but he did not describe any symptoms suggestive of bradycardia or other heart disease leading up to his admission. If he is feeling well and ambulatory, he could certainly be discharged on anticoagulation with follow-up in the outpatient setting. If he is not feeling well and wishes to stay until Monday we can arrange for cardioversion at that time. 2. Pulmonary hypertension: Etiology possibly due to untreated sleep apnea. There also may be an element of hypervolemia (lower extremity edema, elevated BNP, dyspnea on exertion, atrial flutter). He had a marked diuresis yesterday with a single dose of Lasix. 3. Dyspnea on exertion: Improved with diuresis. 4. Sleep apnea: Does not wear CPAP as he sleeps prone. Recommend treatment if able. Likely the etiology behind his echocardiogram findings and atrial flutter. Admission and Anticipated Discharge Date Admission Date: October 17, 2024 Subjective This morning patient claimed to be feeling well. He did several laps around the [place] yesterday and afterwards felt mildly short of breath. Not limiting. No associated chest pain. No dizziness or lightheadedness. He is not aware of any palpitations. Review of Systems Review of Systems: Per HPI Physical Exam Physical Exam: The patient is alert and oriented. Mood and affect appeared normal. He answered all questions appropriately. HEENT: Pupils are equal and reactive to light and accommodation. Extraocular movements are intact. The sclerae are anicteric. Neuro: Cranial nerves intact Lungs: Clear to auscultation bilaterally. He has good air movement without use of accessory muscles. No rales wheezes or rhonchi. Cardiac: Heart demonstrates an irregular rhythm. Normal S1 and S2. No murmurs on examination. Pulses: The patient has palpable radial pulses bilaterally that are equal in intensity Extremities: There was no evidence of hypoperfusion. There is no cyanosis or clubbing. Skin: I did not appreciate any rashes on examination today. Results & Data Vital Signs (Past 12 Hours) Vital Signs Temp Pulse Pulse Resp BP BP Pulse Ox 10/19/24 07:57 36.4 C L 68 16 124/73 10/19/24 03:56 36.5 C 82 18 159/80 H 92 10/19/24 00:19 36.8 C 62 18 155/92 H 97 10/18/24 22:02 74 10/18/24 21:33 O2 Del Method O2 Flow Rate 10/19/24 07:57 10/19/24 03:56 Room Air 10/19/24 00:19 Nasal Cannula 3 10/18/24 22:02 10/18/24 21:33 Nasal Cannula 3 Laboratory Results Abnormal Lab Results 10/18/24 10/18/24 10/18/24 09:32 11:04 16:28 WBC 8.46 RBC 4.48 L Hgb 12.3 L Hct 37.6 L MCV 83.9 MCH 27.5 MCHC 32.7 RDW Std Deviation 45.1 RDW Coeff of Daniel 14.9 H Plt Count 209 MPV 9.8 Heparin Anti-Xa, Unfract 0.57 Sodium 138 Potassium 4.1 Chloride 102 Carbon Dioxide 32 Anion Gap 4 BUN 16 Creatinine 0.69 Est Cr Clr Drug Dosing 160.3 eGFR 100.80 BUN/Creatinine Ratio 23.2 H Glucose 225 H POC Glucose 197 H 136 H Lactate 1.1 Calcium 9.1 Troponin I High Sens 20.9 H Procalcitonin < 0.02 TSH 3.305 Urine Color Urine Appearance Urine pH Ur Specific [place] Urine Protein Urine Glucose (UA) Urine Ketones Urine Blood Urine Nitrite Urine Bilirubin Urine Urobilinogen Ur Leukocyte Esterase 10/18/24 10/19/24 10/19/24 21:44 02:08 07:25 WBC RBC Hgb Hct MCV MCH MCHC RDW Std Deviation RDW Coeff of Daniel Plt Count MPV Heparin Anti-Xa, Unfract Sodium Potassium Chloride Carbon Dioxide Anion Gap BUN Creatinine Est Cr Clr Drug Dosing eGFR BUN/Creatinine Ratio Glucose POC Glucose 152 H 142 H Lactate Calcium Troponin I High Sens Procalcitonin TSH Urine Color Yellow Urine Appearance Clear Urine pH 6.0 Ur Specific [place] 1.013 Urine Protein Negative Urine Glucose (UA) Negative Urine Ketones Negative Urine Blood Negative Urine Nitrite Negative Urine Bilirubin Negative Urine Urobilinogen Negative Ur Leukocyte Esterase Negative Diagnostic Findings Echocardiogram 10/18/2024: Ejection fraction 55 to 60%. Moderate LVH. Possibly dilated right ventricle with normal systolic function. Mild biatrial dilation. Mild mitral regurgitation. PG Care Time/CCT Total # of Minutes Spent Total Time Spent with Patient: Total time spent is greater than 50% in coordination of care (as documented) at patient's floor/unit and/or counseling patient: Coding Level of Care Code 27135 SUB INP/OBS CARE 2/35MIN Diagnoses Atrial flutter I48.92 Dyspnea on exertion R06.09 Pulmonary hypertension I27.20 Obstructive sleep apnea G47.33 Hypertension I10
[2024-10-19] MEDS: FUROSEMIDE 40 MG/4 ML VIAL IV ONE (15:44)
--- NOTE | 2024-10-19 18:56 | Hospitalist Progress Note ---
Date of Service October 19, 2024 Assessment & Plan (1) Atrial flutter: (2) Hypertension: (3) Dyslipidemia: (4) Poorly controlled type 2 diabetes mellitus: Plan 69 years old male with PMH of FULL CODE @ home, morbid obesity with BMI 43.4 (height 188.0 cm; weight 153.3 kg), NEVAEH, non-compliant with nocturnal CPAP as patient reports that "I sleep on my belly, so I cannot wear the CPAP mask on my face when I am lying down on my belly, you know what I mean?", hyperlipidemia on rosuvastatin 20mg PO daily, HTN on olmesartan 20mg PO qhs, and insulin-dependent DM2 with HbA1c 7.7% (06/03/2024, 3:27pm), on metformin 1000mg PO bid and 70/30 insulin 30 units SQ bid with meals, who presented to [facility] ER on 10/17/2024 with several days of shortness of breath, both at rest and with exertion, as well as some orthopnea. Patient found to be in new onset atrial flutter 3-4: 1 conduction with episodes of bradycardia with rates in the 30s to 40s. CTA chest (10/17/2024, 8:36pm) revealed mosaic pattern of attenuation representing possible mild pulmonary edema as well as trace right pleural effusion. Patient was subsequently admitted to the inpatient hospitalist service @ [facility] on 10/17/2024 with the following diagnosis: 1. New onset, atrial flutter with variable AV block (e.g., 3:1, 4:1 AV conduction block) with intermittent bradycardia. The following medical issues are being addressed on 10/19/2024: 1. New onset, atrial flutter with variable AV block (e.g., 3:1, 4:1 AV conduction block) with intermittent bradycardia. Ventricular rate now c onsistently greater than 60 bpm on 10/18/2024 pm, and also on 10/19/2024 am. Patient did have episodes of rates in the 30s to 40s on 10/17/2024. Blood pressure has been acceptable. Suspect some degree of failure with volume overload in setting of new onset atrial flutter given patient's shortness of breath, pulmonary edema noted on imaging as well as elevated BNP. Unknown symptom duration. reports that she noted some shortness of breath ongoing for at least the last 3 days. TTE (10/18/2024, 11:07 am) reveals: a. Normal LVEF 55-60%. No regional LV wall motion abnormalities. Moderate concentric LVH. b. RV dilated with normal RV systolic function. c. Mild bi-atrial dilation. d. Mild mitral regurgitation. e. Borderline dilated aortic root for age-adjusted BSA 2.7 meters squared. f. Moderate pulmonary HTN with RVSP 55 mm Hg. g. Atrial flutter with HR 50s to 60s bpm. h. Compared to prior 04/11/2023 TTE, atrial flutter has replaced sinus. RVSP is now able to be estimated and noted to be moderately elevated. (as per CARDS Dr. Serafin Byrd). D/C'd heparin drip and started eliquis 5mg PO bid (10/18/2024, 9:00pm) with anticipated cardioversion on Monday (10/21/2024) as per CARDS Service. [id number] score = 3 (age = 69, history of hypertension, history of diabetes), Patient will likely require ongoing anticoagulation for stroke prevention AFTER anticipated cardioversion on Monday (10/21/2024) as per CARDS Service. 2. Acute type II NSTEMI. cf., troponin-I #1 24.5 pg/mL (10/17/2024, 7:35 pm). cf., troponin-I #2 26.0 pg/mL (10/17/2024, 9:16 pm). cf., troponin-I #3 20.9 pg/mL (10/18/2024, 9:32 am). cf., TTE (10/18/2024, 11:07 am): No regional LV wall motion abnormalities. Etiology of nominal troponin-I elevations is most probably due to demand ischemia due to (1) new onset atrial flutter, rate-controlled; (2) chronic diastolic CHF with preserved LVEF 55-60% and grade I LV diastolic dysfunction (as noted on 06/18/2019, 11:47 am TTE, CARDS Dr. Serafin Byrd). 3. Chronic diastolic CHF with preserved LVEF 55-60% and grade I LV diastolic dysfunction (as noted on 06/18/2019, 11:47 am TTE, CARDS Dr. Serafin Byrd). Not acute exacerbation of chronic diastolic CHF as patient reports no weight gain, paroxysmal nocturnal dyspnea, orthopnea, or platypnea on admission date 10/17/2024. Hence, patient receives medical management of chronic diastolic CHF by adhering to a 2 gram Na diet, daily weights, strict I/O, losartan 50mg PO qhs, and lasix 20mg IV x 1 dose (10/18/2024, 4:47 pm). Of note, no fluid restriction is warranted on 10/18/2024. Other secondary medical issues include: #HypertensionBP 150/85 (10/18/2024, 3:26pm) Continue home-scheduled olmesartan 20 mg PO qhs Continue telemetry #Insulin-dependent DM2 with HbA1c 7.7% (06/03/2024, 3:27pm), on metformin 1000mg PO bid and 70/30 insulin 30 units SQ bid with meals at home. Hold off home-scheduled metformin 1000mg PO bid. Continue Lantus 20 units twice daily with lispro insulin sliding scale qac + qhs #Hyperlipidemia. Continue home-scheduled rosuvastatin 20mg PO daily Admission and Anticipated Discharge Date Admission Date: October 17, 2024 Subjective "I feel fine. No complaints today. The heart doctor told me yesterday that I will get the cardioversion on Monday (10/21/2024); till then, he said to stay in hospital and make sure that I can breathe ok." Review of Systems Constitutional: Negative for antecedent/coincident fevers, chills, diaphoresis, shortness of breath, cough, wheeze, sore throat, hemoptysis, chest pains, palpitations, pleurisy, nausea, vomiting, diarrhea, abdominal pain, pelvic pain, hematemesis, hematochezia, melena, hematuria, dysuria, frequency, urgency, headaches, dizziness, lightheadedness, visual changes, hearing changes, weakness, falls, syncope, trauma, travel history, sick contacts, or food/drug ingestions novel or new. All other review of systems are reported as negative by the patient on 10/19/2024. Physical Exam Constitutional: General: Comfortable, coherent, cooperative. Wide awake and alert. Not confused, lethargic, or obtunded. Patient speaks in complete, fluent, and articulate sentences without pause, cough, or wheeze, with O2 sat 92% on room a ir (10/19/2024, 3:56 am). HEENT: Normocephalic, atraumatic. Extra-ocular muscles intact. Pupils equally round and reactive to light. No nystagmus, gaze paresis, anisocoria, miosis, mydriasis, hyphema, scleral injection, conjunctivitis, or pterygium. No otorrhea or rhinorrhea. No pharyngeal erythema, edema, or discharge. Neck: Supple, no stridor, bruit, goiter, or hepato-jugular reflux. Jugular venous pressure is estimated to be 3 cm above the sternal angle of Fran, which in turn, is 5 cm above the level of the right atrium; with jugular venous pressure estimated to be 8 cm, then, there is no jugular venous distention on 10/17/2024. Lymphatics: No cervical (anterior/posterior), supraclavicular, infraclavicular, axillary, epitrochlear, or inguinal adenopathy. Chest: Symmetric rise and fall with respirations. Non-tender to palpation. Lungs: Clear to auscultation and percussion. Heart: Irregularly irregular rhythm. Normal rate consistently greater than 60 bpm overnight and this 10/19/2024 am. S1 and S2 noted. No S3 or S4 summation gallop. No tripartite friction rub. Grade II/ early systolic murmur @ LLSB without radiation to the carotids, axilla, or back, and which remains invariant in regards to the respiratory cycle. Abdomen: Soft, generalized tenderness, non-distended. No rebound, guarding, Huston's sign, or organomegaly. Bowel sounds auscultated in all 4 quadrants. Extremities: No clubbing, cyanosis, or edema. Skin: No decubitus ulcer, exanthem, or enanthem. Genito-urinary: No urethral discharge. No chu catheter. Neurology: Alert and oriented in regards to person, place, time, and situation. DTR+ and symmetric. 5/5 motor strength in all 4 extremities, both proximally and distally. No pronator drift. No facial droop. No dysarthria. Psychiatry: No homicidal ideation. No suicidal ideation. No flat affect; smiles appropriately Results & Data Results & Data Vital Signs (Past 12 Hours) Vital Signs Temp Pulse Resp BP BP Pulse Ox O2 Del Method 10/19/24 16:12 36.4 C L 58 L 18 113/58 L 97 Nasal Cannula 10/19/24 11:30 36.4 C L 55 L 18 119/73 98 Nasal Cannula 10/19/24 09:00 Room Air 10/19/24 07:57 36.4 C L 68 16 124/73 O2 Flow Rate 10/19/24 16:12 10/19/24 11:30 3 10/19/24 09:00 10/19/24 07:57 Laboratory Results Abnormal lab results 10/18/24 10/19/24 10/19/24 Range/Units 21:44 07:25 11:25 POC Glucose 152 H 142 H 157 H (70-99) mg/dl 10/19/24 Range/Units 15:59 POC Glucose 144 H (70-99) mg/dl PG Care Time/CCT Total # of Minutes Spent Total Time Spent with Patient: Total time spent is greater than 50% in coordination of care (as documented) at patient's floor/unit and/or counseling patient: Coding Level of Care Code 62892 SUB INP/OBS CARE 2/35MIN Diagnoses Atrial flutter I48.92 Hypertension I10 Dyslipidemia E78.5 Poorly controlled type 2 diabetes mellitus E11.65
--- NOTE | 2024-10-20 08:25 | Cardiology Progress Note ---
Date of Service October 20, 2024 Assessment & Plan (1) Atrial flutter: (2) Dyspnea on exertion: (3) Pulmonary hypertension: (4) Obstructive sleep apnea: (5) Hypertension: Plan ASSESSMENT/PLAN: 1. Atrial flutter: Few symptoms associated with the arrhythmia. Overall rate control appears to be adequate without rate controlling medications. Planning cardioversion tomorrow as a temporizing measure with eventual outpatient ablation. He will continue on systemic anticoagulation with Eliquis. 2. Pulmonary hypertension: Etiology possibly due to untreated sleep apnea. There also may be an element of hypervolemia (lower extremity edema, elevated BNP, dyspnea on exertion, atrial flutter). He had a marked diuresis yesterday with a single dose of Lasix. 3. Dyspnea on exertion: Still some dyspnea. I think we will get a chemistry panel to look at his renal function electrolytes before administering any additional diuretic. He may feel better once he is back in sinus rhythm as well. 4. Sleep apnea: Does not wear CPAP as he sleeps prone. Recommend treatment if able. Likely the etiology behind his echocardiogram findings and atrial flutter. Admission and Anticipated Discharge Date Admission Date: October 17, 2024 Subjective Patient states that he had some breathing difficulty overnight. He was able to ambulate around the jeffers yesterday with some dyspnea. Last night he came back from the commode and felt more short of breath. He had some difficulty sleeping due to interruptions. He did not report overt orthopnea. No sense of p alpitation. No dizziness. Some headache today. Review of Systems Review of Systems: Per HPI Physical Exam Physical Exam: The patient is alert and oriented. Mood and affect appeared normal. He answered all questions appropriately. HEENT: Pupils are equal and reactive to light and accommodation. Extraocular movements are intact. The sclerae are anicteric. Neuro: Cranial nerves intact Lungs: Some crackles in the bases bilaterally. No expiratory wheezing. Normal respiratory effort. Cardiac: Heart demonstrates an irregular rhythm. Normal S1 and S2. No murmurs on examination. Pulses: The patient has palpable radial pulses bilaterally that are equal in intensity Extremities: There was no evidence of hypoperfusion. There is no cyanosis or clubbing. Skin: I did not appreciate any rashes on examination today. Results & Data Vital Signs (Past 12 Hours) Vital Signs Temp Pulse Pulse Resp BP Pulse Ox O2 Del Method 10/20/24 07:00 36.5 C 76 20 117/72 95 Nasal Cannula 10/20/24 03:25 36.6 C 59 L 18 158/83 H 97 Nasal Cannula 10/20/24 00:16 139/78 10/19/24 22:50 62 10/19/24 22:41 36.6 C 64 18 165/93 H 95 Nasal Cannula Laboratory Results Abnormal Lab Results 10/19/24 10/19/24 10/19/24 11:25 15:59 20:43 POC Glucose 157 H 144 H 135 H 10/20/24 07:11 POC Glucose 149 H PG Care Time/CCT Total # of Minutes Spent Total Time Spent with Patient: Total time spent is greater than 50% in coordination of care (as documented) at patient's floor/unit and/or counseling patient: Coding Level of Care Code 62320 SUB INP/OBS CARE 2/35MIN Diagnoses Atrial flutter I48.92 Dyspnea on exertion R06.09 Pulmonary hypertension I27.20 Obstructive sleep apnea G47.33 Hypertension I10
[2024-10-20 09:08] LABS: BUN Creatinine Ratio 25.6 (10-20); Calcium 9.5 mg/dl (8.6-10.3); Creatinine Clr Calc Pharmacy 134.2 ml/min; Potassium 4.1 mmol/L (3.5-5.1)
[2024-10-20] MEDS: FUROSEMIDE 40 MG/4 ML VIAL IV ONE (11:56)
--- NOTE | 2024-10-20 19:39 | Hospitalist Progress Note ---
Date of Service October 20, 2024 Assessment & Plan (1) Atrial flutter: (2) Hypertension: (3) Dyslipidemia: (4) Poorly controlled type 2 diabetes mellitus: Plan 69 years old male with PMH of FULL CODE @ home, morbid obesity with BMI 43.4 (height 188.0 cm; weight 153.3 kg), NEVAEH, non-compliant with nocturnal CPAP as patient reports that "I sleep on my belly, so I cannot wear the CPAP mask on my face when I am lying down on my belly, you know what I mean?", hyperlipidemia on rosuvastatin 20mg PO daily, HTN on olmesartan 20mg PO qhs, and insulin-dependent DM2 with HbA1c 7.7% (06/03/2024, 3:27pm), on metformin 1000mg PO bid and 70/30 insulin 30 units SQ bid with meals, who presented to [facility] ER on 10/17/2024 with several days of shortness of breath, both at rest and with exertion, as well as some orthopnea. Patient found to be in new onset atrial flutter 3-4: 1 conduction with episodes of bradycardia with rates in the 30s to 40s. CTA chest (10/17/2024, 8:36pm) revealed mosaic pattern of attenuation representing possible mild pulmonary edema as well as trace right pleural effusion. Patient was subsequently admitted to the inpatient hospitalist service @ [facility] on 10/17/2024 with the following diagnosis: 1. New onset, atrial flutter with variable AV block (e.g., 3:1, 4:1 AV conduction block) with intermittent bradycardia. The following medical issues are being addressed on 10/19/2024: 1. New onset, atrial flutter with variable AV block (e.g., 3:1, 4:1 AV conduction block) with intermittent bradycardia. Ventricular rate now c onsistently greater than 60 bpm on 10/18/2024 pm, and also on 10/19/2024 am/pm, and on 10/20/2024 am. Patient did have episodes of rates in the 30s to 40s on 10/17/2024. Blood pressure has been acceptable. Suspect some degree of failure with volume overload in setting of new onset atrial flutter given patient's shortness of breath, pulmonary edema noted on imaging as well as elevated BNP. Unknown symptom duration. reports that she noted some shortness of breath ongoing for at least the last 3 days. TTE (10/18/2024, 11:07 am) reveals: a. Normal LVEF 55-60%. No regional LV wall motion abnormalities. Moderate concentric LVH. b. RV dilated with normal RV systolic function. c. Mild bi-atrial dilation. d. Mild mitral regurgitation. e. Borderline dilated aortic root for age-adjusted BSA 2.7 meters squared. f. Moderate pulmonary HTN with RVSP 55 mm Hg. g. Atrial flutter with HR 50s to 60s bpm. h. Compared to prior 04/11/2023 TTE, atrial flutter has replaced sinus. RVSP is now able to be estimated and noted to be moderately elevated. (as per CARDS Dr. Serafin Byrd). D/C'd heparin drip and started eliquis 5mg PO bid (10/18/2024, 9:00pm) with anticipated cardioversion on Monday (10/21/2024) as per CARDS Service. [id number] score = 3 (age = 69, history of hypertension, history of diabetes), Patient will likely require ongoing anticoagulation for stroke prevention AFTER anticipated cardioversion on Monday (10/21/2024) as per CARDS Service. 2. Acute type II NSTEMI. cf., troponin-I #1 24.5 pg/mL (10/17/2024, 7:35 pm). cf., troponin-I #2 26.0 pg/mL (10/17/2024, 9:16 pm). cf., troponin-I #3 20.9 pg/mL (10/18/2024, 9:32 am). cf., TTE (10/18/2024, 11:07 am): No regional LV wall motion abnormalities. Etiology of nominal troponin-I elevations is most probably due to demand ischemia due to (1) new onset atrial flutter, rate-controlled; (2) chronic diastolic CHF with preserved LVEF 55-60% and grade I LV diastolic dysfunction (as noted on 06/18/2019, 11:47 am TTE, CARDS Dr. Serafin Byrd). 3. Chronic diastolic CHF with preserved LVEF 55-60% and grade I LV diastolic dysfunction (as noted on 06/18/2019, 11:47 am TTE, CARDS Dr. Serafin Byrd). Not acute exacerbation of chronic diastolic CHF as patient reports no weight gain, paroxysmal nocturnal dyspnea, orthopnea, or platypnea on admission date 10/17/2024. Hence, patient receives medical management of chronic diastolic CHF by adhering to a 2 gram Na diet, daily weights, strict I/O, losartan 50mg PO qhs, and lasix 20mg IV x 1 dose (10/18/2024, 4:47 pm). Of note, no fluid restriction is warranted on 10/18/2024. Other secondary medical issues include: #HypertensionBP 150/85 (10/18/2024, 3:26pm) Continue home-scheduled olmesartan 20 mg PO qhs Continue telemetry #Insulin-dependent DM2 with HbA1c 7.7% (06/03/2024, 3:27pm), on metformin 1000mg PO bid and 70/30 insulin 30 units SQ bid with meals at home. Hold off home-scheduled metformin 1000mg PO bid. Continue Lantus 20 units twice daily with lispro insulin sliding scale qac + qhs #Hyperlipidemia. Continue home-scheduled rosuvastatin 20mg PO daily Admission and Anticipated Discharge Date Admission Date: October 17, 2024 Subjective "I feel fine. Tomorrow the heart doc said he will do the cardioversion and then I can go home. I am ready to go home. No complaints today." Review of Systems Constitutional: Negative for antecedent/coincident fevers, chills, diaphoresis, shortness of breath, cough, wheeze, sore throat, hemoptysis, chest pains, palpitations, pleurisy, nausea, vomiting, diarrhea, abdominal pain, pelvic pain, hematemesis, hematochezia, melena, hematuria, dysuria, frequency, urgency, headaches, dizziness, lightheadedness, visual changes, hearing changes, weakness, falls, syncope, trauma, travel history, sick contacts, or food/drug ingestions novel or new. All other review of systems are reported as negative by the patient on 10/20/2024. Physical Exam Constitutional: General: Comfortable, coherent, cooperative. Wide awake and alert. Not confused, lethargic, or obtunded. Patient speaks in complete, fluent, and articulate sentences without pause, cough, or wheeze, with O2 sat 95% on 1.5 liters/minute O2 via nasal cannula (10/20/2024, 7:00 am). HEENT: Normocephalic, atraumatic. Extra-ocular muscles intact. Pupils equally round and reactive to light. No nystagmus, gaze paresis, anisocoria, miosis, mydriasis, hyphema, scleral injection, conjunctivitis, or pterygium. No otorrhea or rhinorrhea. No pharyngeal erythema, edema, or discharge. Neck: Supple, no stridor, bruit, goiter, or hepato-jugular reflux. Jugular venous pressure is estimated to be 3 cm above the sternal angle of Fran, which in turn, is 5 cm above the level of the right atrium; with jugular venous pressure estimated to be 8 cm, then, there is no jugular venous distention on 10/20/2024. Lymphatics: No cervical (anterior/posterior), supraclavicular, infraclavicular, axillary, epitrochlear, or inguinal adenopathy. Chest: Symmetric rise and fall with respirations. Non-tender to palpation. Lungs: Clear to auscultation and percussion. Heart: Irregularly irregular rhythm. Normal rate consistently greater than 60 bpm overnight and this 10/20/2024 am. S1 and S2 noted. No S3 or S4 summation gallop. No tripartite friction rub. Grade II/ early systolic murmur @ LLSB without radiation to the carotids, axilla, or back, and which remains invariant in regards to the respiratory cycle. Abdomen: Soft, generalized tenderness, non-distended. No rebound, guarding, Huston's sign, or organomegaly. Bowel sounds auscultated in all 4 quadrants. Extremities: No clubbing, cyanosis, or edema. Skin: No decubitus ulcer, exanthem, or enanthem. Genito-urinary: No urethral discharge. No chu catheter. Neurology: Alert and oriented in regards to person, place, time, and situation. DTR+ and symmetric. 5/5 motor strength in all 4 extremities, both proximally and distally. No pronator drift. No facial droop. No dysarthria. Psychiatry: No homicidal ideation. No suicidal ideation. No flat affect; smiles appropriately Results & Data Results & Data Vital Signs (Past 12 Hours) Vital Signs Temp Pulse Resp BP Pulse Ox O2 Del Method O2 Flow Rate 10/20/24 16:00 36.6 C 62 18 133/73 96 Nasal Cannula 10/20/24 12:15 91 Room Air 10/20/24 10:41 36.5 C 58 L 20 121/73 94 Nasal Cannula 10/20/24 09:00 Nasal Cannula 2 Diagnostic Findings EKG (10/20/2024, 8:48am): Atrial flutter @ 70, QTC 469, no acute ST depressions/elevations (by my review). EKG (10/17/2024, 10:07pm): Atrial flutter @ 43, QTC 381, no acute ST depressions/elevations (by my review). PG Care Time/CCT Total # of Minutes Spent Total Time Spent with Patient: Total time spent is greater than 50% in coordination of care (as documented) at patient's floor/unit and/or counseling patient: Coding Level of Care Code 24346 SUB INP/OBS CARE 2/35MIN Diagnoses Atrial flutter I48.92 Hypertension I10 Dyslipidemia E78.5 Poorly controlled type 2 diabetes mellitus E11.65
--- NOTE | 2024-10-21 06:54 | Anesthesiology Consultation ---
Date of Service October 21, 2024 Assessment & Plan (1) Pulmonary hypertension: (2) Dyspnea on exertion: (3) Atrial flutter: (4) Diabetic ulcer of left foot: (5) Diabetic peripheral neuropathy associated with type 2 diabetes mellitus: (6) Class 3 obesity: (7) Prostate cancer: (8) Obstructive sleep apnea: (9) Right nephrolithiasis: (10) Hypertension: (11) Dyslipidemia: Chart Review Chart Review: Acceptable Risk for Surgery Consults Requested none ASA ASA3 Proposed Anesthesia Anesthesia Type: MAC Risk / Benefits Reviewed With: PT / POA / Parent / Guardian, Accepts Plan and Informed Consent Obtained History Surgery Operation Date: 10/21/24 07:15 Proposed Procedures p Cardioversion w/Anesthesia Sedation - Vasquez Wilcox MD Height/Weight Height: 6 ft 2 in Weight: 145.745 kg Allergies Allergy/AdvReac Type Severity Reaction Status Date / Time Penicillins Allergy Unknown unknown Verified 10/17/24 23:49 allergy as a child sulfamethoxazole AdvReac Intermediate Fever Verified 10/17/24 23:49 [From Bactrim] trimethoprim [From Bactrim] AdvReac Intermediate Fever Verified 10/17/24 23:49 Medications Home Medications Medication Instructions Recorded Confirmed Last Taken CPAP Machine #1 ea 04/28/20 10/07/24 02/07/23 blood-glucose meter (True Metrix #1 ea 07/08/21 10/07/24 02/07/23 Glucose Meter) blood glucose control, low (True #1 ea 05/20/22 10/07/24 02/07/23 Metrix Level 1 solution) insulin syr/ndl U100 half rolly 0.5 #200 ea 10/23/23 10/07/24 Unknown mL 30 gauge x 5/16" rosuvastatin 20 mg tablet 20 mg PO DAILY #90 tabs 11/28/23 10/17/24 Unknown metformin 500 mg tablet 1,000 mg PO BID 12/15/23 10/17/24 Unknown blood sugar diagnostic (True #200 strips 03/11/24 10/07/24 Unknown Metrix Glucose Test Strip) lancets 33 gauge (Ultra Thin #200 ea 04/25/24 10/07/24 Unknown Lancets) olmesartan 20 mg tablet 20 mg PO HS #30 tabs 06/03/24 10/17/24 Unknown aspirin 81 mg tablet,delayed 81 mg PO DAILY 10/17/24 10/17/24 Unknown release insulin human U-100 NPH-regulr 30 unit subcut BID 10/17/24 10/17/24 Unknown 70-30 mix 100 unit/mL subcutaneous susp (Novolin 70/30 U-100 Insulin) magnesium 250 mg tablet 250 mg PO DAILY 10/17/24 10/17/24 Unknown vit C 250 mg-vit E 90 mg-zinc 40 1 cap PO BID 10/17/24 10/17/24 Unknown mg-copper 1 ut-pkeuet-etidrr capsule (PreserVision AREDS-2) Active Medications Generic Name Dose Route Start Last Admin Trade Name Freq PRN Reason Stop Dose Admin Apixaban 5 mg 10/18/24 21:00 10/20/24 19:48 Apixaban 5 Mg Tablet PO 11/17/24 20:59 5 mg BID LIBBY Administration Aspirin 81 mg 10/18/24 09:00 10/20/24 08:08 Aspirin 81 Mg Ectab PO 11/17/24 08:59 81 mg DAILY LIBBY Administration Insulin Aspart 0 units 10/18/24 07:30 10/21/24 06:20 Insulin Aspart Per Unit Charge SC 11/17/24 07:29 Not Given ACHS LIBBY Insulin Glargine 20 units 10/18/24 09:00 10/20/24 21:20 Lantus Per Unit Charge SQ 11/17/24 08:59 20 units BID LIBBY Administration Losartan Potassium 50 mg 10/18/24 21:00 10/20/24 19:48 Losartan Potassium 50 Mg Tab PO 11/17/24 20:59 50 mg HS LIBBY Administration Rosuvastatin Calcium 20 mg 10/18/24 09:00 10/20/24 08:09 Rosuvastatin Calcium 20 Mg Tab PO 11/17/24 08:59 20 mg DAILY LIBBY Administration NPO Date Last Intake of Fluids: 10/20/24 Time Last Intake of Fluids: 23:59 Date Last Intake of Solids: 10/20/24 Time Last Intake of Solids: 23:59 Past Medical History Medical History Chronic venous insufficiency Bilateral leg edema Sebaceous cyst Multiple atypical skin moles Renal cysts, acquired, bilateral BPH (benign prostatic hyperplasia) Exercise / Class Metabolic Activity III < 4 Walking/Shop/Light housework Past Family History Family History Mother Cancer passed from myeloma and breast cancer at 88 yrs. Breast cancer Father Myocardial infarction at 72 years Other Diabetes Past Surgical History Surgical History Hx of cataract extraction Hx of lithotripsy 11/2021 AT [facility] S/P colonoscopy History of prostate biopsy H/O toe surgery Hx of tonsillectomy H/O knee surgery x2 LEFT Past Anesthesia History No Hx of Anesthesia Complications and No Family Hx of Anesthesia Complications History of PONV No Hx of PONV and No Hx of Motion Sickness Social History Smoking Status: Never smoker Do You Dip or Chew Tobacco: No Hx Alcohol Use: No alcohol intake frequency: other Hx Substance Use: No substance use type: does not use Physical Exam Vital Signs Last Vital Signs Temp 36.7 C 10/21/24 06:23 Pulse 69 10/21/24 06:23 Resp 18 10/21/24 06:23 BP 134/84 10/21/24 06:23 Pulse Ox 96 10/21/24 06:23 O2 Del Method Nasal Cannula 10/21/24 06:23 O2 Flow Rate 2 10/21/24 06:23 Constitutional + morbidly obese ENMT Mouth: no TMJ abnormality Thyromental Distance: > or= 3.5 Finger Breadths Mallampati Class: II Neck normal visual inspection, trachea midline and + facial hair; neck extension not limited Respiratory normal respiratory effort Auscultation: lungs clear to auscultation bilaterally and + diminished lung sounds Cardiovascular Rate/Rhythm: regular rate; + abnormal rhythm (irreg) Heart Sounds: no murmur Musculoskeletal Spine: normal cervical ROM Extremities: full ROM of extremities Neurologic moves all extremities Psychiatric Orientation: alert and oriented x 3 Testing Laboratory Results 10/18/24 09:32 10/20/24 08:27 PT 11.0 Seconds (9.0-12.0) 10/18/24 01:18 INR 1.0 (0.9-1.1) 10/18/24 01:18 APTT 27 Seconds (21-31) 10/18/24 01:18 Urine Color Yellow 10/19/24 02:08 Urine Appearance Clear (Clear) 10/19/24 02:08 Urine pH 6.0 (4.5-7.5) 10/19/24 02:08 Ur Specific [place] 1.013 (1.000-1.030) 10/19/24 02:08 Urine Protein Negative (Negative) 10/19/24 02:08 Urine Glucose (UA) Negative (Negative) 10/19/24 02:08 Urine Ketones Negative (Negative) 10/19/24 02:08 Urine Nitrite Negative (Negative) 10/19/24 02:08 Ur Leukocyte Esterase Negative (Negative) 10/19/24 02:08 10/21/24 10/20/24 06:20 20:38 POC Glucose 120 H 154 H Electrocardiogram Date: 10/20/24 Aflutter@69bpm QTc 469msec Chest X-Ray Date: 10/17/24 Findings: + atelectasis (right basilar) Echocardiogram Date: 10/18/24 EF: 55-60 LV Function: normal Valvular Disease: + MR (mild) mod pulm HTN mild biatrial dil (4) Diabetic ulcer of left foot Diabetes mellitus type: type 2 Diabetic foot ulcer location: toe Non- pressure ulcer stage: with fat layer exposed Qualified Code(s): E11.621 - Type 2 diabetes mellitus with foot ulcer; L97.522 - Non-pressure chronic ulcer of other part of left foot with fat layer exposed
--- NOTE | 2024-10-21 08:07 | Anesthesiology Progress Note ---
Date of Service October 21, 2024 Anesthesia Post Procedure Vital Signs Vital Signs: Temp Pulse Pulse Resp BP BP Pulse Ox 10/21/24 07:47 36.6 C 91 H 18 108/64 93 10/21/24 06:57 36.6 C 79 18 130/71 94 10/21/24 06:23 36.7 C 69 18 134/84 96 10/21/24 00:07 36.6 C 61 18 146/70 H 96 10/20/24 22:03 67 10/20/24 19:52 10/20/24 19:49 36.8 C 60 18 141/75 H 97 10/20/24 16:00 36.6 C 62 18 133/73 96 10/20/24 12:15 91 10/20/24 10:41 36.5 C 58 L 20 121/73 94 10/20/24 09:00 O2 Del Method O2 Flow Rate 10/21/24 07:47 Room Air 10/21/24 06:57 Nasal Cannula 10/21/24 06:23 Nasal Cannula 2 10/21/24 00:07 Room Air 10/20/24 22:03 10/20/24 19:52 Nasal Cannula 2 10/20/24 19:49 Nasal Cannula 2 10/20/24 16:00 Nasal Cannula 10/20/24 12:15 Room Air 10/20/24 10:41 Nasal Cannula 10/20/24 09:00 Nasal Cannula 2 Transfer of Care Handoff Completed per policy Notes Mental Status: alert / awake / arousable Patient Amnestic to Procedure: Yes Nausea / Vomiting: adequately controlled Pain: adequately controlled Airway Patency, RR, SpO2: stable & adequate BP & HR: stable & adequate Hydration State: stable & adequate Anesthetic Complications: no major complications apparent and Pt Satisfied with anesthetic care
[2024-10-21] MEDS: ADENOSINE IV SOLN 3 MG/ML 2 ML VIAL IV ONE ×2 (08:28→09:44)
[2024-10-21] MEDS: ADENOSINE IV SOLN 3 MG/ML 2 ML VIAL IV STA (08:30)
--- NOTE | 2024-10-21 08:41 | Cardioversion ---
Date of Service October 21, 2024 PG Electrical Cardioversion Rp Electrical Cardioversion Report Procedure performed: Cardioversion Indication: The patient is a 69-year-old gentleman with a history of persistent atrial flutter Staff dry cleaner hand: Vasquez Wilcox MD Procedure in detail: The patient was informed of the risks benefits and alternatives to the intended procedure. He understood such which proceed. He was taken to the cardiac catheterization suite holding area. A general anesthetic was administered by the Anesthesiology Service. Once appropriately anesthetized, the patient was cardioverted using 50 joules delivered in a biphasic fashion. This returned the patient to sinus rhythm. The patient tolerated procedure well, there were no immediate complications. Patient was neurologically intact subsequent to the procedure. Impression: Successful cardioversion from atrial flutter to normal sinus rhythm Coding Level of Care Code 66789 CARDIOVERSION, ELECTIVE Additional Codes Electrical Cardioversion Report ([id number])
[2024-10-21 09:34] VITALS: RESP 20
[2024-10-21] MEDS: PROPOFOL IV EMULSION 10 MG/ML 20 ML VIAL IV ONE (09:44)
[2024-10-21] MEDS: LIDOCAINE 2% 2 ML VIAL/AMP(20MG/ML) INFIL ONE (09:44)
[2024-10-21] MEDS: BENZOCAINE/TETRACAIN/BUTAM 50 APPLN/5 GM CAN EXT ONE (09:44)
[2024-10-21] MEDS: IBUTILIDE FUMARATE 0.1 MG/ML 10 ML VIAL IV ONE (09:45)
[2024-10-21] MEDS: MAGNESIUM SULFATE / D5W 1 GM/100 ML BAG IV ONE (09:45)
[2024-10-21 11:06] VITALS: PULSE 84; TEMP 97.3; O2SAT 93
--- NOTE | 2024-10-21 12:28 | Electrocardiogram Report ---
Test Reason : Blood Pressure : */* mmHG Vent. Rate : 69 BPM Atrial Rate : 258 BPM P-R Int : * ms QRS Dur : 124 ms QT Int : 438 ms P-R-T Axes : 74 35 51 degrees QTcB Int : 469 ms Atrial flutter with variable A-V block Non-specific intra-ventricular conduction delay Abnormal ECG When compared with ECG of 17-Oct-2024 22:07, Vent. rate has increased by 26 bpm QRS axis Shifted right QT has lengthened Confirmed by Dominguez Hollins ([id number]) on 10/21/2024 12:28:08 PM Referred By: Sourav Healy Confirmed By: Dominguez Hollins
--- NOTE | 2024-10-21 12:52 | XCELERA ---
[id number] \\[id number].pdf
--- NOTE | 2024-10-21 13:55 | Cardiology Progress Note ---
Date of Service October 21, 2024 Assessment & Plan (1) Atrial flutter: (2) Dyspnea on exertion: (3) Pulmonary hypertension: (4) Obstructive sleep apnea: (5) Hypertension: Plan ASSESSMENT/PLAN: 1. Atrial flutter: Successful cardioversion to sinus rhythm today. Some subjective improvement in symptoms. At this point would seem reasonable to continue him on systemic anticoagulation with Eliquis and we will plan for an outpatient ablation. 2. Pulmonary hypertension: Etiology possibly due to untreated sleep apnea and obesity. There also may be an element of hypervolemia (lower extremity edema, elevated BNP, dyspnea on exertion, atrial flutter). 3. Dyspnea on exertion: He seems be feeling better. Hopefully with return to sinus rhythm and the diuresis he affected over the past 2 days he will feel better when he is ambulatory. If he is ambulatory and feeling well I would feel comfortable with discharge and outpatient follow-up. 4. Sleep apnea: Does not wear CPAP as he sleeps prone. Recommend treatment if able. Likely the etiology behind his echocardiogram findings and atrial flutter. 5. Conduction disease: Seems to have a significant first-degree AV block, left anterior fascicular and right bundle branch block. No current symptoms suggestive of more severe disease. No symptoms suggestive of symptomatic bradycardia. However, we did discuss the nature of his conduction disease and symptoms of which to be aware. Admission and Anticipated Discharge Date Admission Date: October 17, 2024 Subjective This afternoon the patient clinically feeling better. He states that he had less breathing difficulty when getting up to the commode. 1 episode of mild dizziness when coughing forcefully. Review of Systems Review of Systems: Per HPI Physical Exam Physical Exam: The patient is alert and oriented. Mood and affect appeared normal. He answered all questions appropriately. HEENT: Pupils are equal and reactive to light and accommodation. Extraocular movements are intact. The sclerae are anicteric. Neuro: Cranial nerves intact Lungs: Some crackles in the bases bilaterally. No expiratory wheezing. Normal respiratory effort. Cardiac: Heart demonstrates a regular rhythm. Normal S1 and S2. No murmurs on examination. Pulses: The patient has palpable radial pulses bilaterally that are equal in intensity Extremities: There was no evidence of hypoperfusion. There is no cyanosis or clubbing. Skin: I did not appreciate any rashes on examination today. Results & Data Vital Signs (Past 12 Hours) Vital Signs Temp Pulse Pulse Resp BP BP Pulse Ox 10/21/24 11:03 36.3 C L 84 20 120/64 93 10/21/24 09:34 36.7 C 87 20 98/67 L 94 10/21/24 09:00 92 H 10/21/24 09:00 10/21/24 09:00 36.6 C 85 19 125/73 97 10/21/24 08:30 85 18 121/65 95 10/21/24 08:15 90 18 108/62 95 10/21/24 08:00 86 18 115/67 95 10/21/24 07:47 36.6 C 91 H 18 108/64 93 10/21/24 06:57 36.6 C 79 18 130/71 94 10/21/24 06:23 36.7 C 69 18 134/84 96 O2 Del Method O2 Flow Rate 10/21/24 11:03 Room Air 10/21/24 09:34 Room Air 10/21/24 09:00 10/21/24 09:00 Room Air 10/21/24 09:00 Room Air 10/21/24 08:30 Room Air 10/21/24 08:15 Room Air 10/21/24 08:00 Room Air 10/21/24 07:47 Room Air 10/21/24 06:57 Nasal Cannula 10/21/24 06:23 Nasal Cannula 2 Laboratory Results Abnormal Lab Results 10/20/24 10/20/24 10/21/24 16:20 20:38 06:20 POC Glucose 132 H 154 H 120 H 10/21/24 10/21/24 08:58 11:08 POC Glucose 113 H 174 H PG Care Time/CCT Total # of Minutes Spent Total Time Spent with Patient: Total time spent is greater than 50% in coordination of care (as documented) at patient's floor/unit and/or counseling patient: Coding Level of Care Code 83192 SUB INP/OBS CARE 2/35MIN Diagnoses Atrial flutter I48.92 Dyspnea on exertion R06.09 Pulmonary hypertension I27.20 Obstructive sleep apnea G47.33 Hypertension I10
[2024-10-21 14:22] VITALS: BP 130/71
--- NOTE | 2024-10-21 14:29 | Discharge Summary ---
Discharge Summary Date of Service October 21, 2024 Principal Dx & Hospital Course #1 = Principal Diagnosis (1) Atrial flutter: (2) Hypertension: (3) Dyslipidemia: (4) Poorly controlled type 2 diabetes mellitus: Plan 69 years old male with PMH of FULL CODE @ home, morbid obesity with BMI 43.4 (height 188.0 cm; weight 153.3 kg), NEVAEH, non-compliant with nocturnal CPAP as patient reports that "I sleep on my belly, so I cannot wear the CPAP mask on my face when I am lying down on my belly, you know what I mean?", hyperlipidemia on rosuvastatin 20mg PO daily, HTN on olmesartan 20mg PO qhs, and insulin-dependent DM2 with HbA1c 7.7% (06/03/2024, 3:27pm), on metformin 1000mg PO bid and 70/30 insulin 30 units SQ bid with meals, who presented to [facility] ER on 10/17/2024 with several days of shortness of breath, both at rest and with exertion, as well as some orthopnea. Patient found to be in new onset atrial flutter 3-4: 1 conduction with episodes of bradycardia with rates in the 30s to 40s. CTA chest (10/17/2024, 8:36pm) revealed mosaic pattern of attenuation representing possible mild pulmonary edema as well as trace right pleural effusion. Patient was subsequently admitted to the inpatient hospitalist service @ [facility] on 10/17/2024 with the following diagnosis: 1. New onset, atrial flutter with variable AV block (e.g., 3:1, 4:1 AV conduction block) with intermittent bradycardia. The following medical issues were addressed while the patient remained in [facility] from 10/17/2024 through 10/21/2024: 1. New onset, atrial flutter with variable AV block (e.g., 3:1, 4:1 AV conduction block) with intermittent bradycardia. Ventricular rate now consistently greater than 60 bpm on 10/18/2024 pm, and also on 10/19/2024 am/pm, and on 10/20/2024 am. Patient did have episodes of rates in the 30s to 40s on 10/17/2024. Blood pressure has been acceptable. Suspect some degree of failure with volume overload in setting of new onset atrial flutter given patient's shortness of breath, pulmonary edema noted on imaging as well as elevated BNP. Unknown symptom duration. reports that she noted some shortness of breath ongoing for at least the last 3 days. TTE (10/18/2024, 11:07 am) reveals: a. Normal LVEF 55-60%. No regional LV wall motion abnormalities. Moderate concentric LVH. b. RV dilated with normal RV systolic function. c. Mild bi-atrial dilation. d. Mild mitral regurgitation. e. Borderline dilated aortic root for age-adjusted BSA 2.7 meters squared. f. Moderate pulmonary HTN with RVSP 55 mm Hg. g. Atrial flutter with HR 50s to 60s bpm. h. Compared to prior 04/11/2023 TTE, atrial flutter has replaced sinus. RVSP i s now able to be estimated and noted to be moderately elevated. (as per CARDS Dr. Serafin Byrd). D/C'd heparin drip and started eliquis 5mg PO bid (10/18/2024, 9:00pm) with successful DHARMESH-directed cardioversion on Monday (10/21/2024, 8:41am) with EPS Dr. Vasquez Wilcox. Patient will follow up with EPS Dr. Vasquez Wilcox within 5-7 days of hospital discharge to undergo outpatient evaluation for outpatient atrial ablation. In the interim, given BOK2LV3-BNPn score = 4 points (e.g, 1 point for age 65-74 years, 1 point for CHF (diastolic), 1 point for HTN, and 1 point for DM), patient stands to benefit from continued, long-term, active anticoagulation utilizing eliquis 5mg PO bid while in [facility] Tele bed #E203-1 and also on hospital discharge back to his home in [place], [place] on 10/21/2024. To this end, patient's [facility], store #[id number] ([address] [place] [id number]) received an electronic prescription for eliquis 5mg PO bid, #60 tablets, no refills, on 10/21/2024, prior to hospital discharge back to his home in [place] on 10/21/2024. 2. Acute type II NSTEMI. cf., troponin-I #1 24.5 pg/mL (10/17/2024, 7:35 pm). cf., troponin-I #2 26.0 pg/mL (10/17/2024, 9:16 pm). cf., troponin-I #3 20.9 pg/mL (10/18/2024, 9:32 am). cf., TTE (10/18/2024, 11:07 am): No regional LV wall motion abnormalities. Etiology of nominal troponin-I elevations is most probably due to demand ischemia due to (1) new onset atrial flutter, rate-controlled; (2) chronic diastolic CHF with preserved LVEF 55-60% and grade I LV diastolic dysfunction (as noted on 06/18/2019, 11:47 am TTE, CARDS Dr. Serafin Byrd). 3. Chronic diastolic CHF with preserved LVEF 55-60% and grade I LV diastolic dysfunction (as noted on 06/18/2019, 11:47 am TTE, CARDS Dr. Serafin Byrd). Not acute exacerbation of chronic diastolic CHF as patient reports no weight gain, paroxysmal nocturnal dyspnea, orthopnea, or platypnea on admission date 10/17/2024. Hence, patient received medical management of chronic diastolic CHF by adhering to a 2 gram Na diet, daily weights, strict I/O, losartan 50mg PO qhs, and lasix 20mg IV x 1 dose (10/18/2024, 4:47 pm). Patient will continue to receive medical management of chronic diastolic CHF by adhering to a 2 gram na diet, daily weights, strict I/O, and resumption of his home-scheduled olmesartan 20mg PO qhs on hospital discharge back to his home in [place] on 10/21/2024. Of note, patient will not continue with hospital- started losartan 50mg PO qhs on hospital discharge bacck to his home in [place] on 10/21/2024. Of final note, no fluid restriction was warranted while patient remained in [facility] from admission 10/17/2024 through discharge date 10/21/2024. Other secondary medical issues include: #Hypertensionwell-controlled with discharge BP 130/71 (10/21/2024, 2:20pm). Patient received hospital-started losartan 50mg PO qhs while in [facility]. Patient will resume his home-scheduled olmesartan 20 mg PO qhs on hospital discharge back to his home in [place] on 10/21/2024. Continue telemetry #Insulin-dependent DM2 with HbA1c 7.7% (06/03/2024, 3:27pm), on metformin 1000mg PO bid and 70/30 insulin 30 units SQ bid with meals at home. cf., admission glucose 146 mg/dL (10/17/2024, 7:35pm). cf., discharge glucose 113 mg/dL (10/21/2024, 8:58am). Patient did not receive his home-scheduled metformin 1000mg PO bid or his 70/30 insulin 30 units SQ bid while in [facility]. Patient received, instead, hospital-started Lantus 20 units twice daily with lispro insulin sliding scale qac + qhs while in [facility]. Patient will resume his home-scheduled metformin 1000mg PO bid and his 70/30 insulin 30 units SQ bid on hospital discharge back to his home in [place] on 10/21/2024. #Hyperlipidemia. Patient received his home-scheduled rosuvastatin 20mg PO daily while in [facility]. Patient will continue his home-scheduled rosuvastatin 20mg PO daily on hospital discharge back to his home in [place] on 10/21/2024. Admission HPI Per Admitting Provider Arnoldo TMaribel Woodson is a 69-year-old male with history of diabetes, hypertension, hyperlipidemia, sleep apnea presently not on CPAP presenting with 2 to 3 days of shortness of breath. Patient reports that the shortness of breath occurs at rest as well as with exertion. He also has been experiencing some orthopnea. This afternoon he went to a store in [place] and when he walked back to his car he was unable to catch his breath. He did sustain a ground-level fall today with no injury, no head trauma, no loss of consciousness. This prompted him to contact his PCP who instructed him to come to the ER. Patient's states that patient has had worsening fatigue and increased sleepiness over the last 2 weeks. She also notes poor memory. Patient endorses some mild chest tightness but no overt chest pain, no palpitations, no dizziness or syncope. No nausea/vomiting/diarrhea. No edema, ascites. Weight has been stable Patient was experiencing shortness of breath in the past. He had a cardiac workup that was unremarkable including a normal dobutamine stress echo on April 11, 2023. In the ER patient found to be in new atrial flutter. He had variable rates dropping into the 30s and 40s Discharge Exam Constitutional General: Comfortable, coherent, cooperative. Wide awake and alert. Not confused, lethargic, or obtunded. Patient speaks in complete, fluent, and articulate sentences without pause, cough, or wheeze, with O2 sat 93% on room air (10/21/2024, 2:20pm). HEENT: Normocephalic, atraumatic. Extra-ocular muscles intact. Pupils equally round and reactive to light. No nystagmus, gaze paresis, anisocoria, miosis, mydriasis, hyphema, scleral injection, conjunctivitis, or pterygium. No otorrhea or rhinorrhea. No pharyngeal erythema, edema, or discharge. Neck: Supple, no stridor, bruit, goiter, or hepato-jugular reflux. Jugular venous pressure is estimated to be 3 cm above the sternal angle of Fran, which in turn, is 5 cm above the level of the right atrium; with jugular venous pressure estimated to be 8 cm, then, there is no jugular venous distention on 10/20/2024. Lymphatics: No cervical (anterior/posterior), supraclavicular, infraclavicular, axillary, epitrochlear, or inguinal adenopathy. Chest: Symmetric rise and fall with respirations. Non-tender to palpation. Lungs: Clear to auscultation and percussion. Heart: Regular rate and rhythm after undergoing DHARMESH-directed cardioversion (10/21/2024, 8:41am) with EPS Dr. Vasquez Wilcox. S1 and S2 noted. No S3 or S4 summation gallop. No tripartite friction rub. Grade II/ early systolic murmur @ LLSB without radiation to the carotids, axilla, or back, and which remains invariant in regards to the respiratory cycle. Abdomen: Soft, non-tender, non-distended. No rebound, guarding, Huston's sign, or organomegaly. Bowel sounds auscultated in all 4 quadrants. Extremities: No clubbing, cyanosis, or edema. Skin: No decubitus ulcer, exanthem, or enanthem. Genito-urinary: No urethral discharge. No chu catheter. Neurology: Alert and oriented in regards to person, place, time, and situ ation. DTR+ and symmetric. 5/5 motor strength in all 4 extremities, both proximally and distally. No pronator drift. No facial droop. No dysarthria. Psychiatry: No homicidal ideation. No suicidal ideation. No flat affect; smiles appropriately Discharge Plan Discharge Items Patient Disposition: Home - Self-Care Reason For Visit: SOB Discharge Diagnosis: New onset atrial flutter Condition on Discharge: Fair Activity: Resume your previous activity Lifting: Gradually increase as tolerated Bathing: No limitations Sexual Activity: When tolerated Exercise/Sports: Gradually increase as tolerated Driving/Machine Use: No limitations Weightbearing: Full weightbearing Non-emergency contact: Primary Care Provider and Certified Ophthalmic Technologist Call non-emergency contact if: you have any medication questions Follow-up/Referrals: Vasquez Wilcox MD [Physician] - (See EPS Dr. Vasquez Wilcox within 5-7 days to evaluate patient for outpatient atrial ablation to treat new onset atrial flutter.) Sourav Healy DO [Primary Care Provider] - Diet: Heart Healthy Addtl Attending Provider Instructions: See your PCP Dr. Sourav Healy within 5-7 days for routine follow up visit. See your EPS Dr. Vasquez Wilcox within 5-7 days to evaluate for outpatient atrial ablation. Pending Studies at Discharge: No Stand-Alone Forms: [facility], Smoking Cessation Medications and DC Order Prescriptions: New Eliquis 5 mg Tablet 5 mg PO BID Qty: 60 0RF Continued (DME) CPAP Machine Misc See Rx Instructions .MEDSUPPLY Qty: 1 0RF Rx Instructions: AUTO CPAP 6-16 with tubing & supplies - COPPER FLOTATION OPERATOR (DME) blood-glucose meter [True Metrix Glucose Meter] Misc See Rx Instructions .Route Qty: 1 0RF Rx Instructions: As directed (DME) True Metrix Level 1 Solution See Rx Instructions .Route Qty: 1 3RF Rx Instructions: As directed (DME) insulin syr/ndl U100 half rolly 0.5 mL 30 gauge x 5/16" syringe See Rx Instructions .Route Qty: 200 3RF Rx Instructions: Use to give self insulin BID (DME) True Metrix Glucose Test Strip Strip See Rx Instructions .ROUTE .COMPLEX Qty: 200 3RF Dose Instruction: TEST BLOOD SUGAR TWICE DAILY Rx Instructions: TEST BLOOD SUGAR TWICE DAILY (DME) lancets [Ultra Thin Lancets] 33 gauge misc See Rx Instructions .Route Qty: 200 3RF Rx Instructions: Test blood sugars twice daily olmesartan 20 mg tablet See Rx Instructions .ROUTE .COMPLEX Qty: 90 3RF Dose Instruction: TAKE 1 TABLET AT BEDTIME Rx Instructions: TAKE 1 TABLET AT BEDTIME metformin 500 mg tablet See Rx Instructions .ROUTE .COMPLEX Qty: 360 3RF Dose Instruction: TAKE 2 TABLETS TWICE A DAY Rx Instructions: TAKE 2 TABLETS TWICE A DAY rosuvastatin 20 mg tablet 20 mg PO DAILY Qty: 90 3RF Novolin 70/30 U-100 Insulin 100 unit/mL (70-30) suspension 30 unit subcut BID aspirin 81 mg Tablet,Delayed Release (Dr/Ec) 81 mg PO DAILY magnesium 250 mg Tablet 250 mg PO DAILY PreserVision AREDS-2 250-90-40-1 mg Capsule 1 cap PO BID Discharge Orders: Discharge Order (Routine); Ordered 10/21/24 Ordered By: Dickson Boss Discharge Order- CHF (Routine); Ordered 10/21/24 Ordered By: Dickson Boss Admission Data Admit Date/Time: 10/17/24 23:04 Attending Provider: Dickson Boss Admit Provider: Liberty Antunez Primary Care Provider: Sourav Healy Other Providers: Serafin Byrd; Simon Rodriguez Hospital Stay Data Consultations 10/18/24 00:58 Consult Cardiology Routine 10/20/24 09:12 Consult Anesthesiology Routine Procedures Performed Operation Date: 10/21/24 07:15 Actual Procedures p Cardioversion Slot Floor Attendant w/Anesthesia - Vasquez Wilcox MD s Transesophageal Echo w/Anesthesia - Vasquez Wilcox MD s Echo Color Flow - Vasquez Wilcox MD s Echo Doppler Complete - Vasquez Wilcox MD Diagnostic Imagining Performed 10/17/24 20:36 CT for pulmonary embolism PE [CT angio chest PE protocol] Stat Pending Results Patient Have Any Pending Studies at Discharge: No Discharge Instructions Given to Patient (Per Discharging Provider) See your PCP Dr. Sourav Healy within 5-7 days for routine follow up visit. See your EPS Dr. Vasquez Wilcox within 5-7 days to evaluate for outpatient atrial ablation. Total Time Total Time Spent Total Time Spent (In Minutes): 35 minutes. Of this time period, 19 minutes were spent in coordinating patient's discharge. Coding Level of Care Code 18509 INP/OBS DISCH >30 MIN Diagnoses Atrial flutter I48.92 Hypertension I10 Dyslipidemia E78.5 Poorly controlled type 2 diabetes mellitus E11.65
--- NOTE | 2024-10-21 18:37 | Electrocardiogram Report ---
Test Reason : Blood Pressure : */* mmHG Vent. Rate : 93 BPM Atrial Rate : 93 BPM P-R Int : 258 ms QRS Dur : 146 ms QT Int : 464 ms P-R-T Axes : * -84 26 degrees QTcB Int : 576 ms Sinus rhythm with 1st degree A-V block Left anterior fascicular block Right bundle branch block Abnormal ECG When compared with ECG of 20-Oct-2024 08:48, (unconfirmed) Sinus rhythm has replaced Atrial flutter Right bundle branch block has replaced Non-specific intra-ventricular conduction delay Confirmed by Vasquez Wilcox ([id number]) on 10/21/2024 6:36:32 PM Referred By: Sourav Healy Confirmed By: Vasquez Wilcox
--- NOTE | 2024-10-23 11:24 | Coding Query ---
CODING QUERY FOR UNCONTROLLED DIABETES To promote full compliance with coding requirements relating to patient care, provider participation is requested in all cases of pharmacy intake coordinator uncertainty. Please assist us with the question(s) below: Coding Question: The term uncontrolled Diabetes was used throughout the record. To be able to code this diagnosis properly, could you please clarify the diagnosis below: ( ) Uncontrolled Diabetes meaning hypoglycemia ( ) Uncontrolled Diabetes meaning hyperglycemia ( x ) Other (please specify) __A1c 7.7% Principal Diagnosis: "that condition established after study, to be chiefly responsible for occasioning the admission of the patient to the hospital for care." Co-Existing Principal Diagnosis: "when two or more diagnoses equally meet the criteria for principal diagnosis as determined by the circumstances of admission, diagnostic work up, and/or therapy provided, and the Alphabetic Index, Tabular List, or another coding guideline does not provide sequencing direction, any one of the diagnoses may be sequenced first." "When the physician has documented what appears to be a current diagnosis in the body of the record, but has not included the diagnosis in the final diagnostic statement, the physician should be asked whether the diagnosis should be added." (Source Coding Clinic 2 QTR90. p3-4) SAMUEL
== END 2024-10-21 15:16 | disposition home or self-care (01) | DRG 281 ==
LOC: ED 19:07 → SUATTDRO 23:04 → 2E 23:04